=== PATIENT | male | born 1965 ===

== ENCOUNTER 2017-02-02 03:19 | Emergency (ER) | payer MEDICAID, OTHER ==
[2017-02-02 03:19] VITALS: BMI 24.4
[2017-02-02 03:35] VITALS: RESP 16; O2SAT 95
--- NOTE | 2017-02-02 04:20 | C.PDOC ---
History Of Present Illness 51 y/o male with hx alcohol abuse c/o intermittent episodes of bladder and bowel incontinence over last 4-5 months. pt unable to give detailed or specific information. pt de nies back pain, no hx back injury. no difficulty walking. pt denies saddle anesthesia. no fever or chills. pt is undomiciled and reports drinking alcohol last night. Time Seen by Provider: 02/02/17 03:47 Chief Complaint (Nursing): Medical Clearance Past Medical History Reviewed: Historical Data, Nursing Documentation, Vital Signs Vital Signs: Last Vital Signs Temp 97.6 F 02/02/17 03:29 Pulse 90 02/02/17 03:29 Resp 16 02/02/17 03:29 BP 113/75 02/02/17 03:29 Pulse Ox 95 02/02/17 04:46 - Medical History PMH: Arthritis, Graves' Disease, Schizophrenia, Chronic Pain (b/l leg) Denies: Diabetes, Hepatitis, HIV, HTN, Chronic Kidney Disease, Seizures, Sexually Transmitted Disease Surgical History: No Surg Hx - [facility] Procedures DETOXIFICATION SERVICES FOR SUBSTANCE ABUSE TREATMENT (05/20/16) INTRODUCTION OF SERUM/TOX/VACCINE INTO MUSCLE, PERC APPROACH (01/10/17) Family History: States: Unknown Family Hx - Social History Hx Tobacco Use: Yes Hx Alcohol Use: Yes Hx Substance Use: Yes (heroine 15 years ago) - Immunization History Hx Tetanus Toxoid Vaccination: No Hx Influenza Vaccination: No Hx Pneumococcal Vaccination: No Review Of Systems Gastrointestinal: Positive for: Diarrhea. Negative for: Nausea, Vomiting, Abdominal Pain Genitourinary: Positive for: Incontinence (occasional. ). Negative for: Dysuria, Frequency, Hematuria Neurological: Negative for: Weakness, Numbness Physical Exam - Physical Exam Appears: Non-toxic, No Acute Distress Skin: Normal Color, Warm, Dry Head: Atraumatic, Normacephalic Neck: Normal ROM Chest: Symmetrical, No Deformity, No Tenderness Cardiovascular: Rhythm Regular, No Murmur Gastrointestinal/Abdominal: Bowel Sounds, Soft, No Tenderness Back: Normal Inspection, No CVA Tenderness, No Vertebral Tenderness Extremity: No Tenderness, No Pedal Edema, No Calf Tenderness Neurological/Psych: Oriented x3, Normal Speech, Normal Cognition, Normal Motor, Normal Sensation ED Course And Treatment O2 Sat by Pulse Oximetry: 95 Medical Decision Making Medical Decision Making: pt with cc of occasional urinary and stool incontinence. pt ambulating around ED in no acute distress, with steady gait and clear speech. pt is requesting sandwich and something to drink. 6 am pt kept asking nurse for clean pants; we were unable to provide these to patient so he left prior to receiving his discharge papers. pt walking with steady gait and has clear speech. Disposition Counseled Patient/Family Regarding: Diagnosis, Need For Followup - Disposition Disposition: HOME/ ROUTINE Disposition Time: 06:03 Condition: STABLE Instructions: Acute Diarrhea (ED) - Clinical Impression Clinical Impression: Diarrhea
[2017-02-02 04:44] LABS: RBC URINE 3 /hpf (0-3); URINE BILIRUBIN NEGATIVE (NEGATIVE); URINE BLOOD NEGATIVE (NEGATIVE); URINE COLOR Yellow (YELLOW); URINE GLUCOSE (UA) NORMAL (Normal); URINE KETONE NEGATIVE (NEGATIVE); URINE LEUKOCYTE ESTERASE NEG Leu/uL (Negative); URINE PROTEIN NEGATIVE (NEGATIVE); WBC URINE 2 /hpf (0-5)
[2017-02-02 06:19] VITALS: BP 110/70; PULSE 84; TEMP 97.9
== END 2017-02-02 06:19 | disposition home or self-care (01) ==
LOC: C.ER 03:19
DX: R19.7 Diarrhea, unspecified (principal)

== ENCOUNTER 2017-02-16 08:59 | Inpatient (IN) | payer MEDICAID, OTHER ==
[2017-02-16 08:59] VITALS: BMI 24.4
--- NOTE | 2017-02-16 09:26 | C.PDOC ---
History Of Present Illness 51 y/o male with history of alcoholism for 16+ years, currently undomiciled, presents requesting detox. Patient reports last drink was yesterday, noting he usually drinks vodka. Denies drug use. Also c/o chronic bilateral leg pain. Denies headache, nausea, vomiting, or tremors. No trauma or injury. Time Seen by Provider: 02/16/17 09:11 Chief Complaint (Nursing): Substance Abuse History Per: Patient History/Exam Limitations: no limitations Onset/Duration Of Symptoms: Persistent Current Symptoms Are (Timing): Still Present Modifying Factor(s): Alcohol Associated Symptoms: denies: Depression, Suicidal Thoughts, Suicidal Plan Recent travel outside of the [place]: No Past Medical History Reviewed: Historical Data, Nursing Documentation, Vital Signs Vital Signs: Last Vital Signs Temp 99.3 F 02/16/17 09:12 Pulse 112 H 02/16/17 09:12 Resp 20 02/16/17 09:12 BP 108/72 02/16/17 09:12 Pulse Ox 95 02/16/17 10:58 - Medical History PMH: Arthritis, Graves' Disease, Schizophrenia, Chronic Pain (b/l leg) - [facility] Procedures DETOXIFICATION SERVICES FOR SUBSTANCE ABUSE TREATMENT (05/20/16) INTRODUCTION OF SERUM/TOX/VACCINE INTO MUSCLE, PERC APPROACH (01/10/17) Family History: States: Unknown Family Hx - Social History Hx Tobacco Use: Yes Hx Alcohol Use: Yes Hx Substance Use: Yes (heroine 15 years ago) - Immunization History Hx Tetanus Toxoid Vaccination: No Hx Influenza Vaccination: No Hx Pneumococcal Vaccination: No Review Of Systems Except As Marked, All Systems Reviewed And Found Negative. Constitutional: Negative for: Fever, Chills Cardiovascular: Negative for: Chest Pain, Palpitations Respiratory: Negative for: Shortness of Breath Gastrointestinal: Negative for: Nausea, Vomiting Musculoskeletal: Positive for: Leg Pain (bilateral, chronic) Skin: Negative for: Rash Neurological: Negative for: Weakness, Numbness Physical Exam - Physical Exam Appears: Non-toxic, Unkempt, Other (malodorous) Skin: Warm, Dry Head: Atraumatic, Normacephalic Eye(s): bilateral: Normal Inspection Ear(s): Bilateral: Normal Nose: Normal Oral Mucosa: Moist Neck: Normal ROM, Supple Chest: Symmetrical Cardiovascular: Rhythm Regular Respiratory: Normal Breath Sounds, No Rales, No Rhonchi, No Wheezing Gastrointestinal/Abdominal: Soft, No Tenderness Back: Normal Inspection Extremity: Normal ROM, Capillary Refill (< 2 sec. ), Other (chronic venous stasis changes to BL lower extremities with some edema) Neurological/Psych: Oriented x3, Normal Speech, Normal Cognition ED Course And Treatment - Laboratory Results Result Diagrams: 02/16/17 10:19 02/16/17 10:19 O2 Sat by Pulse Oximetry: 95 (ra) Pulse Ox Interpretation: Normal Medical Decision Making Medical Decision Making: Plan: * UDS, UA * Crisis eval * Reassess Progress: Disposition Counseled Patient/Family Regarding: Studies Performed, Diagnosis - Disposition Disposition: HOSPITALIZED Disposition Time: 11:49 Condition: GUARDED - POA Present On Arrival: None - Clinical Impression Clinical Impression: Alcohol abuse - Scribe Statement The provider has reviewed the documentation as recorded by the [employer] Provider Scribe Attestation: All medical record entries made by the Scribe were at my direction and personally dictated by me. I have reviewed the chart and agree that the record accurately reflects my personal performance of the history, physical exam, medical decision making, and the department course for this patient. I have also personally directed, reviewed, and agree with the discharge instructions and disposition. Decision To Admit - Pt Status Changed To: Hospital Disposition Of: Inpatient - Admit Certification Admit to Inpatient:: After my assessment, the patient will require hospitalization for at least two midnights. This is because of the severity of symptoms shown, intensity of services needed, and/or the medical risk in this patient being treated as an outpatient. - InPatient: Physician Admission Certification: I certify that this patient requires 2 or more midnights of care for the following reason:: needs inpatient detox - . Bed Request Type: Detox Patient Diagnosis: Alcohol abuse
[2017-02-16 10:22] LABS: MONO # 0.7 K/uL (0.0-0.8); WHITE BLOOD COUNT 5.9 K/uL (4.8-10.8)
[2017-02-16 10:27] LABS: BASO # 0.1 K/uL (0.0-0.2); BASO % 0.9 % (0.0-2.0); EOS % 0.6 % (0.0-4.0); HEMATOCRIT 40.3 % (35.0-51.0); LYMPH # 0.8 K/uL (1.0-4.3); LYMPH % 12.8 % (20.0-40.0); MEAN CORPUSCULAR HEMOGLOBIN 32.5 pg (27.0-31.0); MEAN CORPUSCULAR HGB CONC 33.8 g/dL (33.0-37.0); MONO % 12.2 % (0.0-10.0)
[2017-02-16 10:31] LABS: MEAN CELL VOLUME 96.4 fL (80.0-94.0)
[2017-02-16 10:39] LABS: CHLORIDE 106 mmol/L (98-107); SODIUM 144 mmol/L (132-148)
[2017-02-16 10:41] LABS: ALB/GLOB RATIO 0.7 (1.0-2.1); AST/SGOT 95 U/L (17-59); BILIRUBIN,TOTAL 2.6 mg/dL (0.2-1.3); CARBON DIOXIDE 26 mmol/L (22-30); GFR AFRICAN-AMERICAN > 60; TOTAL PROTEIN 7.1 g/dL (6.3-8.3)
[2017-02-16 10:42] LABS: ALCOHOL SERUM 124 mg/dl (0-10); ALKALINE PHOSPHATASE 126 U/L (38-126); ALT/SGPT 31 U/L (21-72); BLOOD UREA NITROGEN 8 mg/dL (9-20); CALCIUM 8.1 mg/dl (8.6-10.4); GLUCOSE,RANDOM 92 mg/dL (75-110)
[2017-02-16 11:05] LABS: RBC URINE 1 /hpf (0-3); URINE BILIRUBIN 1+ (NEGATIVE); URINE BLOOD NEGATIVE (NEGATIVE); URINE COLOR Amber (YELLOW); URINE GLUCOSE (UA) NORMAL (Normal); URINE KETONE NEGATIVE (NEGATIVE); URINE LEUKOCYTE ESTERASE NEG Leu/uL (Negative); URINE PROTEIN NEGATIVE (NEGATIVE); WBC URINE 2 /hpf (0-5)
[2017-02-16] MEDS ORDERED: Potassium Chloride 20 mEq ER Tab PO ONE (13:00)
--- NOTE | 2017-02-16 13:00 | PCM.PSYCH ---
Initial Psychiatric Evaluation - Initial Psychiatric Evaluation Type of Admission: Voluntary Legal Status: Capacity Chief Complaint (in patient's own words): "Alcohol" History of Present Illness and Precipitating Events: The patient is seen, chart reviewed and case discussed. This is a 51-year-old male, , has 9 children, homeless and unemployed. The patient is here for alcohol detox. He reports drinking up to 3 pints of vodka every day for the past 16 years, on and off. He had used heroin and cocaine in the past but stopped when he started alcohol. He smokes half pack per day cigarettes and denies all other drugs currently. This is his third detox and he was in [facility] twice in the past. His longest sobriety was 3 years while he was in [facility]. He did overall 20 years in [facility] for drug-related charges. Denies psychiatric problems. He has significant withdrawal symptoms. Medicated. Past psych history: He was depressed and had SI in the past but never attempted suicide and never hospitalized. Family psych history: Brother also had alcohol and heroine use. He is in [facility] now. Medical history: Denies Current Medications: Active Medications Generic Name Dose Route Start Last Admin Trade Name Freq PRN Reason Stop Dose Admin Chlordiazepoxide 0 mg 02/16/17 18:00 Librium PO 02/20/17 17:59 Q6 KAR[facility] Taper Chlordiazepoxide 25 mg 02/16/17 12:24 Librium PO Q4H PRN Alcohol Withdrawal Clonidine HCl 0.1 mg 02/16/17 12:24 Catapres PO Q4H PRN Symptoms of alcohol withdrawl Folic Acid 1 mg 02/16/17 12:30 Folic Acid PO DAILY KARINE Gabapentin 300 mg 02/16/17 14:00 Neurontin PO TID KARINE Hydroxyzine HCl 50 mg 02/16/17 12:22 Atarax PO Q6H PRN Anxiety Ibuprofen 600 mg 02/16/17 12:22 Motrin Tab PO Q6H PRN Pain, moderate (4-7) Multivitamins 1 tab 02/16/17 12:30 Hexavitamin PO DAILY [facility] Potassium Chloride 40 meq 02/16/17 13:00 K-Dur 20 Meq Er Tab PO 02/16/17 13:01 ONCE ONE Thiamine HCl 100 mg 02/16/17 12:30 Vitamin B1 Tab PO DAILY KARINE Trazodone HCl 100 mg 02/16/17 12:24 Desyrel PO HS PRN Insomnia Past Psychiatric History - Past Psychiatric History Previous Treatment History: None Pertinent Medical Hx (Current Medical&Sleep Prob, Allergies): Allergies Allergy/AdvReac Type Severity Reaction Status Date / Time No Known Allergies Allergy Verified 02/15/17 08:43 No Known Home Med 02/02/17 Review of Systems - Neurological Neurological: UNREMARKABLE - Psychiatric Psychiatric: Abnormal Sleep Pattern, Anxiety, Change in Appetite. absent: Depression, Hallucinations, Homicidal Ideation, Irritability, Suicidal Ideation Mental Status Examination - Personal Presentation Personal Presentation: Looks older than stated age - Affect Affect: Constricted - Motor Activity Motor Activity: Calm - Reliability in Providing Information Reliability in Providing Information: Good - Speech Speech: Organized - Mood Mood: Anxious - Formal Thought Process Formal Thought Process: No Impairment - Cognitive Functions Orientation: Person, Place Sensorium: Alert Attention/Concentration: Attentive Abstract Thinking: [place] Estimate of Intelligence: Below average Judgement: Intact, as evidence by: Insight regarding need for hospitalization Memory: Recent intact, as evidence by: Ability to recall events of the day, Remote intact, as evidenced by: Abilit to recall sig. life events - Risk Risk: Withdrawal, Diminished functioning - Strength & Assets Inventory Strength & Assets Inventory: Cooperative - Limitations Limitations: Living alone DSM 5 DX - DSM 5 DSM 5 Diagnosis: Alcohol withdrawal Alcohol use d/o - severe Tobacco use d/o - severe - Recommended/Plan of Treatment Treatment Recommendations and Plan of Treatment: Alcohol: -Librium detox -Gabapentin -As needed medications -Attend groups and activities -Support and psychoeducation -TX -Refer to rehabilitation Tobacco: -Refused patient -TX for abstinence 32 minutes Projected ELOS: 4 days Prognosis: good with treatment Discharge Plan and Discharge Criteria: no withdrawal symptoms rehabilitation - Smoking Cessation Smoking Cessation Initiated: Yes
[2017-02-16 13:19] VITALS: RESP 18
[2017-02-16] MEDS: Multiple Vitamins Tab PO SCH (13:49)
[2017-02-17] MEDS: Multiple Vitamins Tab PO SCH (11:13)
--- NOTE | 2017-02-17 12:26 | CP.PCM.CON ---
History of Present Illness - History of Present Illness History of Present Illness: 51 y/o male with history of alcoholism for 16+ years, and homelessness, seen at bedside with attending Dr. Chun for painful feet. Patient states that he has been on his feet walking around for months and his feet really hurt. Patient denies any other trauma to his feet. He appears in NAD. Patient denies n/f/v/c/d /sob. Review of Systems - Constitutional Constitutional: As Per HPI Past Patient History - Infectious Disease Hx of Infectious Diseases: None - Past Medical History & Family History Past Medical History?: No - Past Social History Smoking Status: Light Smoker < 10 Cigarettes Daily - CARDIAC Hx Hypertension: No - PULMONARY Hx Tuberculosis: No - NEUROLOGICAL Hx Seizures: No - HEENT Hx HEENT Problems: No - RENAL Hx Chronic Kidney Disease: No - ENDOCRINE/METABOLIC Hx Endocrine Disorders: Yes - HEMATOLOGICAL/ONCOLOGICAL Hx Human Immunodeficiency Virus (HIV): No - INTEGUMENTARY Hx Dermatological Problems: No - MUSCULOSKELETAL/RHEUMATOLOGICAL Hx Arthritis: Yes Hx Falls: No - GASTROINTESTINAL Hx Gastrointestinal Disorders: No - GENITOURINARY/GYNECOLOGICAL Hx Sexually Transmitted Disorders: No - PSYCHIATRIC Hx Schizophrenia: Yes Hx Substance Use: Yes (heroine 15 years ago) - SURGICAL HISTORY Hx Surgeries: No - ANESTHESIA Hx Anesthesia: No Hx Anesthesia Reactions: No Hx Malignant Hyperthermia: No Meds Allergies/Adverse Reactions: Allergies Allergy/AdvReac Type Severity Reaction Status Date / Time No Known Allergies Allergy Verified 02/15/17 08:43 - Medications Medications: Current Medications Chlordiazepoxide (Librium) 25 mg PO Q6 [facility] PRN Reason: Taper Stop: 02/20/17 17:59 Last Admin: 02/17/17 11:13 Dose: 25 mg Chlordiazepoxide (Librium) 25 mg PO Q4H PRN PRN Reason: Alcohol Withdrawal Last Admin: 02/16/17 13:53 Dose: 25 mg Clonidine HCl (Catapres) 0.1 mg PO Q4H PRN PRN Reason: Symptoms of alcohol withdrawl Folic Acid (Folic Acid) 1 mg PO DAILY [facility] Last Admin: 02/17/17 11:13 Dose: 1 mg Gabapentin (Neurontin) 300 mg PO TID [facility] Last Admin: 02/17/17 11:13 Dose: 300 mg Hydroxyzine HCl (Atarax) 50 mg PO Q6H PRN PRN Reason: Anxiety Ibuprofen (Motrin Tab) 600 mg PO Q6H PRN PRN Reason: Pain, moderate (4-7) Last Admin: 02/17/17 06:26 Dose: 600 mg Multivitamins (Hexavitamin) 1 tab PO DAILY [facility] Last Admin: 02/17/17 11:13 Dose: 1 tab Thiamine HCl (Vitamin B1 Tab) 100 mg PO DAILY [facility] Last Admin: 02/17/17 11:13 Dose: 100 mg Trazodone HCl (Desyrel) 100 mg PO HS PRN PRN Reason: Insomnia Physical Exam - Constitutional Appears: Well, Non-toxic, No Acute Distress - Extremities Exam Additional comments: Vasc: DP/PT 2/4 b/l, TG wnl, CFT < 3 sec to all digits neuro: grossly intact derm: no edema, no erythema, diffuse hyperkeratotic tissue plantarly b/l, nails are elongated and thickened x 10, no open lesions, no ascending cellulitis, no acute clinical signs of infection ortho: diminished ankle, STJ, 1st ray ROM - Neurological Exam Neurological exam: Alert, Oriented x3 Results - Vital Signs Recent Vital Signs: Last Vital Signs Temp 99.5 F 02/17/17 09:52 Pulse 67 02/17/17 09:52 Resp 18 02/17/17 09:52 BP 108/60 02/17/17 09:52 Pulse Ox 94 L 02/17/17 09:52 - Labs Result Diagrams: 02/16/17 10:19 02/16/17 10:19 Assessment & Plan - Assessment and Plan (Free Text) Assessment: 51 y/o male seen at bedside for painful feet and elongated toenails Plan: patient evaluated and seen at bedside with attending Dr. Chun labs and vitals reviewed Rx x rays of feet b/l will debride nails tomorrow recommend new and supportive shoe gear continue motrin prn pain podiatry will continue to monitor while patient remains in house
--- NOTE | 2017-02-17 14:23 | RAD ---
PROCEDURE: Bilateral Feet Radiographs. HISTORY: painful foot COMPARISON: None available FINDINGS: BONES: Right Foot: No acute displaced fracture. Left Foot: No acute displaced fracture. JOINTS: Right Foot: No dislocation. Left Foot: No dislocation. SOFT TISSUES: Right Foot: Unremarkable. No evidence of radiopaque foreign body. Left Foot: Unremarkable. No evidence of radiopaque foreign body. OTHER FINDINGS: None. IMPRESSION: No acute findings.
[2017-02-18] MEDS: Multiple Vitamins Tab PO SCH (10:58)
--- NOTE | 2017-02-18 12:20 | CP.PCM.PN ---
Subjective - Date & Time of Evaluation Date of Evaluation: 02/18/17 Time of Evaluation: 12:17 - Subjective Subjective: 51 y/o male seen at bedside for painful feet. Patient states that he has been on his feet walking around for months and his feet really hurt. Patient denies any other trauma to his feet. He appears in NAD. He denies any acute events overnight. Patient denies n/f/v/c/d/sob. Objective - Vital Signs/Intake and Output Vital Signs (last 24 hours): Temp Pulse Resp BP Pulse Ox 98.3 F 104 H 18 103/73 94 L 02/18/17 09:34 02/18/17 09:34 02/18/17 09:34 02/18/17 09:34 02/18/17 09:34 - Medications Medications: Current Medications Chlordiazepoxide (Librium) [address] [facility] PRN Reason: Taper Stop: 02/20/17 17:59 Last Admin: 02/18/17 10:58 Dose: 25 mg Chlordiazepoxide (Librium) 25 mg PO Q4H PRN PRN Reason: Alcohol Withdrawal Last Admin: 02/16/17 13:53 Dose: 25 mg Clonidine HCl (Catapres) 0.1 mg PO Q4H PRN PRN Reason: Symptoms of alcohol withdrawl Folic Acid (Folic Acid) [address] [facility] Last Admin: 02/18/17 10:58 Dose: 1 mg Gabapentin (Neurontin) [address] [facility] Last Admin: 02/18/17 10:58 Dose: 300 mg Hydroxyzine HCl (Atarax) 50 mg PO Q6H PRN PRN Reason: Anxiety Ibuprofen (Motrin Tab) 600 mg PO Q6H PRN PRN Reason: Pain, moderate (4-7) Last Admin: 02/17/17 06:26 Dose: 600 mg Multivitamins (Hexavitamin) [address] [facility] Last Admin: 02/18/17 10:58 Dose: 1 tab Thiamine HCl (Vitamin B1 Tab) [address] [facility] Last Admin: 02/18/17 10:58 Dose: 100 mg Trazodone HCl (Desyrel) 100 mg PO HS PRN PRN Reason: Insomnia - Constitutional Appears: Well, Non-toxic, No Acute Distress - Extremities Exam Additional comments: Vasc: DP/PT 2/4 b/l, TG wnl, CFT < 3 sec to all digits neuro: grossly intact derm: no edema, no erythema, diffuse hyperkeratotic tissue plantarly b/l, nails are elongated and thickened x 10, no open lesions, no ascending cellulitis, no acute clinical signs of infection ortho: diminished ankle, STJ, 1st ray ROM - Neurological Exam Neurological Exam: Alert, Awake, Oriented x3 - Psychiatric Exam Psychiatric exam: Normal Affect, Normal Mood Assessment and Plan - Assessment and Plan (Free Text) Assessment: 51 y/o male seen at bedside for painful feet and elongated toenails Plan: patient evaluated and seen at bedside discussed in detail with attending Dr. Chun labs and vitals reviewed x rays of feet b/l show no fractures, dislocations or arthritic changes excisional debridement of nails using sterile nipper down to hygienic length performed patient tolerated procedure well with no complications recommend new and supportive shoe gear continue motrin prn pain thank you for the consultation. please reconsult as necessary
--- NOTE | 2017-02-18 21:58 | PCM.PYCHPN ---
Psychiatric Progress Note - Psychiatric Progress Note Patient seen today, length of contact: 15 MIN Patient Chief Complaint: I CAN'T SLEEP! Problems Identified/Issues Discussed: WITHDRAWAL SYMPTOMS PAWS Medical Problems: NOTHING ACUTE Diagnostic Results: REVIEWED DSM 5 Symptoms Update: INSOMNIA ANXIETY Medication Change: Yes (LIBRIUM TAPER) Medical Record Reviewed: Yes Mental Status Examination - Cognitive Function Orientation: Person, Place, Situation, Time Memory: Intact Attention: WNL Concentration: WNL Association: WNL Fund of Knowledge: WNL - Mood Mood: Anxious - Affect Affect: Constricted - Speech Speech: Appropriate - Formal Thought Process Formal Thought Process: No Impairment - Suicidal Ideation Suicidal Ideation: No - Homicidal Ideation Homicidal Ideation: No Goal/Treatment Plan - Goal/Treatment Plan Need for Continued Stay: Discharge may exacerbated symptoms Progress Toward Problem(s) and Goals/Treatment Plan: ALCOHOL USE DISORDER GROUP [facility] RECRE[facility]ERAPY SUPPORTIVE PSYCHOTHERAPY PSYCHOEDUCATION ALCOHOL WITHDRAWAL LIBRIUM TAPER Estimated Date of D/C: 02/20/17 - Smoking Cessation Smoking Cessation Initiated: No
--- NOTE | 2017-02-18 22:03 | PCM.PYCHPN ---
Psychiatric Progress Note - Psychiatric Progress Note Patient seen today, length of contact: 15 MIN Patient Chief Complaint: I AM NERVOUS. Problems Identified/Issues Discussed: PAWS AFTER CARE Medical Problems: NOTHING ACUTE Diagnostic Results: REVIEWED Medication Change: Yes (LIBRIUM TAPER) Medical Record Reviewed: Yes Mental Status Examination - Cognitive Function Orientation: Person, Place, Situation, Time Memory: Intact Attention: WNL Concentration: WNL Association: WNL Fund of Knowledge: WNL - Mood Mood: Anxious - Affect Affect: Constricted - Speech Speech: Appropriate - Formal Thought Process Formal Thought Process: No Impairment - Suicidal Ideation Suicidal Ideation: No - Homicidal Ideation Homicidal Ideation: No Goal/Treatment Plan - Goal/Treatment Plan Need for Continued Stay: Discharge may exacerbated symptoms Progress Toward Problem(s) and Goals/Treatment Plan: ALCOHOL USE DISORDER GROUP [facility] RECREATIONAL THERAPY SUPPORTIVE PSYCHOTHERAPY PSYCHOEDUCATION ALCOHOL WITHDRAWAL LIBRIUM TAPER Estimated Date of D/C: 02/20/17 - Smoking Cessation Smoking Cessation Initiated: Yes
[2017-02-18] MEDS ORDERED: Aluminum Hydroxide/Magnesium Hydroxide Susp (30 mL) PO PRN (22:19)
[2017-02-19 09:20] VITALS: BP 102/66; PULSE 112; TEMP 98; O2SAT 97
[2017-02-19] MEDS: Multiple Vitamins Tab PO SCH (09:21)
--- NOTE | 2017-02-19 09:58 | PCM.PYCHPN ---
Psychiatric Progress Note - Psychiatric Progress Note Patient seen today, length of contact: 16 min Patient Chief Complaint: "Alcohol" Medication Change: Yes (LIBRIUM TAPER) Medical Record Reviewed: Yes Mental Status Examination - Cognitive Function Orientation: Person, Place, Situation, Time Memory: Intact Attention: WNL Concentration: WNL Association: WNL Fund of Knowledge: WNL - Mood Mood: Anxious - Affect Affect: Constricted - Speech Speech: Appropriate - Formal Thought Process Formal Thought Process: No Impairment - Suicidal Ideation Suicidal Ideation: No - Homicidal Ideation Homicidal Ideation: No Goal/Treatment Plan - Goal/Treatment Plan Need for Continued Stay: Discharge may exacerbated symptoms Progress Toward Problem(s) and Goals/Treatment Plan: Alcohol: -Librium detox -Gabapentin -As needed medications -Attend groups and activities -Support and psychoeducation -MO -Refer to rehabilitation Tobacco: -Refused patient -MO for abstinence 32 minutes Estimated Date of D/C: 02/20/17
--- NOTE | 2017-02-19 12:21 | PCM.PYCHDC ---
Mental Status Examination - Mental Status Examination Orientation: Person, Place, Situation, Time Memory: Impaired Mood: Anxious Affect: Constricted Speech: Appropriate Attention: WNL Concentration: WNL Association: WNL Fund of Knowledge: WNL Formal Thought Process: No Impairment Suicidal Ideation: No Current Homicidal Ideation?: No Discharge Summary - Discharge Note Consultations:: List each consultation separately and include: 1. Reason for request. 2. Findings. 3. Follow-up Summary of Hospital Course include:: 1. Description of specific treatment plan utilized for patients during their course of treatmen. 2. Summarize the time- course for resolution of acute symptoms and/or regressed behaviors. 3. Describe issues identified and worked on during hospitalization. 4. Describe medication utilized. 5. Describe medical problems identified and treated. 6. Reassessment of suicide risk Summary of Hospital Course: The patient is seen, chart reviewed and case discussed. On admission: This is a 51-year-old male, , has 9 children, homeless and unemployed. The patient is here for alcohol detox. He reports drinking up to 3 pints of vodka every day for the past 16 years, on and off. He had used heroin and cocaine in the past but stopped when he started alcohol. He smokes half pack per day cigarettes and denies all other drugs currently. This is his third detox and he was in [facility] twice in the past. His longest sobriety was 3 years while he was in [facility]. He did overall 20 years in [facility] for drug-related charges. Denies psychiatric problems. He has significant withdrawal symptoms. Medicated. Past psych history: He was depressed and had SI in the past but never attempted suicide and never hospitalized. Family psych history: Brother also had alcohol and heroine use. He is in [facility] now. Medical history: Denies Hospital course: The pt was admitted and started on treatment with psychotherapy, support, psychoeducation and medications. PA and CBT used. The pt attended only few groups and activities, as well as milieu therapy. All the risks and benefits of medications are discussed and the patient understood and agreed. After care discussed with the patient. However, before we could arrange anything (he was admitted on Sunday, in the afternoon) he signed out AMA, stating he is good enough. - Final Diagnosis (DSM 5) Condition upon Discharge: GUARDED DSM 5: Alcohol withdrawal Alcohol use d/o - severe Tobacco use d/o - severe Disposition: AGAINST MEDICAL ADVICE Follow-up Treatment Plan: Use relapse prevention skills Return to ER or call 911 if suicidal, homicidal or symptoms relapse. Stay away from stress, alcohol and drugs.
[2017-02-19 13:11] LABS: CHLORIDE 102 mmol/L (98-107)
[2017-02-19 13:12] LABS: POTASSIUM 3.7 mmol/L (3.6-5.2); SODIUM 140 mmol/L (132-148)
[2017-02-19 13:14] LABS: ALB/GLOB RATIO 0.7 (1.0-2.1); ALKALINE PHOSPHATASE 127 U/L (38-126); AST/SGOT 80 U/L (17-59); BILIRUBIN,TOTAL 2.8 mg/dL (0.2-1.3); CARBON DIOXIDE 26 mmol/L (22-30); GFR AFRICAN-AMERICAN > 60; TOTAL PROTEIN 8.2 g/dL (6.3-8.3)
[2017-02-19 13:15] LABS: ALT/SGPT 24 U/L (21-72); BLOOD UREA NITROGEN 10 mg/dL (9-20); CALCIUM 9.8 mg/dl (8.6-10.4); GLUCOSE,RANDOM 102 mg/dL (75-110); MAGNESIUM 1.6 mg/dL (1.6-2.3)
== END 2017-02-19 12:05 | disposition left against medical advice (07) | DRG 749 ==
LOC: C.ER 08:59 → C.9E 11:50 → C.7D 12:01
PROVIDERS: ADMIT Psychiatry & Neurology Psychiatry; ATTEND Psychiatry & Neurology Psychiatry
PROC: HZ2ZZZZ Detoxification Services for Substance Abuse Treatment (ICD-10-PCS; principal; 2017-02-16)
PROC: HZ56ZZZ Individual Psychotherapy for Substance Abuse Treatment, Psychoeducation (ICD-10-PCS; 2017-02-16)
PROC: HZ59ZZZ Individual Psychotherapy for Substance Abuse Treatment, Supportive (ICD-10-PCS; 2017-02-16)
DX: F10.239 Alcohol dependence with withdrawal, unspecified (principal); F20.9 Schizophrenia, unspecified; E05.00 Thyrotoxicosis with diffuse goiter without thyrotoxic crisis or storm; F17.210 Nicotine dependence, cigarettes, uncomplicated; F41.9 Anxiety disorder, unspecified; G47.00 Insomnia, unspecified; M79.605 Pain in left leg; M79.604 Pain in right leg; G89.29 Other chronic pain

== ENCOUNTER 2017-02-24 21:40 | Observation (INO) | payer MEDICAID, OTHER ==
[2017-02-24 21:40] VITALS: BMI 24.4
[2017-02-24 22:06] VITALS: RESP 20
--- NOTE | 2017-02-24 23:34 | C.PDOC ---
History Of Present Illness 51 year old male brought to the ED by ambulance for alcohol intoxication. Patient admits to drinking alcohol and has EtOH on breath. He denies any physical complaints at this time. Time Seen by Provider: 02/24/17 21:55 Chief Complaint (Nursing): Substance Abuse History Per: Patient, EMS History/Exam Limitations: intoxication Onset/Duration Of Symptoms: Unknown Past Medical History Reviewed: Historical Data, Nursing Documentation, Vital Signs Vital Signs: Last Vital Signs Temp 97.1 F L 02/25/17 04:55 Pulse 69 02/25/17 04:55 Resp 20 02/25/17 04:55 BP 132/68 02/25/17 04:55 Pulse Ox 98 02/25/17 04:55 - Medical History PMH: Arthritis, Graves' Disease, Schizophrenia, Chronic Pain (b/l leg) - [facility] Procedures DETOXIFICATION SERVICES FOR SUBSTANCE ABUSE TREATMENT (02/16/17) INDIV PSYCHOTHERAPY FOR SUBSTANCE ABUSE TREATMENT, SUPPORT (02/16/17) INDIV PSYCHOTHERAPY FOR SUBSTANCE ABUSE, PSYCHOEDUCATION (02/16/17) INTRODUCTION OF SERUM/TOX/VACCINE INTO MUSCLE, PERC APPROACH (01/10/17) Family History: States: No Known Family Hx - Social History Hx Tobacco Use: Yes Hx Alcohol Use: Yes Hx Substance Use: Yes (heroine 15 years ago) - Immunization History Hx Tetanus Toxoid Vaccination: No Hx Influenza Vaccination: No Hx Pneumococcal Vaccination: No Review Of Systems Except As Marked, All Systems Reviewed And Found Negative. Cardiovascular: Negative for: Chest Pain, Palpitations Respiratory: Negative for: Cough, Shortness of Breath Psych: Positive for: Other (alcohol intoxication) Physical Exam - Physical Exam Appears: Non-toxic, No Acute Distress, Other (EtOH on breath, appears intoxicated ) Skin: Warm, Dry Head: Normacephalic Neck: Supple Cardiovascular: Rhythm Regular Respiratory: Normal Breath Sounds, No Rales, No Rhonchi, No Wheezing Gastrointestinal/Abdominal: Normal Exam, Bowel Sounds, Soft, No Tenderness, No Guarding, No Rebound Extremity: Normal ROM, No Tenderness Neurological/Psych: Other (awake, alert, moving all 4 extremities spontaneously) ED Course And Treatment O2 Sat by Pulse Oximetry: 96 (room air) Pulse Ox Interpretation: Normal Progress Note: Accucheck ordered and reviewed. Patient placed in ED observation pending sobriety. 12:05am- Patient reassessed, arousable to verbal stimuli, in no pain/distress. Patient pending sobriety. Reevaluation Time: 04:50 Reassessment Condition: Improved (Patient reassessed, is currently AAOx3, and ambulating normally in the ED. Patient clinically sober at this time, will discharge.) ED OBSERVATION Date of observation admission: 02/24/17 Time of observation admission: 22:30 - Observation admission statement Patient is being placed in observation because:: Pending sobriety - Goals of Observation Goals of observation are:: Pending sobriety Disposition Counseled Patient/Family Regarding: Diagnosis, Need For Followup - Disposition Disposition: HOME/ ROUTINE Disposition Time: 04:50 Condition: STABLE - Clinical Impression Clinical Impression: Alcohol abuse with intoxication - Scribe Statement The provider has reviewed the documentation as recorded by the Scribjewel Dinh All medical record entries made by the Ciera were at my direction and personally dictated by me. I have reviewed the chart and agree that the record accurately reflects my personal performance of the history, physical exam, medical decision making, and the department course for this patient. I have also personally directed, reviewed, and agree with the discharge instructions and disposition.
[2017-02-25 04:55] VITALS: BP 132/68; PULSE 69; TEMP 97.1
[2017-02-27 18:01] VITALS: O2SAT 96
== END 2017-02-25 04:53 | disposition home or self-care (01) ==
LOC: C.ER 21:40 → C.9OBSV 22:40
PROVIDERS: ADMIT Emergency Medicine; ATTEND Emergency Medicine
DX: F10.120 Alcohol abuse with intoxication, uncomplicated (principal); F20.9 Schizophrenia, unspecified; Z87.891 Personal history of nicotine dependence; Y90.9 Presence of alcohol in blood, level not specified
CPT/HCPCS: 82948; G0378

== ENCOUNTER 2017-02-25 23:31 | Emergency (ER) | payer OTHER ==
[2017-02-25 23:32] VITALS: BMI 24.4
[2017-02-26] MEDS ORDERED: Sodium Chloride 0.9% 1,000 ML IV ONE (00:58)
--- NOTE | 2017-02-26 00:58 | C.PDOC ---
History Of Present Illness 51 y/o male presents to ED with complaint of dysuria for 1 day. Patient reports history of kidney stones, unsure of which kidney, and has not followed up since diagnosis. Patient also complains of minimal back pain. Denies trauma, fever, chills, urinary frequency, penile discharge, or other associated symptoms. Time Seen by Provider: 02/26/17 00:01 Chief Complaint (Nursing): Male Genitourinary History Per: Patient History/Exam Limitations: no limitations Onset/Duration Of Symptoms: Days Current Symptoms Are (Timing): Still Present Associated Symptoms: Urinary Symptoms. denies: Fever, Chills Recent travel outside of the [place]: No Past Medical History Reviewed: Historical Data, Nursing Documentation, Vital Signs Vital Signs: Last Vital Signs Temp 98 F 02/25/17 23:42 Pulse 81 02/26/17 04:50 Resp 18 02/26/17 04:50 BP 128/86 02/26/17 04:50 Pulse Ox 98 02/26/17 04:50 - Medical History PMH: Arthritis, Depression, Graves' Disease, Schizophrenia, Chronic Pain (b/l leg) - [facility] Procedures DETOXIFICATION SERVICES FOR SUBSTANCE ABUSE TREATMENT (02/16/17) INDIV PSYCHOTHERAPY FOR SUBSTANCE ABUSE TREATMENT, SUPPORT (02/16/17) INDIV PSYCHOTHERAPY FOR SUBSTANCE ABUSE, PSYCHOEDUCATION (02/16/17) INTRODUCTION OF SERUM/TOX/VACCINE INTO MUSCLE, PERC APPROACH (01/10/17) Family History: States: Unknown Family Hx - Social History Hx Tobacco Use: Yes Hx Alcohol Use: Yes Hx Substance Use: Yes (heroine 15 years ago) - Immunization History Hx Tetanus Toxoid Vaccination: No Hx Influenza Vaccination: No Hx Pneumococcal Vaccination: No Review Of Systems Except As Marked, All Systems Reviewed And Found Negative. Constitutional: Negative for: Fever, Chills Gastrointestinal: Negative for: Nausea, Vomiting, Abdominal Pain Genitourinary: Positive for: Dysuria. Negative for: Frequency, Penile Discharge , Scrotal Pain Musculoskeletal: Positive for: Back Pain Skin: Negative for: Rash Neurological: Negative for: Dizziness Physical Exam - Physical Exam Appears: Non-toxic, No Acute Distress, Other ((+) AOB) Skin: Warm, Dry Head: Atraumatic, Normacephalic Chest: Symmetrical Cardiovascular: Rhythm Regular, No Murmur Respiratory: Normal Breath Sounds, No Rales, No Rhonchi, No Wheezing Gastrointestinal/Abdominal: Soft, No Tenderness, No Guarding, No Rebound Back: Normal Inspection, No CVA Tenderness Male Genital: Other (patient refuses) Extremity: Normal ROM, Capillary Refill (< 2 sec.) Neurological/Psych: Oriented x3, Normal Speech, Normal Cognition ED Course And Treatment - Laboratory Results Result Diagrams: 02/26/17 01:50 02/26/17 01:50 O2 Sat by Pulse Oximetry: 97 (RA) Pulse Ox Interpretation: Normal - CT Scan/US CT Abdomen/Pelvis Other Rad Studies (CT/US): Read By Radiologist, Radiology Report Reviewed CT/US Interpretation: FINDINGS: Lower thorax: There is a small esophageal haital hernia.There are multiple non-obstructing bilateral. renal calculi. There is minimal bibasilar atelectasis. ABDOMEN: Liver: The liver is nodular in contour, suggesting cirrhosis.There are no focal liver lesions seen on. noncontrast evaluation. Gallbladder and bile ducts: Multiple calcified gallstones are present. No ductal dilation. Pancreas: Unremarkable. No ductal dilation. Spleen: Unremarkable. No splenomegaly. Adrenals: Unremarkable. No mass. Kidneys and ureters: Unremarkable. No obstructing stones. No hydronephrosis. Stomach and bowel: Unremarkable. No obstruction. No mucosal thickening. Appendix: A normal appendix is identified. PELVIS: Bladder: Unremarkable. No stones. Reproductive: Unremarkable as visualized. ABDOMEN and PELVIS: Intraperitoneal space: Unremarkable. No free air. No significant fluid collection. Bones/joints: No acute fracture. No dislocation. Soft tissues: Unremarkable. Vasculature: Unremarkable. No abdominal aortic aneurysm. Lymph nodes: Unremarkable. No enlarged lymph nodes. IMPRESSION: No acute findings. Progress Note: Observed gross hematuria in urine sample. Labs ordered including CT. Disposition Counseled Patient/Family Regarding: Diagnosis, Need For Followup, Rx Given - Disposition Disposition: HOME/ ROUTINE Disposition Time: 05:27 Condition: STABLE Additional Instructions: Increase PO fluids Take meds as directed Follow up with Dr Jesus Manuel Castillo to ER if worse Prescriptions: Ciprofloxacin HCl [Cipro] 500 mg PO BID #14 tab Ibuprofen [Motrin] 600 mg PO Q6H #30 tab Tamsulosin [Flomax] 0.4 mg PO DAILY #7 cap Instructions: Kidney Stones (ED), Urinary Tract Infection in Men (ED) - POA Present On Arrival: [facility] - Clinical Impression Clinical Impression: Renal calculi, UTI (urinary tract infection), Alcohol abuse - PA / FARM REPORTER / Resident Statement MD/DO has reviewed & agrees with the documentation as recorded. - Scribe Statement The provider has reviewed the documentation as recorded by the Tanneribe Carlos Enrique Pinon Provider Scribe Attestation: All medical record entries made by the Tanneribjewel were at my direction and personally dictated by me. I have reviewed the chart and agree that the record accurately reflects my personal performance of the history, physical exam, medical decision making, and the department course for this patient. I have also personally directed, reviewed, and agree with the discharge instructions and disposition.
[2017-02-26 01:17] LABS: RBC URINE 850 /hpf (0-3); URINE BACTERIA RARE (<OCC); URINE BILIRUBIN NEGATIVE (NEGATIVE); URINE BLOOD 3+ (NEGATIVE); URINE COLOR Yellow (YELLOW); URINE GLUCOSE (UA) NORMAL (Normal); URINE KETONE NEGATIVE (NEGATIVE); URINE LEUKOCYTE ESTERASE 2+ Leu/uL (Negative); URINE PROTEIN 1+ mg/dL (NEGATIVE); WBC URINE 50 /hpf (0-5)
[2017-02-26] MEDS ORDERED: Sodium Chloride 0.9% 1,000 ML ONE (01:34)
[2017-02-26 01:53] LABS: BASO % 0.6 % (0.0-2.0); EOS # 0.2 K/uL (0.0-0.7); EOS % 3.3 % (0.0-4.0); HEMATOCRIT 33.4 % (35.0-51.0); LYMPH # 1.2 K/uL (1.0-4.3); LYMPH % 20.5 % (20.0-40.0); MEAN CELL VOLUME 97.7 fL (80.0-94.0); MEAN CORPUSCULAR HGB CONC 33.8 g/dL (33.0-37.0); MEAN PLATELET VOLUME 8.3 fL (7.2-11.7); MONO # 0.6 K/uL (0.0-0.8); MONO % 10.9 % (0.0-10.0); NRBC % 0.2 % (0.0-2.0); RED CELL DISTRIBUTION WIDTH 12.5 % (11.5-14.5); WHITE BLOOD COUNT 5.9 K/uL (4.8-10.8)
[2017-02-26 02:01] LABS: CHLORIDE 98 mmol/L (98-107)
[2017-02-26 02:02] LABS: POTASSIUM 3.1 mmol/L (3.6-5.2); SODIUM 140 mmol/L (132-148)
[2017-02-26 02:04] LABS: ALB/GLOB RATIO 0.8 (1.0-2.1); ALKALINE PHOSPHATASE 108 U/L (38-126); AST/SGOT 69 U/L (17-59); BILIRUBIN,TOTAL 2.5 mg/dL (0.2-1.3); CARBON DIOXIDE 28 mmol/L (22-30); GFR AFRICAN-AMERICAN > 60; TOTAL PROTEIN 7.3 g/dL (6.3-8.3)
[2017-02-26 02:05] LABS: ALT/SGPT 38 U/L (21-72); BLOOD UREA NITROGEN 11 mg/dL (9-20); CALCIUM 8.2 mg/dl (8.6-10.4); GLUCOSE,RANDOM 87 mg/dL (75-110)
[2017-02-26] MEDS ORDERED: Potassium Chloride 20 mEq ER Tab PO ONE (02:54)
[2017-02-26] MEDS ORDERED: Potassium Chloride 10 mEq ER Tab PO SCH (03:00)
[2017-02-26 06:10] VITALS: BP 105/73; PULSE 88; RESP 20; TEMP 98.1; O2SAT 98
--- NOTE | 2017-02-26 08:39 | CT ---
PROCEDURE: CT Abdomen and Pelvis without intravenous contrast HISTORY: low back pain, hematuria COMPARISON: None. TECHNIQUE: Multiple contiguous axial images were performed through the abdomen and pelvis without intravenous contrast. Subsequently, sagittal and coronal reformatted images were obtained. Radiation dose: Total exam DLP = 439 mGy-cm. This CT exam was performed using one or more of the following dose reduction techniques: Automated exposure control, adjustment of the mA and/or kV according to patient size, and/or use of iterative reconstruction technique. FINDINGS: LOWER THORAX: Small esophageal hiatal hernia. Mild bibasilar atelectasis. LIVER: Nodular contour of the liver suggesting cirrhosis. Limited evaluation of the parenchyma on this noncontrast exam. GALLBLADDER AND BILE DUCTS: Multiple calcified gallstones are present. PANCREAS: Unremarkable. No gross lesion or ductal dilatation. SPLEEN: Splenomegaly. ADRENALS: Unremarkable. No mass. KIDNEYS AND URETERS: Multiple nonobstructing bilateral renal calculi. For example, a lower pole left renal calculus measures up to 5.2 millimeters. VASCULATURE: Unremarkable. No aortic aneurysm. BOWEL: Unremarkable. No obstruction. No gross mural thickening. APPENDIX: Unremarkable. Normal appendix. PERITONEUM: Unremarkable. No free fluid. No free air. LYMPH NODES: Shotty para-aortic and mesenteric lymph nodes. BLADDER: Mildly thick-walled urinary bladder. REPRODUCTIVE: Unremarkable. BONES: No acute fracture. OTHER FINDINGS: Degenerative changes in the spine. IMPRESSION: Multiple bilateral nonobstructing renal calculi. Mildly thick-walled urinary bladder. Clinical correlation. Multiple calcified gallstones are present. Nodular contour of the liver suggesting cirrhosis. Small esophageal hiatal hernia. Additional findings as above. These findings were preliminarily reported at 1:35 a.m. on 02/26/[address] Margareth Mei from [facility].
== END 2017-02-26 06:10 | disposition home or self-care (01) ==
LOC: C.ER 23:31
DX: N39.0 Urinary tract infection, site not specified (principal); N20.0 Calculus of kidney; F10.10 Alcohol abuse, uncomplicated
CPT/HCPCS: 74176; 80053; 81001; 83690; 85025; 96361; 96374; 99285; J1885; J7040

== ENCOUNTER 2017-03-18 12:51 | Observation (INO) | payer MEDICAID, OTHER ==
[2017-03-18 12:51] VITALS: BMI 26.6
[2017-03-18 12:53] VITALS: TEMP 98.5
--- NOTE | 2017-03-18 13:28 | C.PDOC ---
History Of Present Illness Patient is a 51 y/o male, with PMHx of alcohol abuse, presents to the ED with alcohol intoxication, requesting detox. Patient is also complaining of chronic bilateral leg pain for "forever". Patient has been seen here multiple times in the past with similar complaints, and has had negative ultrasound, and x-ray results. Patient is resting comfortably in bed, with no acute distress. Pt denies any trauma, injury, extremity weakness/numbness, fever, or any other associated symptoms at this time. Time Seen by Provider: 03/18/17 13:07 Chief Complaint (Nursing): Lower Extremity Problem/Injury History Per: Patient History/Exam Limitations: no limitations Onset/Duration Of Symptoms: Other ("forever") Current Symptoms Are (Timing): Still Present Additional History Per: Patient Past Medical History Reviewed: Historical Data, Nursing Documentation, Vital Signs Vital Signs: Last Vital Signs Temp 98.5 F 03/18/17 15:21 Pulse 98 H 03/18/17 15:21 Resp 16 03/18/17 15:21 BP 119/70 03/18/17 15:21 Pulse Ox 95 03/18/17 16:24 - Medical History PMH: Arthritis, Depression, Graves' Disease, Schizophrenia, Chronic Pain (b/l leg) Denies: Diabetes, Hepatitis, HTN, Chronic Kidney Disease, Seizures, Sexually Transmitted Disease Comment Only: HIV (UNKNOWN) - [facility] Procedures DETOXIFICATION SERVICES FOR SUBSTANCE ABUSE TREATMENT (02/16/17) INDIV PSYCHOTHERAPY FOR SUBSTANCE ABUSE TREATMENT, SUPPORT (02/16/17) INDIV PSYCHOTHERAPY FOR SUBSTANCE ABUSE, PSYCHOEDUCATION (02/16/17) INSERTION OF ENDOTRACHEAL AIRWAY INTO TRACHEA, VIA OPENING (02/21/17) INTRODUCTION OF SERUM/TOX/VACCINE INTO MUSCLE, PERC APPROACH (01/10/17) RESPIRATORY VENTILATION, 24-96 CONSECUTIVE HOURS (02/21/17) Family History: States: Unknown Family Hx - Social History Hx Tobacco Use: Yes Hx Alcohol Use: Yes Hx Substance Use: Yes (Unknown) - Immunization History Hx Tetanus Toxoid Vaccination: No Hx Influenza Vaccination: No Hx Pneumococcal Vaccination: No Review Of Systems Except As Marked, All Systems Reviewed And Found Negative. Constitutional: Negative for: Fever, Chills Cardiovascular: Negative for: Chest Pain, Palpitations Respiratory: Negative for: Shortness of Breath Gastrointestinal: Negative for: Nausea, Vomiting, Abdominal Pain Musculoskeletal: Positive for: Leg Pain (bilateral) Neurological: Negative for: Weakness, Numbness Physical Exam - Physical Exam Appears: Non-toxic, No Acute Distress Skin: Normal Color, Warm, Dry Head: Atraumatic, Normacephalic Eye(s): bilateral: Normal Inspection, EOMI Neck: Normal ROM, Supple Chest: Symmetrical, No Tenderness Cardiovascular: Rhythm Regular, No Murmur Respiratory: Normal Breath Sounds, No Rales, No Rhonchi, No Wheezing Extremity: Normal ROM, No Tenderness, Pedal Edema (mild +1 bilaterally), Capillary Refill (< 2 sec.), No Deformity Extremity: Bilateral: Atraumatic, Normal Color And Temperature, Normal ROM Neurological/Psych: Oriented x3, Normal Speech, Normal Cognition, Normal Motor, Normal Sensation ED Course And Treatment O2 Sat by Pulse Oximetry: 95 (on RA) Pulse Ox Interpretation: Normal Progress Note: Spoke with [employer] construction worker, who said there are no detox beds avaiable at this time. Medical Decision Making Medical Decision Making: pt with chronic leg pain, eval multiple times, including neg us/xr. pt also requests detox. no detox beds avail 1500: pt seen ambulatory steady gait, clinically sober, no detox beds avail. stable for d/c Disposition - Disposition Disposition: HOME/ ROUTINE Disposition Time: 04:00 Condition: GOOD - Clinical Impression Clinical Impression: Alcohol abuse - Scribe Statement The provider has reviewed the documentation as recorded by the Ciera Schmidt Provider Attestation: All medical record entries made by the Ciera were at my direction and personally dictated by me. I have reviewed the chart and agree that the record accurately reflects my personal performance of the history, physical exam, medical decision making, and the department course for this patient. I have also personally directed, reviewed, and agree with the discharge instructions and disposition.
[2017-03-18 15:24] VITALS: BP 119/70; PULSE 98; RESP 16
[2017-03-18 16:24] VITALS: O2SAT 95
== END 2017-03-18 16:24 | disposition home or self-care (01) ==
LOC: C.ER 12:51 → C.9OBSV 13:22
PROVIDERS: ADMIT Student in an Organized Health Care Education/Training Program; ATTEND Student in an Organized Health Care Education/Training Program
DX: F10.129 Alcohol abuse with intoxication, unspecified (principal); Z87.891 Personal history of nicotine dependence; F20.9 Schizophrenia, unspecified; Y90.9 Presence of alcohol in blood, level not specified
CPT/HCPCS: 82948; 99284; G0378

== ENCOUNTER 2017-04-07 13:19 | Inpatient (IN) | payer MEDICAID, OTHER ==
[2017-04-07 13:20] VITALS: BMI 26.6
[2017-04-07] MEDS ORDERED: Aspirin 325 mg EC Tablets PO STA (13:48)
[2017-04-07] MEDS ORDERED: Aspirin 325 mg EC Tablets PO ONE (13:59)
--- NOTE | 2017-04-07 14:00 | C.PDOC ---
History Of Present Illness 51 y/o male presents to ED with complaints of chronic swelling to legs and requesting detox. At ED patient has a new complaints of chest pain. Patient states that while waking earlier today started to have chest pain and felt SOB, told friend to call EMS for assistance. Pain is rated a 5/10 with associated sob and dizziness. Patient has frequently been seen at ED for detox and admits to currently being homeless. Patient denies fever, n/v/d, GUNTER or any other complaints at this time. Time Seen by Provider: 04/07/17 13:25 Chief Complaint (Nursing): Chest Pain History Per: Patient History/Exam Limitations: no limitations Onset/Duration Of Symptoms: Hrs Current Symptoms Are (Timing): Still Present Quality: "Pain" Past Medical History Reviewed: Historical Data, Nursing Documentation, Vital Signs Vital Signs: Last Vital Signs Temp 98.5 F 04/07/17 16:08 Pulse 85 04/07/17 16:08 Resp 18 04/07/17 16:08 BP 112/72 04/07/17 16:08 Pulse Ox 95 04/07/17 16:08 - Medical History PMH: Arthritis, Depression, Graves' Disease, Schizophrenia, Chronic Pain (b/l leg) Comment Only: HIV (UNKNOWN) - [facility] Procedures DETOXIFICATION SERVICES FOR SUBSTANCE ABUSE TREATMENT (02/16/17) INDIV PSYCHOTHERAPY FOR SUBSTANCE ABUSE TREATMENT, SUPPORT (02/16/17) INDIV PSYCHOTHERAPY FOR SUBSTANCE ABUSE, PSYCHOEDUCATION (02/16/17) INSERTION OF ENDOTRACHEAL AIRWAY INTO TRACHEA, VIA OPENING (02/21/17) INTRODUCTION OF SERUM/TOX/VACCINE INTO MUSCLE, PERC APPROACH (01/10/17) RESPIRATORY VENTILATION, 24-96 CONSECUTIVE HOURS (02/21/17) Family History: States: Unknown Family Hx - Social History Hx Tobacco Use: Yes Hx Alcohol Use: Yes Hx Substance Use: Yes (Unknown) - Immunization History Hx Tetanus Toxoid Vaccination: No Hx Influenza Vaccination: No Hx Pneumococcal Vaccination: No Review Of Systems Except As Marked, All Systems Reviewed And Found Negative. Constitutional: Negative for: Fever, Chills Eyes: Negative for: Vision Change Cardiovascular: Positive for: Chest Pain Respiratory: Positive for: Shortness of Breath Gastrointestinal: Negative for: Nausea, Vomiting Musculoskeletal: Positive for: Leg Pain Skin: Negative for: Rash Neurological: Positive for: Dizziness. Negative for: Headache Physical Exam - Physical Exam Appears: No Acute Distress Skin: Normal Color, Warm Head: Atraumatic, Normacephalic Eye(s): bilateral: Normal Inspection, PERRL, EOMI Oral Mucosa: Moist Throat: Normal, No Erythema Neck: Normal ROM Chest: Symmetrical Cardiovascular: Rhythm Regular, No Murmur Respiratory: Normal Breath Sounds, No Rales, No Rhonchi, No Wheezing Gastrointestinal/Abdominal: Soft, No Tenderness, No Guarding, No Rebound Extremity: Normal ROM, Capillary Refill (<2 seconds), Other (Chronic Venostasis Changes) Neurological/Psych: Oriented x3, Normal Motor, Normal Sensation, Normal Reflexes ED Course And Treatment - Laboratory Results Result Diagrams: 04/07/17 14:14 04/07/17 14:14 ECG Rhythm: Sinus Rhythm ECG Interpretation: No Changes From Prior Rate From EC (BPM) O2 Sat by Pulse Oximetry: 96 (RA) Pulse Ox Interpretation: Normal Medical Decision Making Medical Decision Making: Patient was notified no detox meds are available, cardiac enzyme Possible Admission Disposition Discussed With : Cinthia Camacho Doctor Will See Patient In The: Hospital Counseled Patient/Family Regarding: Studies Performed - Disposition Disposition: HOSPITALIZED Disposition Time: 16:50 Condition: GUARDED - Clinical Impression Clinical Impression: Chest pain, Alcohol abuse - Scribe Statement The provider has reviewed the documentation as recorded by the Scribjewel Mcneil All medical record entries made by the Tanneribjewel were at my direction and personally dictated by me. I have reviewed the chart and agree that the record accurately reflects my personal performance of the history, physical exam, medical decision making, and the department course for this patient. I have also personally directed, reviewed, and agree with the discharge instructions and disposition. Decision To Admit - Pt Status Changed To: Hospital Disposition Of: Inpatient - Admit Certification Admit to Inpatient:: After my assessment, the patient will require hospitalization for at least two midnights. This is because of the severity of symptoms shown, intensity of services needed, and/or the medical risk in this patient being treated as an outpatient. - InPatient: Physician Admission Certification: I certify that this patient requires 2 or more midnights of care for the following reason:: patient being hospitalized for r/o ACS. Due to complication hx of alcohol abuse and the request for detox, patient will be entered as a full admission. - . Bed Request Type: Telemetry Patient Diagnosis: Chest pain, Alcohol abuse
--- NOTE | 2017-04-07 14:16 | RAD ---
HISTORY: Chest pain COMPARISON: 10/18/2016. TECHNIQUE: Chest PA and lateral FINDINGS: LUNGS: The lungs are hyperinflated and there is peribronchial thickening with chronic changes in both lungs. There is no lobar pneumonia. PLEURA: No significant pleural effusion identified. No pneumothorax apparent. CARDIOVASCULAR: Normal. OSSEOUS STRUCTURES: No significant abnormalities. VISUALIZED UPPER ABDOMEN: Normal. OTHER FINDINGS: None. IMPRESSION: No active pulmonary disease. COPD.
[2017-04-07 14:20] LABS: BASO # 0.1 K/uL (0.0-0.2); BASO % 1.1 % (0.0-2.0); EOS % 0.7 % (0.0-4.0); HEMATOCRIT 43.9 % (35.0-51.0); LYMPH # 0.9 K/uL (1.0-4.3); LYMPH % 15.7 % (20.0-40.0); MEAN CORPUSCULAR HEMOGLOBIN 31.8 pg (27.0-31.0); MEAN CORPUSCULAR HGB CONC 32.8 g/dL (33.0-37.0); MEAN PLATELET VOLUME 8.8 fL (7.2-11.7); MONO # 0.6 K/uL (0.0-0.8); NRBC % 0.1 % (0.0-2.0); RED CELL DISTRIBUTION WIDTH 13.6 % (11.5-14.5); WHITE BLOOD COUNT 5.6 K/uL (4.8-10.8)
[2017-04-07 14:27] LABS: CHLORIDE 107 mmol/L (98-107); POTASSIUM 4.8 mmol/L (3.6-5.2); SODIUM 137 mmol/L (132-148)
[2017-04-07 14:29] LABS: GFR AFRICAN-AMERICAN > 60
[2017-04-07 14:30] LABS: ALB/GLOB RATIO 0.8 (1.0-2.1); ALKALINE PHOSPHATASE 178 U/L (38-126); ALT/SGPT 24 U/L (21-72); AST/SGOT 128 U/L (17-59); BILIRUBIN,TOTAL 2.2 mg/dL (0.2-1.3); BLOOD UREA NITROGEN 6 mg/dL (9-20); CARBON DIOXIDE 30 mmol/L (22-30); GLUCOSE,RANDOM 108 mg/dL (75-110); TOTAL PROTEIN 8.6 g/dL (6.3-8.3)
[2017-04-07 14:31] LABS: CALCIUM 8.4 mg/dl (8.6-10.4)
[2017-04-07 18:27] VITALS: RESP 20
--- NOTE | 2017-04-07 22:46 | CP.PCM.HP ---
History of Present Illness - History of Present Illness History of Present Illness: pt is alcoholic for many ys came to er for chest pain Present on Admission - Present on Admission Any Indicators Present on Admission: No Review of Systems - Review of Systems Systems not reviewed;Unavailable: Acuity of Condition - Constitutional Constitutional: Fatigue - EENT Eyes: As Per HPI Ears: As Per HPI Nose/Mouth/Throat: As Per HPI - Cardiovascular Cardiovascular: Chest Pain at Rest, Dyspnea - Respiratory Respiratory: Dyspnea, Wheezing, Chest Congestion - Gastrointestinal Gastrointestinal: Heartburn - Genitourinary Genitourinary: As Per HPI - Reproductive: Male Reproductive:Male: As Per HPI - Musculoskeletal Musculoskeletal: As Per HPI, Arthralgias - Integumentary Integumentary: Jaundice - Neurological Neurological: Weakness - Psychiatric Psychiatric: Irritability - Endocrine Endocrine: Cold Intolorance - Hematologic/Lymphatic Additional comments: pain feet homeless Past Patient History - Infectious Disease Hx of Infectious Diseases: None - Past Medical History & Family History Past Medical History?: Yes - Past Social History Smoking Status: Heavy Smoker > 10 Cigarettes Daily - CARDIAC Hx Cardiac Disorders: No Hx Hypertension: No - PULMONARY Hx Respiratory Disorders: No Hx Tuberculosis: No - NEUROLOGICAL Hx Neurological Disorder: No Hx Seizures: No - HEENT Hx HEENT Problems: No Other/Comment: blurry vision - RENAL Hx Chronic Kidney Disease: No - ENDOCRINE/METABOLIC Hx Endocrine Disorders: Yes - HEMATOLOGICAL/ONCOLOGICAL Hx Blood Disorders: No Hx Human Immunodeficiency Virus (HIV): (UNKNOWN) - INTEGUMENTARY Hx Dermatological Problems: No - MUSCULOSKELETAL/RHEUMATOLOGICAL Hx Arthritis: Yes (hands and feet) Hx Falls: No - GASTROINTESTINAL Hx Gastrointestinal Disorders: No Hx Liver Failure: Yes Other/Comment: cirrhosis? - GENITOURINARY/GYNECOLOGICAL Hx Sexually Transmitted Disorders: No - PSYCHIATRIC Hx Depression: Yes Hx Schizophrenia: Yes Hx Substance Use: Yes (Unknown) Other/Comment: drinks 3 pints/day for 17 years. 10 ciggerettes/ day - SURGICAL HISTORY Hx Surgeries: No (Unable to obtain) - ANESTHESIA Hx Anesthesia: No (UNKNOWN) Hx Anesthesia Reactions: No (UNKNOWN) Hx Malignant Hyperthermia: No (UNKNOWN) Meds Allergies/Adverse Reactions: Allergies Allergy/AdvReac Type Severity Reaction Status Date / Time No Known Allergies Allergy Verified 04/07/17 13:25 Physical Exam - Constitutional Appears: Toxic, Older Than Stated Age - Head Exam Head Exam: NORMOCEPHALIC - Eye Exam Eye Exam: Normal appearance Pupil Exam: NORMAL ACCOMODATION - ENT Exam ENT Exam: Normal Exam - Neck Exam Neck exam: Positive for: Full Rom - Respiratory Exam Respiratory Exam: Decreased Breath Sounds, Rales, Wheezes - Cardiovascular Exam Cardiovascular Exam: Tachycardia - GI/Abdominal Exam GI & Abdominal Exam: Normal Bowel Sounds - Rectal Exam Rectal Exam: NORMAL INSPECTION - Extremities Exam Extremities exam: Positive for: normal inspection, tenderness Additional comments: onychomycosis Results - Vital Signs Recent Vital Signs: Last Vital Signs Temp 98.2 F 04/07/17 18:25 Pulse 88 04/07/17 19:15 Resp 20 04/07/17 18:25 BP 118/71 04/07/17 18:25 Pulse Ox 96 04/07/17 18:25 - Labs Result Diagrams: 04/07/17 14:14 04/07/17 14:14 Labs: Laboratory Results - last 24 hr 04/07/17 04/07/17 16:59 22:21 Total Creatine Kinase 112 Alcohol, Quantitative 322 H Assessment & Plan - Assessment and Plan (Free Text) Assessment: alc abuse copd chest pain painfull feete Plan: as per orders - Date & Time Date: 04/07/17 Time: 22:52
[2017-04-08] MEDS: Multivitamin With Minerals Tab PO SCH (07:54)
[2017-04-08 08:34] LABS: HEMATOCRIT 39.2 % (35.0-51.0); MEAN CELL VOLUME 96.4 fL (80.0-94.0); MEAN CORPUSCULAR HGB CONC 33.2 g/dL (33.0-37.0); MEAN PLATELET VOLUME 8.9 fL (7.2-11.7); RED CELL DISTRIBUTION WIDTH 13.4 % (11.5-14.5); WHITE BLOOD COUNT 3.4 K/uL (4.8-10.8)
[2017-04-08 08:53] LABS: CHLORIDE 101 mmol/L (98-107); POTASSIUM 2.8 mmol/L (3.6-5.2); SODIUM 137 mmol/L (132-148)
[2017-04-08 08:55] LABS: BILIRUBIN,TOTAL 2.1 mg/dL (0.2-1.3); GFR AFRICAN-AMERICAN > 60
[2017-04-08 08:56] LABS: ALB/GLOB RATIO 0.7 (1.0-2.1); ALKALINE PHOSPHATASE 159 U/L (38-126); ALT/SGPT 32 U/L (21-72); AST/SGOT 97 U/L (17-59); BLOOD UREA NITROGEN 4 mg/dL (9-20); CARBON DIOXIDE 27 mmol/L (22-30); GLUCOSE,RANDOM 89 mg/dL (75-110); TOTAL PROTEIN 7.1 g/dL (6.3-8.3)
[2017-04-08 08:57] LABS: CALCIUM 8.3 mg/dl (8.6-10.4)
[2017-04-08 09:11] LABS: FREE T4 1.3 ng/dL (0.78-2.19)
[2017-04-08 09:24] LABS: THYROID STIMULATING HORMONE 2.22 mIU/L (0.46-4.68)
[2017-04-08] MEDS: Potassium Chloride 20 mEq ER Tab PO SCH ×2 (10:06→18:28)
[2017-04-08] MEDS: Pantoprazole 40 mg EC Tab PO SCH (10:06)
[2017-04-08] MEDS: Calcium-Vit D 250 mg-125 Units Tab UD PO SCH (10:09)
[2017-04-08] MEDS: Magnesium Sulfate 1 gm in D5W 1 GM/100 ML BAG IVPB SCH ×2 (10:27→11:31)
--- NOTE | 2017-04-08 11:36 | PCM.PSYCH ---
Initial Psychiatric Evaluation - Initial Psychiatric Evaluation Type of Admission: Voluntary Legal Status: Capacity Chief Complaint (in patient's own words): "I am shaky" History of Present Illness and Precipitating Events: The patient is seen, chart reviewed and case discussed. This is a 51-year-old male, , has 9 children, homeless and unemployed. The patient is here for chest pain but consult was requested for alcohol detox. He reports drinking up to 3 pints of vodka every day for the past 16 years, on and off. He was in detox but signed out AMA after 3 nights end of January. He had used heroin and cocaine in the past but stopped when he started alcohol. He smokes half pack per day cigarettes and denies all other drugs currently. He had the detoxes and he was in [facility] twice in the past. His longest sobriety was 3 years while he was in longterm. He did overall 20 years in longterm for drug- related charges. Denies psychiatric problems but insomnia and anxiety. He has obvious withdrawal symptoms. Detox protocol started. Past psych history: He was depressed and had SI in the past but never attempted suicide and never hospitalized. Family psych history: Brother also had alcohol and heroine use. He is in longterm now. Medical history: Denies Current Medications: Active Medications Generic Name Dose Route Start Last Admin Trade Name Britney PRN Reason Stop Dose Admin Acetaminophen 650 mg 04/07/17 18:30 04/08/17 07:10 Tylenol 325mg Tab PO 650 mg Q6 PRN Administration Pain, Mild (1-3) Aspirin 81 mg 04/08/17 10:00 04/08/17 10:06 Aspirin Chewable PO 81 mg DAILY [facility] Administration Calcium/Vitamin D 1 tab 04/08/17 10:00 04/08/17 10:09 Oscal-D 250 Mg-125 Units Tab PO 1 tab DAILY [facility] Administration Chlordiazepoxide 25 mg 04/07/17 18:32 04/08/17 07:10 Librium PO 25 mg Q6H PRN Administration Agitation Chlordiazepoxide 0 mg 04/08/17 12:00 Librium PO 04/12/17 11:59 Q6 [facility] Taper Gabapentin 300 mg 04/08/17 14:00 Neurontin PO TID [facility] Magnesium Sulfate/Dextrose 1 gm in 100 mls @ 100 mls/hr 04/08/17 10:15 11:31 Magnesium Sulfate 1 Gm/100 Ml D5w IVPB 04/08/17 12:14 100 mls/hr Q60M [facility] Administration Multivitamins/Minerals 1 tab 04/08/17 08:00 04/08/17 07:54 Therapeutic-M Tab PO 1 tab 0800 [facility] Administration Pantoprazole Sodium 40 mg 04/08/17 10:00 04/08/17 10:06 Protonix Ec Tab PO 40 mg DAILY [facility] Administration Pneumococcal Polyvalent Vaccine 0.5 ml 04/10/17 10:00 Pneumovax 23 Vaccine IM 04/10/17 10:01 .ONCE ONE Potassium Chloride 40 meq 04/08/17 10:00 04/08/17 10:06 K-Dur 20 Meq Er Tab PO 04/10/17 10:01 40 meq BID [facility] Administration Trazodone HCl 100 mg 04/08/17 22:00 Desyrel PO HS [facility] Past Psychiatric History - Past Psychiatric History Previous Treatment History: None Pertinent Medical Hx (Current Medical&Sleep Prob, Allergies): Allergies Allergy/AdvReac Type Severity Reaction Status Date / Time No Known Allergies Allergy Verified 04/07/17 13:25 No Known Home Med 04/07/17 Review of Systems - Neurological Neurological: Weakness - Psychiatric Psychiatric: Abnormal Sleep Pattern, Anxiety, Difficulty Concentrating, Irritability. absent: Hallucinations, Homicidal Ideation, Suicidal Ideation Mental Status Examination - Personal Presentation Personal Presentation: Looks stated age - Affect Affect: Constricted - Motor Activity Motor Activity: Calm - Reliability in Providing Information Reliability in Providing Information: Good - Speech Speech: Organized - Mood Mood: Anxious - Formal Thought Process Formal Thought Process: No Impairment - Cognitive Functions Orientation: Person, Place, Situation, Time Sensorium: Alert Attention/Concentration: Attentive Estimate of Intelligence: Average Judgement: Intact, as evidence by: Insight regarding need for hospitalization Memory: Recent intact, as evidence by: Ability to recall events of the day, Remote intact, as evidenced by: Abilit to recall sig. life events - Risk Risk: Seizure, Withdrawal, Diminished functioning - Strength & Assets Inventory Strength & Assets Inventory: Cooperative - Limitations Limitations: Living alone, Other (homeless, unemployed) DSM 5 DX - DSM 5 DSM 5 Diagnosis: Alcohol withdrawal Alcohol use d/o - severe Tobacco use d/o - moderate - Recommended/Plan of Treatment Treatment Recommendations and Plan of Treatment: Librium detox Gabapentin for augmentation As needed meds and vitamins Attend groups and activities [place] for abstinence and CBT for relapse prevention Support and psychoeducation Consider and encourage MAT Refer to after care at [facility] in [place] 33 min - Smoking Cessation Smoking Cessation Initiated: Yes
--- NOTE | 2017-04-08 11:46 | CP.PCM.PN ---
Subjective - Date & Time of Evaluation Date of Evaluation: 04/08/17 Time of Evaluation: 11:44 - Subjective Subjective: no chest painfeels tremouls pain feet weeke Objective - Vital Signs/Intake and Output Vital Signs (last 24 hours): Temp Pulse Resp BP Pulse Ox 98.2 F 72 20 125/70 95 04/08/17 07:00 04/08/17 08:00 04/08/17 07:00 04/08/17 07:00 04/08/17 07:00 Intake and Output: 04/08/17 04/08/17 06:59 18:59 Output Total 300 Balance -300 - Medications Medications: Current Medications Acetaminophen (Tylenol 325mg Tab) 650 mg PO Q6 PRN PRN Reason: Pain, Mild (1-3) Last Admin: 04/08/17 07:10 Dose: 650 mg Aspirin (Aspirin Chewable) 81 mg PO DAILY [facility] Last Admin: 04/08/17 10:06 Dose: 81 mg Calcium/Vitamin D (Oscal-D 250 Mg-125 Units Tab) 1 tab PO DAILY [facility] Last Admin: 04/08/17 10:09 Dose: 1 tab Chlordiazepoxide (Librium) 25 mg PO Q6H PRN PRN Reason: Agitation Last Admin: 04/08/17 07:10 Dose: 25 mg Chlordiazepoxide (Librium) 0 mg PO Q6 [facility] PRN Reason: Taper Stop: 04/12/17 11:59 Gabapentin (Neurontin) 300 mg PO TID [facility] Magnesium Sulfate/Dextrose (Magnesium Sulfate 1 Gm/100 Ml D5w) 1 gm in 100 mls @ 100 mls/hr IVPB Q60M [facility] Stop: 04/08/17 12:14 Last Admin: 04/08/17 11:31 Dose: 100 mls/hr Multivitamins/Minerals (Therapeutic-M Tab) 1 tab PO 0800 [facility] Last Admin: 04/08/17 07:54 Dose: 1 tab Pantoprazole Sodium (Protonix Ec Tab) 40 mg PO DAILY [facility] Last Admin: 04/08/17 10:06 Dose: 40 mg Pneumococcal Polyvalent Vaccine (Pneumovax 23 Vaccine) 0.5 ml IM .ONCE ONE Stop: 04/10/17 10:01 Potassium Chloride (K-Dur 20 Meq Er Tab) 40 meq PO BID [facility] Stop: 04/10/17 10:01 Last Admin: 04/08/17 10:06 Dose: 40 meq Trazodone HCl (Desyrel) 100 mg PO HS [facility] - Labs Labs: 04/08/17 08:22 04/08/17 08:22 - Constitutional Appears: In Acute Distress - Head Exam Head Exam: NORMOCEPHALIC - Eye Exam Eye Exam: Normal appearance Pupil Exam: NORMAL ACCOMODATION - ENT Exam ENT Exam: Mucous Membranes Moist - Respiratory Exam Respiratory Exam: Decreased Breath Sounds - Cardiovascular Exam Cardiovascular Exam: REGULAR RHYTHM - GI/Abdominal Exam GI & Abdominal Exam: Normal Bowel Sounds - Rectal Exam Rectal Exam: NORMAL INSPECTION - Exam Exam: NORMAL INSPECTION - Extremities Exam Extremities Exam: Tenderness - Back Exam Back Exam: NORMAL INSPECTION - Neurological Exam Neurological Exam: Oriented x3 - Psychiatric Exam Psychiatric exam: Depressed - Skin Skin Exam: Normal Color - Additional Findings Additional findings: tremoulous both hands Assessment and Plan - Assessment and Plan (Free Text) Assessment: alc abuse alcliver disease withdrawal hpocalciem hypokaleamia hypomagneseamia mal nutrition Plan: as per orders
[2017-04-08] MEDS ORDERED: DEXTROSE IV SCH (12:00)
[2017-04-08] MEDS ORDERED: POTASSIUM CHL IV SCH (12:00)
[2017-04-08] MEDS ORDERED: [UNRECOGNIZED DRUG - OTHER] IV SCH (12:00)
[2017-04-08] MEDS ORDERED: D5 IV SCH (12:00)
[2017-04-08] MEDS: Potassium Chl 40 mEq in D5-1/2 1,000 ML IV SCH (12:45)
--- NOTE | 2017-04-08 14:37 | CP.PCM.CON ---
History of Present Illness - History of Present Illness History of Present Illness: 11 y/o male presents to ED with complaints of chronic swelling to legs and requesting detox. At ED patient has a new complaints of chest pain. Patient states that while waking earlier today started to have chest pain and felt SOB, told friend to call EMS for assistance. Pain is rated a 5/10 with associated sob and dizziness. Patient has frequently been seen at ED for detox and admits to currently being homeless. EKG NON SPECIFIC TNI NEG WILL REVIEW THE OLD RECORDS Past Patient History - Infectious Disease Hx of Infectious Diseases: None - Past Medical History & Family History Past Medical History?: Yes - Past Social History Smoking Status: Heavy Smoker > 10 Cigarettes Daily - CARDIAC Hx Cardiac Disorders: No Hx Hypertension: No - PULMONARY Hx Respiratory Disorders: No Hx Tuberculosis: No - NEUROLOGICAL Hx Neurological Disorder: No Hx Seizures: No - HEENT Hx HEENT Problems: No Other/Comment: blurry vision - RENAL Hx Chronic Kidney Disease: No - ENDOCRINE/METABOLIC Hx Endocrine Disorders: Yes - HEMATOLOGICAL/ONCOLOGICAL Hx Blood Disorders: No Hx Human Immunodeficiency Virus (HIV): (UNKNOWN) - INTEGUMENTARY Hx Dermatological Problems: No - MUSCULOSKELETAL/RHEUMATOLOGICAL Hx Arthritis: Yes (hands and feet) Hx Falls: No - GASTROINTESTINAL Hx Gastrointestinal Disorders: No Hx Liver Failure: Yes Other/Comment: cirrhosis? - GENITOURINARY/GYNECOLOGICAL Hx Sexually Transmitted Disorders: No - PSYCHIATRIC Hx Depression: Yes Hx Schizophrenia: Yes Hx Substance Use: Yes (Unknown) Other/Comment: drinks 3 pints/day for 17 years. 10 ciggerettes/ day - SURGICAL HISTORY Hx Surgeries: No (Unable to obtain) - ANESTHESIA Hx Anesthesia: No (UNKNOWN) Hx Anesthesia Reactions: No (UNKNOWN) Hx Malignant Hyperthermia: No (UNKNOWN) Meds Allergies/Adverse Reactions: Allergies Allergy/AdvReac Type Severity Reaction Status Date / Time No Known Allergies Allergy Verified 04/07/17 13:25 - Medications Medications: Current Medications Acetaminophen (Tylenol 325mg Tab) 650 mg PO Q6 PRN PRN Reason: Pain, Mild (1-3) Last Admin: 04/08/17 07:10 Dose: 650 mg Aspirin (Aspirin Chewable) 81 mg PO DAILY [facility] Last Admin: 04/08/17 10:06 Dose: 81 mg Calcium/Vitamin D (Oscal-D 250 Mg-125 Units Tab) 1 tab PO DAILY [facility] Last Admin: 04/08/17 10:09 Dose: 1 tab Chlordiazepoxide (Librium) 25 mg PO Q6H PRN PRN Reason: Agitation Last Admin: 04/08/17 07:10 Dose: 25 mg Chlordiazepoxide (Librium) 25 mg PO Q6 [facility] PRN Reason: Taper Stop: 04/12/17 11:59 Last Admin: 04/08/17 11:53 Dose: 25 mg Gabapentin (Neurontin) 300 mg PO TID [facility] Last Admin: 04/08/17 14:01 Dose: 300 mg Potassium Chloride/Dextrose/Sod Cl (Potassium Chl 40 Meq In D5-1/2ns) 1,000 mls @ 80 mls/hr IV .[id number] [facility] Last Admin: 04/08/17 12:45 Dose: 80 mls/hr Multivitamins/Minerals (Therapeutic-M Tab) 1 tab PO 0800 [facility] Last Admin: 04/08/17 07:54 Dose: 1 tab Pantoprazole Sodium (Protonix Ec Tab) 40 mg PO DAILY [facility] Last Admin: 04/08/17 10:06 Dose: 40 mg Pneumococcal Polyvalent Vaccine (Pneumovax 23 Vaccine) 0.5 ml IM .ONCE ONE Stop: 04/10/17 10:01 Potassium Chloride (K-Dur 20 Meq Er Tab) 40 meq PO BID [facility] Stop: 04/10/17 10:01 Last Admin: 04/08/17 10:06 Dose: 40 meq Trazodone HCl (Desyrel) 100 mg PO HS [facility] Results - Vital Signs Recent Vital Signs: Last Vital Signs Temp 98.2 F 04/08/17 07:00 Pulse 72 04/08/17 08:00 Resp 20 04/08/17 07:00 BP 125/70 04/08/17 07:00 Pulse Ox 95 04/08/17 07:00 - Labs Result Diagrams: 04/09/17 06:54 04/09/17 06:54 Labs: Laboratory Results - last 24 hr 04/07/17 04/07/17 04/08/17 16:59 22:21 07:08 WBC RBC Hgb Hct MCV MCH MCHC RDW Plt Count MPV Sodium Potassium Chloride Carbon Dioxide Anion Gap BUN Creatinine Est GFR ( Amer) Est GFR (Non-Af Amer) Random Glucose Calcium Magnesium Total Bilirubin AST ALT Alkaline Phosphatase Total Creatine Kinase 112 103 CK-MB (Mass) 0.68 0.49 Troponin I, Quant < 0.0120 < 0.0120 Total Protein Albumin Globulin Albumin/Globulin Ratio Free T4 TSH 3rd Generation Alcohol, Quantitative 322 H 04/08/17 04/08/17 04/08/17 08:22 08:22 08:22 WBC 3.4 L RBC 4.07 L Hgb 13.0 Hct 39.2 MCV 96.4 H MCH 32.0 H MCHC 33.2 RDW 13.4 Plt Count 74 L MPV 8.9 Sodium 137 Potassium 2.8 L Chloride 101 Carbon Dioxide 27 Anion Gap 12 BUN 4 L Creatinine 0.8 Est GFR ( Amer) > 60 Est GFR (Non-Af Amer) > 60 Random Glucose 89 Calcium 8.3 L Magnesium 1.0 L* D Total Bilirubin 2.1 H AST 97 H D ALT 32 Alkaline Phosphatase 159 H Total Creatine Kinase CK-MB (Mass) Troponin I, Quant Total Protein 7.1 Albumin 3.0 L D Globulin 4.1 H Albumin/Globulin Ratio 0.7 L Free T4 1.30 TSH 3rd Generation 2.22 Alcohol, Quantitative
[2017-04-09] MEDS: Potassium Chl 40 mEq in D5-1/2 1,000 ML IV SCH ×3 (02:35→18:03)
[2017-04-09 07:30] LABS: BASO % 0.8 % (0.0-2.0); CHLORIDE 105 mmol/L (98-107); EOS # 0.1 K/uL (0.0-0.7); EOS % 2.6 % (0.0-4.0); HEMATOCRIT 40.4 % (35.0-51.0); LYMPH # 0.7 K/uL (1.0-4.3); LYMPH % 18.2 % (20.0-40.0); MEAN CELL VOLUME 96.2 fL (80.0-94.0); MEAN CORPUSCULAR HEMOGLOBIN 31.7 pg (27.0-31.0); MEAN PLATELET VOLUME 9.6 fL (7.2-11.7); MONO # 0.4 K/uL (0.0-0.8); MONO % 10.1 % (0.0-10.0); NRBC % 0.4 % (0.0-2.0); POTASSIUM 3.5 mmol/L (3.6-5.2); RED CELL DISTRIBUTION WIDTH 13.2 % (11.5-14.5); SODIUM 138 mmol/L (132-148)
[2017-04-09 07:32] LABS: ALB/GLOB RATIO 0.7 (1.0-2.1); ALKALINE PHOSPHATASE 165 U/L (38-126); ALT/SGPT 32 U/L (21-72); AST/SGOT 83 U/L (17-59); BILIRUBIN,TOTAL 2.8 mg/dL (0.2-1.3); BLOOD UREA NITROGEN 6 mg/dL (9-20); CARBON DIOXIDE 25 mmol/L (22-30); GFR AFRICAN-AMERICAN > 60; TOTAL PROTEIN 7.3 g/dL (6.3-8.3)
[2017-04-09 07:33] LABS: CALCIUM 8.8 mg/dl (8.6-10.4); GLUCOSE,RANDOM 105 mg/dL (75-110); MAGNESIUM 1.3 mg/dL (1.6-2.3)
[2017-04-09] MEDS: Magnesium Sulfate 1 gm in D5W 1 GM/100 ML BAG IVPB SCH ×2 (09:23→10:34)
[2017-04-09] MEDS: Potassium Chloride 20 mEq ER Tab PO SCH ×2 (09:24→18:00)
[2017-04-09] MEDS: Pantoprazole 40 mg EC Tab PO SCH (09:24)
[2017-04-09] MEDS: Calcium-Vit D 250 mg-125 Units Tab UD PO SCH (09:24)
[2017-04-09] MEDS: Multivitamin With Minerals Tab PO SCH (09:26)
--- NOTE | 2017-04-09 14:18 | PCM.PYCHPN ---
Psychiatric Progress Note - Psychiatric Progress Note Patient seen today, length of contact: 16 min Patient Chief Complaint: "I am very worried" Problems Identified/Issues Discussed: The pt is seen, chart reviewed, case discussed with staff. Support given, CBT and SC used briefly No new symptoms reported, improving slowly and needs some more time No SEs from medications, risks discussed. After care discussed and he is worried about his homelessness. Ticketer spoke to the RN and she read 's noote that she is working on [facility] referral. [facility] However, the pt needs to be able to ambulate well to be accepted by . Medication Change: Yes (detox changes daily) Medical Record Reviewed: Yes Mental Status Examination - Cognitive Function Orientation: Person, Place, Situation, Time Memory: Intact Attention: WNL Concentration: Poor Association: WNL Fund of Knowledge: Poor - Mood Mood: Anxious - Affect Affect: Constricted - Speech Speech: Appropriate - Formal Thought Process Formal Thought Process: No Impairment - Suicidal Ideation Suicidal Ideation: No - Homicidal Ideation Homicidal Ideation: No Goal/Treatment Plan - Goal/Treatment Plan Need for Continued Stay: Other (medical clearanbce) Progress Toward Problem(s) and Goals/Treatment Plan: Librium detox Gabapentin for augmentation As needed meds and vitamins Attend groups and activities [place] for abstinence and CBT for relapse prevention Support and psychoeducation Consider and encourage MAT Refer to after care at [facility]
--- NOTE | 2017-04-09 16:34 | CP.PCM.PN ---
Subjective - Date & Time of Evaluation Date of Evaluation: 04/09/17 Time of Evaluation: 16:31 - Subjective Subjective: still pain feete weeke legs hurts less tremulous Objective - Vital Signs/Intake and Output Vital Signs (last 24 hours): Temp Pulse Resp BP Pulse Ox 97.8 F 72 20 112/74 95 04/09/17 15:25 04/09/17 15:25 04/09/17 15:25 04/09/17 15:25 04/09/17 15:25 Intake and Output: 04/09/17 04/09/17 06:59 18:59 Output Total 900 Balance -900 - Medications Medications: Current Medications Acetaminophen (Tylenol 325mg Tab) 650 mg PO Q6 PRN PRN Reason: Pain, Mild (1-3) Last Admin: 04/08/17 07:10 Dose: 650 mg Aspirin (Aspirin Chewable) 81 mg PO DAILY [facility] Last Admin: 04/09/17 09:24 Dose: 81 mg Calcium/Vitamin D (Oscal-D 250 Mg-125 Units Tab) 1 tab PO DAILY [facility] Last Admin: 04/09/17 09:24 Dose: 1 tab Chlordiazepoxide (Librium) 25 mg PO Q6H PRN PRN Reason: Agitation Last Admin: 04/08/17 07:10 Dose: 25 mg Chlordiazepoxide (Librium) 25 mg PO TID [facility] PRN Reason: Taper Stop: 04/12/17 11:59 Last Admin: 04/09/17 13:59 Dose: 25 mg Gabapentin (Neurontin) 300 mg PO TID [facility] Last Admin: 04/09/17 13:59 Dose: 300 mg Potassium Chloride/Dextrose/Sod Cl (Potassium Chl 40 Meq In D5-1/2ns) 1,000 mls @ 80 mls/hr IV .[id number] [facility] Last Admin: 04/09/17 03:22 Dose: 80 mls/hr Multivitamins/Minerals (Therapeutic-M Tab) 1 tab PO 0800 [facility] Last Admin: 04/09/17 09:26 Dose: 1 tab Nicotine (Nicoderm Cq) 1 patch TD DAILY [facility] Last Admin: 04/09/17 09:24 Dose: Not Given Pantoprazole Sodium (Protonix Ec Tab) 40 mg PO DAILY [facility] Last Admin: 04/09/17 09:24 Dose: 40 mg Pneumococcal Polyvalent Vaccine (Pneumovax 23 Vaccine) 0.5 ml IM .ONCE ONE Stop: 04/10/17 10:01 Potassium Chloride (K-Dur 20 Meq Er Tab) 40 meq PO BID [facility] Stop: 04/10/17 10:01 Last Admin: 04/09/17 09:24 Dose: 40 meq Trazodone HCl (Desyrel) 100 mg PO HS [facility] Last Admin: 04/08/17 21:36 Dose: 100 mg - Labs Labs: 04/09/17 06:54 04/09/17 06:54 - Constitutional Appears: Non-toxic - Head Exam Head Exam: NORMAL INSPECTION - Eye Exam Eye Exam: Normal appearance Pupil Exam: NORMAL ACCOMODATION - ENT Exam ENT Exam: Mucous Membranes Dry - Neck Exam Neck Exam: Full ROM - Respiratory Exam Respiratory Exam: NORMAL BREATHING PATTERN - Cardiovascular Exam Cardiovascular Exam: REGULAR RHYTHM - GI/Abdominal Exam GI & Abdominal Exam: Normal Bowel Sounds - Rectal Exam Rectal Exam: NORMAL INSPECTION - Exam Exam: NORMAL INSPECTION - Back Exam Back Exam: NORMAL INSPECTION - Neurological Exam Neurological Exam: Awake, Motor Sensory Deficit, Oriented x3 - Psychiatric Exam Psychiatric exam: Normal Mood - Skin Skin Exam: Normal Color Assessment and Plan - Assessment and Plan (Free Text) Assessment: hypomagnseamia mal nurished pain loer ext fifficulty ambulating Plan: cont current treartment
[2017-04-10] MEDS: Potassium Chl 40 mEq in D5-1/2 1,000 ML IV SCH ×2 (01:45→06:43)
[2017-04-10 07:32] LABS: BASO % 0.9 % (0.0-2.0); EOS # 0.1 K/uL (0.0-0.7); EOS % 3.4 % (0.0-4.0); HEMATOCRIT 41.7 % (35.0-51.0); LYMPH # 0.7 K/uL (1.0-4.3); LYMPH % 16.8 % (20.0-40.0); MEAN CELL VOLUME 96.7 fL (80.0-94.0); MEAN CORPUSCULAR HEMOGLOBIN 31.3 pg (27.0-31.0); MEAN CORPUSCULAR HGB CONC 32.4 g/dL (33.0-37.0); MEAN PLATELET VOLUME 10.1 fL (7.2-11.7); MONO # 0.5 K/uL (0.0-0.8); MONO % 10.7 % (0.0-10.0); NRBC % 0.1 % (0.0-2.0); RED CELL DISTRIBUTION WIDTH 13.6 % (11.5-14.5); WHITE BLOOD COUNT 4.4 K/uL (4.8-10.8)
--- NOTE | 2017-04-10 07:58 | CARD ---
APPROVED REPORT EKG Measurement Heart [id number] <Conclusion> Normal sinus rhythm Incomplete left bundle branch block Nonspecific T wave abnormality Prolonged QT Abnormal ECG
[2017-04-10] MEDS: Multivitamin With Minerals Tab PO SCH (08:00)
[2017-04-10 08:24] LABS: CHLORIDE 108 mmol/L (98-107); POTASSIUM 3.8 mmol/L (3.6-5.2); SODIUM 139 mmol/L (132-148)
[2017-04-10 08:27] LABS: BLOOD UREA NITROGEN 8 mg/dL (9-20); CALCIUM 8.9 mg/dl (8.6-10.4); CARBON DIOXIDE 25 mmol/L (22-30); GFR AFRICAN-AMERICAN > 60; GLUCOSE,RANDOM 102 mg/dL (75-110)
[2017-04-10] MEDS ORDERED: Pneumococcal 23-Valent Vaccine IM ONE (10:00)
[2017-04-10] MEDS: Calcium-Vit D 250 mg-125 Units Tab UD PO SCH (10:09)
[2017-04-10] MEDS: Pantoprazole 40 mg EC Tab PO SCH (10:10)
[2017-04-10] MEDS: Potassium Chloride 20 mEq ER Tab PO SCH (10:20)
--- NOTE | 2017-04-10 11:36 | CP.PCM.PN ---
Subjective - Date & Time of Evaluation Date of Evaluation: 04/10/17 Time of Evaluation: 11:33 - Subjective Subjective: pt still tremoulous Objective - Vital Signs/Intake and Output Vital Signs (last 24 hours): Temp Pulse Resp BP Pulse Ox 99.1 F 74 20 97/61 L 95 04/10/17 08:28 04/10/17 08:28 04/10/17 08:28 04/10/17 08:28 04/10/17 08:28 Intake and Output: 04/10/17 04/10/17 06:59 18:59 Intake Total 640 Output Total 1100 Balance -460 - Medications Medications: Current Medications Acetaminophen (Tylenol 325mg Tab) 650 mg PO Q6 PRN PRN Reason: Pain, Mild (1-3) Last Admin: 04/08/17 07:10 Dose: 650 mg Aspirin (Aspirin Chewable) 81 mg PO DAILY [facility] Last Admin: 04/10/17 10:09 Dose: 81 mg Calcium/Vitamin D (Oscal-D 250 Mg-125 Units Tab) 1 tab PO DAILY [facility] Last Admin: 04/10/17 10:09 Dose: 1 tab Chlordiazepoxide (Librium) 25 mg PO Q6H PRN PRN Reason: Agitation Last Admin: 04/10/17 00:32 Dose: 25 mg Chlordiazepoxide (Librium) 25 mg PO TID [facility] PRN Reason: Taper Stop: 04/12/17 11:59 Last Admin: 04/10/17 10:00 Dose: 25 mg Gabapentin (Neurontin) 300 mg PO TID [facility] Last Admin: 04/10/17 10:09 Dose: 300 mg Potassium Chloride/Dextrose/Sod Cl (Potassium Chl 40 Meq In D5-1/2ns) 1,000 mls @ 80 mls/hr IV .[id number] [facility] Last Admin: 04/10/17 06:43 Dose: 80 mls/hr Multivitamins/Minerals (Therapeutic-M Tab) 1 tab PO 0800 [facility] Last Admin: 04/10/17 08:00 Dose: 1 tab Nicotine (Nicoderm Cq) 1 patch TD DAILY [facility] Last Admin: 04/10/17 10:10 Dose: 1 patch Pantoprazole Sodium (Protonix Ec Tab) 40 mg PO DAILY [facility] Last Admin: 04/10/17 10:10 Dose: 40 mg Trazodone HCl (Desyrel) 100 mg PO HS [facility] Last Admin: 04/09/17 21:53 Dose: 100 mg - Labs Labs: 04/10/17 07:14 04/10/17 07:14 - Constitutional Appears: Non-toxic, In Acute Distress - Head Exam Head Exam: NORMAL INSPECTION - Eye Exam Eye Exam: Normal appearance Pupil Exam: NORMAL ACCOMODATION - ENT Exam ENT Exam: Normal Exam - Neck Exam Neck Exam: Normal Inspection - Respiratory Exam Respiratory Exam: Clear to Ausculation Bilateral, Rales - Cardiovascular Exam Cardiovascular Exam: REGULAR RHYTHM - GI/Abdominal Exam GI & Abdominal Exam: Normal Bowel Sounds - Rectal Exam Rectal Exam: NORMAL INSPECTION - Extremities Exam Extremities Exam: Normal Inspection - Back Exam Back Exam: NORMAL INSPECTION - Neurological Exam Neurological Exam: Abnormal Gait - Psychiatric Exam Psychiatric exam: Depressed - Skin Skin Exam: Dry Assessment and Plan - Assessment and Plan (Free Text) Assessment: alc withdrwal generalised weekness mal nutrition hypomag Plan: cont librium the rehab
--- NOTE | 2017-04-10 15:07 | CON ---
DATE: 04/10/2017 This is at the request of Dr. Cinthia Camacho. We have a 51-year-old male seen at bedside, alert, orientated x 3. 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 Called in for a consult from a podiatric standpoint. Bilateral lower extremities showed no edema, no open lesions, no ulcers. The patient has hypertrophi c onychomycosis, which was debrided at bedside without incident. Suggested to the patient to stop drinking, to consider AA because of related history of unstable gait while walking. Ag Dunn DPM cc: [id number] TT: 04/10/2017 15:06:16 Confirmation # [id number] Dictation # [id number]
[2017-04-10 17:09] VITALS: O2SAT 94
--- NOTE | 2017-04-10 21:29 | CARD ---
APPROVED REPORT EKG Measurement Heart [id number] IA [id number] <Conclusion> Normal sinus rhythm Incomplete left bundle branch block Borderline ECG
--- NOTE | 2017-04-10 21:34 | CARD ---
APPROVED REPORT EKG Measurement Heart [id number] NC [id number]-19 [id number] <Conclusion> Normal sinus rhythm Incomplete left bundle branch block Borderline ECG
[2017-04-11] MEDS: Potassium Chl 40 mEq in D5-1/2 1,000 ML IV SCH ×3 (02:45→20:43)
--- NOTE | 2017-04-11 09:51 | US ---
HISTORY: hi bilirubin r/o bile stone COMPARISON: CT scan 02/26/2017 TECHNIQUE: Sonographic evaluation of the abdomen. FINDINGS: LIVER: Measures 16 cm. Mild overall heterogeneity of the echotexture, as well as overall increased echogenicity of the liver parenchyma. This may suggest a patter cellular disease or fatty infiltration of the liver. No focal liver mass or intrahepatic ductal dilatation is seen. GALLBLADDER: A number of small layering gallstones are seen within the gallbladder. No gallbladder wall thickening or pericholecystic fluid. No Clay sign. COMMON BILE DUCT: Measures 4-5 mm. No stones. No dilatation. PANCREAS: Unremarkable as visualized. No mass. No ductal dilatation. RIGHT KIDNEY: Measures 12.2cm. A few tiny nonobstructing renal calculi are identified. No hydronephrosis LEFT KIDNEY: Measures 13.4cm. No hydronephrosis. Stable small left renal calculi. SPLEEN: Normal in size and contour. No mass. AORTA: No aneurysmal dilatation. IVC: Unremarkable. OTHER FINDINGS: Grossly normal portal directional flow. IMPRESSION: Echogenic liver consistent with fatty infiltration and/or hepatocytes with disease. No focal liver mass or intrahepatic ductal dilatation. Cholelithiasis without ultrasound evidence of acute cholecystitis. Nonobstructing renal calculi.
[2017-04-11] MEDS: Multivitamin With Minerals Tab PO SCH (10:05)
[2017-04-11] MEDS: Pantoprazole 40 mg EC Tab PO SCH (10:05)
[2017-04-11] MEDS: Calcium-Vit D 250 mg-125 Units Tab UD PO SCH (10:06)
--- NOTE | 2017-04-11 11:22 | CP.PCM.PN ---
Subjective - Date & Time of Evaluation Date of Evaluation: 04/11/17 Time of Evaluation: 11:19 - Subjective Subjective: pt comfortable still has hand tremores Objective - Vital Signs/Intake and Output Vital Signs (last 24 hours): Temp Pulse Resp BP Pulse Ox 98.4 F 90 20 98/63 L 94 L 04/11/17 07:22 04/11/17 07:30 04/11/17 07:22 04/11/17 07:22 04/11/17 07:22 Intake and Output: 04/11/17 04/11/17 06:59 18:59 Intake Total 1140 800 Balance 1140 800 - Medications Medications: Current Medications Acetaminophen (Tylenol 325mg Tab) 650 mg PO Q6 PRN PRN Reason: Pain, Mild (1-3) Last Admin: 04/08/17 07:10 Dose: 650 mg Aspirin (Aspirin Chewable) 81 mg PO DAILY [facility] Last Admin: 04/11/17 10:05 Dose: 81 mg Calcium/Vitamin D (Oscal-D 250 Mg-125 Units Tab) 1 tab PO DAILY [facility] Last Admin: 04/11/17 10:06 Dose: 1 tab Chlordiazepoxide (Librium) 25 mg PO Q6H PRN PRN Reason: Agitation Last Admin: 04/11/17 00:21 Dose: 25 mg Chlordiazepoxide (Librium) 25 mg PO BID [facility] PRN Reason: Taper Stop: 04/12/17 11:59 Last Admin: 04/11/17 10:05 Dose: 25 mg Gabapentin (Neurontin) 300 mg PO TID [facility] Last Admin: 04/11/17 10:05 Dose: 300 mg Potassium Chloride/Dextrose/Sod Cl (Potassium Chl 40 Meq In D5-1/2ns) 1,000 mls @ 80 mls/hr IV .[id number] [facility] Last Admin: 04/11/17 04:50 Dose: 80 mls/hr Multivitamins/Minerals (Therapeutic-M Tab) 1 tab PO 0800 [facility] Last Admin: 04/11/17 10:05 Dose: 1 tab Nicotine (Nicoderm Cq) 1 patch TD DAILY [facility] Last Admin: 04/11/17 10:06 Dose: Not Given Pantoprazole Sodium (Protonix Ec Tab) 40 mg PO DAILY [facility] Last Admin: 04/11/17 10:05 Dose: 40 mg Trazodone HCl (Desyrel) 100 mg PO HS [facility] Last Admin: 04/10/17 22:38 Dose: 100 mg - Labs Labs: 04/10/17 07:14 04/10/17 07:14 - Constitutional Appears: Non-toxic - Head Exam Head Exam: NORMAL INSPECTION - Eye Exam Eye Exam: Normal appearance Pupil Exam: NORMAL ACCOMODATION - ENT Exam ENT Exam: Normal Exam - Neck Exam Neck Exam: Full ROM - Respiratory Exam Respiratory Exam: Clear to Ausculation Bilateral - Cardiovascular Exam Cardiovascular Exam: REGULAR RHYTHM - GI/Abdominal Exam GI & Abdominal Exam: Normal Bowel Sounds - Rectal Exam Rectal Exam: NORMAL INSPECTION - Back Exam Back Exam: NORMAL INSPECTION - Psychiatric Exam Psychiatric exam: Normal Affect - Skin Skin Exam: Normal Color Assessment and Plan - Assessment and Plan (Free Text) Assessment: alcohot withdrawal continu current detox hypomagnesium will repeate lab
[2017-04-11 11:29] LABS: CHLORIDE 101 mmol/L (98-107); POTASSIUM 3.8 mmol/L (3.6-5.2); SODIUM 137 mmol/L (132-148)
[2017-04-11 11:31] LABS: ALB/GLOB RATIO 0.7 (1.0-2.1); AST/SGOT 68 U/L (17-59); BILIRUBIN,TOTAL 1.7 mg/dL (0.2-1.3); CARBON DIOXIDE 25 mmol/L (22-30); GFR AFRICAN-AMERICAN > 60
[2017-04-11 11:32] LABS: ALKALINE PHOSPHATASE 173 U/L (38-126); ALT/SGPT 35 U/L (21-72); BLOOD UREA NITROGEN 12 mg/dL (9-20); CALCIUM 9.1 mg/dl (8.6-10.4); GLUCOSE,RANDOM 106 mg/dL (75-110); MAGNESIUM 1.4 mg/dL (1.6-2.3)
[2017-04-11] MEDS: Magnesium Sulfate 1 gm in D5W 1 GM/100 ML BAG IVPB SCH ×2 (12:20→13:00)
--- NOTE | 2017-04-11 13:10 | CP.PCM.PCO ---
Physician Communication Note - Physician Communication Note Physician Communication Note: Psych signed off. He will be referred to [facility] by floor SW
[2017-04-11 14:37] LABS: HEMATOCRIT 44.3 % (35.0-51.0); MEAN CELL VOLUME 96.6 fL (80.0-94.0); MEAN CORPUSCULAR HEMOGLOBIN 32.3 pg (27.0-31.0); MEAN CORPUSCULAR HGB CONC 33.4 g/dL (33.0-37.0); MEAN PLATELET VOLUME 9.2 fL (7.2-11.7); RED CELL DISTRIBUTION WIDTH 13.8 % (11.5-14.5); WHITE BLOOD COUNT 6.3 K/uL (4.8-10.8)
[2017-04-12 00:52] VITALS: BP 114/76; TEMP 98.5
[2017-04-12 03:51] VITALS: PULSE 82
[2017-04-12] MEDS: Pantoprazole 40 mg EC Tab PO SCH (10:15)
[2017-04-12] MEDS: Multivitamin With Minerals Tab PO SCH (10:15)
[2017-04-12] MEDS: Calcium-Vit D 250 mg-125 Units Tab UD PO SCH (10:15)
--- NOTE | 2017-04-12 11:34 | CP.PCM.PN ---
Subjective - Date & Time of Evaluation Date of Evaluation: 04/12/17 Time of Evaluation: 11:29 - Subjective Subjective: 51 Y/O MALE SEEN AND EXAMINED TODAY, PT WITH PMHX CHRONIC ALCOHOL ABUSE, ADMITTED FOR CHEST PAIN, DENIES ANY CP, PAIN, RESP EASY AND UNLABORED. NAD, PT DENIED FOR NH, PT CLEARED FOR D/C PER DR DOVE AND DR GÓMEZ, EDUCATED TO STOP DRINKING, CONSIDER AA, ALOHOL DETOX PROGRAMME, F/U W/DR DOVE, RETURN TO ED IF ANY WORSENING S/S. AGREE, VERBALIZE UNDERSTANDING. Objective - Vital Signs/Intake and Output Vital Signs (last 24 hours): Temp Pulse Resp BP Pulse Ox 98.5 F 82 20 114/76 94 L 04/11/17 23:05 04/12/17 03:30 04/11/17 23:05 04/11/17 23:05 04/11/17 23:05 Intake and Output: 04/12/17 04/12/17 06:59 18:59 Intake Total 940 Output Total 1100 Balance -160 - Medications Medications: Current Medications Acetaminophen (Tylenol 325mg Tab) 650 mg PO Q6 PRN PRN Reason: Pain, Mild (1-3) Last Admin: 04/08/17 07:10 Dose: 650 mg Aspirin (Aspirin Chewable) 81 mg PO DAILY [facility] Last Admin: 04/12/17 10:15 Dose: 81 mg Calcium/Vitamin D (Oscal-D 250 Mg-125 Units Tab) 1 tab PO DAILY [facility] Last Admin: 04/12/17 10:15 Dose: 1 tab Chlordiazepoxide (Librium) 25 mg PO Q6H PRN PRN Reason: Agitation Last Admin: 04/12/17 05:48 Dose: 25 mg Chlordiazepoxide (Librium) 25 mg PO DAILY [facility] PRN Reason: Taper Stop: 04/12/17 11:59 Last Admin: 04/12/17 10:22 Dose: 25 mg Gabapentin (Neurontin) 300 mg PO TID [facility] Last Admin: 04/12/17 10:16 Dose: 300 mg Multivitamins/Minerals (Therapeutic-M Tab) 1 tab PO 0800 [facility] Last Admin: 04/12/17 10:15 Dose: 1 tab Nicotine (Nicoderm Cq) 1 patch TD DAILY [facility] Last Admin: 04/12/17 10:34 Dose: Not Given Pantoprazole Sodium (Protonix Ec Tab) 40 mg PO DAILY [facility] Last Admin: 04/12/17 10:15 Dose: 40 mg Trazodone HCl (Desyrel) 100 mg PO [facility] Last Admin: 04/11/17 22:30 Dose: 100 mg - Labs Labs: 04/11/17 14:13 04/11/17 11:07
== END 2017-04-12 11:58 | disposition home or self-care (01) | DRG 750 ==
LOC: C.ER 13:19 → C.9E 16:51 → C.6T 17:40
PROVIDERS: ADMIT Internal Medicine; ATTEND Internal Medicine
PROC: HZ2ZZZZ Detoxification Services for Substance Abuse Treatment (ICD-10-PCS; principal; 2017-04-08)
PROC: HZ52ZZZ Individual Psychotherapy for Substance Abuse Treatment, Cognitive-Behavioral (ICD-10-PCS; 2017-04-08)
PROC: HZ59ZZZ Individual Psychotherapy for Substance Abuse Treatment, Supportive (ICD-10-PCS; 2017-04-08)
PROC: HZ56ZZZ Individual Psychotherapy for Substance Abuse Treatment, Psychoeducation (ICD-10-PCS; 2017-04-08)
DX: F10.230 Alcohol dependence with withdrawal, uncomplicated (principal); F20.9 Schizophrenia, unspecified; E46 Unspecified protein-calorie malnutrition; J44.9 Chronic obstructive pulmonary disease, unspecified; E87.6 Hypokalemia; R07.9 Chest pain, unspecified; E83.42 Hypomagnesemia; E83.51 Hypocalcemia; F32.9 Major depressive disorder, single episode, unspecified; F17.210 Nicotine dependence, cigarettes, uncomplicated; B35.1 Tinea unguium; E05.00 Thyrotoxicosis with diffuse goiter without thyrotoxic crisis or storm; Y90.8 Blood alcohol level of 240 mg/100 ml or more; Z59.0 Homelessness

== ENCOUNTER 2017-05-04 16:21 | Emergency (ER) | payer MEDICAID, OTHER ==
[2017-05-04 16:23] VITALS: BMI 26.6
--- NOTE | 2017-05-04 17:11 | C.PDOC ---
History Of Present Illness 51 y/o male brought in by ambulance for public intoxication. On arrival, patient states that he feels well, and denies any complaints, stating that he wants to leave. Denies trauma, injury, vomiting, headache, diarrhea, or other associated symptoms. Time Seen by Provider: 05/04/17 16:46 Chief Complaint (Nursing): Substance Abuse History Per: Patient History/Exam Limitations: no limitations Current Symptoms Are (Timing): Still Present Modifying Factor(s): Alcohol Associated Symptoms: denies: Suicidal Thoughts, Suicidal Plan Recent travel outside of the [place]: No Past Medical History Reviewed: Historical Data, Nursing Documentation, Vital Signs Vital Signs: Last Vital Signs Temp 97.4 F L 05/04/17 16:24 Pulse 100 H 05/04/17 16:24 Resp 20 05/04/17 16:24 BP 136/98 H 05/04/17 16:24 Pulse Ox 96 05/04/17 17:14 - Medical History PMH: Arthritis (hands and feet), Depression, Graves' Disease, Schizophrenia, Chronic Pain (b/l leg) Comment Only: HIV (UNKNOWN) - [facility] Procedures DETOXIFICATION SERVICES FOR SUBSTANCE ABUSE TREATMENT (04/07/17) INDIV PSYCHOTHERAPY FOR SUBSTANCE ABUSE TREATMENT, SUPPORT (04/07/17) INDIV PSYCHOTHERAPY FOR SUBSTANCE ABUSE, COGNITIV BEHAVIORAL (04/07/17) INDIV PSYCHOTHERAPY FOR SUBSTANCE ABUSE, PSYCHOEDUCATION (04/07/17) INSERTION OF ENDOTRACHEAL AIRWAY INTO TRACHEA, VIA OPENING (02/21/17) INTRODUCTION OF SERUM/TOX/VACCINE INTO MUSCLE, PERC APPROACH (01/10/17) RESPIRATORY VENTILATION, 24-96 CONSECUTIVE HOURS (02/21/17) Family History: States: Unknown Family Hx - Social History Hx Tobacco Use: Yes Hx Alcohol Use: Yes Hx Substance Use: Yes (Unknown) - Immunization History Hx Tetanus Toxoid Vaccination: No Hx Influenza Vaccination: No Hx Pneumococcal Vaccination: No Review Of Systems Except As Marked, All Systems Reviewed And Found Negative. Constitutional: Negative for: Fever, Chills Cardiovascular: Negative for: Chest Pain Respiratory: Negative for: Cough, Shortness of Breath, Wheezing Gastrointestinal: Negative for: Vomiting, Diarrhea Skin: Negative for: Rash Neurological: Negative for: Headache, Dizziness Physical Exam - Physical Exam Appears: Non-toxic, No Acute Distress Skin: Normal Color, Warm, Dry Head: Atraumatic, Normacephalic Chest: Symmetrical Cardiovascular: Rhythm Regular, No Murmur Respiratory: Normal Breath Sounds, No Rales, No Rhonchi, No Wheezing Gastrointestinal/Abdominal: Soft, No Tenderness, No Guarding, No Rebound Back: Normal Inspection Extremity: Normal ROM, Capillary Refill (< 2 sec.) Neurological/Psych: Oriented x3, Normal Speech, Normal Cognition ED Course And Treatment O2 Sat by Pulse Oximetry: 96 (RA) Pulse Ox Interpretation: Normal Progress Note: On re-exam, the patient reports improvement. A&O x3, ambulatory in the ED with steady gait, no focal deficits. Abdomen is soft, non-tender and tolerating PO well. Lungs are CTA, and heart is RRR. Follow up with the medical doctor within 1-2 days. Return if worsened. Disposition - Disposition Referrals: 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 - Scribe Statement The provider has reviewed the documentation as recorded by the Scribe Carlos Enrique Pinon All medical record entries made by the Ciera were at my direction and personally dictated by me. I have reviewed the chart and agree that the record accurately reflects my personal performance of the history, physical exam, medical decision making, and the department course for this patient. I have also personally directed, reviewed, and agree with the discharge instructions and disposition.
[2017-05-05 11:50] VITALS: BP 136/98; PULSE 100; RESP 20; TEMP 97.4; O2SAT 96
== END 2017-05-04 18:34 | disposition home or self-care (01) ==
LOC: C.ER 16:21
DX: F10.129 Alcohol abuse with intoxication, unspecified (principal); Y90.9 Presence of alcohol in blood, level not specified

== ENCOUNTER 2017-06-07 23:06 | Emergency (ER) | payer OTHER ==
[2017-06-07 23:07] VITALS: BMI 26.6
[2017-06-07 23:47] VITALS: TEMP 98.7
--- NOTE | 2017-06-07 23:57 | C.PDOC ---
History Of Present Illness Patient presents to the ER for acute alcohol intoxication. 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 Denies suicidal, homicidal ideation, or somatic complaints. Time Seen by Provider: 06/07/17 23:54 Chief Complaint (Nursing): Lower Extremity Problem/Injury History Per: Patient History/Exam Limitations: no limitations Onset/Duration Of Symptoms: Hrs Current Symptoms Are (Timing): Still Present Severity: Mild Recent travel outside of the [place]: No Additional History Per: Patient Past Medical History Reviewed: Historical Data, Nursing Documentation, Vital Signs Vital Signs: Last Vital Signs Temp 98.7 F 06/07/17 23:45 Pulse 70 06/08/17 04:17 Resp 14 06/08/17 04:17 BP 130/68 06/08/17 04:17 Pulse Ox 96 06/08/17 04:17 - Medical History PMH: Arthritis (hands and feet), Depression, Graves' Disease, Schizophrenia, Chronic Pain (b/l leg) Denies: Diabetes, Hepatitis, HTN, Chronic Kidney Disease, Seizures, Sexually Transmitted Disease Comment Only: HIV (UNKNOWN) - [facility] Procedures DETOXIFICATION SERVICES FOR SUBSTANCE ABUSE TREATMENT (04/07/17) INDIV PSYCHOTHERAPY FOR SUBSTANCE ABUSE TREATMENT, SUPPORT (04/07/17) INDIV PSYCHOTHERAPY FOR SUBSTANCE ABUSE, COGNITIV BEHAVIORAL (04/07/17) INDIV PSYCHOTHERAPY FOR SUBSTANCE ABUSE, PSYCHOEDUCATION (04/07/17) INSERTION OF ENDOTRACHEAL AIRWAY INTO TRACHEA, VIA OPENING (02/21/17) INTRODUCTION OF SERUM/TOX/VACCINE INTO MUSCLE, PERC APPROACH (01/10/17) RESPIRATORY VENTILATION, 24-96 CONSECUTIVE HOURS (02/21/17) Family History: States: Unknown Family Hx - Social History Hx Tobacco Use: Yes Hx Alcohol Use: Yes Hx Substance Use: Yes (Unknown) - Immunization History Hx Tetanus Toxoid Vaccination: No Hx Influenza Vaccination: No Hx Pneumococcal Vaccination: No Review Of Systems Constitutional: Positive for: Other (Alcohol intoxication). Negative for: Fever , Chills Eyes: Negative for: Vision Change ENT: Negative for: Nose Discharge, Throat Pain Cardiovascular: Negative for: Chest Pain, Palpitations Respiratory: Negative for: Cough, Shortness of Breath Gastrointestinal: Negative for: Abdominal Pain Genitourinary: Negative for: Dysuria Skin: Negative for: Rash Neurological: Negative for: Weakness, Numbness Psych: Negative for: Anxiety, Suicidal ideation, Other (Homicidal ideation) Physical Exam - Physical Exam Appears: Non-toxic, No Acute Distress, Other (Alcohol intoxicated, (+) AOB) Skin: Warm, Dry Head: Normacephalic Oral Mucosa: Moist Neck: Trachea Midline, Supple Cardiovascular: Rhythm Regular Respiratory: No Rales, No Rhonchi, No Wheezing Gastrointestinal/Abdominal: Soft, No Tenderness Back: No CVA Tenderness Neurological/Psych: Oriented x3 (Awake and alert), No Normal Speech (Slurred) Gait: Unsteady ED Course And Treatment O2 Sat by Pulse Oximetry: 95 (RA) Pulse Ox Interpretation: Normal Reevaluation Time: 05:24 Reassessment Condition: Improved ED OBSERVATION Discharge: Yes Date of observation admission: 06/08/17 Time of observation admission: 00:06 - Observation admission statement Patient is being placed in observation because:: Acute alcohol intoxication - Goals of Observation Goals of observation are:: Sobriety - Progress Note Progress Note: 06/08/17 00:24 no complaints 06/08/17 04:24 vitals stable Disposition Counseled Patient/Family Regarding: Studies Performed, Diagnosis, Need For Followup - Disposition Referrals: [facility] [Outside] Disposition: HOME/ ROUTINE Disposition Time: 23:56 Condition: FAIR Instructions: Alcohol Intoxication (DC) Forms: [facility] (Amharic) - Clinical Impression Clinical Impression: Alcohol dependence, Alcohol intoxication - Scribe Statement The provider has reviewed the documentation as recorded by the Scribjewel [email or web address] All medical record entries made by the Scribe were at my direction and personally dictated by me. I have reviewed the chart and agree that the record accurately reflects my personal performance of the history, physical exam, medical decision making, and the department course for this patient. I have also personally directed, reviewed, and agree with the discharge instructions and disposition.
[2017-06-08 04:19] VITALS: BP 130/68; PULSE 70; RESP 14
[2017-06-08 05:25] VITALS: O2SAT 95
== END 2017-06-08 05:47 | disposition home or self-care (01) ==
LOC: C.ER 23:06
DX: F10.220 Alcohol dependence with intoxication, uncomplicated (principal); Y90.9 Presence of alcohol in blood, level not specified

== ENCOUNTER 2017-07-09 10:18 | Emergency (ER) | payer OTHER ==
[2017-07-09 10:19] VITALS: BMI 26.6
[2017-07-09 10:30] VITALS: RESP 20; O2SAT 95
[2017-07-09 11:14] LABS: RBC URINE 1 /hpf (0-3); URINE BILIRUBIN NEGATIVE (NEGATIVE); URINE BLOOD NEGATIVE (NEGATIVE); URINE COLOR Yellow (YELLOW); URINE GLUCOSE (UA) NORMAL (Normal); URINE KETONE NEGATIVE (NEGATIVE); URINE LEUKOCYTE ESTERASE NEG Leu/uL (Negative); URINE PROTEIN NEGATIVE (NEGATIVE); WBC URINE 1 /hpf (0-5)
[2017-07-09 11:16] LABS: BASO # 0.1 K/uL (0.0-0.2); BASO % 2.2 % (0.0-2.0); EOS # 0.1 K/uL (0.0-0.7); HEMATOCRIT 42.3 % (35.0-51.0); LYMPH % 23.2 % (20.0-40.0); MEAN CORPUSCULAR HEMOGLOBIN 34.4 pg (27.0-31.0); MEAN CORPUSCULAR HGB CONC 34.2 g/dL (33.0-37.0); MONO # 0.6 K/uL (0.0-0.8); MONO % 15.3 % (0.0-10.0); NRBC % 0.1 % (0.0-2.0); RED CELL DISTRIBUTION WIDTH 15.9 % (11.5-14.5); WHITE BLOOD COUNT 4.2 K/uL (4.8-10.8)
[2017-07-09 11:22] LABS: MEAN CELL VOLUME 100.6 fL (80.0-94.0)
[2017-07-09 11:31] LABS: ALB/GLOB RATIO 0.8 (1.0-2.1); ALKALINE PHOSPHATASE 150 U/L (38-126); ALT/SGPT 46 U/L (21-72); AST/SGOT 122 U/L (17-59); BILIRUBIN,TOTAL 2.5 mg/dL (0.2-1.3); BLOOD UREA NITROGEN 7 mg/dL (9-20); CALCIUM 7.8 mg/dl (8.6-10.4); CARBON DIOXIDE 29 mmol/L (22-30); CHLORIDE 105 mmol/L (98-107); GFR AFRICAN-AMERICAN > 60; GLUCOSE,RANDOM 88 mg/dL (75-110); POTASSIUM 3.5 mmol/L (3.6-5.2); SODIUM 149 mmol/L (132-148); TOTAL PROTEIN 8.2 g/dL (6.3-8.3)
--- NOTE | 2017-07-09 11:52 | C.PDOC ---
History Of Present Illness 51 y/o male, with PMHx of alcohol abuse, presents to ED requesting alcohol detox. Notes that last drink was this morning. Denies history of seizures. Pt notes that he gets "shakes". Pt denies any other active physical complaints at this time. Time Seen by Provider: 07/09/17 10:45 Chief Complaint (Nursing): Substance Abuse History Per: Patient History/Exam Limitations: no limitations Onset/Duration Of Symptoms: Gradual Current Symptoms Are (Timing): Still Present Suicide/Self Injury Attempted (Context): None Modifying Factor(s): Alcohol Severity: None Pain Scale Rating Of: 0 Associated Symptoms: denies: Suicidal Thoughts, Suicidal Plan Involuntary Hold By: None Recent travel outside of the [place]: No Additional History Per: Prior Records Past Medical History Reviewed: Historical Data, Nursing Documentation, Vital Signs Vital Signs: Last Vital Signs Temp 98.0 F 07/09/17 13:47 Pulse 88 07/09/17 13:47 Resp 20 07/09/17 13:47 BP 112/70 07/09/17 13:47 Pulse Ox 95 07/09/17 14:11 - Medical History PMH: Arthritis (hands and feet), Depression, Graves' Disease, Schizophrenia, Chronic Pain (b/l leg) Comment Only: HIV (UNKNOWN) - [facility] Procedures DETOXIFICATION SERVICES FOR SUBSTANCE ABUSE TREATMENT (04/07/17) INDIV PSYCHOTHERAPY FOR SUBSTANCE ABUSE TREATMENT, SUPPORT (04/07/17) INDIV PSYCHOTHERAPY FOR SUBSTANCE ABUSE, COGNITIV BEHAVIORAL (04/07/17) INDIV PSYCHOTHERAPY FOR SUBSTANCE ABUSE, PSYCHOEDUCATION (04/07/17) INSERTION OF ENDOTRACHEAL AIRWAY INTO TRACHEA, VIA OPENING (02/21/17) INTRODUCTION OF SERUM/TOX/VACCINE INTO MUSCLE, PERC APPROACH (01/10/17) RESPIRATORY VENTILATION, 24-96 CONSECUTIVE HOURS (02/21/17) Family History: States: Unknown Family Hx - Social History Hx Tobacco Use: Yes Hx Alcohol Use: Yes Hx Substance Use: Yes (Unknown) - Immunization History Hx Tetanus Toxoid Vaccination: No Hx Influenza Vaccination: No Hx Pneumococcal Vaccination: No Review Of Systems Except As Marked, All Systems Reviewed And Found Negative. Constitutional: Negative for: Fever, Chills Cardiovascular: Negative for: Chest Pain, Palpitations, Light Headedness Respiratory: Negative for: Shortness of Breath Gastrointestinal: Negative for: Nausea, Vomiting, Abdominal Pain Skin: Negative for: Rash, Bruising Neurological: Negative for: Headache, Dizziness Physical Exam - Physical Exam Appears: Non-toxic, No Acute Distress Skin: Normal Color, Warm, Dry Head: Atraumatic, Normacephalic Eye(s): bilateral: Normal Inspection, EOMI Nose: Normal Oral Mucosa: Moist Neck: Normal ROM, Supple Chest: Symmetrical Cardiovascular: Rhythm Regular, No Murmur Respiratory: Normal Breath Sounds, No Rales, No Rhonchi, No Wheezing Gastrointestinal/Abdominal: Soft, No Tenderness Back: No CVA Tenderness Extremity: Normal ROM, No Pedal Edema Neurological/Psych: Oriented x3, Normal Speech ED Course And Treatment - Laboratory Results Result Diagrams: 07/09/17 11:13 07/09/17 11:13 O2 Sat by Pulse Oximetry: 95 Pulse Ox Interpretation: Normal Progress Note: Blood work, UA ordered and reviewed. On re-eval, patient is resting comfortably, and is in no acute distress. Pt is requesting to leave from the ED. Pt is ambulating in the ED with steady gait. No slurred speech. Patient was instructed to follow up with physician/clinic in 1-2 days for further evaluation. Case discussed with Dr Torres, agreed upon plan and discharge. 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 - Scribe Statement The provider has reviewed the documentation as recorded by the Scribjewel Schmidt All medical record entries made by the Tanneribjewel were at my direction and personally dictated by me. I have reviewed the chart and agree that the record accurately reflects my personal performance of the history, physical exam, medical decision making, and the department course for this patient. I have also personally directed, reviewed, and agree with the discharge instructions and disposition.
[2017-07-09 12:16] LABS: ALCOHOL SERUM 364 mg/dl (0-10)
[2017-07-09 13:48] VITALS: BP 112/70; PULSE 88; TEMP 98
== END 2017-07-09 14:00 | disposition home or self-care (01) ==
LOC: C.ER 10:18
DX: F10.10 Alcohol abuse, uncomplicated (principal); Y90.8 Blood alcohol level of 240 mg/100 ml or more; E05.00 Thyrotoxicosis with diffuse goiter without thyrotoxic crisis or storm

== ENCOUNTER 2017-07-30 14:09 | Inpatient (IN) | payer MEDICAID, OTHER ==
[2017-07-30 14:09] VITALS: BMI 26.6
--- NOTE | 2017-07-30 14:51 | C.PDOC ---
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 Patient has had prior ER evaluations in the past for same. Denies suicidal ideation. Time Seen by Provider: 07/30/17 14:51 Chief Complaint (Nursing): Substance Abuse History Per: Patient History/Exam Limitations: no limitations Onset/Duration Of Symptoms: Hrs Current Symptoms Are (Timing): Still Present Suicide/Self Injury Attempted (Context): None Modifying Factor(s): Alcohol Associated Symptoms: denies: Depression, Suicidal Thoughts, Suicidal Plan Involuntary Hold By: None Recent travel outside of the [place]: No Past Medical History Reviewed: Historical Data, Nursing Documentation, Vital Signs Vital Signs: Last Vital Signs Temp 97.5 F L 07/30/17 14:31 Pulse 92 H 07/30/17 14:31 Resp 20 07/30/17 14:31 BP 102/71 07/30/17 14:31 Pulse Ox 98 07/30/17 15:01 - Medical History PMH: Arthritis (hands and feet), Depression, Graves' Disease, Schizophrenia, Chronic Pain (b/l leg) Comment Only: HIV (UNKNOWN) - [facility] Procedures DETOXIFICATION SERVICES FOR SUBSTANCE ABUSE TREATMENT (04/07/17) INDIV PSYCHOTHERAPY FOR SUBSTANCE ABUSE TREATMENT, SUPPORT (04/07/17) INDIV PSYCHOTHERAPY FOR SUBSTANCE ABUSE, COGNITIV BEHAVIORAL (04/07/17) INDIV PSYCHOTHERAPY FOR SUBSTANCE ABUSE, PSYCHOEDUCATION (04/07/17) INSERTION OF ENDOTRACHEAL AIRWAY INTO TRACHEA, VIA OPENING (02/21/17) INTRODUCTION OF SERUM/TOX/VACCINE INTO MUSCLE, PERC APPROACH (01/10/17) RESPIRATORY VENTILATION, 24-96 CONSECUTIVE HOURS (02/21/17) Family History: States: Unknown Family Hx - Social History Hx Tobacco Use: Yes Hx Alcohol Use: Yes Hx Substance Use: No (Unknown) - Immunization History Hx Tetanus Toxoid Vaccination: No Hx Influenza Vaccination: No Hx Pneumococcal Vaccination: No Review Of Systems Except As Marked, All Systems Reviewed And Found Negative. Constitutional: Positive for: Other (Intoxicated). Negative for: Fever, Chills Gastrointestinal: Negative for: Nausea, Vomiting Physical Exam - Physical Exam Appears: Non-toxic, No Acute Distress, Other (Intoxicated, Calm, Cooperative) Skin: Normal Color, Warm, Dry Head: Atraumatic, Normacephalic Oral Mucosa: Moist Chest: Symmetrical Cardiovascular: Rhythm Regular Respiratory: Normal Breath Sounds, No Accessory Muscle Use Gastrointestinal/Abdominal: Soft, No Tenderness Neurological/Psych: Oriented x3, Normal Speech, Normal Cognition ED Course And Treatment - Laboratory Results Result Diagrams: 07/30/17 15:24 07/30/17 15:24 O2 Sat by Pulse Oximetry: 98 (Room air) Pulse Ox Interpretation: Normal Progress - Data Reviewed Data Reviewed: Lab, Old records Medical Decision Making Medical Decision Making: Plan: * Blood work * Urinalysis Disposition - Disposition Disposition Time: 19:00 Condition: STABLE Forms: [facility] (Citizen Of [place]) - Clinical Impression Clinical Impression: Alcohol intoxication - Scribe Statement The provider has reviewed the documentation as recorded by the Scribe Virgilio Martinez All medical record entries made by the Scribe were at my direction and personally dictated by me. I have reviewed the chart and agree that the record accurately reflects my personal performance of the history, physical exam, medical decision making, and the department course for this patient. I have also personally directed, reviewed, and agree with the discharge instructions and disposition. Physician Patient Turnover Patient Signed Over To: Lupillo Wallace Handoff Comments: FU REEVAL, DISPO
[2017-07-30 15:29] LABS: BASO # 0.1 K/uL (0.0-0.2); BASO % 1.5 % (0.0-2.0); EOS # 0.1 K/uL (0.0-0.7); EOS % 2.6 % (0.0-4.0); HEMATOCRIT 44.2 % (35.0-51.0); LYMPH # 1.3 K/uL (1.0-4.3); LYMPH % 23.5 % (20.0-40.0); MEAN CELL VOLUME 102.8 fL (80.0-94.0); MEAN CORPUSCULAR HEMOGLOBIN 34.8 pg (27.0-31.0); MEAN CORPUSCULAR HGB CONC 33.8 g/dL (33.0-37.0); MEAN PLATELET VOLUME 8.7 fL (7.2-11.7); MONO # 0.5 K/uL (0.0-0.8); MONO % 8.8 % (0.0-10.0); NRBC % 0.2 % (0.0-2.0); RED CELL DISTRIBUTION WIDTH 12.9 % (11.5-14.5); WHITE BLOOD COUNT 5.7 K/uL (4.8-10.8)
[2017-07-30 15:39] LABS: CHLORIDE 104 mmol/L (98-107); POTASSIUM 3.6 mmol/L (3.6-5.2); SODIUM 145 mmol/L (132-148)
[2017-07-30 15:41] LABS: ALB/GLOB RATIO 0.8 (1.0-2.1); ALKALINE PHOSPHATASE 125 U/L (38-126); ALT/SGPT 55 U/L (21-72); AST/SGOT 97 U/L (17-59); BILIRUBIN,TOTAL 1.7 mg/dL (0.2-1.3); BLOOD UREA NITROGEN 7 mg/dL (9-20); CARBON DIOXIDE 29 mmol/L (22-30); GFR AFRICAN-AMERICAN > 60; GLUCOSE,RANDOM 108 mg/dL (75-110); TOTAL PROTEIN 8.1 g/dL (6.3-8.3)
[2017-07-30 15:42] LABS: ALCOHOL SERUM 286 mg/dl (0-10); CALCIUM 8.3 mg/dl (8.6-10.4)
[2017-07-30 15:48] LABS: URINE BILIRUBIN NEGATIVE (NEGATIVE); URINE COLOR Yellow (YELLOW); URINE GLUCOSE (UA) NORMAL (Normal); URINE KETONE NEGATIVE (NEGATIVE); URINE LEUKOCYTE ESTERASE NEG Leu/uL (Negative); URINE PROTEIN NEGATIVE (NEGATIVE); WBC URINE < 1 /hpf (0-5)
[2017-07-30 17:49] LABS: URINE BLOOD NEGATIVE (NEGATIVE)
--- NOTE | 2017-07-31 02:38 | PCM.BM ---
<Sally Antony - Last Filed: 07/31/17 02:36> Treatment Plan Problems - Problems identified on initial assessmt Alcohol dependence Date Initiated: 07/31/17 Assessment reference: NA Status: Active Treatment assets and liabiliti Patient Assests: cooperative, ADL independent, negotiates basic needs Patient Liabilities: financial problems, substance abuse, medical problems - Milieu Protocol Maintain good personal hygiene: daily Encourage regular showers, daily Remind patient to perform daily oral care, daily Assist patient to perform ADL's Maintain personal safety: every shift Educate patient to report safety concerns to staff, every shift Monitor environment for contraband/sharps Medication safety: Monitor for expected outcome, potential side effects: every shift, Assess barriers to learning: every shift, Assess readiness for medication education: every shift <Melissa Delgado - Last Filed: 07/31/17 15:08> - Diagnosis (1) Alcohol dependence Status: Acute Interventions: 07/31/17 15:08 * Assess 7x/week regarding severity of withdrawal * Educate regarding risks, benefits, side effects and alternatives of medications * Use Motivational Interviewing for abstinence * Use CBT for relapse prevention * Medication management for withdrawal symptoms * Encourage medication assisted treatment * <Marcia Bean - Last Filed: 08/01/17 08:12> Family Contact Family involvement: Family/SO is involved Family contact: Patient declines to allow family contact at present - Goals for Treatment Patient goals for treatment: Complete detox and discuss [facility] options when stable. Discharge/Continuing Care - Education Needs Education Needs: Patient Medication, Patient Diagnosis/Disease Process, Patient Coping Skills, Patient Anger Management skills, Patient Placement options, Patient Community resources - Discharge Discharge Criteria: Tolerates medication w/o severe side effects, Normal sleep pattern, Ability to care for self, No longer exhibiting s/s of withdrawal, Reduction of target symptoms Discharge to:: Other - Additional Comments 08/01/17 08:12 TBD - Treatment Team Participation Discussed with Family/SO: No Was Patient/Family/SO present at Treatment Team Meeting: Yes
[2017-07-31] MEDS: Multiple Vitamins Tab PO SCH (11:10)
--- NOTE | 2017-07-31 13:35 | PCM.PSYCH ---
Initial Psychiatric Evaluation - Initial Psychiatric Evaluation Type of Admission: Voluntary Legal Status: Capacity Chief Complaint (in patient's own words): "Tired" History of Present Illness and Precipitating Events: The patient is seen, chart reviewed and case discussed. This is a 51-year-old male, , has 9 children, homeless and unemployed.\\ Poor historian due to over-sedation but he is known from previos admission The patient is back here again for alcohol detox. He reports drinking up to 3-4 pints of vodka every day for the past 16 years, on and off. He had used heroin and cocaine in the past but stopped when he started alcohol. He still smokes half pack per day cigarettes and denies all other drugs currently. This is his 4th detox and he was in [facility] twice in the past and wants to go there. His longest sobriety was 3 years [facility]. [facility] overall [facility] for [facility]. Denies psychiatric problems. He has significant withdrawal symptoms. Past psych history: He was depressed and had SI in the past but never attempted suicide and never hospitalized. Family psych history: Brother also had alcohol and heroine use. He is in [facility] now. Medical history: Denies Current Medications: Active Medications Generic Name Dose Route Start Last Admin Trade Name Freq PRN Reason Stop Dose Admin Benztropine Mesylate 2 mg 07/31/17 00:35 Cogentin PO Q6 PRN Extra Pyramidal Symptoms Chlordiazepoxide 25 mg 07/31/17 14:00 Librium PO 08/05/17 13:59 Q6 KARINE Taper Chlordiazepoxide 25 mg 07/31/17 12:44 Librium PO Q4H PRN Alcohol Withdrawal Folic Acid 1 mg 07/31/17 10:00 07/31/17 11:10 Folic Acid PO Not Given DAILY KARINE Gabapentin 100 mg 07/31/17 10:00 07/31/17 11:10 Neurontin PO Not Given TID KARINE Haloperidol 5 mg 07/31/17 00:39 Haldol PO Q8H PRN severe agitation Haloperidol Lactate 5 mg 07/31/17 00:35 Haldol IM Q8 PRN Moderate Agitation Hydroxyzine HCl 25 mg 07/31/17 00:35 07/31/17 02:02 Atarax PO 25 mg Q6 PRN Administration Anxiety Multivitamins 1 tab 07/31/17 10:00 07/31/17 11:10 Hexavitamin PO Not Given DAILY KARINE Ondansetron HCl 4 mg 07/31/17 00:35 Zofran Tab PO Q8H PRN Nausea/Vomiting Pneumococcal Polyvalent Vaccine 0.5 ml 08/03/17 10:00 Pneumovax 23 Vaccine IM 08/03/17 10:01 .ONCE ONE Thiamine HCl 100 mg 07/31/17 10:00 07/31/17 11:10 Vitamin B1 Tab PO Not Given DAILY KARINE Trazodone HCl 100 mg 07/31/17 12:43 Desyrel PO HS PRN Insomnia Past Psychiatric History - Past Psychiatric History Previous Treatment History: None Pertinent Medical Hx (Current Medical&Sleep Prob, Allergies): Allergies Allergy/AdvReac Type Severity Reaction Status Date / Time No Known Allergies Allergy Verified 07/30/17 14:34 No Known Home Med 06/07/17 Review of Systems - Neurological Neurological: Tremor - Psychiatric Psychiatric: Abnormal Sleep Pattern. absent: Hallucinations, Homicidal Ideation , Suicidal Ideation Mental Status Examination - Personal Presentation Personal Presentation: Looks stated age - Affect Affect: Blunted - Motor Activity Motor Activity: Calm - Reliability in Providing Information Reliability in Providing Information: Fair Additional comments: Pt was disoriented and sedated - Speech Speech: Organized (mumbles) - Mood Mood: Other (wouldn;t answer properly) - Formal Thought Process Formal Thought Process: No Impairment - Cognitive Functions Orientation: Person, Situation Sensorium: Drowsy Estimate of Intelligence: Average Judgement: Intact, as evidence by: Insight regarding need for hospitalization Memory: Recent intact, as evidence by: Ability to recall events of the day - Risk Risk: Withdrawal, Diminished functioning - Limitations Limitations: Living alone DSM 5 DX - DSM 5 DSM 5 Diagnosis: Alcohol withdrawal Alcohol use disorder Tobacco use d/o -moderate - Recommended/Plan of Treatment Treatment Recommendations and Plan of Treatment: Librium detox As needed medications Gabapentin for augmentation Attend groups and activities Supportive therapy and psychoeducation [place] for abstinence CBT for relapse prevention Encourage MAT Refer to rehab or IOP Attend self-help groups as well 34 min Projected ELOS: 5 days Prognosis: Good with treatment - Smoking Cessation Smoking Cessation Initiated: Yes
[2017-08-01] MEDS: Multiple Vitamins Tab PO SCH (10:59)
--- NOTE | 2017-08-01 12:35 | PCM.PYCHPN ---
Psychiatric Progress Note - Psychiatric Progress Note Patient seen today, length of contact: 16 min Patient Chief Complaint: "Not well" Problems Identified/Issues Discussed: The pt is seen, chart reviewed, case discussed with staff. The pt is compliant with medications and reports no side-effects. Symptoms are improving but needs more time to stabilize. After care discussed, support and psychoeducation given. Medication Change: Yes (detox changes daily) Medical Record Reviewed: Yes Mental Status Examination - Cognitive Function Orientation: Person, Place, Situation, Time Memory: Impaired Attention: Poor Concentration: Poor Association: WNL Fund of Knowledge: Poor - Mood Mood: Anxious - Affect Affect: Constricted - Speech Speech: Slurred - Formal Thought Process Formal Thought Process: No Impairment - Suicidal Ideation Suicidal Ideation: No - Homicidal Ideation Homicidal Ideation: No Goal/Treatment Plan - Goal/Treatment Plan Need for Continued Stay: Discharge may exacerbated symptoms, Severe functional impairment Progress Toward Problem(s) and Goals/Treatment Plan: Librium detox As needed medications Gabapentin for augmentation Attend groups and activities Supportive therapy and psychoeducation [place] for abstinence CBT for relapse prevention Encourage MAT Refer to rehab or IOP Attend self-help groups as well
[2017-08-02] MEDS: Multiple Vitamins Tab PO SCH (10:25)
--- NOTE | 2017-08-02 13:44 | PCM.PYCHPN ---
Psychiatric Progress Note - Psychiatric Progress Note Patient seen today, length of contact: 16 min Patient Chief Complaint: " doing better" Problems Identified/Issues Discussed: The pt is seen, chart reviewed, case discussed with staff. The pt is compliant with medications and reports no side-effects. Pt slept well and is still feeling anxious Pt is scheduled to enter rehab facility, [facility] on Sunday Discussed with patient about discharging him on Sat and the logistics as to how he will get to [facility] on Sunday Medication Change: Yes (detox changes daily) Medical Record Reviewed: Yes Mental Status Examination - Cognitive Function Orientation: Person, Place, Situation, Time Memory: Intact Attention: WNL Concentration: WNL Association: WN Fund of Knowledge: WNL - Mood Mood: Other (wouldn;t answer properly) - Affect Affect: Blunted - Speech Speech: Slurred - Formal Thought Process Formal Thought Process: No Impairment - Suicidal Ideation Suicidal Ideation: No - Homicidal Ideation Homicidal Ideation: No Goal/Treatment Plan - Goal/Treatment Plan Need for Continued Stay: Discharge may exacerbated symptoms, Severe functional impairment Progress Toward Problem(s) and Goals/Treatment Plan: Librium detox As needed medications Gabapentin for augmentation Attend groups and activities Supportive therapy and psychoeducation [place] for abstinence CBT for relapse prevention Encourage MAT Will attend Rehab Facility [facility] after discharge Fair prognosis Estimated Date of D/C: 08/04/17 - Smoking Cessation Smoking Cessation Initiated: No
[2017-08-02 14:39] VITALS: RESP 18
--- NOTE | 2017-08-03 08:45 | PCM.PYCHDC ---
Mental Status Examination - Mental Status Examination Orientation: Person, Place, Situation, Time Memory: Impaired Mood: Anxious Affect: Constricted Speech: Slurred Attention: Poor Concentration: Poor Association: WNL Fund of Knowledge: Poor Formal Thought Process: No Impairment Suicidal Ideation: No Current Homicidal Ideation?: No Discharge Summary - Discharge Note Reason for Hospitalization: Alcohol detox Consultations:: List each consultation separately and include: 1. Reason for request. 2. Findings. 3. Follow-up Summary of Hospital Course include:: 1. Description of specific treatment plan utilized for patients during their course of treatmen. 2. Summarize the time- course for resolution of acute symptoms and/or regressed behaviors. 3. Describe issues identified and worked on during hospitalization. 4. Describe medication utilized. 5. Describe medical problems identified and treated. 6. Reassessment of suicide risk Summary of Hospital Course: The patient is seen, chart reviewed and case discussed. On admission: This is a 51-year-old male, , has 9 children, homeless and unemployed. Poor historian due to over-sedation but he is known from previous admission The patient is back here again for alcohol detox. He reports drinking up to 3-4 pints of vodka every day for the past 16 years, on and off. He had used heroin and cocaine in the past but stopped when he started alcohol. He still smokes half pack per day cigarettes and denies all other drugs currently. This is his 4th detox and he was in [facility] in the past and wants to go there. His longest sobriety was 3 years while he was in shelter. He did overall 20 years in shelter for drug-related charges. Denies psychiatric problems. He has significant withdrawal symptoms. Past psych history: He was depressed and had SI in the past but never attempted suicide and never hospitalized. Family psych history: Brother also had alcohol and heroine use. He is in shelter now. Medical history: Denies Hospital course: The pt was admitted and started on treatment with psychotherapy, support, psychoeducation and medications. [facility] and CBT used. The pt attended groups and activities, as well as milieu therapy. All the risks and benefits of medications are discussed and the patient understood and agreed. The pt improved with the treatments provided. After care discussed with the patient. He is accepted by [facility], again, but to be admitted on Sunday. The pt was offered to stay until Sat so he would be out only 2 nights (at his sister's house) but he chose to leave on Sunday - risks discussed Not AMA b/c he completed his detpx He had hip pain, leg pain, was weak and unsteady, seen by PT and used a walker. A rx for a cane given. - Final Diagnosis (DSM 5) Condition upon Discharge: IMPROVED DSM 5: Alcohol withdrawal Alcohol use disorder Tobacco use d/o -moderate Disposition: REHAB FACILITY/REHAB UNIT Follow-up Treatment Plan: Continue below medications after discharge. Follow after care plan as discussed. Use relapse prevention skills Return to ER or call 911 if suicidal, homicidal or symptoms relapse. Stay away from stress, alcohol and drugs. See primary doctor regularly and get labs. Prescriptions/Medication Reconciliation: Multivitamins [Hexavitamin] 1 tab PO DAILY #30 tab traZODone [Desyrel] 100 mg PO HS PRN #30 tab PRN Reason: Insomnia - Smoking Cessation Smoking Cessation Medication prescribed: No - Antipsychotic Medications Pt discharged on 2 or more routine antipsychotic medications: No
[2017-08-03] MEDS: Multiple Vitamins Tab PO SCH (09:29)
[2017-08-03 09:30] VITALS: BP 98/68; PULSE 87; TEMP 99.1; O2SAT 97
[2017-08-03] MEDS ORDERED: Pneumococcal 23-Valent Vaccine IM ONE (10:00)
[2017-08-03] MEDS ORDERED: Influenza Vaccine 60 mcg/0.5 mL SYR (4YR UP) IM ONE (11:00)
[2017-08-03] MEDS ORDERED: Influenza Virus Vaccine 45 mcg/0.5 ml Syr (36 months - 7 yrs) IM ONE (11:00)
== END 2017-08-03 10:30 | disposition home or self-care (01) | DRG 751 ==
LOC: C.ER 14:09 → C.7D 07-31 00:33
PROVIDERS: ADMIT Psychiatry & Neurology Psychiatry; ATTEND Psychiatry & Neurology Psychiatry
PROC: HZ2ZZZZ Detoxification Services for Substance Abuse Treatment (ICD-10-PCS; principal; 2017-07-31)
PROC: HZ42ZZZ Group Counseling for Substance Abuse Treatment, Cognitive-Behavioral (ICD-10-PCS; 2017-07-31)
PROC: HZ52ZZZ Individual Psychotherapy for Substance Abuse Treatment, Cognitive-Behavioral (ICD-10-PCS; 2017-07-31)
PROC: HZ59ZZZ Individual Psychotherapy for Substance Abuse Treatment, Supportive (ICD-10-PCS; 2017-07-31)
PROC: HZ56ZZZ Individual Psychotherapy for Substance Abuse Treatment, Psychoeducation (ICD-10-PCS; 2017-07-31)
PROC: HZ46ZZZ Group Counseling for Substance Abuse Treatment, Psychoeducation (ICD-10-PCS; 2017-07-31)
DX: F10.230 Alcohol dependence with withdrawal, uncomplicated (principal); F10.220 Alcohol dependence with intoxication, uncomplicated; Y90.8 Blood alcohol level of 240 mg/100 ml or more; F17.210 Nicotine dependence, cigarettes, uncomplicated; Z59.0 Homelessness

== ENCOUNTER 2017-08-05 04:21 | Emergency (ER) | payer MEDICAID, OTHER ==
[2017-08-05 04:22] VITALS: BMI 26.6
[2017-08-05 04:26] VITALS: O2SAT 95
[2017-08-05] MEDS ORDERED: Sodium Chloride 0.9% 1,000 ML IV ONE (04:34)
--- NOTE | 2017-08-05 04:39 | C.PDOC ---
History Of Present Illness patient presents with nausea and voming for a few hours. Pt is a chronic alcohol. today he drank 1.5 pints of vodka. No f// decreased po intake Time Seen by Provider: 08/05/17 04:33 Chief Complaint (Nursing): Abdominal Pain History Per: Patient History/Exam Limitations: no limitations Onset/Duration Of Symptoms: Hrs Current Symptoms Are (Timing): Still Present Context: Other (alcohol) Severity: Moderate Pain Scale Rating Of: 5 Location Of Pain/Discomfort: Diffuse Radiation Of Pain To:: None Quality Of Discomfort: Dull, Cramping Associated Symptoms: Nausea, Vomiting. denies: Fever, Chills Exacerbating Factors: Other (alcohol) Alleviating Factors: None Last Bowel Movement: Today Recent travel outside of the [place]: No Additional History Per: Patient Past Medical History Reviewed: Historical Data, Nursing Documentation, Vital Signs Vital Signs: Last Vital Signs Temp 98.2 F 08/05/17 04:25 Pulse 94 H 08/05/17 04:25 Resp 20 08/05/17 04:25 BP 143/87 08/05/17 04:25 Pulse Ox 95 08/05/17 04:39 - Medical History PMH: Arthritis (hands and feet), Depression, Graves' Disease, Schizophrenia, Chronic Pain (b/l leg) Denies: Diabetes, Hepatitis, HIV (Negative), HTN, Chronic Kidney Disease, Seizures, Sexually Transmitted Disease - [facility] Procedures DETOXIFICATION SERVICES FOR SUBSTANCE ABUSE TREATMENT (04/07/17) INDIV PSYCHOTHERAPY FOR SUBSTANCE ABUSE TREATMENT, SUPPORT (04/07/17) INDIV PSYCHOTHERAPY FOR SUBSTANCE ABUSE, COGNITIV BEHAVIORAL (04/07/17) INDIV PSYCHOTHERAPY FOR SUBSTANCE ABUSE, PSYCHOEDUCATION (04/07/17) INSERTION OF ENDOTRACHEAL AIRWAY INTO TRACHEA, VIA OPENING (02/21/17) INTRODUCTION OF SERUM/TOX/VACCINE INTO MUSCLE, PERC APPROACH (01/10/17) RESPIRATORY VENTILATION, 24-96 CONSECUTIVE HOURS (02/21/17) Family History: States: No Known Family Hx - Social History Hx Tobacco Use: Yes Hx Alcohol Use: Yes 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, PCP,) - Immunization History Hx Tetanus Toxoid Vaccination: Yes Hx Influenza Vaccination: Yes Hx Pneumococcal Vaccination: Yes Review Of Systems Cardiovascular: Negative for: Chest Pain Respiratory: Negative for: Shortness of Breath Gastrointestinal: Positive for: Nausea, Vomiting, Abdominal Pain Genitourinary: Negative for: Dysuria Musculoskeletal: Negative for: Back Pain Skin: Negative for: Rash Neurological: Negative for: Weakness Psych: Negative for: Anxiety Physical Exam - Physical Exam Appears: Non-toxic Skin: Warm, Dry Head: Normacephalic Eye(s): bilateral: Normal Inspection Oral Mucosa: Moist Neck: Supple Chest: Symmetrical Cardiovascular: Rhythm Regular Respiratory: No Rales, No Rhonchi Gastrointestinal/Abdominal: Soft, Tenderness (diffuse, mild), No Distention, No Guarding, No Rebound Back: Normal Inspection Extremity: Normal ROM Extremity: Bilateral: Atraumatic Pulses: Left Dorsalis Pedis: Normal, Right Dorsalis Pedis: Normal Neurological/Psych: Oriented x3, Normal Speech, Normal Cognition Gait: Steady ED Course And Treatment - Laboratory Results Result Diagrams: 08/05/17 04:52 08/05/17 04:52 O2 Sat by Pulse Oximetry: 95 Pulse Ox Interpretation: Normal Reevaluation Time: 05:56 Reassessment Condition: Improved Disposition Counseled Patient/Family Regarding: Studies Performed, Diagnosis, Need For Followup, Rx Given - Disposition Referrals: [facility] [Outside] [facility] [Outside] Disposition: HOME/ ROUTINE Disposition Time: 05:56 Condition: FAIR Prescriptions: Ondansetron ODT [Zofran ODT] 1 odt PO BID PRN #6 odt PRN Reason: Nausea/Vomiting Instructions: Abdominal Pain (ED), Acute Nausea and Vomiting (ED) Forms: [facility] (Luxembourgish) - Clinical Impression Clinical Impression: Abdominal pain, Alcohol abuse, Nausea & vomiting
[2017-08-05] MEDS ORDERED: Sodium Chloride 0.9% 1,000 ML ONE (04:42)
[2017-08-05 04:55] LABS: BASO # 0.1 K/uL (0.0-0.2); EOS # 0.1 K/uL (0.0-0.7); EOS % 0.8 % (0.0-4.0); HEMATOCRIT 43.5 % (35.0-51.0); LYMPH # 0.9 K/uL (1.0-4.3); LYMPH % 14.3 % (20.0-40.0); MEAN CELL VOLUME 101.7 fL (80.0-94.0); MEAN CORPUSCULAR HEMOGLOBIN 34.8 pg (27.0-31.0); MEAN CORPUSCULAR HGB CONC 34.2 g/dL (33.0-37.0); MEAN PLATELET VOLUME 8.4 fL (7.2-11.7); MONO # 0.9 K/uL (0.0-0.8); MONO % 13.5 % (0.0-10.0); NRBC % 0.1 % (0.0-2.0); RED CELL DISTRIBUTION WIDTH 12.9 % (11.5-14.5); WHITE BLOOD COUNT 6.4 K/uL (4.8-10.8)
[2017-08-05 05:03] LABS: CHLORIDE 104 mmol/L (98-107); POTASSIUM 3.6 mmol/L (3.6-5.2); SODIUM 141 mmol/L (132-148)
[2017-08-05 05:05] LABS: BILIRUBIN,TOTAL 1.8 mg/dL (0.2-1.3); CARBON DIOXIDE 25 mmol/L (22-30); GFR AFRICAN-AMERICAN > 60
[2017-08-05 05:06] LABS: ALB/GLOB RATIO 0.7 (1.0-2.1); ALKALINE PHOSPHATASE 138 U/L (38-126); ALT/SGPT 46 U/L (21-72); AST/SGOT 77 U/L (17-59); BLOOD UREA NITROGEN 10 mg/dL (9-20); CALCIUM 8.7 mg/dl (8.6-10.4); GLUCOSE,RANDOM 113 mg/dL (75-110); TOTAL PROTEIN 8.9 g/dL (6.3-8.3)
[2017-08-05 05:07] LABS: ALCOHOL SERUM 117 mg/dl (0-10)
[2017-08-05 06:07] VITALS: BP 131/87; PULSE 97; RESP 18; TEMP 97.4
== END 2017-08-05 06:35 | disposition home or self-care (01) ==
LOC: C.ER 04:21
DX: R11.2 Nausea with vomiting, unspecified (principal); R10.9 Unspecified abdominal pain; F10.10 Alcohol abuse, uncomplicated; Y90.5 Blood alcohol level of 100-119 mg/100 ml
CPT/HCPCS: 80053; 80320; 83690; 85025; 96361; 96374; 96375; 99284; J2405; J7040

== ENCOUNTER 2017-08-08 01:54 | Emergency (ER) | payer OTHER ==
[2017-08-08 01:54] VITALS: BMI 26.6
[2017-08-08 02:09] VITALS: RESP 20
[2017-08-08] MEDS ORDERED: Alum-Mag Hydrox-Simethicone Susp (30 mL) ONE (02:59)
[2017-08-08] MEDS ORDERED: Alum-Mag Hydrox-Simethicone Susp (30 mL) PO STA (03:03)
--- NOTE | 2017-08-08 03:09 | C.PDOC ---
History Of Present Illness 51 year old male who presents to the ER with a complaint of generalized body aches, feeling tired, and a dry cough that began today. Patient reports moderate ETOH use today. Denies fever, chills, nausea, or vomiting. Time Seen by Provider: 08/08/17 02:11 Chief Complaint (Nursing): Medical Clearance History Per: Patient History/Exam Limitations: no limitations Onset/Duration Of Symptoms: Hrs Current Symptoms Are (Timing): Still Present Recent travel outside of the [place] States: No Past Medical History Reviewed: Historical Data, Nursing Documentation, Vital Signs Vital Signs: Last Vital Signs Temp 98 F 08/08/17 03:38 Pulse 67 08/08/17 03:38 Resp 20 08/08/17 03:38 BP 126/71 08/08/17 03:38 Pulse Ox 98 08/08/17 03:49 - Medical History PMH: Arthritis (hands and feet), Depression, Graves' Disease, Schizophrenia, Chronic Pain (b/l leg) Surgical History: No Surg Hx - [facility] Procedures DETOXIFICATION SERVICES FOR SUBSTANCE ABUSE TREATMENT (07/31/17) GROUP ARMORED SERVICE TECHNICIAN FOR SUBSTANCE ABUSE TREATMENT, PSYCHOEDUCATION (07/31/17) GROUP ARMORED SERVICE TECHNICIAN FOR SUBSTANCE ABUSE, COGNITIVE BEHAVIORAL (07/31/17) INDIV PSYCHOTHERAPY FOR SUBSTANCE ABUSE TREATMENT, SUPPORT (07/31/17) INDIV PSYCHOTHERAPY FOR SUBSTANCE ABUSE, COGNITIV BEHAVIORAL (07/31/17) INDIV PSYCHOTHERAPY FOR SUBSTANCE ABUSE, PSYCHOEDUCATION (07/31/17) INSERTION OF ENDOTRACHEAL AIRWAY INTO TRACHEA, VIA OPENING (02/21/17) INTRODUCTION OF SERUM/TOX/VACCINE INTO MUSCLE, PERC APPROACH (01/10/17) RESPIRATORY VENTILATION, 24-96 CONSECUTIVE HOURS (02/21/17) Family History: States: Unknown Family Hx - Social History Hx Tobacco Use: Yes Hx Alcohol Use: Yes 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, PCP,) - Immunization History Hx Tetanus Toxoid Vaccination: Yes Hx Influenza Vaccination: Yes Hx Pneumococcal Vaccination: Yes Review Of Systems Constitutional: Positive for: Malaise Respiratory: Positive for: Cough. Negative for: Sputum Gastrointestinal: Negative for: Nausea, Vomiting Musculoskeletal: Positive for: Other (Generalized body aches) Physical Exam - Physical Exam Appears: Non-toxic, No Acute Distress Skin: Normal Color, Warm, Dry Head: Atraumatic, Normacephalic Eye(s): bilateral: Normal Inspection, EOMI Oral Mucosa: Moist Chest: Symmetrical Cardiovascular: Rhythm Regular Respiratory: Normal Breath Sounds, No Rales, No Rhonchi, No Wheezing Extremity: Normal ROM (x4) Neurological/Psych: Oriented x3, Normal Speech, Normal Cognition Gait: Steady ED Course And Treatment O2 Sat by Pulse Oximetry: 98 (Room air) Pulse Ox Interpretation: Normal Progress Note: Maalox administered. Patient is resting comfortably, and is in no acute distress, ambulatory with steady gait. Patient was instructed to follow up with PMD in 1-2 days for further evaluation. Disposition Counseled Patient/Family Regarding: Diagnosis, Need For Followup - Disposition Disposition: HOME/ ROUTINE Disposition Time: 03:07 Condition: GOOD Additional Instructions: Follow up in clinic Return to ER if worse Forms: [facility] (Liberian) - Clinical Impression Clinical Impression: Alcohol use, Upper respiratory infection - Scribe Statement The provider has reviewed the documentation as recorded by the Scribe Virgilio Martinez All medical record entries made by the Scribe were at my direction and personally dictated by me. I have reviewed the chart and agree that the record accurately reflects my personal performance of the history, physical exam, medical decision making, and the department course for this patient. I have also personally directed, reviewed, and agree with the discharge instructions and disposition.
[2017-08-08 03:39] VITALS: BP 126/71; PULSE 67; TEMP 98
[2017-08-08 03:46] VITALS: O2SAT 98
== END 2017-08-08 03:40 | disposition home or self-care (01) ==
LOC: C.ER 01:54
DX: J06.9 Acute upper respiratory infection, unspecified (principal); F10.10 Alcohol abuse, uncomplicated; Y90.9 Presence of alcohol in blood, level not specified

== ENCOUNTER 2017-08-10 17:37 | Emergency (ER) | payer OTHER ==
[2017-08-10 17:48] VITALS: BMI 25.1
[2017-08-10 17:49] VITALS: RESP 20
[2017-08-10] MEDS ORDERED: Sodium Chloride 0.9% 1,000 ML IV ONE (19:28)
[2017-08-10] MEDS ORDERED: Aluminum Hydroxide/Magnesium Hydroxide Susp (30 mL) PO STA (19:28)
--- NOTE | 2017-08-10 19:31 | C.PDOC ---
History Of Present Illness <Michelle Willoughby - Last Filed: 08/11/17 19:11> <Rosa Lafleur - Last Filed: 08/12/17 21:28> 51 year old male presents to the ED with complaints of nausea, vomiting, and abdominal pain beginning earlier today. He reports drinking vodka every day with last drink being a couple of hours prior to arrival. Patient denies diarrhea, hematuria, blood in the stool, fever, or chills. (Michelle Willoughby) <Michelle Willoughby - Last Filed: 08/11/17 19:11> <Rosa Lafleur - Last Filed: 08/12/17 21:28> Chief Complaint (Nursing): Abdominal Pain Past Medical History - Medical History PMH: Arthritis (hands and feet), Depression, Graves' Disease, Schizophrenia, Chronic Pain (b/l leg) Denies: Diabetes, Hepatitis, HIV (Negative), HTN, Chronic Kidney Disease, Seizures, Sexually Transmitted Disease Family History: States: Unknown Family Hx - Social History Hx Tobacco Use: Yes Hx Alcohol Use: Yes 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, PCP,) - Immunization History Hx Tetanus Toxoid Vaccination: Yes Hx Influenza Vaccination: Yes Hx Pneumococcal Vaccination: Yes <Michelle Willoughby - Last Filed: 08/11/17 19:11> Vital Signs: Last Vital Signs Temp 99.9 F H 08/11/17 08:02 Pulse 105 H 08/11/17 08:02 Resp 20 08/11/17 08:02 BP 106/73 08/11/17 08:02 Pulse Ox 96 08/11/17 19:12 - [facility] DETOXIFICATION SERVICES FOR SUBSTANCE ABUSE TREATMENT (07/31/17) GROUP TIRE FABRICATOR FOR SUBSTANCE ABUSE TREATMENT, PSYCHOEDUCATION (07/31/17) GROUP TIRE FABRICATOR FOR SUBSTANCE ABUSE, COGNITIVE BEHAVIORAL (07/31/17) INDIV PSYCHOTHERAPY FOR SUBSTANCE ABUSE TREATMENT, SUPPORT (07/31/17) INDIV PSYCHOTHERAPY FOR SUBSTANCE ABUSE, COGNITIV BEHAVIORAL (07/31/17) INDIV PSYCHOTHERAPY FOR SUBSTANCE ABUSE, PSYCHOEDUCATION (07/31/17) INSERTION OF ENDOTRACHEAL AIRWAY INTO TRACHEA, VIA OPENING (02/21/17) INTRODUCTION OF SERUM/TOX/VACCINE INTO MUSCLE, PERC APPROACH (01/10/17) RESPIRATORY VENTILATION, 24-96 CONSECUTIVE HOURS (02/21/17) Physical Exam - Physical Exam Appears: Non-toxic, No Acute Distress Skin: Warm, Dry, Other (Theodore complexion ) Head: Atraumatic, Normacephalic Eye(s): bilateral: PERRL, EOMI, Other (Pupils are icteric. Conjunctiva are pink. ) Neck: Supple Chest: Symmetrical, No Deformity Cardiovascular: No Murmur, Other (S1 and S2 in normal range. Normal rate and rhythm. ) Respiratory: No Rales, No Rhonchi, No Wheezing, Other (Clear to auscultation bilaterally ) Gastrointestinal/Abdominal: Bowel Sounds (positive bowel sounds ), Soft, Tenderness (diffuse tenderness), No Organomegaly, No Distention, Guarding ( voluntary guarding generated ), No Rebound Extremity: Normal ROM, No Tenderness Neurological/Psych: Oriented x3, No Normal Speech (slurred speech ) <Michelle Willoughby - Last Filed: 08/11/17 19:11> ED Course And Treatment - Laboratory Results Result Diagrams: 08/10/17 19:47 08/10/17 19:47 O2 Sat by Pulse Oximetry: 96 (RA) Progress Note: UA and blood work were ordered. Patient was given pepcid, zofran , morphine, and IV fluids. On reevaluation,pt is sleeping comfortably at 2210 PM Reevaluation Time: 22:08 Reassessment Condition: Improved <Michelle Willoughby - Last Filed: 08/11/17 19:11> - Laboratory Results Result Diagrams: 08/10/17 19:47 08/10/17 19:47 <Rosa Lafleur - Last Filed: 08/12/17 21:28> Medical Decision Making <Michelle Willoughby - Last Filed: 08/11/17 19:11> <Rosa Lafleur - Last Filed: 08/12/17 21:28> Medical Decision Making: Impression: Chronic alcoholic Rule out: Alcoholic gastritis vs. Peptic Ulcer Disease vs. Hepatitis vs. Pancreatitis Patient will be started on analgesic IV hydration and GI cocktail. (Michelle Willoughby) Disposition - Disposition Disposition Time: 19:11 <Michelle Willoughby - Last Filed: 08/11/17 19:11> Counseled Patient/Family Regarding: Diagnosis, Need For Followup - Disposition Disposition Time: 07:53 <Rosa Lafleur - Last Filed: 08/12/17 21:28> - Disposition Referrals: [facility] [Outside] Disposition: HOME/ ROUTINE Condition: STABLE Instructions: Alcohol Intoxication (ED) Forms: General Discharge Instructions, [facility] (Nepalese) Print Language: COMORAN - Clinical Impression Clinical Impression: Alcohol dependence, Alcoholic gastritis - Scribe Statement The provider has reviewed the documentation as recorded by the Scribe <Michelle Willoughby - Last Filed: 08/11/17 19:11> <Rosa Lafleur - Last Filed: 08/12/17 21:28> - Scribe Statement Deborah Dinh All medical record entries made by the Scribe were at my direction and personally dictated by me. I have reviewed the chart and agree that the record accurately reflects my personal performance of the history, physical exam, medical decision making, and the department course for this patient. I have also personally directed, reviewed, and agree with the discharge instructions and disposition. (Michelle Willoughby) Addendum <Michelle Willoughby - Last Filed: 08/11/17 19:11> <Rosa Lafleur - Last Filed: 08/12/17 21:28> Addendum: 08/11/17 07:53 Patient currently AAOx3, ambulating normally in ED. Patient clinically sober, will discharge at this time. (Rosa Lafleur)
[2017-08-10] MEDS ORDERED: Sodium Chloride 0.9% 1,000 ML ONE (19:46)
[2017-08-10] MEDS ORDERED: Aluminum Hydroxide/Magnesium Hydroxide Susp (30 mL) ONE (19:46)
[2017-08-10] MEDS ORDERED: Morphine 4 MG/ML VIAL ONE (19:46)
[2017-08-10 19:52] LABS: BASO # 0.1 K/uL (0.0-0.2); EOS % 0.8 % (0.0-4.0); LYMPH # 0.9 K/uL (1.0-4.3); MEAN CELL VOLUME 98.9 fL (80.0-94.0); MEAN CORPUSCULAR HEMOGLOBIN 34.3 pg (27.0-31.0); MEAN CORPUSCULAR HGB CONC 34.7 g/dL (33.0-37.0); MEAN PLATELET VOLUME 8.1 fL (7.2-11.7); MONO # 0.6 K/uL (0.0-0.8); MONO % 11.7 % (0.0-10.0); NRBC % 0.1 % (0.0-2.0); RED CELL DISTRIBUTION WIDTH 12.3 % (11.5-14.5); WHITE BLOOD COUNT 5.3 K/uL (4.8-10.8)
[2017-08-10 20:01] LABS: CHLORIDE 101 mmol/L (98-107)
[2017-08-10 20:02] LABS: POTASSIUM 3.2 mmol/L (3.6-5.2); SODIUM 138 mmol/L (132-148)
[2017-08-10 20:03] LABS: INR 1.2
[2017-08-10 20:04] LABS: GFR AFRICAN-AMERICAN > 60
[2017-08-10 20:05] LABS: ALB/GLOB RATIO 0.8 (1.0-2.1); ALKALINE PHOSPHATASE 135 U/L (38-126); ALT/SGPT 43 U/L (21-72); AST/SGOT 86 U/L (17-59); BILIRUBIN,TOTAL 1.6 mg/dL (0.2-1.3); BLOOD UREA NITROGEN 6 mg/dL (9-20); CALCIUM 8.3 mg/dl (8.6-10.4); CARBON DIOXIDE 26 mmol/L (22-30); GLUCOSE,RANDOM 105 mg/dL (75-110)
[2017-08-10 20:06] LABS: ALCOHOL SERUM 283 mg/dl (0-10)
[2017-08-10 20:47] LABS: RBC URINE < 1 /hpf (0-3); URINE BILIRUBIN NEGATIVE (NEGATIVE); URINE BLOOD NEGATIVE (NEGATIVE); URINE COLOR Yellow (YELLOW); URINE GLUCOSE (UA) NORMAL (Normal); URINE KETONE NEGATIVE (NEGATIVE); URINE LEUKOCYTE ESTERASE NEG Leu/uL (Negative); URINE PROTEIN NEGATIVE (NEGATIVE); WBC URINE < 1 /hpf (0-5)
[2017-08-11 08:03] VITALS: BP 106/73; PULSE 105; TEMP 99.9; O2SAT 96
== END 2017-08-11 08:03 | disposition home or self-care (01) ==
LOC: C.ER 17:37
DX: K29.20 Alcoholic gastritis without bleeding (principal); F10.20 Alcohol dependence, uncomplicated; Y90.8 Blood alcohol level of 240 mg/100 ml or more
CPT/HCPCS: 80053; 80320; 80324; 80345; 80346; 80349; 80353; 80358; 80361; 81001; 83690; 83992; 85025; 85610; 85730; 96361; 96374; 96375; 99285; J2270; J2405; J7040

== ENCOUNTER 2017-08-14 13:32 | Emergency (ER) | payer OTHER ==
[2017-08-14 13:32] VITALS: BMI 25.1
[2017-08-14 13:48] VITALS: BP 112/76; PULSE 90; RESP 18; TEMP 97.7; O2SAT 95
--- NOTE | 2017-08-14 15:03 | C.PDOC ---
History Of Present Illness 51 yr old male brought in via BLS, presents to the for alcohol intoxication. Patient admits to drinking alcohol and being homeless. Patient denies any active complaints at this time, denies SI or HI. Time Seen by Provider: 08/14/17 13:59 Chief Complaint (Nursing): Substance Abuse History Per: Patient History/Exam Limitations: no limitations Onset/Duration Of Symptoms: Persistent Suicide/Self Injury Attempted (Context): None Past Medical History Reviewed: Historical Data, Nursing Documentation, Vital Signs Vital Signs: Last Vital Signs Temp 97.7 F 08/14/17 13:40 Pulse 90 08/14/17 13:40 Resp 18 08/14/17 13:40 BP 112/76 08/14/17 13:40 Pulse Ox 95 08/14/17 15:27 - Medical History PMH: Arthritis (hands and feet), Depression, Graves' Disease, Schizophrenia, Chronic Pain (b/l leg) - [facility] Procedures DETOXIFICATION SERVICES FOR SUBSTANCE ABUSE TREATMENT (07/31/17) GROUP NURSERY WORKER FOR SUBSTANCE ABUSE TREATMENT, PSYCHOEDUCATION (07/31/17) GROUP NURSERY WORKER FOR SUBSTANCE ABUSE, COGNITIVE BEHAVIORAL (07/31/17) INDIV PSYCHOTHERAPY FOR SUBSTANCE ABUSE TREATMENT, SUPPORT (07/31/17) INDIV PSYCHOTHERAPY FOR SUBSTANCE ABUSE, COGNITIV BEHAVIORAL (07/31/17) INDIV PSYCHOTHERAPY FOR SUBSTANCE ABUSE, PSYCHOEDUCATION (07/31/17) INSERTION OF ENDOTRACHEAL AIRWAY INTO TRACHEA, VIA OPENING (02/21/17) INTRODUCTION OF SERUM/TOX/VACCINE INTO MUSCLE, PERC APPROACH (01/10/17) RESPIRATORY VENTILATION, 24-96 CONSECUTIVE HOURS (02/21/17) Family History: States: No Known Family Hx - Social History Hx Tobacco Use: Yes Hx Alcohol Use: Yes 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, PCP,) - Immunization History Hx Tetanus Toxoid Vaccination: No Hx Influenza Vaccination: No Hx Pneumococcal Vaccination: No Review Of Systems Except As Marked, All Systems Reviewed And Found Negative. Constitutional: Negative for: Fever Cardiovascular: Negative for: Chest Pain Psych: Negative for: Suicidal ideation Physical Exam - Physical Exam Appears: Non-toxic, No Acute Distress Skin: Warm, Dry, No Rash Head: Atraumatic, Normacephalic Oral Mucosa: Moist Chest: Symmetrical, No Tenderness Cardiovascular: Rhythm Regular, No Murmur Respiratory: Normal Breath Sounds, No Rales, No Rhonchi, No Wheezing Extremity: Normal ROM, No Swelling Neurological/Psych: Oriented x3, Normal Speech ED Course And Treatment O2 Sat by Pulse Oximetry: 95 (RA) Pulse Ox Interpretation: Normal Medical Decision Making Medical Decision Making: NOTE: * On reeval, patient is walking with steady gait. * Patient to be discharged. Disposition - Disposition Disposition: HOME/ ROUTINE Disposition Time: 15:30 Condition: STABLE Additional Instructions: decrease alcohol use follow up with your doctor in 2 days call to make an appointment return to hospital if symptoms worsens or progress Instructions: Alcohol Intoxication (ED) Forms: [facility] (Hungarian), General Discharge Instructions - Clinical Impression Clinical Impression: Alcohol abuse - Scribe Statement The provider has reviewed the documentation as recorded by the Ciera Meehan Provider Attestation: All medical record entries made by the Ciera were at my direction and personally dictated by me. I have reviewed the chart and agree that the record accurately reflects my personal performance of the history, physical exam, medical decision making, and the department course for this patient. I have also personally directed, reviewed, and agree with the discharge instructions and disposition.
== END 2017-08-14 15:30 | disposition home or self-care (01) ==
LOC: C.ER 13:32
DX: F10.10 Alcohol abuse, uncomplicated (principal); Y90.9 Presence of alcohol in blood, level not specified; Z59.0 Homelessness

== ENCOUNTER 2017-08-16 17:05 | Emergency (ER) | payer OTHER ==
[2017-08-16 17:15] VITALS: BMI 23.7
[2017-08-16 17:18] VITALS: RESP 18; O2SAT 95
--- NOTE | 2017-08-16 18:43 | C.PDOC ---
History Of Present Illness 52 y/o male presents to ED with complaints of vague body pains. Patient is a polysubstance abuser, homeless and has multiple prior visits last visit was 2 days ago. During last visit to ED patient was escorted out by security. No other complaints at this time. Time Seen by Provider: 08/16/17 18:35 Chief Complaint (Nursing): Abdominal Pain History Per: Patient History/Exam Limitations: no limitations Onset/Duration Of Symptoms: Days Current Symptoms Are (Timing): Still Present Past Medical History Reviewed: Historical Data, Nursing Documentation, Vital Signs Vital Signs: Last Vital Signs Temp 98.2 F 08/16/17 19:01 Pulse 100 H 08/16/17 19:01 Resp 18 08/16/17 19:01 BP 120/80 08/16/17 19:01 Pulse Ox 95 08/16/17 19:01 - Medical History PMH: Arthritis (hands and feet), COPD, Depression, Graves' Disease, Pancreatitis , Pneumonia, Schizophrenia, Chronic Pain (b/l leg) Surgical History: No Surg Hx - [facility] Procedures DETOXIFICATION SERVICES FOR SUBSTANCE ABUSE TREATMENT (07/31/17) GROUP RN CORRECTIONAL FOR SUBSTANCE ABUSE TREATMENT, PSYCHOEDUCATION (07/31/17) GROUP RN CORRECTIONAL FOR SUBSTANCE ABUSE, COGNITIVE BEHAVIORAL (07/31/17) INDIV PSYCHOTHERAPY FOR SUBSTANCE ABUSE TREATMENT, SUPPORT (07/31/17) INDIV PSYCHOTHERAPY FOR SUBSTANCE ABUSE, COGNITIV BEHAVIORAL (07/31/17) INDIV PSYCHOTHERAPY FOR SUBSTANCE ABUSE, PSYCHOEDUCATION (07/31/17) INSERTION OF ENDOTRACHEAL AIRWAY INTO TRACHEA, VIA OPENING (02/21/17) INTRODUCTION OF SERUM/TOX/VACCINE INTO MUSCLE, PERC APPROACH (01/10/17) RESPIRATORY VENTILATION, 24-96 CONSECUTIVE HOURS (02/21/17) Family History: States: No Known Family Hx - Social History Hx Tobacco Use: Yes Hx Alcohol Use: Yes 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, PCP,) - Immunization History Hx Tetanus Toxoid Vaccination: No Hx Influenza Vaccination: No Hx Pneumococcal Vaccination: No Review Of Systems Except As Marked, All Systems Reviewed And Found Negative. Constitutional: Negative for: Fever, Chills Cardiovascular: Negative for: Chest Pain, Palpitations Respiratory: Negative for: Shortness of Breath Musculoskeletal: Positive for: Other (vague body pains) Skin: Negative for: Rash Neurological: Negative for: Weakness, Numbness Physical Exam - Physical Exam Appears: Non-toxic, No Acute Distress Skin: Normal Color, Warm, Dry, No Rash Head: Atraumatic, Normacephalic Eye(s): bilateral: Other (pin point pupils) Oral Mucosa: Moist Neck: Normal ROM, Supple Chest: Symmetrical Cardiovascular: Rhythm Regular Respiratory: Normal Breath Sounds, No Rales, No Rhonchi, No Wheezing Gastrointestinal/Abdominal: Soft, No Tenderness, No Guarding, No Rebound Back: No CVA Tenderness, No Paraspinal Tenderness Extremity: Normal ROM, Capillary Refill (<2 seconds) Neurological/Psych: Oriented x3, Normal Motor, Normal Sensation ED Course And Treatment O2 Sat by Pulse Oximetry: 95 (RA) Pulse Ox Interpretation: Normal Medical Decision Making Medical Decision Making: homeless, polysubstance abuser seen for same 2 days ago no new issues. Malingering. pt with prior physically threatening behavior and confrontational with staff and Security services Should be approached with great caution in future evals. Disposition Doctor Will See Patient In The: Office Counseled Patient/Family Regarding: Studies Performed, Diagnosis - Disposition Referrals: Alcoholics Anonymous [Outside] [facility] [place] [Outside] [facility] [Outside] [facility] [Outside] Disposition: HOME/ ROUTINE Disposition Time: 18:42 Condition: GOOD Additional Instructions: seek nightly Homeless Correction placement as instructed. Forms: General Discharge Instructions, [facility] (Andorran) - Clinical Impression Clinical Impression: Polysubstance abuse, Drug-seeking behavior - Scribe Statement The provider has reviewed the documentation as recorded by the Scribjewel Mcneil All medical record entries made by the Scribe were at my direction and personally dictated by me. I have reviewed the chart and agree that the record accurately reflects my personal performance of the history, physical exam, medical decision making, and the department course for this patient. I have also personally directed, reviewed, and agree with the discharge instructions and disposition.
[2017-08-16 19:02] VITALS: BP 120/80; PULSE 100; TEMP 98.2
== END 2017-08-16 19:00 | disposition home or self-care (01) ==
LOC: C.ER 17:05
DX: Z76.5 Malingerer [conscious simulation] (principal); F19.10 Other psychoactive substance abuse, uncomplicated; Z59.0 Homelessness

== ENCOUNTER 2017-09-24 03:27 | Emergency (ER) | payer OTHER ==
[2017-09-24 03:28] VITALS: BMI 23.7
--- NOTE | 2017-09-24 03:51 | C.PDOC ---
History Of Present Illness 52 year old male presents to the ER with a complaint of left elbow pain for the past 3 weeks, associated with a numbness described as tingling sensation to the left forearm. Patient states "it hurts right here" and points to his left elbow. Denies weakness, trauma. Time Seen by Provider: 09/24/17 03:42 Chief Complaint (Nursing): Upper Extremity Problem/Injury History Per: Patient History/Exam Limitations: no limitations Onset/Duration Of Symptoms: Days Current Symptoms Are (Timing): Still Present Exacerbating Factor(s): Nothing Recent travel outside of the [place]: No Past Medical History Reviewed: Historical Data, Nursing Documentation, Vital Signs Vital Signs: Last Vital Signs Temp 97.6 F 09/24/17 03:35 Pulse 91 H 09/24/17 03:35 Resp 14 09/24/17 03:35 BP 150/89 09/24/17 03:35 Pulse Ox 97 09/24/17 04:58 - Medical History PMH: Arthritis (hands and feet), COPD, Depression, Graves' Disease, Pancreatitis , Pneumonia, Schizophrenia, Chronic Pain (b/l leg) - [facility] Procedures DETOXIFICATION SERVICES FOR SUBSTANCE ABUSE TREATMENT (07/31/17) GROUP TRACTOR SWEEPER DRIVER FOR SUBSTANCE ABUSE TREATMENT, PSYCHOEDUCATION (07/31/17) GROUP TRACTOR SWEEPER DRIVER FOR SUBSTANCE ABUSE, COGNITIVE BEHAVIORAL (07/31/17) INDIV PSYCHOTHERAPY FOR SUBSTANCE ABUSE TREATMENT, SUPPORT (07/31/17) INDIV PSYCHOTHERAPY FOR SUBSTANCE ABUSE, COGNITIV BEHAVIORAL (07/31/17) INDIV PSYCHOTHERAPY FOR SUBSTANCE ABUSE, PSYCHOEDUCATION (07/31/17) INSERTION OF ENDOTRACHEAL AIRWAY INTO TRACHEA, VIA OPENING (02/21/17) INTRODUCTION OF SERUM/TOX/VACCINE INTO MUSCLE, PERC APPROACH (01/10/17) RESPIRATORY VENTILATION, 24-96 CONSECUTIVE HOURS (02/21/17) Family History: States: Unknown Family Hx - Social History Hx Tobacco Use: Yes Hx Alcohol Use: Yes 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, PCP,) - Immunization History Hx Tetanus Toxoid Vaccination: No Hx Influenza Vaccination: No Hx Pneumococcal Vaccination: No Review Of Systems Musculoskeletal: Positive for: Arm Pain Neurological: Positive for: Numbness, Other (tingling). Negative for: Weakness Physical Exam - Physical Exam Appears: Non-toxic, No Acute Distress Skin: Normal Color, Warm, Dry Head: Atraumatic, Normacephalic Eye(s): bilateral: Normal Inspection, EOMI Extremity: Normal ROM (x4), Tenderness (w/ palpation of left elbow), No Deformity, No Swelling, No Other (Erythema, Warmth) Extremity: Bilateral: Atraumatic, Normal Color And Temperature Pulses: Left Radial: Normal, Right Radial: Normal Neurological/Psych: Oriented x3, Normal Speech, Normal Motor, Normal Sensation Gait: Steady ED Course And Treatment O2 Sat by Pulse Oximetry: 97 (Room air) Pulse Ox Interpretation: Normal Progress Note: Motrin administered. Patient reports improvement of pain, instructed to take OTC pain medication as needed and to follow up with PMD for further evaluation. Disposition Counseled Patient/Family Regarding: Diagnosis, Need For Followup, Rx Given - Disposition Referrals: [facility] [Outside] Disposition: HOME/ ROUTINE Disposition Time: 03:47 Condition: STABLE Additional Instructions: Please follow up with PMD Take meds as directed Return to ER if worse Prescriptions: Ibuprofen [Motrin] 600 mg PO Q6H #20 tab Instructions: Tennis Elbow (ED) Forms: [facility] (Arabic) - Clinical Impression Clinical Impression: Elbow pain, left - Scribe Statement The provider has reviewed the documentation as recorded by the Scribe Virgilio Martinez All medical record entries made by the Scribe were at my direction and personally dictated by me. I have reviewed the chart and agree that the record accurately reflects my personal performance of the history, physical exam, medical decision making, and the department course for this patient. I have also personally directed, reviewed, and agree with the discharge instructions and disposition.
[2017-09-24 03:58] VITALS: BP 150/89; PULSE 91; RESP 14; TEMP 97.6; O2SAT 97
== END 2017-09-24 04:12 | disposition home or self-care (01) ==
LOC: C.ER 03:27
DX: M25.522 Pain in left elbow (principal); J44.9 Chronic obstructive pulmonary disease, unspecified; Z87.891 Personal history of nicotine dependence

== ENCOUNTER 2017-11-29 14:05 | Emergency (ER) | payer MEDICAID, OTHER ==
[2017-11-29 14:06] VITALS: BMI 23.7
[2017-11-29 14:58] LABS: BASO # 0.1 K/uL (0.0-0.2); EOS % 0.6 % (0.0-4.0); HEMOGLOBIN 14.7 g/dL (12.0-18.0); LYMPH # 0.6 K/uL (1.0-4.3); MEAN CORPUSCULAR HEMOGLOBIN 34.3 pg (27.0-31.0); MEAN PLATELET VOLUME 9.1 fL (7.2-11.7); MONO # 1.1 K/uL (0.0-0.8); MONO % 15.2 % (0.0-10.0); NEUT # 5.3 K/uL (1.8-7.0); NEUT % 75.2 % (50.0-75.0); RBC 4.28 Mil/uL (4.40-5.90); RED CELL DISTRIBUTION WIDTH 15.6 % (11.5-14.5); WHITE BLOOD COUNT 7.1 K/uL (4.8-10.8)
[2017-11-29 15:04] LABS: PLATELET COUNT 121 K/uL (130-400)
[2017-11-29 15:18] LABS: SALICYLATE < 1.0 mg/dL 1
[2017-11-29 15:20] LABS: ACETAMINOPHEN < 10.0 ug/mL (10.0-30.0)
[2017-11-29 15:23] LABS: LYMPHOCYTE 10 % (20-40); MONOCYTE 14 % (0-10); NEUTROPHIL 76 % (50-75); PLATELET ESTIMATE SLIGHTLY DECREASED (NORMAL); TOTAL CELLS COUNTED 100
[2017-11-29] MEDS ORDERED: Potassium Chloride 10 mEq ER Tab PO STA (15:35)
[2017-11-29 15:36] LABS: ALB/GLOB RATIO 0.6 (1.0-2.1); ALBUMIN 3.2 g/dL (3.5-5.0); ALT/SGPT 52 U/L (21-72); AST/SGOT 175 U/L (17-59); BLOOD UREA NITROGEN 6 mg/dL (9-20); CALCIUM 7.5 mg/dl (8.6-10.4); GFR AFRICAN-AMERICAN > 60; GFR NON-AFRICAN AMERICAN > 60
[2017-11-29 15:46] LABS: SQUAMOUS EPITHIAL 1 /hpf (0-5); URINE BACTERIA OCC (<OCC); URINE BILIRUBIN 2+ (NEGATIVE); URINE BLOOD 1+ (NEGATIVE); URINE CLARITY Hazy (Clear); URINE COLOR Amber (YELLOW); URINE GLUCOSE (UA) 1+ mg/dL (Normal); URINE LEUKOCYTE ESTERASE NEG Leu/uL (Negative); URINE NITRATE NEGATIVE (NEGATIVE); URINE PROTEIN 1+ mg/dL (NEGATIVE)
[2017-11-29] MEDS ORDERED: Potassium Chloride 20 mEq ER Tab PO ONE (15:48)
[2017-11-29 15:58] LABS: BARBITURATES, UR NEGATIVE (NEGATIVE); BENZODIAZEPINES, UR NEGATIVE (NEGATIVE); OPIATES, UR NEGATIVE (NEGATIVE); PHENCYCLIDINE, UR NEGATIVE (NEGATIVE)
[2017-11-29] MEDS ORDERED: Sodium Chloride 0.9% 1,000 ML IV ONE ×2 (16:52→16:53)
--- NOTE | 2017-11-29 16:59 | C.PDOC ---
History Of Present Illness 52 y/o male presents to the ED for psychiatric evaluation. Patient is requesting alcohol detox and is claiming suicidal ideation. Patient has had multiple prior evaluations for the same. He denies homicidal ideation and has no other complaints at this time. Time Seen by Provider: 11/29/17 14:29 Chief Complaint (Nursing): Psychiatric Evaluation History Per: Patient History/Exam Limitations: no limitations Onset/Duration Of Symptoms: Hrs Current Symptoms Are (Timing): Still Present Suicide/Self Injury Attempted (Context): None Modifying Factor(s): Alcohol Associated Symptoms: Suicidal Thoughts Involuntary Hold By: None Recent travel outside of the [place]: No Additional History Per: Patient Past Medical History Reviewed: Historical Data, Nursing Documentation, Vital Signs Vital Signs: Last Vital Signs Temp 97.9 F 11/29/17 21:04 Pulse 96 H 11/29/17 21:04 Resp 18 11/29/17 21:04 BP 102/68 11/29/17 21:04 Pulse Ox 95 11/29/17 22:22 - Medical History PMH: Arthritis (hands and feet), COPD, Depression, Graves' Disease, Pancreatitis , Pneumonia, Schizophrenia, Chronic Pain (b/l leg) Denies: HIV (Negative), HTN, Chronic Kidney Disease, Seizures, Sexually Transmitted Disease Surgical History: No Surg Hx - [facility] Procedures DETOXIFICATION SERVICES FOR SUBSTANCE ABUSE TREATMENT (07/31/17) GROUP GAS EXAMINER FOR SUBSTANCE ABUSE TREATMENT, PSYCHOEDUCATION (07/31/17) GROUP GAS EXAMINER FOR SUBSTANCE ABUSE, COGNITIVE BEHAVIORAL (07/31/17) INDIV PSYCHOTHERAPY FOR SUBSTANCE ABUSE TREATMENT, SUPPORT (07/31/17) INDIV PSYCHOTHERAPY FOR SUBSTANCE ABUSE, COGNITIV BEHAVIORAL (07/31/17) INDIV PSYCHOTHERAPY FOR SUBSTANCE ABUSE, PSYCHOEDUCATION (07/31/17) INSERTION OF ENDOTRACHEAL AIRWAY INTO TRACHEA, VIA OPENING (02/21/17) INTRODUCTION OF SERUM/TOX/VACCINE INTO MUSCLE, PERC APPROACH (01/10/17) RESPIRATORY VENTILATION, 24-96 CONSECUTIVE HOURS (02/21/17) Family History: States: Unknown Family Hx - Social History Hx Tobacco Use: Yes Hx Alcohol Use: Yes 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, PCP,) - Immunization History Hx Tetanus Toxoid Vaccination: No Hx Influenza Vaccination: No Hx Pneumococcal Vaccination: No Review Of Systems Psych: Positive for: Suicidal ideation, Other (alcohol detox ) Physical Exam - Physical Exam Appears: Non-toxic, No Acute Distress, Other (thin. appears older than stated age) Skin: Normal Color, Warm, Dry, Other ( multiple tattoos on face ) Head: Atraumatic, Normacephalic Eye(s): bilateral: Normal Inspection Oral Mucosa: Moist Neck: Supple Chest: Symmetrical, No Deformity, No Tenderness Cardiovascular: Rhythm Regular, No Murmur Respiratory: Normal Breath Sounds, No Rales, No Rhonchi, No Wheezing Extremity: Normal ROM, Capillary Refill (less than 2 seconds ) Neurological/Psych: Oriented x3, Normal Speech, Normal Cognition Gait: Steady ED Course And Treatment - Laboratory Results Result Diagrams: 11/29/17 14:54 11/29/17 21:00 Lab Interpretation: Abnormal (hypokalemia, trop neg, ++ elevated bili's 16.7, repeated 15.3, hypokalemia) ECG: Interpreted By Ma ECG Rhythm: Sinus Rhythm ECG Interpretation: Normal (no flatened T waves) O2 Sat by Pulse Oximetry: 95 (on RA) Pulse Ox Interpretation: Normal - Radiology CXR: Interpreted by Ma CXR Interpretation: Yes: No Acute Disease, Other (decreased lung markings L apex but not noted on lateral films and same in prior films 05/07) Progress Note: Bloodwork, urinalysis, EKG, CXR ordered and reviewed. Kcl PO, IV NS administered. Reevaluation Time: 16:59 Reassessment Condition: Improved - Physician Consult Information Outcome Of Conversation: 1700: d/wCrisis, pt clinically dry and mild hypokalemia , will repleat wtih KCL PO and NS IV and re-eval in 2 hrs, plan for psych/detox adm clearance approx 1999 Medical Decision Making Medical Decision Making: probably cirrhotic liver failure, rechecked labs to confirm pending Ammonia level but pt refused further testing and admission. Extensive d/w pt about imminent liver failure and high risk for close term , approached from multiple perspectives, and pt verbalizes understanding and continues to decline admission "because he has a few things to do until Sunday (2 days from now) including taking his nephew to school in the morning and out to lunch on Sunday." Pt acknowledges he is yellowish/icteric which is a sign of his liver disease. He dos not recall when he started to appear icteric. despite hypokalemia and repleated with IVF and Kcl PO, pt's hypokalemia only mildly improved. NO acute EKG changes related to hypokalemia. Understands risks and high risk of and accepts AMA discharge and directed to return to ER [facility] for admission and further eval. Disposition Doctor Will See Patient In The: Office - Disposition Referrals: Alcoholics Anonymous [Outside] [place] [facility] [Outside] [facility] [Outside] [facility] [Outside] Disposition: AGAINST MEDICAL ADVICE Disposition Time: 22:22 Condition: GOOD Additional Instructions: you are suffering acute liver failure, probably due to alcoholic cirrhosis. Please return to [facility] as soon as possible for admission and potentially life-saving treatments. DO not drive a car. Instructions: Cirrhosis (ED), Fulminant Hepatic Failure (ED), Abuse of Alcohol (ED), Ascites (ED) Forms: [facility] (Irish) - Clinical Impression Clinical Impression: Alcohol dependence, Alcoholic cirrhosis of liver with ascites, Liver failure, Hypokalemia - Scribe Statement The provider has reviewed the documentation as recorded by the Scribe (Jalyn Schmidt) Provider Attestation: All medical record entries made by the Scribe were at my direction and personally dictated by me. I have reviewed the chart and agree that the record accurately reflects my personal performance of the history, physical exam, medical decision making, and the department course for this patient. I have also personally directed, reviewed, and agree with the discharge instructions and disposition.
--- NOTE | 2017-11-29 17:01 | RAD ---
HISTORY: hypokalemia, cp COMPARISON: Chest x-ray performed 04/07/17 TECHNIQUE: Chest PA and lateral FINDINGS: LUNGS: Bilateral hilar prominence. No focal consolidation. Left upper lobe lucencies consistent with bulla demonstrated on CT performed 10/18/16 Please note that chest x-ray has limited sensitivity for the detection of pulmonary masses. PLEURA: No significant pleural effusion identified. No definite pneumothorax . CARDIOVASCULAR: Heart size appears within normal limits. OSSEOUS STRUCTURES: Mild degenerative changes. VISUALIZED UPPER ABDOMEN: Unremarkable. OTHER FINDINGS: None. IMPRESSION: COPD/emphysema.
[2017-11-29] MEDS ORDERED: Sodium Chloride 0.9% 2,000 ML ONE (18:53)
[2017-11-29 21:33] LABS: ALB/GLOB RATIO 0.6 (1.0-2.1); ALBUMIN 2.8 g/dL (3.5-5.0); ALT/SGPT 53 U/L (21-72); AST/SGOT 163 U/L (17-59); BLOOD UREA NITROGEN 5 mg/dL (9-20); CALCIUM 6.8 mg/dl (8.6-10.4); GFR AFRICAN-AMERICAN > 60; GFR NON-AFRICAN AMERICAN > 60
[2017-11-29 23:15] VITALS: BP 110/70; PULSE 79; RESP 20; TEMP 98; O2SAT 99
--- NOTE | 2017-12-01 15:16 | CARD ---
APPROVED REPORT EKG Measurement Heart [id number] NM [id number] <Conclusion> Sinus rhythm with premature Prolonged QT Abnormal ECG
== END 2017-11-29 22:50 | disposition left against medical advice (07) ==
LOC: C.ER 14:05
DX: F10.20 Alcohol dependence, uncomplicated (principal); Y90.6 Blood alcohol level of 120-199 mg/100 ml; K70.31 Alcoholic cirrhosis of liver with ascites; K72.90 Hepatic failure, unspecified without coma; E87.6 Hypokalemia
CPT/HCPCS: 71046; 80053; 80320; 80324; 80329; 80345; 80346; 80349; 80353; 80358; 80361; 81001; 83992; 84484; 85025; 96360; 99285; J7040

== ENCOUNTER 2017-11-30 07:44 | Inpatient (IN) | payer MEDICAID, OTHER ==
[2017-11-30 07:50] VITALS: BMI 21.2
[2017-11-30] MEDS ORDERED: Multivitamin (MVI) 10 ML, Thiamine 100 MG, Folic Acid 1 MG in Sodium Chloride 0.9% 1,00... IV STA (08:05)
[2017-11-30 08:41] LABS: BASO # 0.1 K/uL (0.0-0.2); BASO % 0.7 % (0.0-2.0); EOS # 0.1 K/uL (0.0-0.7); EOS % 1.4 % (0.0-4.0); HEMOGLOBIN 14.4 g/dL (12.0-18.0); LYMPH # 0.7 K/uL (1.0-4.3); LYMPH % 9.1 % (20.0-40.0); MEAN CELL VOLUME 97.3 fL (80.0-94.0); MEAN CORPUSCULAR HEMOGLOBIN 34.5 pg (27.0-31.0); MEAN CORPUSCULAR HGB CONC 35.5 g/dL (33.0-37.0); MEAN PLATELET VOLUME 9.1 fL (7.2-11.7); MONO # 0.9 K/uL (0.0-0.8); MONO % 12.7 % (0.0-10.0); NEUT # 5.6 K/uL (1.8-7.0); NEUT % 76.1 % (50.0-75.0); NRBC % 0.1 % (0.0-2.0); PLATELET COUNT 118 K/uL (130-400); RBC 4.18 Mil/uL (4.40-5.90); RED CELL DISTRIBUTION WIDTH 15.5 % (11.5-14.5); WHITE BLOOD COUNT 7.4 K/uL (4.8-10.8)
[2017-11-30 09:00] LABS: PROTHROMBIN TIME 23.8 SECONDS (9.7-12.2)
[2017-11-30 09:12] LABS: ALB/GLOB RATIO 0.6 (1.0-2.1); ALT/SGPT 52 U/L (21-72); AST/SGOT 190 U/L (17-59); BILIRUBIN,DIRECT 13.3 mg/dL (0.0-0.4); BLOOD UREA NITROGEN 6 mg/dL (9-20); GAMMA GLUTAMYL TRANSPEPTIDASE 130 U/L (8-78); GFR AFRICAN-AMERICAN > 60; GFR NON-AFRICAN AMERICAN > 60; LIPASE 505 U/L (23-300)
[2017-11-30] MEDS ORDERED: Magnesium Sulfate 1 gm in D5W 1 GM/100 ML BAG IVPB STA (09:13)
--- NOTE | 2017-11-30 09:38 | C.PDOC ---
Time Seen by Provider: 11/30/17 07:46 Chief Complaint (Nursing): Abdominal Pain History Per: Patient Onset/Duration Of Symptoms: Days, Gradual Current Symptoms Are (Timing): Worse Context: Other (Alcohol abuse) Severity: Moderate Location Of Pain/Discomfort: Diffuse Quality Of Discomfort: Unable To Describe Alleviating Factors: None Additional History Per: Prior Records Past Medical History Reviewed: Historical Data, Nursing Documentation, Vital Signs Vital Signs: Last Vital Signs Temp 98.7 F 11/30/17 07:49 Pulse 117 H 11/30/17 07:49 Resp 20 11/30/17 07:49 BP 99/70 L 11/30/17 07:49 Pulse Ox 99 11/30/17 07:49 - Medical History PMH: Arthritis (hands and feet), COPD, Depression, Graves' Disease, Pancreatitis , Pneumonia, Schizophrenia, Chronic Pain (b/l leg) Other PMH: Alcohol abuse Surgical History: No Surg Hx - [facility] Procedures DETOXIFICATION SERVICES FOR SUBSTANCE ABUSE TREATMENT (07/31/17) GROUP EMULSION OPERATOR FOR SUBSTANCE ABUSE TREATMENT, PSYCHOEDUCATION (07/31/17) GROUP EMULSION OPERATOR FOR SUBSTANCE ABUSE, COGNITIVE BEHAVIORAL (07/31/17) INDIV PSYCHOTHERAPY FOR SUBSTANCE ABUSE TREATMENT, SUPPORT (07/31/17) INDIV PSYCHOTHERAPY FOR SUBSTANCE ABUSE, COGNITIV BEHAVIORAL (07/31/17) INDIV PSYCHOTHERAPY FOR SUBSTANCE ABUSE, PSYCHOEDUCATION (07/31/17) INSERTION OF ENDOTRACHEAL AIRWAY INTO TRACHEA, VIA OPENING (02/21/17) INTRODUCTION OF SERUM/TOX/VACCINE INTO MUSCLE, PERC APPROACH (01/10/17) RESPIRATORY VENTILATION, 24-96 CONSECUTIVE HOURS (02/21/17) Family History: States: Unknown Family Hx - Social History Hx Tobacco Use: Yes Hx Alcohol Use: Yes 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, PCP,) - Immunization History Hx Tetanus Toxoid Vaccination: No Hx Influenza Vaccination: No Hx Pneumococcal Vaccination: No Review Of Systems Constitutional: Negative for: Fever Cardiovascular: Negative for: Chest Pain Respiratory: Negative for: Shortness of Breath Gastrointestinal: Positive for: Abdominal Pain. Negative for: Vomiting Musculoskeletal: Negative for: Neck Pain Skin: Positive for: Jaundice Neurological: Negative for: Weakness, Numbness, Seizures Physical Exam - Physical Exam Appears: No Acute Distress, Chronically Ill Skin: Warm, Dry, Jaundice Head: Atraumatic, Normacephalic Eye(s): bilateral: PERRL, EOMI, Scleral Icterus Neck: Normal ROM, Supple Cardiovascular: Rhythm Regular Respiratory: Normal Breath Sounds, No Accessory Muscle Use Gastrointestinal/Abdominal: Soft, Tenderness (nonspecific), No Distention, No Guarding, No Rebound Back: No CVA Tenderness Extremity: Normal ROM, No Pedal Edema, No Calf Tenderness Neurological/Psych: Oriented x3, Normal Motor, Normal Sensation ED Course And Treatment - Laboratory Results Result Diagrams: 11/30/17 08:32 11/30/17 08:32 Lab Interpretation: Abnormal Interpretation Of Abnormal: Liver failure. Hypokalemia. Hypomagnesemia. ECG: Interpreted By Me, Viewed By Me ECG Rhythm: Sinus Tachycardia, Nonspecific Changes ECG Interpretation: Abnormal Interpretation Of ECG: Prolonged QTc Rate From EC O2 Sat by Pulse Oximetry: 99 Pulse Ox Interpretation: Normal Progress - Interventions Interventions:: Observation, Intravenous fluid - Medications Administered Intravenous: Other (KCl, Mg.) - Data Reviewed Data Reviewed: Lab, EKG, Old records - Patient Status Patient status: Partially improved - Continuity of Care Discussed patient case with:: Patient, ED Nurse, On-call PMD-pt unassigned - Patient Plan Patient Plan: Admission, Telemetry Disposition Discussed With : Harsh Schmidt Comment: He accepted pt on hospitalist service. Doctor Will See Patient In The: Hospital Counseled Patient/Family Regarding: Studies Performed, Diagnosis - Disposition Disposition: HOSPITALIZED Disposition Time: 09:43 Condition: GUARDED - Clinical Impression Clinical Impression: Liver failure, Alcohol abuse, Hypokalemia, Hypomagnesemia
[2017-11-30 09:45] LABS: EOSINOPHIL 1 % (0-4); LYMPHOCYTE 10 % (20-40); TOTAL CELLS COUNTED 100
[2017-11-30 09:46] LABS: MONOCYTE 10 % (0-10); NEUTROPHIL 89 % (50-75); PLATELET ESTIMATE SLIGHTLY DECREASED (NORMAL)
[2017-11-30] MEDS ORDERED: Magnesium Sulfate 1 gm in D5W 1 GM/100 ML BAG IVPB ONE ×2 (09:50→11:25)
--- NOTE | 2017-11-30 10:26 | US ---
HISTORY: Liver failure COMPARISON: None. TECHNIQUE: Sonographic evaluation of the right upper quadrant of the abdomen. FINDINGS: LIVER: Limited evaluation due to poor penetration. Measures 17.1 cm in length. Heterogeneous increased echogenicity of the liver parenchyma. Consistent with fatty infiltration. Rule out hepatic cellular disease. Nodular contour. Possible hepatic cirrhosis. No focal mass. No intrahepatic biliary ductal dilatation. Unable to adequately evaluate portal vein. GALLBLADDER: Nonspecific mural thickening to 6 mm. Dependent sludge possibly with tiny calculi. Negative sonographic Clay's sign. No pericholecystic fluid. Findings equivocal for cholecystitis. COMMON BILE DUCT: Measures 6 mm. No stones. No dilatation. PANCREAS: Unremarkable as visualized. No mass. No ductal dilatation. RIGHT KIDNEY: Measures 11.7 cm in length. Normal cortical thickness and echogenicity. Lower pole nonobstructing calculus, 5 mm. No hydronephrosis. No mass. AORTA: Limited evaluation IVC: Limited evaluation OTHER FINDINGS: Trace ascites IMPRESSION: Limited evaluation. Nodular heterogeneously increased echogenicity of liver suggestive of hepatic cellular disease and/or fatty infiltration. Possible hepatic cirrhosis. Trace ascites. Thickened gallbladder wall, nonspecific. Sludge and tiny calculi within gallbladder. Negative sonographic Clay sign. Equivocal findings.
[2017-11-30 11:44] LABS: SQUAMOUS EPITHIAL < 1 /hpf (0-5); URINE BILIRUBIN 2+ (NEGATIVE); URINE BLOOD NEGATIVE (NEGATIVE); URINE CLARITY Hazy (Clear); URINE COLOR Amber (YELLOW); URINE GLUCOSE (UA) NORMAL (Normal); URINE LEUKOCYTE ESTERASE NEG Leu/uL (Negative); URINE NITRATE NEGATIVE (NEGATIVE); URINE PROTEIN NEGATIVE (NEGATIVE)
[2017-11-30] MEDS: Magnesium Sulfate 1 gm in D5W 1 GM/100 ML BAG IVPB SCH ×2 (12:00→12:01)
[2017-11-30] MEDS: Sodium Chloride 0.9% 1,000 ML IV SCH ×2 (12:03→23:00)
[2017-11-30 12:18] LABS: BARBITURATES, UR NEGATIVE (NEGATIVE); BENZODIAZEPINES, UR NEGATIVE (NEGATIVE); OPIATES, UR NEGATIVE (NEGATIVE); PHENCYCLIDINE, UR NEGATIVE (NEGATIVE)
[2017-11-30] MEDS ORDERED: Multivitamin (MVI) 10 ML, Thiamine 100 MG, Folic Acid 1 MG in Sodium Chloride 0.9% 1,00... IV ONE (12:30)
[2017-11-30 13:37] LABS: HEPATITIS B SURFACE AG Negative (NEGATIVE)
--- NOTE | 2017-11-30 13:40 | PCM.PSYCH ---
Initial Psychiatric Evaluation - Initial Psychiatric Evaluation Type of Admission: Voluntary Legal Status: Capacity Chief Complaint (in patient's own words): "I am in pain" History of Present Illness and Precipitating Events: Patient is a 52 year old homeless single male with 9 children, one of which is a minor. The patient is reporting with abdominal pain beginning 2-3 weeks ago. The patient reports that he has liver issues because he drinks a lot of alcohol. The patient reports drinking 3 pints of vodka a day beginning 20 years ago. The pt reports that there is no particular reason he began drinking, he just started drinking. The patient denies ever having a seizure but reports getting tremors when he stops drinking. The patient reports that he has been to detox once here and has been to rehab ten times in [place], but cannot remember when he went. The patient denies ever going to . The patient denies the use of illegal drugs and reports that he smokes a half pack of cigarettes a day beginning, he started smoking when he was 10 years old. The patient reports that he currently has no plan, stating that I live on day at a time. The patient denies suicidal ideation, homicidal ideation, visual hallucinations, and auditory hallucinations. Psych Hx: denies Medical Hx: denies Family Hx of Substance Abuse: denies Family Psych Hx: denies The patient is drowsy and lying in bed with his eyes barely open. The patient appears yellow in color with yellowing of his sclera. The patient appears very disheveled and falls asleep multiple times during the encounter. He does not make eye contact and responds to questions in a raspy, weak voice. The patients mood appears depressed and his affect is restricted and blunted. The patients attention span is short and his remote memory appears to be slightly impaired Current Medications: Active Medications Generic Name Dose Route Start Last Admin Trade Name Freq PRN Reason Stop Dose Admin Calcium Carbonate 500 mg 11/30/17 11:00 Oscal PO BID KARINE Clonidine HCl 0.1 mg 11/30/17 11:54 Catapres PO Q4H PRN Symptoms of alcohol withdrawl Folic Acid 1 mg 12/01/17 10:00 Folic Acid PO DAILY KARINE Potassium Chloride 20 meq in 100 mls @ 50 mls/hr 11/30/17 13:30 Potassium Chloride 20 Meq/100 Ml IVPB 11/30/17 15:29 ONCE ONE Potassium Chloride 20 meq in 100 mls @ 50 mls/hr 11/30/17 15:30 Potassium Chloride 20 Meq/100 Ml IVPB 11/30/17 17:29 ONCE ONE Sodium Chloride 1,000 mls @ 100 mls/hr 11/30/17 12:30 11/30/17 12:03 Sodium Chloride 0.9% IV 12/01/17 10:00 100 mls/hr .Q10H KARINE Administration Lorazepam 2 mg 11/30/17 14:00 Ativan PO 12/05/17 13:59 TID KARINE Taper Lorazepam 1 mg 11/30/17 11:54 Ativan PO Q4H PRN Symptoms of alcohol withdrawl Lorazepam 2 mg 11/30/17 13:15 Ativan PO 12/05/17 13:14 Q4 KARINE Taper Multivitamins 1 tab 12/01/17 10:00 Hexavitamin PO DAILY KARINE Pantoprazole Sodium 40 mg 11/30/17 11:00 Protonix Ec Tab PO DAILY KARINE Thiamine HCl 100 mg 12/01/17 10:00 Vitamin B1 Tab PO DAILY KARINE Past Psychiatric History - Past Psychiatric History Previous Treatment History: Inpatient Pertinent Medical Hx (Current Medical&Sleep Prob, Allergies): Allergies Allergy/AdvReac Type Severity Reaction Status Date / Time No Known Allergies Allergy Verified 11/30/17 07:49 No Known Home Med 11/29/17 Review of Systems - Constitutional Constitutional: Weakness - Gastrointestinal Gastrointestinal: Abdominal Pain - Neurological Neurological: Weakness - Psychiatric Psychiatric: Depression, Difficulty Concentrating, Irritability. absent: Anxiety, Auditory Hallucinations, Hallucinations, Homicidal Ideation, Suicidal Ideation, Visual Hallucinations Mental Status Examination - Personal Presentation Personal Presentation: Looks older than stated age - Affect Affect: Blunted, Flat - Motor Activity Motor Activity: Calm - Reliability in Providing Information Reliability in Providing Information: Poor, due to altered mood - Speech Speech: Relevant - Mood Mood: Depressed - Formal Thought Process Formal Thought Process: No Impairment - Obsessions/Compulsions Obsessions: None Compulsions: None - Cognitive Functions Orientation: Person, Place Sensorium: Drowsy Attention/Concentration: Easily distracted Estimate of Intelligence: Average Judgement: Imparied, as evidence by: Poor judgement Memory: Recent intact, as evidence by: Ability to recall events of the day, Remote impaired as evidenced by: Inability to recall sig life events - Risk Risk: Seizure, Withdrawal - Limitations Additional comments: unemployed and homeless, no support system DSM 5 DX - DSM 5 DSM 5 Diagnosis: Alcohol Abuse Disorder - Recommended/Plan of Treatment Treatment Recommendations and Plan of Treatment: Alcohol use disorder severe CBT Psychoeducation Supportive therapy, individual therapy Use MT for abstinence Alcohol withdrawal CBT Psychoeducation Supportive therapy, individual therapy Ativan taper Ativan PRN
[2017-11-30 13:48] LABS: HIV 1&2 ANTIBODY NEGATIVE (NEGATIVE)
[2017-11-30 13:54] LABS: HEPATITIS B CORE AB NEGATIVE (NEGATIVE)
[2017-11-30 13:59] LABS: HEPATITIS A IGM NEGATIVE (NEGATIVE)
[2017-11-30] MEDS: Pantoprazole 40 mg EC Tab PO SCH (14:05)
[2017-11-30 15:11] LABS: ALPHA FETO PROTEIN 0.9 ng/mL (0.0-7.5); HEPATITIS C ANTIBODY REACTIVE (NEGATIVE)
--- NOTE | 2017-11-30 18:37 | CP.PCM.HP ---
History of Present Illness - History of Present Illness History of Present Illness: CC: "abdominal pain and my livers shot" HPI: Patient is a 52 year old male presents with complaints of "abdominal pain and my liver is shot". Patient states his abdominal pain is all over and started a couple of weeks ago. When asked to describe, patient described it as "just pain". Patient states he drinks 3 pints of vodka daily for the past 20+ years. Patient came to [facility] ED yesterday with complaints of abdominal pain and left against medical advice. Patient is a poor historian and therefore, review of systems is limited. He currently complains of abdominal pain, diarrhea ("combination of constipation and diarrhea 5-6x per day), tremors , and leg pain. The patient also states he lost approximately 25 lbs in the last two months. Patient denies chest pain, shortness of breath, nausea, vomiting, fevers, headaches. PMD: none PMHx: patient denies SurgHx: patient denies FamHx: Mother- [facility], Brother- cancer (unknown type) SocHx: 3 pints of vodka daily for 20 years; 1/2 ppd for 3 years; denies drug use ; homeless for the last 1.5 years; unemployed Allergies: NKDA Medications: denies Present on Admission - Present on Admission Any Indicators Present on Admission: No Review of Systems - Review of Systems Systems not reviewed;Unavailable: Uncooperative - Constitutional Constitutional: Weight Loss (25lbs in 2 months). absent: Fever, Headache, Weakness - EENT Eyes: absent: Change in Vision Ears: absent: Dizziness - Cardiovascular Cardiovascular: absent: Chest Pain, Dyspnea, Leg Edema, Palpitations - Respiratory Respiratory: absent: Cough, Dyspnea - Gastrointestinal Gastrointestinal: Abdominal Pain, Constipation, Diarrhea. absent: Nausea, Vomiting - Genitourinary Genitourinary: absent: Dysuria, Urinary Frequency - Integumentary Integumentary: absent: Rash - Neurological Neurological: Tremor. absent: Dizziness, Headaches, Weakness Past Patient History - Infectious Disease Hx of Infectious Diseases: None - Past Medical History & Family History Past Medical History?: Yes - Past Social History Smoking Status: Heavy Smoker > 10 Cigarettes Daily - CARDIAC Hx Hypertension: No - PULMONARY Hx Chronic Obstructive Pulmonary Disease (COPD): Yes Hx Pneumonia: Yes - NEUROLOGICAL Hx Seizures: No - HEENT Hx HEENT Problems: No - RENAL Hx Chronic Kidney Disease: No - ENDOCRINE/METABOLIC Hx Endocrine Disorders: No - HEMATOLOGICAL/ONCOLOGICAL Hx Human Immunodeficiency Virus (HIV): No (Negative) - INTEGUMENTARY Hx Dermatological Problems: No - MUSCULOSKELETAL/RHEUMATOLOGICAL Hx Arthritis: Yes (hands and feet) - GASTROINTESTINAL Hx Pancreatitis: Yes - GENITOURINARY/GYNECOLOGICAL Hx Sexually Transmitted Disorders: No - PSYCHIATRIC Hx Depression: Yes Hx Schizophrenia: Yes 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, PCP,) - SURGICAL HISTORY Hx Surgeries: No - ANESTHESIA Hx Anesthesia: No Meds Allergies/Adverse Reactions: Allergies Allergy/AdvReac Type Severity Reaction Status Date / Time No Known Allergies Allergy Verified 11/30/17 07:49 Physical Exam - Constitutional Appears: No Acute Distress - Head Exam Head Exam: ATRAUMATIC, NORMAL INSPECTION - Eye Exam Eye Exam: EOMI, Normal appearance, Scleral icterus - ENT Exam ENT Exam: Mucous Membranes Moist - Respiratory Exam Respiratory Exam: Clear to Auscultation Bilateral, Wheezes (mild), NORMAL BREATHING PATTERN. absent: Rales, Rhonchi, Respiratory Distress - Cardiovascular Exam Cardiovascular Exam: Tachycardia, REGULAR RHYTHM, +S1, +S2 - GI/Abdominal Exam GI & Abdominal Exam: Normal Bowel Sounds, Soft, Tenderness (diffuse). absent: Distended, Firm - Extremities Exam Extremities exam: Positive for: pedal pulses present. Negative for: normal inspection (skin color changes), pedal edema - Neurological Exam Neurological exam: Alert, Oriented x3 - Psychiatric Exam Psychiatric exam: Flat Affect - Skin Skin Exam: Dry, Intact, Warm Additional comments: Spider angiomas on chest; jaundiced Results - Vital Signs Recent Vital Signs: Last Vital Signs Temp 98.5 F 11/30/17 17:55 Pulse 88 11/30/17 17:55 Resp 18 11/30/17 17:55 BP 122/64 11/30/17 17:55 Pulse Ox 98 11/30/17 17:55 - Labs Result Diagrams: 11/30/17 08:32 11/30/17 08:32 Labs: Laboratory Results - last 24 hr 11/30/17 11/30/17 11/30/17 08:32 08:32 08:32 WBC 7.4 RBC 4.18 L Hgb 14.4 Hct 40.7 MCV 97.3 H MCH 34.5 H MCHC 35.5 RDW 15.5 H Plt Count 118 L MPV 9.1 Neut % (Auto) 76.1 H Lymph % (Auto) 9.1 L [place] % (Auto) 12.7 H Eos % (Auto) 1.4 Baso % (Auto) 0.7 Neut # (Auto) 5.6 Lymph # (Auto) 0.7 L [place] # (Auto) 0.9 H Eos # (Auto) 0.1 Baso # (Auto) 0.1 Neutrophils % (Manual) 89 H Lymphocytes % (Manual) 10 L Monocytes % (Manual) 10 Eosinophils % (Manual) 1 Platelet Estimate Slightly decreased L PT 23.8 H INR 2.0 APTT 42 H Sodium 129 L Potassium 2.0 L* Chloride 85 L Carbon Dioxide 34 H Anion Gap 12 BUN 6 L Creatinine 0.7 L Est GFR ( Amer) > 60 Est GFR (Non-Af Amer) > 60 Random Glucose 110 Calcium 7.0 L Magnesium 1.0 L* D Total Bilirubin 16.7 H Direct Bilirubin 13.3 H GGT 130 H AST 190 H ALT 52 Alkaline Phosphatase 177 H D Ammonia Total Protein 8.1 Albumin 3.0 L Globulin 5.2 H Albumin/Globulin Ratio 0.6 L Lipase 505 H Alpha Fetoprotein Free T4 TSH 3rd Generation Urine Color Urine Clarity Urine pH Ur Specific [place] Urine Protein Urine Glucose (UA) Urine Ketones Urine Blood Urine Nitrate Urine Bilirubin Urine Urobilinogen Ur Leukocyte Esterase Urine WBC (Auto) Urine RBC (Auto) Ur Squamous Epith Cells Urine Opiates Screen Urine Methadone Screen Acetaminophen Ur Barbiturates Screen Ur Phencyclidine Scrn Ur Amphetamines Screen U Benzodiazepines Scrn U Oth Cocaine Metabols U Cannabinoids Screen Alcohol, Quantitative < 10 Hepatitis A IgM Ab Hep Bs Antigen Hep B Core IgM Ab Hepatitis C Antibody HIV 1&2 Antibody Screen 11/30/17 11/30/17 11/30/17 08:32 11:30 11:30 WBC RBC Hgb Hct MCV MCH MCHC RDW Plt Count MPV Neut % (Auto) Lymph % (Auto) [place] % (Auto) Eos % (Auto) Baso % (Auto) Neut # (Auto) Lymph # (Auto) [place] # (Auto) Eos # (Auto) Baso # (Auto) Neutrophils % (Manual) Lymphocytes % (Manual) Monocytes % (Manual) Eosinophils % (Manual) Platelet Estimate PT INR APTT Sodium Potassium Chloride Carbon Dioxide Anion Gap BUN Creatinine Est GFR ( Amer) Est GFR (Non-Af Amer) Random Glucose Calcium Magnesium Total Bilirubin Direct Bilirubin GGT AST ALT Alkaline Phosphatase Ammonia Total Protein Albumin Globulin Albumin/Globulin Ratio Lipase Alpha Fetoprotein Free T4 TSH 3rd Generation Urine Color Mary Urine Clarity Hazy Urine pH 7.0 Ur Specific [place] 1.012 Urine Protein Negative Urine Glucose (UA) Normal Urine Ketones Negative Urine Blood Negative Urine Nitrate Negative Urine Bilirubin 2+ H Urine Urobilinogen 4.0 Ur Leukocyte Esterase Neg Urine WBC (Auto) 6 H Urine RBC (Auto) 2 Ur Squamous Epith Cells < 1 Urine Opiates Screen Negative Urine Methadone Screen Negative Acetaminophen < 10.0 L Ur Barbiturates Screen Negative Ur Phencyclidine Scrn Negative Ur Amphetamines Screen Negative U Benzodiazepines Scrn Negative U Oth Cocaine Metabols Negative U Cannabinoids Screen Negative Alcohol, Quantitative Hepatitis A IgM Ab Hep Bs Antigen Hep B Core IgM Ab Hepatitis C Antibody HIV 1&2 Antibody Screen 11/30/17 11/30/17 11/30/17 12:45 12:45 12:45 WBC RBC Hgb Hct MCV MCH MCHC RDW Plt Count MPV Neut % (Auto) Lymph % (Auto) [place] % (Auto) Eos % (Auto) Baso % (Auto) Neut # (Auto) Lymph # (Auto) [place] # (Auto) Eos # (Auto) Baso # (Auto) Neutrophils % (Manual) Lymphocytes % (Manual) Monocytes % (Manual) Eosinophils % (Manual) Platelet Estimate PT INR APTT Sodium Potassium Chloride Carbon Dioxide Anion Gap BUN Creatinine Est GFR ( Amer) Est GFR (Non-Af Amer) Random Glucose Calcium Magnesium Total Bilirubin Direct Bilirubin GGT AST ALT Alkaline Phosphatase Ammonia 57 H Total Protein Albumin Globulin Albumin/Globulin Ratio Lipase Alpha Fetoprotein 0.9 Free T4 TSH 3rd Generation Urine Color Urine Clarity Urine pH Ur Specific [place] Urine Protein Urine Glucose (UA) Urine Ketones Urine Blood Urine Nitrate Urine Bilirubin Urine Urobilinogen Ur Leukocyte Esterase Urine WBC (Auto) Urine RBC (Auto) Ur Squamous Epith Cells Urine Opiates Screen Urine Methadone Screen Acetaminophen Ur Barbiturates Screen Ur Phencyclidine Scrn Ur Amphetamines Screen U Benzodiazepines Scrn U Oth Cocaine Metabols U Cannabinoids Screen Alcohol, Quantitative Hepatitis A IgM Ab Negative Hep Bs Antigen Negative Hep B Core IgM Ab Negative Hepatitis C Antibody Reactive HIV 1&2 Antibody Screen Negative 11/30/17 11/30/17 12:45 12:45 WBC RBC Hgb Hct MCV MCH MCHC RDW Plt Count MPV Neut % (Auto) Lymph % (Auto) [place] % (Auto) Eos % (Auto) Baso % (Auto) Neut # (Auto) Lymph # (Auto) [place] # (Auto) Eos # (Auto) Baso # (Auto) Neutrophils % (Manual) Lymphocytes % (Manual) Monocytes % (Manual) Eosinophils % (Manual) Platelet Estimate PT INR APTT Sodium Potassium Chloride Carbon Dioxide Anion Gap BUN Creatinine Est GFR ( Amer) Est GFR (Non-Af Amer) Random Glucose Calcium Magnesium Total Bilirubin Direct Bilirubin GGT AST ALT Alkaline Phosphatase Ammonia Total Protein Albumin Globulin Albumin/Globulin Ratio Lipase Alpha Fetoprotein Free T4 2.53 H TSH 3rd Generation 0.60 Urine Color Urine Clarity Urine pH Ur Specific [place] Urine Protein Urine Glucose (UA) Urine Ketones Urine Blood Urine Nitrate Urine Bilirubin Urine Urobilinogen Ur Leukocyte Esterase Urine WBC (Auto) Urine RBC (Auto) Ur Squamous Epith Cells Urine Opiates Screen Urine Methadone Screen Acetaminophen Ur Barbiturates Screen Ur Phencyclidine Scrn Ur Amphetamines Screen U Benzodiazepines Scrn U Oth Cocaine Metabols U Cannabinoids Screen Alcohol, Quantitative Hepatitis A IgM Ab Hep Bs Antigen Hep B Core IgM Ab Hepatitis C Antibody HIV 1&2 Antibody Screen Assessment & Plan - Assessment and Plan (Free Text) Plan: 1. Alcoholic Liver failure MELD score 29--> 19.6% estimated 3 month mortality Discriminate function 75.4 Will need to follow up with [facility], * [facility] * [address] [facility] * [place] [address] * [phone] AFP: f/u results UDS: f/u results 2. Alcohol abuse, withdrawal Psychiatry consulted, Dr. Schmidt, help appreciated Banana bag, Folic acid, Multivitamins, Thiamine Ativan 5-day taper Ativan 2mg IV Q2 PRN 3. Hypokalemia Admit to telemetry KCl given, f/u repeat BMP 4.Hypomagnesemia Mg-sulfate 1gm x2, f/u repeat BMP 5. Hypocalcemia Corrected for low albumin, 8.0 Calcium carbonate 500mg PO x2 6. Low albumin Likely secondary to alcohol abuse Ensure Enlive 3x/day 7. Elevated LFT/Lipase/Bilirubin Likely secondary to alcohol abuse Abdominal US: suggesting hepatic cellular disease; possible hepatic cirrhosis; trace ascites; nonspecific thickening of GB wall; no murphys Hepatitis panel: f/u results HIV: f/u results AFP: f/u results Ammonia level: f/u results 8. Thrombocytopenia Likely secondary to alcohol abuse 9. Elevated INR Likely secondary to alcohol abuse 10. Hx schizophrenia F/u psychiatry recommendation 11. History of Graves Disease (Per EMR) TSH: f/u results T4: f/u results 12. Prophylaxis Protonix 40mg PO daily No anticoagulation secondary to increased INR and thrombocytopenia Regular Diet
[2017-12-01] MEDS ORDERED: Multivitamin (MVI) 10 ML, Thiamine 100 MG, Folic Acid 1 MG in Sodium Chloride 0.9% 1,00... IV ONE (00:05)
[2017-12-01 00:35] LABS: BLOOD UREA NITROGEN 4 mg/dL (9-20); CALCIUM 6.6 mg/dl (8.6-10.4); GFR AFRICAN-AMERICAN > 60; GFR NON-AFRICAN AMERICAN > 60; MAGNESIUM 1.4 mg/dL (1.6-2.3)
--- NOTE | 2017-12-01 09:35 | CP.PCM.PN ---
Subjective - Date & Time of Evaluation Date of Evaluation: 12/01/17 Time of Evaluation: 09:15 - Subjective Subjective: Hospitalist Progress Note Patient was seen and examined at 9:15 AM 12/01/17 560 A. 52 year old male (PMHx of Alcohol Abuse with drinking 3 pints of Vodka a day, Alcohol Related Liver Failure, Schizophrenia, Pancreatitis, Grave's Disease, COPD, DVT/PE, Nondisplaced Fracture of Left Ribs ) with multiple Emergency Room visits between [facility] and [facility] was admitted to the Telemetry Unit 11/30/17 for Alcohol Withdrawl and Electrolyte Abnormalities. Please see Assessment and Plan's below for full details. Upon ROS: Patient was asleep but easily arousable. Patient continues to be aggresive and not participating in exam or ROS When assisting him to get sit up in bed, patient was very tremulous and revealed that his last drink was either 11/29/17 or 11/30/17 before he came to the ER. He would not answer ROS questions Exam: Exam: General: Asleep but arousable, Aggresive and not participating in exam or following commands. He has urinated in his sweat pants and refuses to allow the LICENSED MASTER SOCIAL WORKER to help change him HEENT: Pupils are round and reactive to light NO cervical/supraclavicular/ submandibular lymphadenopathy, Nasal Turbinates are nonerythematous/ nonedematous, Cardio: NS1 and NS2, NO M/R/G Resp: CTA B/L, NO R/R/W but limited to lack of deep respirations GI: BSx4, Soft, NT, NO Distention, Liver and Spleen are not enlarged on exam, NO guarding/rebound tenderness, NO uncomfortable signs noted on face with deep palpation Ext: Pulses are strong and equal, Capillary Refill is 2 seconds, NO edema Neuro: could not be performed secondary to lack of patient participation Assessment & Plan - Assessment and Plan (Free Text) Plan: 1. Alcoholic Liver failure MELD score 29--> 19.6% estimated 3 month mortality Discriminate function 75.4 Will need to follow up with [facility], * spiritual care coordinator center * [address] * [place] [address] * [phone] AFP: f/u results UDS: f/u results 2. Alcohol abuse, withdrawal Psychiatry consulted, Dr. Schmidt, help appreciated Banana bag, Folic acid, Multivitamins, Thiamine Ativan 5-day taper started 11/30/17 upon admission Ativan 2mg IV Q2 PRN Seizure/Withdrawl 3. Hypokalemia Admit to telemetry KCl continues to be given IV F/U labs 4.Hypomagnesemia Mg-sulfate 1gm x2 given 5. Hypocalcemia Calcium carbonate 500mg PO x2 6. Low albumin Likely secondary to alcohol abuse Ensure Enlive 3x/day 7. Elevated LFT/Lipase/Bilirubin Likely secondary to alcohol abuse Abdominal US: suggesting hepatic cellular disease; possible hepatic cirrhosis; trace ascites; nonspecific thickening of GB wall; no venegas's sign Hepatitis panel: Hepatitis C Ab is positive HIV: negative AFP: is low Ammonia level: f/u results 8. Thrombocytopenia Likely secondary to alcohol abuse 9. Elevated INR Likely secondary to alcohol abuse 10. Hx schizophrenia F/u psychiatry recommendation 11. History of Graves Disease (Per EMR) TSH: normal T4 is slightly elevated Repeat the blood work in a few days to see if the T4 is still slightly elevated and if so then get Endocrine Dr. Velma Estes on board 12. Prophylaxis Protonix 40mg PO daily No anticoagulation secondary to increased INR and thrombocytopenia Regular Diet Harsh Schmidt D.O Objective - Vital Signs/Intake and Output Vital Signs (last 24 hours): Temp Pulse Resp BP Pulse Ox 98.4 F 115 H 20 107/70 90 L 12/01/17 08:21 12/01/17 08:21 12/01/17 08:21 12/01/17 08:21 12/01/17 08:21 - Medications Medications: Current Medications Calcium Carbonate (Oscal) 500 mg PO BID [facility] Last Admin: 11/30/17 14:05 Dose: 500 mg Clonidine HCl (Catapres) 0.1 mg PO Q4H PRN PRN Reason: Symptoms of alcohol withdrawl Folic Acid (Folic Acid) 1 mg PO DAILY [facility] Sodium Chloride (Sodium Chloride 0.9%) 1,000 mls @ 100 mls/hr IV .Q10H [facility] Stop: 12/01/17 10:00 Last Admin: 11/30/17 23:00 Dose: Not Given Lorazepam (Ativan) 2 mg PO Q4 [facility] PRN Reason: Taper Stop: 12/05/17 13:59 Last Admin: 12/01/17 05:00 Dose: 2 mg Lorazepam (Ativan) 1 mg PO Q4H PRN PRN Reason: Symptoms of alcohol withdrawl Multivitamins (Hexavitamin) 1 tab PO DAILY [facility] Pantoprazole Sodium (Protonix Ec Tab) 40 mg PO DAILY [facility] Last Admin: 11/30/17 14:05 Dose: 40 mg Thiamine HCl (Vitamin B1 Tab) 100 mg PO DAILY [facility] - Labs Labs: 11/30/17 08:32 12/01/17 00:09 PT 23.8 SECONDS (9.7-12.2) H 11/30/17 08:32 INR 2.0 11/30/17 08:32 APTT 42 SECONDS (21-34) H 11/30/17 08:32
[2017-12-01] MEDS: Pantoprazole 40 mg EC Tab PO SCH (10:01)
[2017-12-01] MEDS: Multiple Vitamins Tab PO SCH (10:02)
[2017-12-01] MEDS: Sodium Chloride 0.9% 1,000 ML IV SCH (10:02)
[2017-12-01 11:49] LABS: BASO # 0.1 K/uL (0.0-0.2); BASO % 0.8 % (0.0-2.0); EOS # 0.1 K/uL (0.0-0.7); EOS % 1.2 % (0.0-4.0); HEMOGLOBIN 13.3 g/dL (12.0-18.0); LYMPH # 0.6 K/uL (1.0-4.3); LYMPH % 8.1 % (20.0-40.0); MEAN CELL VOLUME 98.9 fL (80.0-94.0); MEAN CORPUSCULAR HGB CONC 35.4 g/dL (33.0-37.0); MEAN PLATELET VOLUME 8.7 fL (7.2-11.7); MONO # 0.8 K/uL (0.0-0.8); MONO % 9.8 % (0.0-10.0); NEUT # 6.4 K/uL (1.8-7.0); NEUT % 80.1 % (50.0-75.0); NRBC % 0.2 % (0.0-2.0); PLATELET COUNT 99 K/uL (130-400); RBC 3.78 Mil/uL (4.40-5.90); RED CELL DISTRIBUTION WIDTH 15.6 % (11.5-14.5)
[2017-12-01 12:05] LABS: MAGNESIUM 1.3 mg/dL (1.6-2.3)
[2017-12-01 12:13] LABS: ANISOCYTOSIS SLIGHT; EOSINOPHIL 1 % (0-4); LYMPHOCYTE 5 % (20-40); MONOCYTE 7 % (0-10); NEUTROPHIL 87 % (50-75); PLATELET ESTIMATE SLIGHTLY DECREASED (NORMAL); TOTAL CELLS COUNTED 100
[2017-12-01 12:14] LABS: HYPOCHROMIC SLIGHT; POLYCHROMIC SLIGHT; TOXIC GRANULATION PRESENT
[2017-12-01 12:19] LABS: ALB/GLOB RATIO 0.6 (1.0-2.1); ALBUMIN 2.5 g/dL (3.5-5.0); ALT/SGPT 51 U/L (21-72); AST/SGOT 188 U/L (17-59); BLOOD UREA NITROGEN 4 mg/dL (9-20); CALCIUM 6.6 mg/dl (8.6-10.4); GFR AFRICAN-AMERICAN > 60; GFR NON-AFRICAN AMERICAN > 60
[2017-12-01] MEDS ORDERED: Potassium Phosphate 15 MMOLE in Sodium Chloride 0.9% 250 ML IVPB ONE (14:44)
[2017-12-01] MEDS ORDERED: Potassium Chloride 20 mEq ER Tab PO ONE ×2 (14:50→16:00)
[2017-12-01] MEDS ORDERED: Magnesium Sulfate 1 gm/100 mL D5W IVPB ONE (15:00)
[2017-12-01 17:15] LABS: BLOOD UREA NITROGEN 5 mg/dL (9-20); CALCIUM 6.8 mg/dl (8.6-10.4); GFR AFRICAN-AMERICAN > 60; GFR NON-AFRICAN AMERICAN > 60
[2017-12-02 00:54] LABS: BLOOD UREA NITROGEN 5 mg/dL (9-20); CALCIUM 6.6 mg/dl (8.6-10.4); GFR AFRICAN-AMERICAN > 60; GFR NON-AFRICAN AMERICAN > 60; MAGNESIUM 1.3 mg/dL (1.6-2.3)
[2017-12-02] MEDS: Magnesium Sulfate 1 gm in D5W 1 GM/100 ML BAG IVPB SCH ×4 (02:07→18:09)
[2017-12-02] MEDS ORDERED: Sodium Phosphate 15 MMOLE in Sodium Chloride 0.9% 250 ML IVPB ONE (06:30)
[2017-12-02 07:19] LABS: BASO # 0.1 K/uL (0.0-0.2); BASO % 0.8 % (0.0-2.0); EOS # 0.1 K/uL (0.0-0.7); EOS % 0.9 % (0.0-4.0); HEMOGLOBIN 13.5 g/dL (12.0-18.0); LYMPH # 0.6 K/uL (1.0-4.3); LYMPH % 6.9 % (20.0-40.0); MEAN CELL VOLUME 97.4 fL (80.0-94.0); MEAN CORPUSCULAR HEMOGLOBIN 34.6 pg (27.0-31.0); MEAN CORPUSCULAR HGB CONC 35.5 g/dL (33.0-37.0); MEAN PLATELET VOLUME 8.7 fL (7.2-11.7); MONO # 0.9 K/uL (0.0-0.8); MONO % 11.1 % (0.0-10.0); NEUT # 6.8 K/uL (1.8-7.0); NEUT % 80.3 % (50.0-75.0); NRBC % 0.1 % (0.0-2.0); PLATELET COUNT 101 K/uL (130-400); RBC 3.91 Mil/uL (4.40-5.90); RED CELL DISTRIBUTION WIDTH 16.3 % (11.5-14.5); WHITE BLOOD COUNT 8.4 K/uL (4.8-10.8)
[2017-12-02 08:15] LABS: ALB/GLOB RATIO 0.6 (1.0-2.1); ALBUMIN 2.5 g/dL (3.5-5.0); ALT/SGPT 52 U/L (21-72); AST/SGOT 175 U/L (17-59); BLOOD UREA NITROGEN 4 mg/dL (9-20); CALCIUM 6.4 mg/dl (8.6-10.4); GFR AFRICAN-AMERICAN > 60; GFR NON-AFRICAN AMERICAN > 60; MAGNESIUM 1.6 mg/dL (1.6-2.3)
[2017-12-02] MEDS ORDERED: Potassium Chloride 20 mEq ER Tab PO ONE (09:30)
[2017-12-02] MEDS: Multiple Vitamins Tab PO SCH (10:06)
[2017-12-02] MEDS: Pantoprazole 40 mg EC Tab PO SCH (10:07)
--- NOTE | 2017-12-02 10:09 | CP.PCM.PN ---
Subjective - Date & Time of Evaluation Date of Evaluation: 12/02/17 Time of Evaluation: 10:00 - Subjective Subjective: Hospitalist Progress Note Patient was seen and examined at 10:00 AM 12/02/17 560 A. 52 year old male (PMHx of Alcohol Abuse with drinking 3 pints of Vodka a day, Alcohol Related Liver Failure, Schizophrenia, Pancreatitis, Grave's Disease, COPD, DVT/PE, Nondisplaced Fracture of Left Ribs ) with multiple Emergency Room visits between [facility] and [facility] was admitted to the Telemetry Unit 11/30/17 for Alcohol Withdrawl and Electrolyte Abnormalities. Please see Assessment and Plan's below for full details. Upon ROS: Patient was asleep but easily arousable. Patient continues not to participating in exam or ROS however he is less aggressive today Still tremulous He would not answer ROS questions CLINICAL BIOCHEMICAL GENETICIST at bedside stated that patient is getting up multiple times to go to the bathroom and patient stated that he had watery bowel movements Exam: Exam: General: Asleep but arousable, Not participating in exam or following commands. HEENT: Pupils are round and reactive to light NO cervical/supraclavicular/ submandibular lymphadenopathy, Nasal Turbinates are nonerythematous/ nonedematous, Cardio: NS1 and NS2, NO M/R/G Resp: CTA B/L, NO R/R/W but limited to lack of deep respirations GI: BSx4, Soft, NT, NO Distention, Liver and Spleen are not enlarged on exam, NO guarding/rebound tenderness, NO uncomfortable signs noted on face with deep palpation Ext: Pulses are strong and equal, Capillary Refill is 2 seconds, NO edema Neuro: could not be performed secondary to lack of patient participation Assessment & Plan - Assessment and Plan (Free Text) Plan: 1. Alcoholic Liver failure MELD score 29--> 19.6% estimated 3 month mortality Discriminate function 75.4 Will need to follow up with [facility], * inpatient care manager rn center * [id number] * [place] [address] * [phone] AFP: f/u results UDS: f/u results 2. Alcohol abuse, withdrawal Psychiatry consulted, Dr. Schmidt, help appreciated Banana bag, Folic acid, Multivitamins, Thiamine Ativan 5-day taper started 11/30/17 upon admission Ativan 2mg IV Q2 PRN Seizure/Withdrawl 3. Hypokalemia Improved to 2.6 KCl 40 mEQ PO x 1 dose given 9:30 AM KCl 20 mEQ IV x 2 doses finished at 8 AM KCl 60 mEQ in 1 liter of NS @ 150 ml per hour to finish at 1 PM F/U BMP, Mag, Phos at 4 PM today 4.Hypomagnesemia This has normalized 5. Hypocalcemia Calcium carbonate 500mg PO x2 6. Low albumin Likely secondary to alcohol abuse Ensure Enlive 3x/day Alubmin 12.5 gm IV x 1dose ordered 12/02/17 7. Hypophosphotemia NaPhos 15 mmol IV to finish at 11:35 AM F/U BMP, Mag, Phos at 4 PM today 8. Elevated LFT/Lipase/Bilirubin Likely secondary to alcohol abuse Abdominal US: suggesting hepatic cellular disease; possible hepatic cirrhosis; trace ascites; nonspecific thickening of GB wall; no venegas's sign Hepatitis panel: Hepatitis C Ab is positive and patient will have to follow up at the GI Clinic through [facility] HIV: negative AFP: is low Ammonia level elevated at 57 on 12/01/17. Hold off on giving Lactulose secondary to the multiple watery bowel movements (likely secondary to the alcohol withdrawl). F/U repeat Ammonia level at 4 PM today and morning 12/03/17. 9. Thrombocytopenia Likely secondary to alcohol abuse 10. Elevated INR Likely secondary to alcohol abuse 11. Hx schizophrenia F/u psychiatry recommendation 12. Questionable History of Graves Disease (as per prior records) (Per EMR) TSH: normal T4 is slightly elevated Repeat the blood work in a few days to see if the T4 is still slightly elevated and if so then get Endocrine Dr. Velma Estes on board 13. Watery Bowel Movements C. diff toxin is negative Preliminary Stool Culture shows Gram Negative Rods: F/U identification to mars antibiotic 14. Prophylaxis Protonix 40mg PO daily No anticoagulation secondary to increased INR and thrombocytopenia Venous Dopplers of the legs ordered upon admission still not completed. Spoke with Diagrammer Beth to call Vascular so that it can completed today. If negative for DVT then SCDs. (Patient with history of DVTs in the past as per prior records) Regular Diet Harsh Schmidt D.O Objective - Vital Signs/Intake and Output Vital Signs (last 24 hours): Temp Pulse Resp BP Pulse Ox 98.1 F 118 H 20 105/69 89 L 12/02/17 07:05 12/02/17 07:05 12/02/17 07:05 12/02/17 07:05 12/02/17 07:05 - Medications Medications: Current Medications Albumin Human (Albumin Human 25% (12.5 Gm/50 Ml)) 12.5 gm IV ONCE ONE Stop: 12/02/17 11:01 Calcium Carbonate (Oscal) 500 mg PO BID [facility] Last Admin: 12/01/17 17:53 Dose: 500 mg Clonidine HCl (Catapres) 0.1 mg PO Q4H PRN PRN Reason: Symptoms of alcohol withdrawl Folic Acid (Folic Acid) 1 mg PO DAILY [facility] Last Admin: 12/01/17 10:02 Dose: 1 mg Sodium Phosphate 15 mmole/ (Sodium Chloride) 255 mls @ 50 mls/hr IVPB .Q5H6M ONE Stop: 12/02/17 11:35 Potassium Chloride 60 meq/ (Sodium Chloride) 1,030 mls @ 150 mls/hr IV .Q6H52M [facility] Lorazepam (Ativan) 2 mg PO Q4 [facility] PRN Reason: Taper Stop: 12/05/17 13:59 Last Admin: 12/02/17 08:12 Dose: Not Given Lorazepam (Ativan) 1 mg PO Q4H PRN PRN Reason: Symptoms of alcohol withdrawl Last Admin: 12/02/17 05:30 Dose: 1 mg Multivitamins (Hexavitamin) 1 tab PO DAILY [facility] Last Admin: 12/01/17 10:02 Dose: 1 tab Pantoprazole Sodium (Protonix Ec Tab) 40 mg PO DAILY [facility] Last Admin: 12/01/17 10:01 Dose: 40 mg Thiamine HCl (Vitamin B1 Tab) 100 mg PO DAILY [facility] Last Admin: 12/01/17 10:01 Dose: 100 mg - Labs Labs: 12/02/17 07:05 12/02/17 07:05 PT 23.8 SECONDS (9.7-12.2) H 11/30/17 08:32 INR 2.0 11/30/17 08:32 APTT 42 SECONDS (21-34) H 11/30/17 08:32
[2017-12-02 10:29] LABS: LYMPHOCYTE 7 % (20-40); MONOCYTE 9 % (0-10); NEUTROPHIL 84 % (50-75); TOTAL CELLS COUNTED 100
[2017-12-02 10:30] LABS: ANISOCYTOSIS SLIGHT; HYPOCHROMIC SLIGHT; PLATELET ESTIMATE SLIGHTLY DECREASED (NORMAL); POLYCHROMIC SLIGHT
[2017-12-02 10:31] LABS: TOXIC GRANULATION PRESENT
[2017-12-02 10:32] LABS: TARGET CELLS SLIGHT
[2017-12-02] MEDS ORDERED: Albumin Human 25% (12.5 gm/50 ml) IV ONE (11:00)
[2017-12-02 17:46] LABS: BLOOD UREA NITROGEN 5 mg/dL (9-20); CALCIUM 6.5 mg/dl (8.6-10.4); GFR AFRICAN-AMERICAN > 60; GFR NON-AFRICAN AMERICAN > 60; MAGNESIUM 1.5 mg/dL (1.6-2.3)
[2017-12-02] MEDS ORDERED: Potassium Phosphate 15 MMOLE in Sodium Chloride 0.9% 250 ML IVPB ONE (17:52)
[2017-12-03] MEDS: Pantoprazole 40 mg EC Tab PO SCH (09:09)
[2017-12-03] MEDS: Multiple Vitamins Tab PO SCH (09:09)
--- NOTE | 2017-12-03 10:37 | VASCLAB ---
PROCEDURE: Lower Extremity Venous Duplex Exam. HISTORY: Leg swelling PRIORS: None. TECHNIQUE: Bilateral common femoral, femoral, popliteal and posterior tibial, peroneal and great saphenous veins were evaluated. Flow was assessed with color Doppler, compressibility, assessment of phasic flow and augmentation response. Report prepared by Kelvin Mckeon T FINDINGS: RIGHT: 1. Common Femoral Vein: 1.1. Compressibility - Fully compressible: Thrombus - None : Flow - Phasic: Augmentation -Normal. 2. Femoral Vein: 2.1. Compressibility - Fully compressible: Thrombus - None : Flow - Phasic: Augmentation -Normal. 3. Popliteal Vein: 3.1. Compressibility - Fully compressible: Thrombus - None : Flow - Phasic: Augmentation -Normal. 4. Posterior Tibial Vein: 4.1. Compressibility - Fully compressible: Thrombus - None. 5. Peroneal Vein: 5.1. Compressibility - Fully compressible: Thrombus - None. 6. Great Saphenous Vein: 6.1. Compressibility - Fully compressible: Thrombus - None: Flow - Phasic. LEFT: 1. Common Femoral Vein: 1.1. Compressibility - Fully compressible: Thrombus - None: Flow - Phasic: Augmentation -Normal. 2. Femoral Vein: 2.1. Compressibility - Fully compressible: Thrombus - None: Flow - Phasic: Augmentation -Normal. 3. Popliteal Vein: 3.1. Compressibility - Fully compressible: Thrombus - None : Flow - Phasic: Augmentation -Normal. 4. Posterior Tibial Vein: 4.1. Compressibility - Fully compressible: Thrombus - None. 5. Peroneal Vein: 5.1. Compressibility - Fully compressible: Thrombus - None. 6. Great Saphenous Vein: 6.1. Compressibility - Fully compressible: Thrombus - None. OTHER FINDINGS: Right: None significant. Left: None significant. IMPRESSION: Right: No evidence of deep or superficial vein thrombosis of the right lower extremity. Left: No evidence of deep or superficial vein thrombosis of the left lower extremity.
[2017-12-03] MEDS ORDERED: Albuterol-Ipratrop 3 mg / 0.5 (3 ml) UD INH STA (10:41)
[2017-12-03] MEDS ORDERED: Iohexol 240 (50 ml) PO ONE (11:00)
--- NOTE | 2017-12-03 11:10 | CARD ---
APPROVED REPORT EKG Measurement Heart [id number] [place] [id number] [id number] <Conclusion> Sinus tachycardia Nonspecific ST abnormality Prolonged QT Abnormal ECG
[2017-12-03 11:55] LABS: BASO # 0.1 K/uL (0.0-0.2); EOS # 0.1 K/uL (0.0-0.7); EOS % 1.5 % (0.0-4.0); HEMOGLOBIN 13.1 g/dL (12.0-18.0); LYMPH # 0.9 K/uL (1.0-4.3); LYMPH % 9.7 % (20.0-40.0); MEAN CELL VOLUME 98.2 fL (80.0-94.0); MEAN CORPUSCULAR HEMOGLOBIN 34.4 pg (27.0-31.0); MEAN PLATELET VOLUME 8.8 fL (7.2-11.7); MONO % 11.1 % (0.0-10.0); NEUT # 6.7 K/uL (1.8-7.0); NEUT % 76.7 % (50.0-75.0); NRBC % 0.1 % (0.0-2.0); RBC 3.81 Mil/uL (4.40-5.90); RED CELL DISTRIBUTION WIDTH 16.8 % (11.5-14.5); WHITE BLOOD COUNT 8.8 K/uL (4.8-10.8)
[2017-12-03 11:57] LABS: INR 2.2; PROTHROMBIN TIME 26.3 SECONDS (9.7-12.2)
[2017-12-03 11:58] LABS: PLATELET COUNT 121 K/uL (130-400)
--- NOTE | 2017-12-03 12:12 | RAD ---
HISTORY: wheezing COMPARISON: 11/29/2017 FINDINGS: LUNGS: No active pulmonary disease. PLEURA: Small bilateral pleural effusion, new since prior examination. No pneumothorax. CARDIOVASCULAR: Normal. OSSEOUS STRUCTURES: No significant abnormalities. VISUALIZED UPPER ABDOMEN: Normal. OTHER FINDINGS: None. IMPRESSION: New small bilateral pleural effusion.
--- NOTE | 2017-12-03 12:18 | CP.PCM.PN ---
<Millie Marroquina - Last Filed: 12/03/17 14:47> Subjective - Date & Time of Evaluation Date of Evaluation: 12/03/17 Time of Evaluation: 11:00 - Subjective Subjective: Medicine Note for Hospitalist Service- Dr. Leon Patient was seen and examined at bedside. Patient is lethargic and difficulty to arouse after receiving Ativan for alcohol detox. ROS unattainable due to lethargy. Objective - Vital Signs/Intake and Output Vital Signs (last 24 hours): Temp Pulse Resp BP Pulse Ox 97.8 F 115 H 22 118/71 90 L 12/03/17 08:34 12/03/17 08:34 12/03/17 08:34 12/03/17 08:34 12/03/17 08:34 Intake and Output: 12/03/17 12/03/17 06:59 18:59 Intake Total 400 Balance 400 - Medications Medications: Current Medications Calcium Carbonate (Oscal) 500 mg PO BID [facility] Last Admin: 12/03/17 09:09 Dose: 500 mg Clonidine HCl (Catapres) 0.1 mg PO Q8H PRN PRN Reason: Symptoms of alcohol withdrawl Folic Acid (Folic Acid) 1 mg PO DAILY [facility] Last Admin: 12/03/17 09:09 Dose: 1 mg Potassium Chloride 40 meq/ (Sodium Chloride) 1,020 mls @ 100 mls/hr IV .[id number] [facility] Last Admin: 12/03/17 09:09 Dose: 100 mls/hr Lactulose (Enulose) 20 gm PO TID [facility] Last Admin: 12/03/17 11:12 Dose: 20 gm Lorazepam (Ativan) 1 mg PO Q4 [facility] PRN Reason: Taper Stop: 12/05/17 13:59 Last Admin: 12/03/17 11:24 Dose: 1 mg Multivitamins (Hexavitamin) 1 tab PO DAILY [facility] Last Admin: 12/03/17 09:09 Dose: 1 tab Pantoprazole Sodium (Protonix Ec Tab) 40 mg PO DAILY [facility] Last Admin: 12/03/17 09:09 Dose: 40 mg Thiamine HCl (Vitamin B1 Tab) 100 mg PO DAILY [facility] Last Admin: 12/03/17 09:09 Dose: 100 mg - Labs Labs: 12/03/17 11:43 12/02/17 17:23 PT 26.3 SECONDS (9.7-12.2) H 12/03/17 11:43 INR 2.2 12/03/17 11:43 APTT 43 SECONDS (21-34) H 12/03/17 11:43 - Head Exam Head Exam: ATRAUMATIC, NORMAL INSPECTION, NORMOCEPHALIC - Eye Exam Eye Exam: EOMI, Normal appearance, PERRL Pupil Exam: NORMAL ACCOMODATION - ENT Exam ENT Exam: Mucous Membranes Moist, Normal Exam - Respiratory Exam Respiratory Exam: Wheezes - Cardiovascular Exam Cardiovascular Exam: Tachycardia - GI/Abdominal Exam GI & Abdominal Exam: Soft, Normal Bowel Sounds. absent: Distended, Tenderness - Extremities Exam Extremities Exam: Normal Inspection. absent: Pedal Edema, Tenderness - Neurological Exam Neurological Exam: Altered (Arousable, but lethargic ), Awake - Psychiatric Exam Psychiatric exam: Normal Affect, Normal Mood - Skin Skin Exam: Dry, Intact, Normal Color, Warm Assessment and Plan - Assessment and Plan (Free Text) Plan: Alcoholic Liver Failure MELD score 29--> 19.6% estimated 3 month mortality Discriminate function 75.4 Will need to follow up with [facility], * administrator health care facility center * [address] [id number] * [place] [address] * [phone] AFP: low Ammonia level uptrending, started on lactulose PO TID will hold for 3 loose BM Alcohol abuse, withdrawal Psychiatry consulted, Dr. Schmidt, help appreciated Folic acid, Multivitamins, Thiamine Ativan 5-day taper started 11/30/17 upon admission Diarrhea Unlikely infectious Stool studies, c diff negative CT Abdomen and Pelvis with PO contrast ordered Questionable History of Graves Disease (as per prior records) TSH: normal T4 is slightly elevated --> 2.53, 2.64 F/U TSI, TBII Electrolyte Imbalance Monitor K, Mag, Phos, Ca Low albumin Likely secondary to alcohol abuse Ensure Enlive 3x/day Albumin 12.5 gm IV x 1dose ordered 12/02/17 Elevated LFT/Lipase/Bilirubin Likely secondary to alcohol abuse Abdominal US: suggesting hepatic cellular disease; possible hepatic cirrhosis; trace ascites; nonspecific thickening of GB wall; no clay's sign Hepatitis panel: Hepatitis C Ab is positive and patient will have to follow up at the GI Clinic through [facility] HIV: negative AFP: is low Thrombocytopenia Likely secondary to alcohol abuse Elevated INR Likely secondary to alcohol abuse Hx schizophrenia F/u psychiatry recommendation Prophylaxis Protonix 40mg PO daily No anticoagulation secondary to increased INR and thrombocytopenia, SCDs Regular Diet DW Lopez Alcaraz DO, PGY-1 <Nayeli Leon V - Last Filed: 12/03/17 15:59> Objective - Vital Signs/Intake and Output Vital Signs (last 24 hours): Temp Pulse Resp BP Pulse Ox 97.8 F 113 H 22 118/71 90 L 12/03/17 08:34 12/03/17 12:00 12/03/17 08:34 12/03/17 08:34 12/03/17 08:34 Intake and Output: 12/03/17 12/03/17 06:59 18:59 Intake Total 400 Balance 400 - Medications Medications: Current Medications Calcium Carbonate (Oscal) 500 mg PO BID [facility] Last Admin: 12/03/17 09:09 Dose: 500 mg Clonidine HCl (Catapres) 0.1 mg PO Q8H PRN PRN Reason: Symptoms of alcohol withdrawl Folic Acid (Folic Acid) 1 mg PO DAILY [facility] Last Admin: 12/03/17 09:09 Dose: 1 mg Potassium Chloride 40 meq/ (Sodium Chloride) 1,020 mls @ 100 mls/hr IV .[id number] [facility] Last Admin: 12/03/17 09:09 Dose: 100 mls/hr Sodium Phosphate 15 mmole/ (Sodium Chloride) 255 mls @ 50 mls/hr IVPB .Q5H6M ONE Stop: 12/03/17 21:05 Potassium Chloride (Potassium Chloride 20 Meq/100 Ml) 20 meq in 100 mls @ 50 mls/hr IVPB ONCE ONE Stop: 12/03/17 16:59 Lactulose (Enulose) 20 gm PO TID [facility] Last Admin: 12/03/17 14:01 Dose: 20 gm Lorazepam (Ativan) 1 mg PO Q8H [facility] PRN Reason: Taper Stop: 12/05/17 19:59 Multivitamins (Hexavitamin) 1 tab PO DAILY [facility] Last Admin: 12/03/17 09:09 Dose: 1 tab Pantoprazole Sodium (Protonix Ec Tab) 40 mg PO DAILY [facility] Last Admin: 12/03/17 09:09 Dose: 40 mg Thiamine HCl (Vitamin B1 Tab) 100 mg PO DAILY [facility] Last Admin: 12/03/17 09:09 Dose: 100 mg - Labs Labs: 12/03/17 11:43 12/03/17 11:43 PT 26.3 SECONDS (9.7-12.2) H 12/03/17 11:43 INR 2.2 12/03/17 11:43 APTT 43 SECONDS (21-34) H 12/03/17 11:43 Attending/Attestation - Attestation I have personally seen and examined this patient.: Yes I have fully participated in the care of the patient.: Yes I have reviewed all pertinent clinical information, including history, physical exam and plan: Yes Notes (Text): Patient seen, examined and case discussed with day-time resident. Patient seen this morning. Patient is lethargic. patient had received ativan about 2 hours prior our arrival. Patient also has elevated ammonia. Per review of the EMR, patient is frequent flier to the emergency rooms and tend to leave against medical advice when he is admitted. Similar theme is the persistent alcohol use and abuse. Per the EMR, patient had abdominal pain and associated electrolytes abnormalities. There was a delay in blood works this morning. This afternoon, patient has hypokalemia inspite of IV fluid supplement, magnesium remains low, and phosphorous remains low. Last CT Abdomen on record is from 2016, will repeat CT abdomen/pelvis with PO contrast given diarrhea/constipation prior to starting lactulose. Patient is not on Lasix/Aldactone and given hypokalemia will not start. Assessment/Plan 1. Alcoholic Liver Disease Liver Cirrhosis Diarrhea Hepatic Encephalopathy Hepatitis C Ab Reactive * MELD score 29--> 19.6% estimated 3 month mortality * Discriminate function 75.4 * Will need to follow up with [facility], administrator health care facility center, [address] [place] [address] [id number], [place] [address] [phone] * Abdominal US (11/30/17): limited evaluation. Nodular heterogenously increased echogenicity of liver suggestive of hepatic cellular disease and/or fatty infiltration. Possible hepatic cirrhosis. Trace ascites. Thicken gallbladder wall, nonspecific. Sludge and tiny calculi within the gallbladder. Negative sonographic Clay sign * Order for CT abdomen and pelvis PO contrast given diarrhea * C. Dif negative * Hepatitis C Ab Reactive * HIV negative * Elevated Ammonia-->start Lactulose 2. Alcohol abuse, withdrawal * Psychiatry consulted, Dr. Schmidt, help appreciated * Banana bag, Folic acid, Multivitamins, Thiamine * Ativan 5-day taper (Day 4) 3. Hypokalemia * Admit to telemetry * NS with Potassium supplement in the IV fluids * Patient ordered for 3 KCL Riders * Magnesium is also low; replete IV * Will need to repeat values for later this evening 4. Hypomagnesemia * Mg-sulfate 1gm x2, f/u repeat BMP 5. Hypocalcemia * Corrected for low albumin, 8.0 * Calcium carbonate 500mg PO x2 6. Malnutrition, Low albumin * Likely secondary to alcohol abuse * Ensure Enlive 3x/day 7. Elevated LFT/Lipase/Bilirubin * Likely secondary to alcohol abuse * Abdominal US: suggesting hepatic cellular disease; possible hepatic cirrhosis ; trace ascites; nonspecific thickening of GB wall; no murphys * Hepatitis panel: Hepatitis C Ab Reactive * HIV: negative * Ammonia level: elevated * Start Lactulose TID with holding parameter for diarrhea 8. History of Heparin Induced Thrombocytopenia Thrombocytopenia * Likely secondary to alcohol abuse * Contraindication to chemical anticoagulation 9. Coagulopathy * Abdominal US (11/30/17): limited evaluation. Nodular heterogenously increased echogenicity of liver suggestive of hepatic cellular disease and/or fatty infiltration. Possible hepatic cirrhosis. Trace ascites. Thicken gallbladder wall, nonspecific. Sludge and tiny calculi within the gallbladder. Negative sonographic Clay sign * Elevated INR: 2.2-->given Vitamin K 5mg PO X1 10. Hx schizophrenia * F/u psychiatry recommendation 11. History of Graves Disease * TSH: 0.86 * T4: 7.92 * Free: 2.64 * pending TBii, TSI * Unclear if its confirmed 12. Prophylaxis * Protonix 40mg PO daily * No anticoagulation secondary to increased INR and thrombocytopenia * Regular Diet * Aspiration precautions Disposition: continue to monitor on telemetry. Patient is on day 4 of 5 ativan taper. GI consult for further recommendations. Ammonia is high given lethargy to start Lactulose with holding parameters. Given diarrhea, will order CT abdomen/pelvis PO contrast; last CT 2016. Palliative care: goals of care discussion to have family discussion tomorrow
[2017-12-03 12:27] LABS: ALB/GLOB RATIO 0.5 (1.0-2.1); ALBUMIN 2.5 g/dL (3.5-5.0); ALT/SGPT 58 U/L (21-72); AST/SGOT 179 U/L (17-59); BLOOD UREA NITROGEN 5 mg/dL (9-20); CALCIUM 6.5 mg/dl (8.6-10.4); GFR AFRICAN-AMERICAN > 60; GFR NON-AFRICAN AMERICAN > 60; MAGNESIUM 1.4 mg/dL (1.6-2.3)
[2017-12-03 12:32] LABS: LYMPHOCYTE 9 % (20-40); MONOCYTE 10 % (0-10); NEUTROPHIL 81 % (50-75); TOTAL CELLS COUNTED 100
[2017-12-03 12:33] LABS: PLATELET ESTIMATE SLIGHTLY DECREASED (NORMAL)
[2017-12-03 12:39] LABS: T4 7.92 ug/dL (5.5-11.0)
[2017-12-03] MEDS: Magnesium Sulfate 1 gm in D5W 1 GM/100 ML BAG IVPB SCH ×2 (12:41→13:01)
--- NOTE | 2017-12-03 15:15 | CP.PCM.PCO ---
Physician Communication Note - Physician Communication Note Physician Communication Note: Family meeting at 11 am tomorrow
[2017-12-03] MEDS ORDERED: Sodium Phosphate 15 MMOLE in Sodium Chloride 0.9% 250 ML IVPB ONE (16:00)
--- NOTE | 2017-12-03 16:16 | CP.PCM.CON ---
History of Present Illness - History of Present Illness History of Present Illness: GI service consult for cirrhosis Patient is a 52 year old man with a long history of alcohol dependence, multiple detox admissions, admitted to medical service 3 days ago for abdominal pain. Poor historian. Patient is jaundiced and has a distended abdomen. Sonogram shows cirrhotic liver with trace ascites, normal GB and nondilated biliary ducts. patient is now seen in CT scan. Patient gets tremulous wihen not drinking alcohol, and he is currently receiving Ativan. Hypokalemia has been an issue since admission. Hepatitis C antibody is also positive. Past Patient History - Infectious Disease Hx of Infectious Diseases: None - Past Medical History & Family History Past Medical History?: Yes - Past Social History Smoking Status: Heavy Smoker > 10 Cigarettes Daily - CARDIAC Hx Cardiac Disorders: No Hx Hypertension: No - PULMONARY Hx Respiratory Disorders: Yes Hx Chronic Obstructive Pulmonary Disease (COPD): Yes Hx Pneumonia: Yes - NEUROLOGICAL Hx Neurological Disorder: No Hx Seizures: No - HEENT Hx HEENT Problems: No - RENAL Hx Chronic Kidney Disease: No - ENDOCRINE/METABOLIC Hx Endocrine Disorders: No - HEMATOLOGICAL/ONCOLOGICAL Hx Blood Disorders: No Hx Human Immunodeficiency Virus (HIV): No (Negative) - INTEGUMENTARY Hx Dermatological Problems: No - MUSCULOSKELETAL/RHEUMATOLOGICAL Hx Musculoskeletal Disorders: Yes Hx Arthritis: Yes (hands and feet) Hx Falls: Yes - GASTROINTESTINAL Hx Gastrointestinal Disorders: Yes Hx Gastritis: Yes Hx Pancreatitis: Yes - GENITOURINARY/GYNECOLOGICAL Hx Genitourinary Disorders: No Hx Sexually Transmitted Disorders: No - PSYCHIATRIC Hx Psychophysiologic Disorder: Yes Hx Depression: Yes Hx Hallucinations: Yes Hx Schizophrenia: Yes 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, PCP,) - SURGICAL HISTORY Hx Surgeries: No - ANESTHESIA Hx Anesthesia: Yes Hx Anesthesia Reactions: No Has any member of the family had a problem w/ anesthesia?: No Meds Allergies/Adverse Reactions: Allergies Allergy/AdvReac Type Severity Reaction Status Date / Time No Known Allergies Allergy Verified 11/30/17 07:49 - Medications Medications: Current Medications Calcium Carbonate (Oscal) 500 mg PO BID [facility] Last Admin: 12/03/17 09:09 Dose: 500 mg Clonidine HCl (Catapres) 0.1 mg PO Q8H PRN PRN Reason: Symptoms of alcohol withdrawl Folic Acid (Folic Acid) 1 mg PO DAILY [facility] Last Admin: 02/12/18 09:09 Dose: 1 mg Potassium Chloride 40 meq/ (Sodium Chloride) 1,020 mls @ 100 mls/hr IV .[id number] [facility] Last Admin: 12/03/17 09:09 Dose: 100 mls/hr Sodium Phosphate 15 mmole/ (Sodium Chloride) 255 mls @ 50 mls/hr IVPB .[id number] ONE Stop: 12/03/17 21:05 Potassium Chloride (Potassium Chloride 20 Meq/100 Ml) 20 meq in 100 mls @ 50 mls/hr IVPB ONCE ONE Stop: 12/03/17 16:59 Potassium Chloride (Potassium Chloride 20 Meq/100 Ml) 20 meq in 100 mls @ 50 mls/hr IVPB ONCE ONE Stop: 12/03/17 18:59 Lactulose (Enulose) 20 gm PO TID [facility] Last Admin: 12/03/17 14:01 Dose: 20 gm Lorazepam (Ativan) 1 mg PO Q8H [facility] PRN Reason: Taper Stop: 12/05/17 19:59 Multivitamins (Hexavitamin) 1 tab PO DAILY [facility] Last Admin: 12/03/17 09:09 Dose: 1 tab Pantoprazole Sodium (Protonix Ec Tab) 40 mg PO DAILY [facility] Last Admin: 12/03/17 09:09 Dose: 40 mg Phytonadione (Vitamin K Tab) 5 mg PO ONCE ONE Stop: 12/04/17 16:01 Thiamine HCl (Vitamin B1 Tab) 100 mg PO DAILY [facility] Last Admin: 12/03/17 09:09 Dose: 100 mg Physical Exam - Constitutional Appears: Chronically Ill Additional comments: Jaundiced. lethargic , disoriented - Head Exam Head Exam: NORMOCEPHALIC - Eye Exam Eye Exam: Scleral icterus - Respiratory Exam Respiratory Exam: NORMAL BREATHING PATTERN - Cardiovascular Exam Cardiovascular Exam: Tachycardia - GI/Abdominal Exam GI & Abdominal Exam: Distended, Hypoactive Bowel Sounds, Soft. absent: Guarding , Mass, Rebound - Extremities Exam Extremities exam: Negative for: pedal edema, tenderness Results - Vital Signs Recent Vital Signs: Last Vital Signs Temp 97.8 F 12/03/17 08:34 Pulse 113 H 12/03/17 12:00 Resp 22 12/03/17 08:34 BP 118/71 12/03/17 08:34 Pulse Ox 90 L 12/03/17 08:34 - Labs Result Diagrams: 12/03/17 11:43 12/03/17 11:43 Labs: Laboratory Results - last 24 hr 12/02/17 12/02/17 12/03/17 17:23 17:23 11:43 WBC 8.8 RBC 3.81 L Hgb 13.1 Hct 37.4 MCV 98.2 H MCH 34.4 H MCHC 35.0 RDW 16.8 H Plt Count 121 L D MPV 8.8 Neut % (Auto) 76.7 H Lymph % (Auto) 9.7 L [place] % (Auto) 11.1 H Eos % (Auto) 1.5 Baso % (Auto) 1.0 Neut # (Auto) 6.7 Lymph # (Auto) 0.9 L [place] # (Auto) 1.0 H Eos # (Auto) 0.1 Baso # (Auto) 0.1 Neutrophils % (Manual) 81 H Lymphocytes % (Manual) 9 L Monocytes % (Manual) 10 Platelet Estimate Slightly decreased L PT INR APTT Sodium 131 L Potassium 3.0 L Chloride 96 L Carbon Dioxide 26 Anion Gap 12 BUN 5 L Creatinine 0.7 L Est GFR ( Amer) > 60 Est GFR (Non-Af Amer) > 60 Random Glucose 109 Calcium 6.5 L Phosphorus 1.3 L Magnesium 1.5 L Total Bilirubin AST ALT Alkaline Phosphatase Ammonia 74 H D Total Protein Albumin Globulin Albumin/Globulin Ratio Free T4 Thyroxine (T4) TSH 3rd Generation 12/03/17 12/03/17 12/03/17 11:43 11:43 11:43 WBC RBC Hgb Hct MCV MCH MCHC RDW Plt Count MPV Neut % (Auto) Lymph % (Auto) [place] % (Auto) Eos % (Auto) Baso % (Auto) Neut # (Auto) Lymph # (Auto) [place] # (Auto) Eos # (Auto) Baso # (Auto) Neutrophils % (Manual) Lymphocytes % (Manual) Monocytes % (Manual) Platelet Estimate PT 26.3 H INR 2.2 APTT 43 H Sodium 133 Potassium 2.9 L Chloride 97 L Carbon Dioxide 25 Anion Gap 13 BUN 5 L Creatinine 0.7 L Est GFR ( Amer) > 60 Est GFR (Non-Af Amer) > 60 Random Glucose 105 Calcium 6.5 L Phosphorus 1.7 L Magnesium 1.4 L Total Bilirubin 20.2 H AST 179 H ALT 58 Alkaline Phosphatase 140 H Ammonia 81 H Total Protein 7.1 Albumin 2.5 L Globulin 4.6 H Albumin/Globulin Ratio 0.5 L Free T4 Thyroxine (T4) TSH 3rd Generation 12/03/17 12/03/17 11:43 11:43 WBC RBC Hgb Hct MCV MCH MCHC RDW Plt Count MPV Neut % (Auto) Lymph % (Auto) [place] % (Auto) Eos % (Auto) Baso % (Auto) Neut # (Auto) Lymph # (Auto) [place] # (Auto) Eos # (Auto) Baso # (Auto) Neutrophils % (Manual) Lymphocytes % (Manual) Monocytes % (Manual) Platelet Estimate PT INR APTT Sodium Potassium Chloride Carbon Dioxide Anion Gap BUN Creatinine Est GFR ( Amer) Est GFR (Non-Af Amer) Random Glucose Calcium Phosphorus Magnesium Total Bilirubin AST ALT Alkaline Phosphatase Ammonia Total Protein Albumin Globulin Albumin/Globulin Ratio Free T4 2.64 H Thyroxine (T4) 7.92 TSH 3rd Generation 0.86 Assessment & Plan (1) Alcoholic cirrhosis Assessment and Plan: chronic Continues to drink alcohol daily. Not a candidate for transplant Supportive care in progress Status: Acute (2) Alcohol abuse Assessment and Plan: Psych consult involoved Numerous detox attempts Needs social service assistance Status: Acute (3) Abdominal pain Assessment and Plan: R/O SBP. Likely from acute alcoholic hepatitis Check CT scan, and if ascites present will need paracentesis Status: Acute (4) Acute alcoholic hepatitis Assessment and Plan: Supportive care recommended Patient is unlikely to remain on steroids x recommended 28 days for treatment of severe alcoholic hepatitis Status: Acute (5) Hepatitis C antibody test positive Assessment and Plan: Will check genotype and viral load to confirm Unlikely to comply with treatment Status: Acute - Date & Time Date: 12/03/17 Time: 16:24
--- NOTE | 2017-12-03 16:42 | CT ---
PROCEDURE: CT Abdomen and Pelvis without intravenous contrast HISTORY: r/o colitis COMPARISON: 02/26/2017 TECHNIQUE: Without contrast.. Contrast Dose: 0 Radiation dose: Total exam DLP = 569.77 mGy-cm. This CT exam was performed using one or more of the following dose reduction techniques: Automated exposure control, adjustment of the mA and/or kV according to patient size, and/or use of iterative reconstruction technique. FINDINGS: LOWER THORAX: Extensive bilateral lower lobe atelectasis. Small bilateral pleural effusion. LIVER: Nodular contour. Markedly heterogeneous, possibly due to widespread metastatic disease. This heterogeneity represents substantial interval change from prior CT examination. Further evaluation is advised. No evidence of biliary ductal dilatation. Possible hepatic cirrhosis. GALLBLADDER AND BILE DUCTS: Cholelithiasis. Thickened gallbladder wall. This is nonspecific. PANCREAS: Nonspecific peripancreatic fluid in a patient with extensive ascites. Cannot rule out pancreatitis. Please correlate. No pancreatic mass appreciated. SPLEEN: Mild splenomegaly. No focal mass. ADRENALS: Unremarkable. No mass. KIDNEYS AND URETERS: Several small nonobstructing left renal calculi, largest in the lower pole, measuring 5 mm. No hydronephrosis. No renal mass. Punctate nonobstructing right lower pole renal calculus. VASCULATURE: Unremarkable. No aortic aneurysm. BOWEL: Mural thickening of cecum and ascending colon, transverse colon and splenic flexure. Consistent with nonspecific colitis. There is nodular mural thickening of the stomach common nonspecific. Infectious versus neoplastic. Mural thickening of the duodenum is noted. There is mural thickening of proximal jejunum consistent with nonspecific enteritis. There is nodular mucosal thickening of loops of ileum in the right pelvis. There is circumferential thickening of the distal esophagus as well. APPENDIX: Not identified. PERITONEUM: Extensive ascites. LYMPH NODES: No significant retroperitoneal or pelvic lymphadenopathy. BLADDER: Unremarkable. REPRODUCTIVE: Unremarkable prostate BONES: No acute fracture. OTHER FINDINGS: None. IMPRESSION: Findings consistent with nonspecific colitis and enteritis. In addition, there is nodular mucosal thickening of the stomach and circumferential mural thickening of the distal esophagus. Bilateral pleural effusion and lower lobe atelectasis. Markedly heterogeneous liver, possibly due to widespread metastasis. Nodular hepatic contour suggestive of cirrhosis. Extensive ascites. Cholelithiasis with thickened gallbladder wall. Nonobstructing small renal calculi bilaterally. Peripancreatic fluid. Cannot rule out pancreatitis. Please correlate.
[2017-12-03 23:16] LABS: BLOOD UREA NITROGEN 5 mg/dL (9-20); CALCIUM 6.9 mg/dl (8.6-10.4); GFR AFRICAN-AMERICAN > 60; GFR NON-AFRICAN AMERICAN > 60; MAGNESIUM 1.5 mg/dL (1.6-2.3)
[2017-12-04] MEDS: Magnesium Sulfate 1 gm in D5W 1 GM/100 ML BAG IVPB SCH ×3 (01:54→23:14)
[2017-12-04] MEDS ORDERED: Magnesium Sulfate 1 gm in D5W 1 GM/100 ML BAG IVPB SCH (04:00)
[2017-12-04 08:07] LABS: BASO # 0.1 K/uL (0.0-0.2); BASO % 1.2 % (0.0-2.0); EOS # 0.2 K/uL (0.0-0.7); EOS % 2.1 % (0.0-4.0); LYMPH # 0.7 K/uL (1.0-4.3); LYMPH % 8.4 % (20.0-40.0); MEAN CORPUSCULAR HEMOGLOBIN 34.9 pg (27.0-31.0); MEAN CORPUSCULAR HGB CONC 35.7 g/dL (33.0-37.0); MEAN PLATELET VOLUME 8.4 fL (7.2-11.7); MONO % 11.8 % (0.0-10.0); NEUT # 6.4 K/uL (1.8-7.0); NEUT % 76.5 % (50.0-75.0); PLATELET COUNT 125 K/uL (130-400); RBC 3.73 Mil/uL (4.40-5.90); RED CELL DISTRIBUTION WIDTH 16.3 % (11.5-14.5); WHITE BLOOD COUNT 8.4 K/uL (4.8-10.8)
[2017-12-04 08:10] LABS: INR 2.1; PROTHROMBIN TIME 24.4 SECONDS (9.7-12.2)
--- NOTE | 2017-12-04 08:32 | CP.PCM.PN ---
Subjective - Date & Time of Evaluation Date of Evaluation: 12/04/17 Time of Evaluation: 08:29 - Subjective Subjective: follow up cirrhosis Denies CP., SOB, fever, cough, RB, melena, hematuria, hemoptysis Pt saeen with aid present Objective - Vital Signs/Intake and Output Vital Signs (last 24 hours): Temp Pulse Resp BP Pulse Ox 98.2 F 110 H 20 117/77 95 12/04/17 07:24 12/04/17 07:24 12/04/17 07:24 12/04/17 07:24 12/04/17 07:24 Intake and Output: 12/04/17 12/04/17 06:59 18:59 Intake Total 550 Output Total 200 Balance 350 - Medications Medications: Current Medications Albuterol/Ipratropium (Duoneb 3 Mg/0.5 Mg (3 Ml) Ud) 3 ml INH RQ6 PRN PRN Reason: Shortness of Breath Calcium Carbonate (Oscal) 500 mg PO BID REPLACED BY [facility] Last Admin: 12/03/17 18:00 Dose: Not Given Clonidine HCl (Catapres) 0.1 mg PO Q8H PRN PRN Reason: Symptoms of alcohol withdrawl Folic Acid (Folic Acid) 1 mg PO DAILY REPLACED BY [facility] Last Admin: 12/03/17 09:09 Dose: 1 mg Potassium Chloride 40 meq/ (Sodium Chloride) 1,020 mls @ 50 mls/hr IV .[id number] REPLACED BY [facility] Lactulose (Enulose) 20 gm PO TID REPLACED BY [facility] Last Admin: 12/03/17 18:00 Dose: Not Given Lorazepam (Ativan) 1 mg PO Q8H [facility] PRN Reason: Taper Stop: 12/05/17 19:59 Last Admin: 12/04/17 05:00 Dose: Not Given Multivitamins (Hexavitamin) 1 tab PO DAILY REPLACED BY [facility] Last Admin: 12/03/17 09:09 Dose: 1 tab Pantoprazole Sodium (Protonix Ec Tab) 40 mg PO DAILY REPLACED BY [facility] Last Admin: 12/03/17 09:09 Dose: 40 mg Phytonadione (Vitamin K Tab) 5 mg PO ONCE ONE Stop: 12/04/17 16:01 Thiamine HCl (Vitamin B1 Tab) 100 mg PO DAILY REPLACED BY [facility] Last Admin: 12/03/17 09:09 Dose: 100 mg - Labs Labs: 12/04/17 07:51 12/03/17 23:00 PT 24.4 SECONDS (9.7-12.2) H 12/04/17 07:51 INR 2.1 12/04/17 07:51 APTT 43 SECONDS (21-34) H 12/04/17 07:51 - Constitutional Appears: Non-toxic - Respiratory Exam Respiratory Exam: Clear to Ausculation Bilateral - Cardiovascular Exam Cardiovascular Exam: RRR - GI/Abdominal Exam GI & Abdominal Exam: Soft, Normal Bowel Sounds. absent: Tenderness, Mass - Neurological Exam Neurological Exam: Alert, Awake Assessment and Plan (1) Acute alcoholic hepatitis Assessment & Plan: ETOH. Check LFTs Status: Acute (2) Alcohol abuse Status: Acute (3) Alcoholic cirrhosis Status: Acute (4) Hepatitis C antibody test positive Status: Acute (5) Abdominal pain Assessment & Plan: gastritis. Check labs, lipase. CT shows thick stomach and colon. I doubt colitis Status: Acute
[2017-12-04 08:47] LABS: ALB/GLOB RATIO 0.6 (1.0-2.1); ALBUMIN 2.4 g/dL (3.5-5.0); ALT/SGPT 56 U/L (21-72); AST/SGOT 192 U/L (17-59); BLOOD UREA NITROGEN 5 mg/dL (9-20); CALCIUM 7.1 mg/dl (8.6-10.4); GFR AFRICAN-AMERICAN > 60; GFR NON-AFRICAN AMERICAN > 60; MAGNESIUM 1.8 mg/dL (1.6-2.3)
[2017-12-04 09:50] LABS: EOSINOPHIL 3 % (0-4); TOTAL CELLS COUNTED 100
[2017-12-04 09:51] LABS: LYMPHOCYTE 8 % (20-40); MONOCYTE 10 % (0-10); NEUTROPHIL 79 % (50-75); PLATELET ESTIMATE SLIGHTLY DECREASED (NORMAL)
[2017-12-04 09:54] LABS: TOXIC GRANULATION PRESENT
[2017-12-04] MEDS: Multiple Vitamins Tab PO SCH (11:44)
[2017-12-04] MEDS: Potassium & Sodium Phosphate PO SCH ×3 (11:44→18:06)
[2017-12-04] MEDS: Pantoprazole 40 mg EC Tab PO SCH (11:45)
--- NOTE | 2017-12-04 11:52 | CP.PCM.CON ---
History of Present Illness - History of Present Illness History of Present Illness: Palliative consult Patient is a 52 year old male, admitted from home with abdominal pain lasting for about a month. Patient reports the pain gradually got worse and is diffuse. Ultrasound of abdomen was significant for ascites and hepatic cirrhosis. Patient was seen by psychiatrist and was found to be lethargic, which short attention span, weak voice, and remote memory impaired. Patient has known history of alcohol abuse. She reports drinking 3 pints of vodka/ day for 20 years. Patient smokes half pack of cigarettes a day.Alcohol withdrawal protocol in place. Abdominal pain managed with lactulose by mouth.Patient's ammonia level 51, down from 81 on admission. T Fish 20.0, potassium 2.7.Platelets 101, BUN and creatinine 5/0.7, potassium 2.7, patient is getting replacement. Past medical history Alcohol abuse, COPD, depression, graves disease, schizophrenia, chronic low extremities pain, Social history Single, for 9 years, homeless, has no job, children and ex- have no contact with the patient, states that Chang on those migraines the phone number [phone] is the only one wheeze visiting Family history Patient denies significant family history Review of Systems - Constitutional Constitutional: Weakness - EENT Eyes: absent: As Per HPI, Blind Spots, Blurred Vision, Change in Vision, Decreased Night Vision, Diplopia, Discharge, Dry Eye, Exophthalmos, Floaters, Irritation, Itchy Eyes, Loss of Peripheral Vision, Pain, Photophobia, Requires Corrective Lenses, Sees Flashes, Spots in Vision, Tunnel Vision, Other Visual Disturbances, Loss of Vision, Other Ears: absent: As Per HPI, Decreased Hearing, Ear Discharge, Ear Pain, Tinnitus, Abnormal Hearing, Disequilibrium, Dizziness, Other Nose/Mouth/Throat: absent: As Per HPI, Epistaxis, Nasal Congestion, Nasal Discharge, Nasal Obstruction, Nasal Trauma, Nose Pain, Post Nasal Drip, Sinus Pain, Sinus Pressure, Bleeding Gums, Change in Voice, Dental Pain, Dry Mouth, Dysphagia, Halitosis, Hoarsness, Lip Swelling, Mouth Lesions, Mouth Pain, Odynophagia, Sore Throat, Throat Swelling, Tongue Swelling, Facial Pain, Neck Pain, Neck Mass, Other - Cardiovascular Cardiovascular: Leg Edema - Respiratory Respiratory: Dyspnea on Exertion - Gastrointestinal Gastrointestinal: Abdominal Pain, Bloating - Genitourinary Genitourinary: absent: As Per HPI, Change in Urinary Stream, Difficulty Urinating, Dysuria, Flank Pain, Hematuria, Pyuria, Nocturia, Urinary Incontinence, Urinary Frequency, Urinary Hesitance, Urinary Urgency, Voiding Freq/Small Amts, Freq UTI, Hx Renal/Bladder Calculi, Hx /Renal Surgery, Bladder Distension, Other - Reproductive: Male Additional comments: Denies - Musculoskeletal Musculoskeletal: Muscle Weakness - Integumentary Integumentary: absent: As Per HPI, Acne, Alopecia, Bleeding Lesions, Change in Hair, Change in Nails, Change in Pigmentation, Changing Lesions, Dry Skin, Erythema, Furuncle, Hirsutism, Lesions, New Lesions, Non-Healing Lesions, Photosensitivity, Pruritus, Rash, Skin Pain, Skin Ulcer, Sores, Striae, Swelling , Unusual Bruising, Wounds, Jaundice, Other - Neurological Neurological: Weakness - Psychiatric Psychiatric: Hopelessness - Endocrine Endocrine: absent: As Per HPI, Change in Body Appearance, Change in Libido, Cold Intolorance, Deepening of Voice, Excessive Sweating, Fatigue, Flushing, Heat Intolorance, Increase in Ring/Shoe/Hat Size, Palpitations, Polydipsia, Polyphagia, Polyuria, Other - Hematologic/Lymphatic Hematologic: Easy Bleeding Past Patient History - Infectious Disease Hx of Infectious Diseases: None - Past Medical History & Family History Past Medical History?: Yes - Past Social History Smoking Status: Heavy Smoker > 10 Cigarettes Daily - CARDIAC Hx Cardiac Disorders: No Hx Hypertension: No - PULMONARY Hx Respiratory Disorders: Yes Hx Chronic Obstructive Pulmonary Disease (COPD): Yes Hx Pneumonia: Yes - NEUROLOGICAL Hx Neurological Disorder: No Hx Seizures: No - HEENT Hx HEENT Problems: No - RENAL Hx Chronic Kidney Disease: No - ENDOCRINE/METABOLIC Hx Endocrine Disorders: No - HEMATOLOGICAL/ONCOLOGICAL Hx Blood Disorders: No Hx Human Immunodeficiency Virus (HIV): No (Negative) - INTEGUMENTARY Hx Dermatological Problems: No - MUSCULOSKELETAL/RHEUMATOLOGICAL Hx Musculoskeletal Disorders: Yes Hx Arthritis: Yes (hands and feet) Hx Falls: Yes - GASTROINTESTINAL Hx Gastrointestinal Disorders: Yes Hx Gastritis: Yes Hx Pancreatitis: Yes - GENITOURINARY/GYNECOLOGICAL Hx Genitourinary Disorders: No Hx Sexually Transmitted Disorders: No - PSYCHIATRIC Hx Psychophysiologic Disorder: Yes Hx Depression: Yes Hx Hallucinations: Yes Hx Schizophrenia: Yes 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, PCP,) - SURGICAL HISTORY Hx Surgeries: No - ANESTHESIA Hx Anesthesia: Yes Hx Anesthesia Reactions: No Has any member of the family had a problem w/ anesthesia?: No Meds Allergies/Adverse Reactions: Allergies Allergy/AdvReac Type Severity Reaction Status Date / Time No Known Allergies Allergy Verified 11/30/17 07:49 - Medications Medications: Current Medications Albuterol/Ipratropium (Duoneb 3 Mg/0.5 Mg (3 Ml) Ud) 3 ml INH RQ6 PRN PRN Reason: Shortness of Breath Calcium Carbonate (Oscal) 500 mg PO BID [facility] Last Admin: 12/04/17 11:44 Dose: 500 mg Clonidine HCl (Catapres) 0.1 mg PO Q8H PRN PRN Reason: Symptoms of alcohol withdrawl Folic Acid (Folic Acid) 1 mg PO DAILY [facility] Last Admin: 12/04/17 11:45 Dose: 1 mg Potassium Chloride 40 meq/ (Sodium Chloride) 1,020 mls @ 50 mls/hr IV .[id number] [facility] Potassium Chloride (Potassium Chloride 20 Meq/100 Ml) 20 meq in 100 mls @ 50 mls/hr IVPB Q4H [facility] Stop: 12/04/17 19:44 Last Admin: 12/04/17 11:44 Dose: 50 mls/hr Lactulose (Enulose) 20 gm PO TID [facility] Last Admin: 12/04/17 11:45 Dose: 20 gm Lorazepam (Ativan) 1 mg PO Q8H [facility]INE PRN Reason: Taper Stop: 12/05/17 19:59 Last Admin: 12/04/17 05:00 Dose: Not Given Multivitamins (Hexavitamin) 1 tab PO DAILY [facility] Last Admin: 12/04/17 11:44 Dose: 1 tab Pantoprazole Sodium (Protonix Ec Tab) 40 mg PO DAILY [facility] Last Admin: 12/04/17 11:45 Dose: 40 mg Phytonadione (Vitamin K Tab) 5 mg PO ONCE ONE Stop: 12/04/17 16:01 Potassium Phos/Sodium Phos (Neutra-Phos) 1 pkt PO TID [facility] Stop: 12/05/17 10:01 Last Admin: 12/04/17 11:44 Dose: 1 pkt Thiamine HCl (Vitamin B1 Tab) 100 mg PO DAILY [facility] Last Admin: 12/04/17 11:44 Dose: 100 mg Physical Exam - Constitutional Appears: Chronically Ill - Head Exam Head Exam: ATRAUMATIC, NORMAL INSPECTION, NORMOCEPHALIC - Eye Exam Eye Exam: EOMI, Normal appearance, PERRL Pupil Exam: NORMAL ACCOMODATION, PERRL Additional comments: Sclerae icteric - ENT Exam ENT Exam: Mucous Membranes Dry, Normal Exam - Neck Exam Neck exam: Positive for: Full Rom, Normal Inspection - Respiratory Exam Respiratory Exam: Decreased Breath Sounds, Prolonged Expiratory Phase, Wheezes Additional comments: Congestion, shortness of breath on exertion - Cardiovascular Exam Cardiovascular Exam: Tachycardia, REGULAR RHYTHM - GI/Abdominal Exam GI & Abdominal Exam: Distended, Firm, Guarding, Hypoactive Bowel Sounds, Rigid - Rectal Exam Rectal Exam: Deferred - Exam Exam: NORMAL INSPECTION - Extremities Exam Extremities exam: Positive for: normal inspection - Back Exam Back exam: NORMAL INSPECTION - Neurological Exam Neurological exam: Alert, Oriented x3 - Psychiatric Exam Psychiatric exam: Flat Affect - Skin Additional comments: Jaundiced Results - Vital Signs Recent Vital Signs: Last Vital Signs Temp 98.2 F 12/04/17 07:24 Pulse 110 H 12/04/17 07:24 Resp 20 12/04/17 07:24 BP 117/77 12/04/17 07:24 Pulse Ox 95 12/04/17 07:24 - Labs Result Diagrams: 12/04/17 07:51 12/04/17 07:51 Labs: Laboratory Results - last 24 hr 12/03/17 12/03/17 12/03/17 11:43 11:43 11:43 WBC 8.8 RBC 3.81 L Hgb 13.1 Hct 37.4 MCV 98.2 H MCH 34.4 H MCHC 35.0 RDW 16.8 H Plt Count 121 L D MPV 8.8 Neut % (Auto) 76.7 H Lymph % (Auto) 9.7 L Gage % (Auto) 11.1 H Eos % (Auto) 1.5 Baso % (Auto) 1.0 Neut # (Auto) 6.7 Lymph # (Auto) 0.9 L Gage # (Auto) 1.0 H Eos # (Auto) 0.1 Baso # (Auto) 0.1 Neutrophils % (Manual) 81 H Lymphocytes % (Manual) 9 L Monocytes % (Manual) 10 Eosinophils % (Manual) Toxic Granulation Platelet Estimate Slightly decreased L PT 26.3 H INR 2.2 APTT 43 H Sodium 133 Potassium 2.9 L Chloride 97 L Carbon Dioxide 25 Anion Gap 13 BUN 5 L Creatinine 0.7 L Est GFR ( Amer) > 60 Est GFR (Non-Af Amer) > 60 Random Glucose 105 Calcium 6.5 L Phosphorus 1.7 L Magnesium 1.4 L Total Bilirubin 20.2 H AST 179 H ALT 58 Alkaline Phosphatase 140 H Ammonia Total Protein 7.1 Albumin 2.5 L Globulin 4.6 H Albumin/Globulin Ratio 0.5 L Free T4 Thyroxine (T4) TSH 3rd Generation 12/03/17 12/03/17 12/03/17 11:43 11:43 11:43 WBC RBC Hgb Hct MCV MCH MCHC RDW Plt Count MPV Neut % (Auto) Lymph % (Auto) Gage % (Auto) Eos % (Auto) Baso % (Auto) Neut # (Auto) Lymph # (Auto) Gage # (Auto) Eos # (Auto) Baso # (Auto) Neutrophils % (Manual) Lymphocytes % (Manual) Monocytes % (Manual) Eosinophils % (Manual) Toxic Granulation Platelet Estimate PT INR APTT Sodium Potassium Chloride Carbon Dioxide Anion Gap BUN Creatinine Est GFR ( Amer) Est GFR (Non-Af Amer) Random Glucose Calcium Phosphorus Magnesium Total Bilirubin AST ALT Alkaline Phosphatase Ammonia 81 H Total Protein Albumin Globulin Albumin/Globulin Ratio Free T4 2.64 H Thyroxine (T4) 7.92 TSH 3rd Generation 0.86 12/03/17 12/04/17 12/04/17 23:00 07:51 07:51 WBC 8.4 RBC 3.73 L Hgb 13.0 Hct 36.5 MCV 98.0 H MCH 34.9 H MCHC 35.7 RDW 16.3 H Plt Count 125 L MPV 8.4 Neut % (Auto) 76.5 H Lymph % (Auto) 8.4 L Gage % (Auto) 11.8 H Eos % (Auto) 2.1 Baso % (Auto) 1.2 Neut # (Auto) 6.4 Lymph # (Auto) 0.7 L Gage # (Auto) 1.0 H Eos # (Auto) 0.2 Baso # (Auto) 0.1 Neutrophils % (Manual) 79 H Lymphocytes % (Manual) 8 L Monocytes % (Manual) 10 Eosinophils % (Manual) 3 Toxic Granulation Present Platelet Estimate Slightly decreased L PT 24.4 H INR 2.1 APTT 43 H Sodium 134 Potassium 3.1 L Chloride 99 Carbon Dioxide 24 Anion Gap 14 BUN 5 L Creatinine 0.7 L Est GFR ( Amer) > 60 Est GFR (Non-Af Amer) > 60 Random Glucose 106 Calcium 6.9 L Phosphorus 5.3 H Magnesium 1.5 L Total Bilirubin AST ALT Alkaline Phosphatase Ammonia Total Protein Albumin Globulin Albumin/Globulin Ratio Free T4 Thyroxine (T4) TSH 3rd Generation 12/04/17 12/04/17 07:51 07:51 WBC RBC Hgb Hct MCV MCH MCHC RDW Plt Count MPV Neut % (Auto) Lymph % (Auto) Gage % (Auto) Eos % (Auto) Baso % (Auto) Neut # (Auto) Lymph # (Auto) Gage # (Auto) Eos # (Auto) Baso # (Auto) Neutrophils % (Manual) Lymphocytes % (Manual) Monocytes % (Manual) Eosinophils % (Manual) Toxic Granulation Platelet Estimate PT INR APTT Sodium 133 Potassium 2.7 L Chloride 99 Carbon Dioxide 26 Anion Gap 11 BUN 5 L Creatinine 0.8 Est GFR ( Amer) > 60 Est GFR (Non-Af Amer) > 60 Random Glucose 87 Calcium 7.1 L Phosphorus 2.1 L Magnesium 1.8 Total Bilirubin 20.0 H AST 192 H ALT 56 Alkaline Phosphatase 136 H Ammonia 51 H D Total Protein 6.5 Albumin 2.4 L Globulin 4.1 H Albumin/Globulin Ratio 0.6 L Free T4 Thyroxine (T4) TSH 3rd Generation Assessment & Plan - Assessment and Plan (Free Text) Assessment: Palliative consult Called status for called, there is no advanced directive in the chart, BPS 20%'s I reviewed medical records, all the agnostic studies, examined and interviewed the patient in the bed Patient seen and examined in bed this morning. I resisted patient twice yesterday, but each time patient was very lethargic due to the Ativan given. These moaning patient is more alert, able to ambulate to the bathroom with assistance. Patient is alert, oriented., 3. Physical exam reveals conically ill man. Skin and sclera jaundice. Oral mucosa very dry. Shallow breathing sounds, chest is congested, days or wheezing. Breathing gets worse on exertion. HR 1:15, sinus tach. Abdomen is hard to touch, condition guarded. Patient reports diffuse , pressure like pain. Patient is moving bowel sounds. Urine dark.Patient was seen by GI and colitis was suspected. Blood pressure 118/71, pulse ox 90%'s with nasal cannula. MELD score 26. I wasn't able up to 40 discuss goals of care with the patient yesterday due to his lethargy. Family meeting scheduled for today which patient sister Ms. Miles , today at 11 am Sister called she was coming in late. Patient insisted on being discharged home. I reviewed his very complex clinical condition and stephanie my concern about his safety. Impressions * This is very seeing man with advanced levoscoliosis * Patient's addiction to alcohol but then she old deformity recognizing the severity of his condition. Patient is insisting on being released home. * Abdominal pain due to ascites * Shortness of breath and wheezing * Lethargy * Unsteady gait, and risk for injury Suggestions * Continue lactulose * Safety precautions * Continuing oxygen supplements * Paracentesis as indicated * Goals of care" status discussion to be continued once patient's sister arrives * Thank you for consultation palliative care
[2017-12-04] MEDS: Albuterol-Ipratrop 3 mg / 0.5 (3 ml) UD INH PRN (12:06)
--- NOTE | 2017-12-04 18:23 | CP.PCM.PN ---
<Kelsi Marroquin - Last Filed: 12/04/17 18:17> Subjective - Date & Time of Evaluation Date of Evaluation: 12/04/17 Time of Evaluation: 11:00 - Subjective Subjective: Medicine Note for Hospitalist Service- Dr. Leon Patient was seen and examined at bedside. Patient is more alert and oriented. He was seen sitting at bedside enjoying a cup of coffee. Patient reports he had 3 loose BMs over night and one this morning. Tolerated diet well. Patient reports he wants to leave the hospital today. Family meet with arranged today with Palliative Care about end of life goals. Denied any fever, chills, headache , chest pain, n/v/c, or urinary symptoms. Objective - Vital Signs/Intake and Output Vital Signs (last 24 hours): Temp Pulse Resp BP Pulse Ox 97.6 F 124 H 21 117/67 96 12/04/17 15:00 12/04/17 15:00 12/04/17 15:00 12/04/17 15:00 12/04/17 15:00 Intake and Output: 12/04/17 12/04/17 06:59 18:59 Intake Total 550 1330 Output Total 200 200 Balance 350 1130 - Medications Medications: Current Medications Albuterol/Ipratropium (Duoneb 3 Mg/0.5 Mg (3 Ml) Ud) 3 ml INH RQ6 PRN PRN Reason: Shortness of Breath Last Admin: 12/04/17 12:06 Dose: 3 ml Calcium Carbonate (Oscal) 500 mg PO BID [facility] Last Admin: 12/04/17 18:05 Dose: 500 mg Clonidine HCl (Catapres) 0.1 mg PO Q8H PRN PRN Reason: Symptoms of alcohol withdrawl Folic Acid (Folic Acid) 1 mg PO DAILY [facility] Last Admin: 12/04/17 11:45 Dose: 1 mg Potassium Chloride 40 meq/ (Sodium Chloride) 1,020 mls @ 50 mls/hr IV .[id number] [facility] Last Admin: 12/04/17 17:32 Dose: 50 mls/hr Potassium Chloride (Potassium Chloride 20 Meq/100 Ml) 20 meq in 100 mls @ 50 mls/hr IVPB Q4H [facility] Stop: 12/04/17 19:44 Last Admin: 12/04/17 17:26 Dose: 50 mls/hr Lactulose (Enulose) 20 gm PO TID [facility] Last Admin: 12/04/17 18:05 Dose: 20 gm Lorazepam (Ativan) 1 mg PO Q8H [facility] PRN Reason: Taper Stop: 12/05/17 19:59 Last Admin: 12/04/17 13:08 Dose: 1 mg Multivitamins (Hexavitamin) 1 tab PO DAILY [facility] Last Admin: 12/04/17 11:44 Dose: 1 tab Pantoprazole Sodium (Protonix Ec Tab) 40 mg PO DAILY [facility] Last Admin: 12/04/17 11:45 Dose: 40 mg Potassium Phos/Sodium Phos (Neutra-Phos) 1 pkt PO TID [facility] Stop: 12/05/17 10:01 Last Admin: 12/04/17 18:06 Dose: 1 pkt Thiamine HCl (Vitamin B1 Tab) 100 mg PO DAILY [facility] Last Admin: 12/04/17 11:44 Dose: 100 mg - Labs Labs: 12/04/17 07:51 12/04/17 07:51 PT 24.4 SECONDS (9.7-12.2) H 12/04/17 07:51 INR 2.1 12/04/17 07:51 APTT 43 SECONDS (21-34) H 12/04/17 07:51 - Constitutional Appears: No Acute Distress - Head Exam Head Exam: NORMAL INSPECTION, NORMOCEPHALIC - Eye Exam Eye Exam: EOMI, PERRL, Scleral icterus Pupil Exam: NORMAL ACCOMODATION - ENT Exam ENT Exam: Mucous Membranes Dry - Respiratory Exam Respiratory Exam: Wheezes, NORMAL BREATHING PATTERN - Cardiovascular Exam Cardiovascular Exam: REGULAR RHYTHM - GI/Abdominal Exam GI & Abdominal Exam: Distended, Soft, Tenderness, Normal Bowel Sounds - Extremities Exam Extremities Exam: Normal Inspection. absent: Pedal Edema, Tenderness - Neurological Exam Neurological Exam: Alert, Awake, Oriented x3 - Psychiatric Exam Psychiatric exam: Normal Affect, Normal Mood - Skin Skin Exam: Dry, Intact (JAUNDICE), Warm Assessment and Plan - Assessment and Plan (Free Text) Plan: Alcoholic Liver Disease Liver Cirrhosis Hepatic Encephalopathy Hepatitis C Ab Reactive MELD score 29--> 19.6% estimated 3 month mortality Discriminate function 75.4 Will need to follow up with [facility], * [facility] * [address] [facility] [id number] * [place] [address] * [phone] AFP: low Ammonia downtrending Electrolyte Imbalance Monitor K, Mag, Phos, Ca Elevated LFT/Lipase/Bilirubin Likely secondary to alcohol abuse Abdominal US: suggesting hepatic cellular disease; possible hepatic cirrhosis ; trace ascites; nonspecific thickening of GB wall; no murphys Hepatitis panel: Hepatitis C Ab Reactive, F/U viral load HIV: negative, UDS- negative Ammonia level: elevated Started Lactulose Low albumin Likely secondary to alcohol abuse Ensure Enlive 3x/day Albumin 12.5 gm IV x 1dose ordered 12/02/17 History of Heparin Induced Thrombocytopenia Thrombocytopenia Likely secondary to alcohol abuse Contraindication to chemical anticoagulation Coagulopathy Abdominal US (11/30/17): limited evaluation. Nodular heterogenously increased echogenicity of liver suggestive of hepatic cellular disease and/or fatty infiltration. Possible hepatic cirrhosis. Trace ascites. Thicken gallbladder wall, nonspecific. Sludge and tiny calculi within the gallbladder. Negative sonographic Clay sign Monitor INR - vitamin K given x 2 doses Hx Schizophrenia F/u psychiatry recommendation History of Graves Disease TSH: 0.86 T4: 7.92 Free: 2.64 Pending TBii, TSI Unclear if its confirmed Prophylaxis Protonix 40mg PO daily No anticoagulation secondary to increased INR and thrombocytopenia Diet changed to CLD Aspiration precautions CODE STATUS: DNR/ DNI - POLST formed in CHART DW Lopez Alcaraz DO, PGY-1 <Nayeli Leon V - Last Filed: 12/05/17 07:48> Objective - Vital Signs/Intake and Output Vital Signs (last 24 hours): Temp Pulse Resp BP Pulse Ox 98 F 113 H 20 101/65 96 12/04/17 23:33 12/04/17 23:33 12/04/17 23:33 12/04/17 23:33 12/04/17 15:00 Intake and Output: 12/05/17 12/05/17 06:59 18:59 Intake Total 1025 Balance 1025 - Medications Medications: Current Medications Albuterol/Ipratropium (Duoneb 3 Mg/0.5 Mg (3 Ml) Ud) 3 ml INH RQ6 PRN PRN Reason: Shortness of Breath Last Admin: 12/05/17 03:34 Dose: 3 ml Calcium Carbonate (Oscal) 500 mg PO BID [facility] Last Admin: 12/04/17 18:05 Dose: 500 mg Clonidine HCl (Catapres) 0.1 mg PO Q8H PRN PRN Reason: Symptoms of alcohol withdrawl Folic Acid (Folic Acid) 1 mg PO DAILY [facility] Last Admin: 12/04/17 11:45 Dose: 1 mg Potassium Chloride 40 meq/ (Sodium Chloride) 1,020 mls @ 50 mls/hr IV .[id number] [facility] Last Admin: 12/04/17 17:32 Dose: 50 mls/hr Potassium Chloride (Potassium Chloride 20 Meq/100 Ml) 20 meq in 100 mls @ 50 mls/hr IVPB Q4H [facility] Stop: 12/05/17 08:14 Last Admin: 12/05/17 05:15 Dose: 50 mls/hr Lactulose (Enulose) 20 gm PO TID [facility] Last Admin: 12/04/17 18:05 Dose: 20 gm Lorazepam (Ativan) 1 mg PO Q24H [facility] PRN Reason: Taper Stop: 12/05/17 19:59 Last Admin: 12/04/17 20:39 Dose: 1 mg Multivitamins (Hexavitamin) 1 tab PO DAILY [facility] Last Admin: 12/04/17 11:44 Dose: 1 tab Pantoprazole Sodium (Protonix Ec Tab) 40 mg PO DAILY [facility] Last Admin: 12/04/17 11:45 Dose: 40 mg Potassium Chloride (K-Dur 20 Meq Er Tab) 40 meq PO Q4H [facility] Stop: 12/05/17 18:01 Potassium Phos/Sodium Phos (Neutra-Phos) 1 pkt PO TID [facility] Stop: 12/05/17 10:01 Last Admin: 12/04/17 18:06 Dose: 1 pkt Thiamine HCl (Vitamin B1 Tab) 100 mg PO DAILY [facility] Last Admin: 12/04/17 11:44 Dose: 100 mg - Labs Labs: 12/04/17 07:51 12/04/17 20:57 PT 24.4 SECONDS (9.7-12.2) H 12/04/17 07:51 INR 2.1 12/04/17 07:51 APTT 43 SECONDS (21-34) H 12/04/17 07:51 Attending/Attestation - Attestation I have personally seen and examined this patient.: Yes I have fully participated in the care of the patient.: Yes I have reviewed all pertinent clinical information, including history, physical exam and plan: Yes Notes (Text): This is late computer entry for 12/04/17 Patient seen, examined and case discussed with day-time resident. Patient seen this afternoon. Patient is more awake and alert at bedside. Patient reporting abdominal pain. Aid present at bedside. Patient did eat his food at lunch time. Patient's sister at bedside. Discussion in regards to goals of care and end of life goals for the patient discussed with sister. Per discussion with the sister, patient has not sought out help for his alcoholism and essentially does what he wants. Her apartment will not allow him to live with her. She had recent passing of their brother last month secondary to AIDS complications. I have discussed with her if he continues to drink how he is drinking, he is putting himself at further risk to problems with the liver, gastritis, ulcer, etc. Electrolytes repleted and continued to be monitored. Remain on telemetry Diet changed to liquid diet in light of patient's abdominal pain. Ammonia improved with correlates to improvement in patient's mental status. Assessment/Plan 1. Alcoholic Liver Disease Liver Cirrhosis Diarrhea Hepatic Encephalopathy Hepatitis C Ab Reactive * MELD score 29--> 19.6% estimated 3 month mortality * Discriminate function 75.4 * Will need to follow up with [facility], [facility], [address] [place] [address] [facility] [address] * Abdominal US (11/30/17): limited evaluation. Nodular heterogenously increased echogenicity of liver suggestive of hepatic cellular disease and/or fatty infiltration. Possible hepatic cirrhosis. Trace ascites. Thicken gallbladder wall, nonspecific. Sludge and tiny calculi within the gallbladder. Negative sonographic Clay sign * C. Dif negative * Hepatitis C Ab Reactive * HIV negative * Elevated Ammonia-->start Lactulose * Mental status improving with Lactulose * CT Abdomen/Pelvis (PO contrast): nonspecific colitis and enteritis; nodular mucosal thickening of the somtach and circumferential mural thickening of the distal esophagus. Bilateral plerual effusion. Nodular heaptic contour suggestive of cirrhosis. Extensive ascites. Cholelithiais with thickening gallbladder wall. Nonobstructting small renal calculio. Peripancreatic fluid. Cannot rule out pancreatitis. 2. Alcohol abuse, withdrawal * Psychiatry consulted, Dr. Schmidt, help appreciated * Banana bag, Folic acid, Multivitamins, Thiamine * Ativan 5-day taper (Day 5) 3. Hypokalemia * Admit to telemetry * monitor and replete 4. Hypomagnesemia * monitor and replete 5. Hypocalcemia * Corrected for low albumin, 8.0 * Calcium carbonate 500mg PO x2 6. Malnutrition, Low albumin * Likely secondary to alcohol abuse * Ensure Enlive 3x/day 7. Elevated LFT/Lipase/Bilirubin * Likely secondary to alcohol abuse * Abdominal US: suggesting hepatic cellular disease; possible hepatic cirrhosis ; trace ascites; nonspecific thickening of GB wall; no murphys * Hepatitis panel: Hepatitis C Ab Reactive * HIV: negative * Ammonia level: elevated * Start Lactulose TID with holding parameter for diarrhea 8. History of Heparin Induced Thrombocytopenia Thrombocytopenia * Likely secondary to alcohol abuse * Contraindication to chemical anticoagulation 9. Coagulopathy * Abdominal US (11/30/17): limited evaluation. Nodular heterogenously increased echogenicity of liver suggestive of hepatic cellular disease and/or fatty infiltration. Possible hepatic cirrhosis. Trace ascites. Thicken gallbladder wall, nonspecific. Sludge and tiny calculi within the gallbladder. Negative sonographic Clay sign * Elevated INR: 2.2-->given Vitamin K 5mg PO X1 10. Hx schizophrenia * F/u psychiatry recommendation 11. History of Graves Disease * TSH: 0.86 * T4: 7.92 * Free: 2.64 * pending TBii, TSI * Unclear if its confirmed 12. Prophylaxis * Protonix 40mg PO daily * No anticoagulation secondary to increased INR and thrombocytopenia * Change to liquid diet * Aspiration precautions * monitor on telemetry * pallative care on abord Disposition: continue to monitor on telemetry. Patient is on day 5 of 5 ativan taper. Appreciate input from GI. Discussed with palliative care, patient and sister at bedside in regards to patients condition and promotion of alcohol cessation. Electrolytes need repletion and monitoring. There is holding parameters to lactulose.
[2017-12-04 21:21] LABS: BLOOD UREA NITROGEN 6 mg/dL (9-20); CALCIUM 7.8 mg/dl (8.6-10.4); GFR AFRICAN-AMERICAN > 60; GFR NON-AFRICAN AMERICAN > 60; MAGNESIUM 1.3 mg/dL (1.6-2.3)
[2017-12-05] MEDS: Magnesium Sulfate 1 gm in D5W 1 GM/100 ML BAG IVPB SCH ×3 (00:55→11:02)
[2017-12-05] MEDS: Albuterol-Ipratrop 3 mg / 0.5 (3 ml) UD INH PRN (03:34)
[2017-12-05] MEDS: Pantoprazole 40 mg EC Tab PO SCH (09:53)
[2017-12-05] MEDS: Multiple Vitamins Tab PO SCH (09:53)
[2017-12-05] MEDS: Potassium Chloride 20 mEq ER Tab PO SCH ×3 (09:53→17:37)
[2017-12-05] MEDS: Potassium & Sodium Phosphate PO SCH ×3 (09:53→17:37)
--- NOTE | 2017-12-05 10:50 | CP.PCM.PN ---
Subjective - Date & Time of Evaluation Date of Evaluation: 12/05/17 Time of Evaluation: 10:47 - Subjective Subjective: Abdominal pain, poor appetitie, confused Now DNR/DNI, hospice being considered Recommend adding Aldactone. Recommend paracentesis to R/O SBP Refusing labs Examined with RN present Objective - Vital Signs/Intake and Output Vital Signs (last 24 hours): Temp Pulse Resp BP Pulse Ox 98.1 F 118 H 20 151/65 H 96 12/05/17 07:00 12/05/17 08:00 12/05/17 07:00 12/05/17 07:00 12/04/17 15:00 Intake and Output: 12/05/17 12/05/17 06:59 18:59 Intake Total 1025 Balance 1025 - Medications Medications: Current Medications Albuterol/Ipratropium (Duoneb 3 Mg/0.5 Mg (3 Ml) Ud) 3 ml INH RQ6 PRN PRN Reason: Shortness of Breath Last Admin: 12/05/17 03:34 Dose: 3 ml Calcium Carbonate (Oscal) 500 mg PO BID [facility] Last Admin: 12/05/17 09:53 Dose: 500 mg Potassium Chloride 40 meq/ (Sodium Chloride) 1,020 mls @ 50 mls/hr IV .[id number] [facility] Last Admin: 12/04/17 17:32 Dose: 50 mls/hr Ceftriaxone Sodium 1 gm/ (Sodium Chloride) 100 mls @ 100 mls/hr IVPB DAILY [facility] Ceftriaxone Sodium 1 gm/ (Sodium Chloride) 100 mls @ 100 mls/hr IVPB STAT [facility] Stop: 12/05/17 11:29 Folic Acid 1 mg/ Sodium (Chloride) 100.2 mls @ 60 mls/hr IV DAILY [facility] Lorazepam (Ativan) 1 mg PO Q24H [facility] PRN Reason: Taper Stop: 12/05/17 19:59 Last Admin: 12/04/17 20:39 Dose: 1 mg Multivitamins/Vitamin C (Multi-Delyn Liquid) 5 ml PO DAILY [facility] Pantoprazole Sodium (Protonix Inj) 40 mg IVP DAILY [facility] Potassium Chloride (K-Dur 20 Meq Er Tab) 40 meq PO Q4H [facility] Stop: 12/05/17 18:01 Last Admin: 12/05/17 09:53 Dose: 40 meq Potassium Phos/Sodium Phos (Neutra-Phos) 1 pkt PO TID [facility] Stop: 12/06/17 10:01 Last Admin: 12/05/17 09:53 Dose: 1 pkt Thiamine HCl (Vitamin B1 Inj) 100 mg IV DAILY [facility] - Labs Labs: 12/04/17 07:51 12/04/17 20:57 PT 24.4 SECONDS (9.7-12.2) H 12/04/17 07:51 INR 2.1 12/04/17 07:51 APTT 43 SECONDS (21-34) H 12/04/17 07:51 - Constitutional Appears: Chronically Ill, Other (Tachypneic and tachycardic) - Head Exam Head Exam: NORMOCEPHALIC - Eye Exam Eye Exam: Scleral icterus - Respiratory Exam Respiratory Exam: NORMAL BREATHING PATTERN - Cardiovascular Exam Cardiovascular Exam: Tachycardia - GI/Abdominal Exam GI & Abdominal Exam: Distended, Tenderness Assessment and Plan (1) Alcoholic cirrhosis Assessment & Plan: Severe with high MELD. Poor prognosis, especially with continued alcohol abuse. Aldactone to be added. Follow lytes Status: Acute (2) Alcohol abuse Status: Acute (3) Abdominal pain Assessment & Plan: R/O SBP Paracentesis recommended. Check fluid for cell count, Albumin, culture, cytology , total protein Status: Acute (4) Acute alcoholic hepatitis Status: Acute (5) Hepatitis C antibody test positive Status: Acute
[2017-12-05 11:03] LABS: BASO # 0.1 K/uL (0.0-0.2); BASO % 0.8 % (0.0-2.0); EOS # 0.1 K/uL (0.0-0.7); EOS % 1.3 % (0.0-4.0); HEMOGLOBIN 13.6 g/dL (12.0-18.0); LYMPH # 0.8 K/uL (1.0-4.3); LYMPH % 8.3 % (20.0-40.0); MEAN CORPUSCULAR HEMOGLOBIN 34.5 pg (27.0-31.0); MEAN CORPUSCULAR HGB CONC 34.9 g/dL (33.0-37.0); MEAN PLATELET VOLUME 8.6 fL (7.2-11.7); MONO # 1.1 K/uL (0.0-0.8); MONO % 11.5 % (0.0-10.0); NEUT # 7.5 K/uL (1.8-7.0); NEUT % 78.1 % (50.0-75.0); PLATELET COUNT 150 K/uL (130-400); RBC 3.95 Mil/uL (4.40-5.90); RED CELL DISTRIBUTION WIDTH 17.3 % (11.5-14.5); WHITE BLOOD COUNT 9.6 K/uL (4.8-10.8)
[2017-12-05 11:12] LABS: INR 2.1; PROTHROMBIN TIME 23.7 SECONDS (9.7-12.2)
[2017-12-05 11:19] LABS: ALB/GLOB RATIO 0.6 (1.0-2.1); ALBUMIN 2.6 g/dL (3.5-5.0); ALT/SGPT 64 U/L (21-72); AST/SGOT 211 U/L (17-59); BLOOD UREA NITROGEN 7 mg/dL (9-20); CALCIUM 8.2 mg/dl (8.6-10.4); GFR AFRICAN-AMERICAN > 60; GFR NON-AFRICAN AMERICAN > 60; LIPASE 276 U/L (23-300); MAGNESIUM 1.8 mg/dL (1.6-2.3)
--- NOTE | 2017-12-05 11:53 | CP.PCM.PN ---
<Kelsi Marroquin - Last Filed: 12/05/17 11:46> Subjective - Date & Time of Evaluation Date of Evaluation: 12/05/17 Time of Evaluation: 09:00 - Subjective Subjective: Medicine Note for Hospitalist Service- Dr. Leon Patient was seen and examined at bedside. Patient is more alert and oriented. He admits to abdominal pain and not tolerating his diet. He had 3 loose BMs last night and this morning 2 loose BMs. Denied any fever, chills, headache, chest pain, n/v/c, or urinary symptoms. Objective - Vital Signs/Intake and Output Vital Signs (last 24 hours): Temp Pulse Resp BP Pulse Ox 98.1 F 118 H 20 151/65 H 96 12/05/17 07:00 12/05/17 08:00 12/05/17 07:00 12/05/17 07:00 12/04/17 15:00 Intake and Output: 12/05/17 12/05/17 06:59 18:59 Intake Total 1025 Balance 1025 - Medications Medications: Current Medications Albuterol/Ipratropium (Duoneb 3 Mg/0.5 Mg (3 Ml) Ud) 3 ml INH RQ6 PRN PRN Reason: Shortness of Breath Last Admin: 12/05/17 03:34 Dose: 3 ml Calcium Carbonate (Oscal) 500 mg PO BID [facility] Last Admin: 12/05/17 09:53 Dose: 500 mg Potassium Chloride 40 meq/ (Sodium Chloride) 1,020 mls @ 50 mls/hr IV .[id number] [facility] Last Admin: 12/04/17 17:32 Dose: 50 mls/hr Ceftriaxone Sodium 1 gm/ (Sodium Chloride) 100 mls @ 100 mls/hr IVPB DAILY [facility] Folic Acid 1 mg/ Sodium (Chloride) 100.2 mls @ 60 mls/hr IV DAILY [facility] Ceftriaxone Sodium 1 gm/ (Sodium Chloride) 100 mls @ 100 mls/hr IVPB ONCE ONE Stop: 12/05/17 13:59 Lorazepam (Ativan) 1 mg PO Q24H [facility] PRN Reason: Taper Stop: 12/05/17 19:59 Last Admin: 12/04/17 20:39 Dose: 1 mg Multivitamins (Hexavitamin) 5 tab PO DAILY [facility] Pantoprazole Sodium (Protonix Inj) 40 mg IVP DAILY [facility] Potassium Chloride (K-Dur 20 Meq Er Tab) 40 meq PO Q4H [facility] Stop: 12/05/17 18:01 Last Admin: 12/05/17 09:53 Dose: 40 meq Potassium Phos/Sodium Phos (Neutra-Phos) 1 pkt PO TID [facility] Stop: 12/06/17 10:01 Last Admin: 12/05/17 09:53 Dose: 1 pkt Spironolactone (Aldactone) 50 mg PO DAILY [facility] Last Admin: 12/05/17 11:12 Dose: Not Given Thiamine HCl (Vitamin B1 Inj) 100 mg IV DAILY [facility] - Labs Labs: 12/05/17 10:54 12/05/17 10:54 PT 23.7 SECONDS (9.7-12.2) H 12/05/17 10:54 INR 2.1 12/05/17 10:54 APTT 42 SECONDS (21-34) H 12/05/17 10:54 - Additional Findings Additional findings: - Constitutional Appears: No Acute Distress - Head Exam Head Exam: NORMAL INSPECTION, NORMOCEPHALIC - Eye Exam Eye Exam: EOMI, PERRL, Scleral icterus Pupil Exam: NORMAL ACCOMODATION - ENT Exam ENT Exam: Mucous Membranes Dry - Respiratory Exam Respiratory Exam: Wheezes, NORMAL BREATHING PATTERN - Cardiovascular Exam Cardiovascular Exam: REGULAR RHYTHM - GI/Abdominal Exam GI & Abdominal Exam: Distended, Soft, Tenderness, Normal Bowel Sounds - Extremities Exam Extremities Exam: Normal Inspection. absent: Pedal Edema, Tenderness - Neurological Exam Neurological Exam: Alert, Awake, Oriented x3 - Psychiatric Exam Psychiatric exam: Normal Affect, Normal Mood - Skin Skin Exam: Dry, Intact (JAUNDICE), Warm Assessment and Plan - Assessment and Plan (Free Text) Plan: Alcoholic Liver Disease Liver Cirrhosis Hepatic Encephalopathy Hepatitis C Ab Reactive MELD score 29--> 19.6% estimated 3 month mortality Discriminate function 75.4 Will need to follow up with [facility], * palliative care nurse center * [address] [facility] [id number] * [place] [address] * [phone] AFP: low Ammonia downtrending Possible Colitis, Enteritis Questionable Pancreatitis CT Abdomen/Pelvis (PO contrast): nonspecific colitis and enteritis; nodular mucosal thickening of the somtach and circumferential mural thickening of the distal esophagus. Bilateral plerual effusion. Nodular heaptic contour suggestive of cirrhosis. Extensive ascites. Cholelithiais with thickening gallbladder wall. Nonobstructting small renal calculio. Peripancreatic fluid. Cannot rule out pancreatitis. Will be kept NPO, continue IVF, all PO meds changed to IV Rocephin 1 gram IVP daily for SBP Electrolyte Imbalance Monitor K, Mag, Phos, Ca Elevated LFT/Lipase/Bilirubin Likely secondary to alcohol abuse Abdominal US: suggesting hepatic cellular disease; possible hepatic cirrhosis ; trace ascites; nonspecific thickening of GB wall; no murphys Hepatitis panel: Hepatitis C Ab Reactive, F/U viral load HIV: negative, UDS- negative Ammonia level: downtrending Low albumin Likely secondary to alcohol abuse Ensure Enlive 3x/day Albumin 12.5 gm IV x 1dose ordered 12/02/17 History of Heparin Induced Thrombocytopenia Thrombocytopenia Likely secondary to alcohol abuse Contraindication to chemical anticoagulation Coagulopathy Abdominal US (11/30/17): limited evaluation. Nodular heterogenously increased echogenicity of liver suggestive of hepatic cellular disease and/or fatty infiltration. Possible hepatic cirrhosis. Trace ascites. Thicken gallbladder wall, nonspecific. Sludge and tiny calculi within the gallbladder. Negative sonographic Clay sign Monitor INR - vitamin K given x 2 doses Hx Schizophrenia F/u psychiatry recommendation History of Graves Disease TSH: 0.86 T4: 7.92 Free: 2.64 Pending TBii, TSI Unclear if its confirmed Prophylaxis Protonix 40mg IVP daily No anticoagulation secondary to increased INR and thrombocytopenia Diet changed to CLD Aspiration precautions CODE STATUS: DNR/ DNI - POLST formed in CHART DW Lopez Alcaraz DO, PGY-1 <Nayeli Leon V - Last Filed: 12/05/17 21:28> Objective - Vital Signs/Intake and Output Vital Signs (last 24 hours): Temp Pulse Resp BP Pulse Ox 97.9 F 116 H 18 91/57 L 93 L 12/05/17 17:45 12/05/17 20:28 12/05/17 17:45 12/05/17 17:45 12/05/17 17:45 Intake and Output: 12/05/17 12/06/17 18:59 06:59 Intake Total 270 100 Balance 270 100 - Medications Medications: Current Medications Albuterol/Ipratropium (Duoneb 3 Mg/0.5 Mg (3 Ml) Ud) 3 ml INH RQ6 PRN PRN Reason: Shortness of Breath Last Admin: 12/05/17 03:34 Dose: 3 ml Calcium Carbonate (Oscal) 500 mg PO BID [facility] Last Admin: 12/05/17 17:37 Dose: 500 mg Potassium Chloride 40 meq/ (Sodium Chloride) 1,020 mls @ 50 mls/hr IV .[id number] [facility] Last Admin: 12/04/17 17:32 Dose: 50 mls/hr Ceftriaxone Sodium 1 gm/ (Sodium Chloride) 100 mls @ 100 mls/hr IVPB DAILY [facility] Folic Acid 1 mg/ Sodium (Chloride) 100.2 mls @ 60 mls/hr IV DAILY [facility] Multivitamins (Hexavitamin) 5 tab PO DAILY [facility] Pantoprazole Sodium (Protonix Inj) 40 mg IVP DAILY [facility] Potassium Phos/Sodium Phos (Neutra-Phos) 1 pkt PO TID [facility] Stop: 12/06/17 10:01 Last Admin: 12/05/17 17:37 Dose: 1 pkt Spironolactone (Aldactone) 50 mg PO DAILY [facility] Last Admin: 12/05/17 11:12 Dose: Not Given Thiamine HCl (Vitamin B1 Inj) 100 mg IV DAILY [facility] - Labs Labs: 12/05/17 10:54 12/05/17 10:54 PT 23.7 SECONDS (9.7-12.2) H 12/05/17 10:54 INR 2.1 12/05/17 10:54 APTT 42 SECONDS (21-34) H 12/05/17 10:54 Attending/Attestation - Attestation I have personally seen and examined this patient.: Yes I have fully participated in the care of the patient.: Yes I have reviewed all pertinent clinical information, including history, physical exam and plan: Yes Notes (Text): Patient seen, examined and case discussed with day-time resident. Patient seen this morning. Patient is more awake and alert at bedside and asking to leave the hospital. Patient reporting abdominal pain. He tolerated his breakfast this morning. Patient appears distended. I gave him the option to see if he wants to eat liquid or to not, he reports he does not want to eat because of the patient. patient's mental status improved. Will hold lactulose given likely causing diarrhea overnight. Will replete electrolytes and repeat blood work in evening to monitor Patient given dose of Rocephin 1 gram IV daily to cover for SBP until fluid is collected for paracentesis. Patient ordered for Vitamin K 10mg subq X1 for elevated INR. Patient's telemetry renewed given electolytes. Assessment/Plan 1. Alcoholic Liver Disease Liver Cirrhosis Diarrhea Hepatic Encephalopathy Hepatitis C Ab Reactive * MELD score 29--> 19.6% estimated 3 month mortality * Discriminate function 75.4 * Will need to follow up with [facility], [facility], [address] [place] [address] [id number], [place] [address] * Abdominal US (11/30/17): limited evaluation. Nodular heterogenously increased echogenicity of liver suggestive of hepatic cellular disease and/or fatty infiltration. Possible hepatic cirrhosis. Trace ascites. Thicken gallbladder wall, nonspecific. Sludge and tiny calculi within the gallbladder. Negative sonographic Clay sign * C. Dif negative * Hepatitis C Ab Reactive * HIV negative * Elevated Ammonia-->start Lactulose * Mental status improving with Lactulose for past three days; will hold 12/05 given diarrhea likely due to lactulose * CT Abdomen/Pelvis (PO contrast): nonspecific colitis and enteritis; nodular mucosal thickening of the somtach and circumferential mural thickening of the distal esophagus. Bilateral plerual effusion. Nodular heaptic contour suggestive of cirrhosis. Extensive ascites. Cholelithiais with thickening gallbladder wall. Nonobstructting small renal calculio. Peripancreatic fluid. Cannot rule out pancreatitis. * GI recommended for paracentesis; will complete in AM 12/06/17; fluid studies are ordered, and vitamin K given for INR: 2.1. Rocephin 1 gram IV q daily to cover for SBP. 2. Alcohol abuse, withdrawal * Psychiatry consulted, Dr. Schmidt, help appreciated * Banana bag, Folic acid, Multivitamins, Thiamine * Completed Ativan 5-day taper 3. Hypokalemia * Admit to telemetry * monitor and replete 4. Hypomagnesemia * monitor and replete 5. Hypocalcemia * Corrected for low albumin, 8.0 * Calcium carbonate 500mg PO x2 6. Malnutrition, Low albumin * Likely secondary to alcohol abuse * Ensure Enlive 3x/day 7. Elevated LFT/Lipase/Bilirubin * Likely secondary to alcohol abuse * Abdominal US: suggesting hepatic cellular disease; possible hepatic cirrhosis ; trace ascites; nonspecific thickening of GB wall; no murphys * Hepatitis panel: Hepatitis C Ab Reactive * HIV: negative * Ammonia level: elevated * Start Lactulose TID with holding parameter for diarrhea; held on 12/05/17 given having diarrhea likely due to lactulose (more than 3 loose bowel movements ) 8. History of Heparin Induced Thrombocytopenia Thrombocytopenia * Likely secondary to alcohol abuse * Contraindication to chemical anticoagulation 9. Coagulopathy * Abdominal US (11/30/17): limited evaluation. Nodular heterogenously increased echogenicity of liver suggestive of hepatic cellular disease and/or fatty infiltration. Possible hepatic cirrhosis. Trace ascites. Thicken gallbladder wall, nonspecific. Sludge and tiny calculi within the gallbladder. Negative sonographic Clay sign * Elevated INR: 2.2-->given Vitamin K 5mg PO X1 on 12/04/17 * Elevated INR 2.1-->given Vitamin K 10mg subq X1 on 12/05/17 * Monitor INR 10. Hx schizophrenia * F/u psychiatry recommendation 11. History of Graves Disease * TSH: 0.86 * T4: 7.92 * Free: 2.64 * pending TBii, TSI pending 12. Prophylaxis * Protonix 40mg PO daily * No anticoagulation secondary to increased INR and thrombocytopenia * Change to liquid diet * Aspiration precautions * monitor on telemetry * pallative care on abord Disposition: continue to monitor on telemetry. Electrolytes need repletion and monitoring. Changed to NPO given patient's abdominal pain discussed with patient. patient is awaiting paracentesis to completed in 12/06/17. Fluid studies order to rule out SBP.
[2017-12-05 13:20] LABS: EOSINOPHIL 2 % (0-4); LYMPHOCYTE 7 % (20-40); MONOCYTE 11 % (0-10); NEUTROPHIL 80 % (50-75); PLATELET ESTIMATE NORMAL (NORMAL); TOTAL CELLS COUNTED 100
[2017-12-05] MEDS ORDERED: Phytonadione 10 mg/ml Inj (Adult) SC STA (15:33)
[2017-12-05 17:22] LABS: TBII 7.5 % (<=16.0)
[2017-12-05 19:24] LABS: TSI <89 % baseline (<140)
[2017-12-05 22:11] LABS: BLOOD UREA NITROGEN 8 mg/dL (9-20); CALCIUM 7.8 mg/dl (8.6-10.4); GFR AFRICAN-AMERICAN > 60; GFR NON-AFRICAN AMERICAN > 60; MAGNESIUM 1.6 mg/dL (1.6-2.3)
--- NOTE | 2017-12-06 06:27 | CP.PCM.PN ---
<Kelsi Marroquin - Last Filed: 12/06/17 10:51> Subjective - Date & Time of Evaluation Date of Evaluation: 12/06/17 Time of Evaluation: 07:00 - Subjective Subjective: Medicine Note for Hospitalist Service- Dr. Chris Schmidt Patient was seen and examined at bedside. Patient is AAOx3. Reports he is still having loose BMs, less frequent. Admitted to being hungry. Ambulated well to the bathroom, no unsteady gait. Denied any fever, chills, headache, chest pain, abdominal pain, n/v/d/c, or urinary symptoms. Objective - Vital Signs/Intake and Output Vital Signs (last 24 hours): Temp Pulse Resp BP Pulse Ox 98.5 F 114 H 20 93/56 L 95 12/06/17 00:41 12/06/17 04:00 12/06/17 00:41 12/06/17 00:41 12/06/17 00:41 Intake and Output: 12/05/17 12/06/17 18:59 06:59 Intake Total 270 100 Balance 270 100 - Medications Medications: Current Medications Albuterol/Ipratropium (Duoneb 3 Mg/0.5 Mg (3 Ml) Ud) 3 ml INH RQ6 PRN PRN Reason: Shortness of Breath Last Admin: 12/05/17 03:34 Dose: 3 ml Calcium Carbonate (Oscal) 500 mg PO BID [facility] Last Admin: 12/05/17 17:37 Dose: 500 mg Potassium Chloride 40 meq/ (Sodium Chloride) 1,020 mls @ 50 mls/hr IV .[id number] [facility] Last Admin: 12/05/17 22:13 Dose: 50 mls/hr Ceftriaxone Sodium 1 gm/ (Sodium Chloride) 100 mls @ 100 mls/hr IVPB DAILY [facility] Folic Acid 1 mg/ Sodium (Chloride) 100.2 mls @ 60 mls/hr IV DAILY [facility] Multivitamins (Hexavitamin) 5 tab PO DAILY [facility] Pantoprazole Sodium (Protonix Inj) 40 mg IVP DAILY [facility] Potassium Phos/Sodium Phos (Neutra-Phos) 1 pkt PO TID [facility] Stop: 12/06/17 10:01 Last Admin: 12/05/17 17:37 Dose: 1 pkt Spironolactone (Aldactone) 50 mg PO DAILY [facility] Last Admin: 12/05/17 11:12 Dose: Not Given Thiamine HCl (Vitamin B1 Inj) 100 mg IV DAILY [facility] - Labs Labs: 12/05/17 10:54 12/05/17 21:53 PT 23.7 SECONDS (9.7-12.2) H 12/05/17 10:54 INR 2.1 12/05/17 10:54 APTT 42 SECONDS (21-34) H 12/05/17 10:54 - Additional Findings Additional findings: - Constitutional Appears: No Acute Distress - Head Exam Head Exam: NORMAL INSPECTION, NORMOCEPHALIC - Eye Exam Eye Exam: EOMI, PERRL, Scleral icterus Pupil Exam: NORMAL ACCOMODATION - ENT Exam ENT Exam: Mucous Membranes Dry - Respiratory Exam Respiratory Exam: Wheezes, NORMAL BREATHING PATTERN - Cardiovascular Exam Cardiovascular Exam: REGULAR RHYTHM - GI/Abdominal Exam GI & Abdominal Exam: Distended, Soft, Tenderness, Normal Bowel Sounds - Extremities Exam Extremities Exam: Normal Inspection. absent: Pedal Edema, Tenderness - Neurological Exam Neurological Exam: Alert, Awake, Oriented x3 - Psychiatric Exam Psychiatric exam: Normal Affect, Normal Mood - Skin Skin Exam: Dry, Intact , Warm Assessment and Plan - Assessment and Plan (Free Text) Plan: Alcoholic Liver Disease Liver Cirrhosis Hepatic Encephalopathy Hepatitis C Ab Reactive MELD score 29--> 19.6% estimated 3 month mortality Discriminate function 75.4 Will need to follow up with [facility], * healthcare network consultant center * [address] [facility] [id number] * [place] [address] * [phone] AFP: low Ammonia downtrending Lactose DC Aldactone 50mg PO daily added by GI Possible Colitis, Enteritis Questionable Pancreatitis CT Abdomen/Pelvis (PO contrast): nonspecific colitis and enteritis; nodular mucosal thickening of the somtach and circumferential mural thickening of the distal esophagus. Bilateral plerual effusion. Nodular heaptic contour suggestive of cirrhosis. Extensive ascites. Cholelithiais with thickening gallbladder wall. Nonobstructting small renal calculio. Peripancreatic fluid. Cannot rule out pancreatitis. Lipase 260 Will be kept NPO, continue IVF, all PO meds changed to IV - will advance diet as tolerated Rocephin 1 gram IVP daily for SBP Patient is for paracentesis today- 600cc fluid removed- cytology studies sent Electrolyte Imbalance Monitor K, Mag, Phos, Ca Elevated LFT/Lipase/Bilirubin Likely secondary to alcohol abuse Abdominal US: suggesting hepatic cellular disease; possible hepatic cirrhosis ; trace ascites; nonspecific thickening of GB wall; no murphys Hepatitis panel: Hepatitis C Ab Reactive, F/U viral load HIV: negative, UDS- negative Ammonia level: downtrending Low albumin Likely secondary to alcohol abuse Ensure Enlive 3x/day Albumin 12.5 gm IV x 1dose ordered 12/02/17 History of Heparin Induced Thrombocytopenia Thrombocytopenia Likely secondary to alcohol abuse Contraindication to chemical anticoagulation Coagulopathy Abdominal US (11/30/17): limited evaluation. Nodular heterogenously increased echogenicity of liver suggestive of hepatic cellular disease and/or fatty infiltration. Possible hepatic cirrhosis. Trace ascites. Thicken gallbladder wall, nonspecific. Sludge and tiny calculi within the gallbladder. Negative sonographic Clay sign Monitor INR - vitamin K given x 3 doses Hx Schizophrenia F/u psychiatry recommendation Questionable Thyroid Disease As per family hx Grave's Disease TSH: 0.86 T4: 7.92 Free: 2.64 TBii, TSI - NEGATIVE Prophylaxis Protonix 40mg IVP daily No anticoagulation secondary to increased INR and thrombocytopenia Diet changed to CLD Aspiration precautions CODE STATUS: DNR/ DNI - POLST formed in CHART DW Lopez Addison DO, PGY-1 <Harsh Schmidt - Last Filed: 12/06/17 18:17> Objective - Vital Signs/Intake and Output Vital Signs (last 24 hours): Temp Pulse Resp BP Pulse Ox 97.7 F 102 H 20 102/66 93 L 12/06/17 17:47 12/06/17 17:47 12/06/17 17:47 12/06/17 17:47 12/06/17 17:47 Intake and Output: 12/06/17 12/06/17 06:59 18:59 Intake Total 100 Balance 100 - Medications Medications: Current Medications Albuterol/Ipratropium (Duoneb 3 Mg/0.5 Mg (3 Ml) Ud) 3 ml INH RQ6 PRN PRN Reason: Shortness of Breath Last Admin: 12/05/17 03:34 Dose: 3 ml Calcium Carbonate (Oscal) 500 mg PO BID [facility] Last Admin: 12/06/17 17:16 Dose: 500 mg Potassium Chloride 40 meq/ (Sodium Chloride) 1,020 mls @ 50 mls/hr IV .[id number] [facility] Last Admin: 12/06/17 10:00 Dose: Not Given Folic Acid 1 mg/ Sodium (Chloride) 100.2 mls @ 60 mls/hr IV Q24H [facility] Last Admin: 12/06/17 13:36 Dose: 60 mls/hr Ceftriaxone Sodium 1 gm/ (Sodium Chloride) 100 mls @ 100 mls/hr IVPB Q24H [facility] Last Admin: 12/06/17 14:22 Dose: 100 mls/hr Multivitamins (Hexavitamin) 5 tab PO DAILY [facility] Last Admin: 12/06/17 11:00 Dose: 5 tab Pantoprazole Sodium (Protonix Inj) 40 mg IVP DAILY [facility] Last Admin: 12/06/17 11:00 Dose: 40 mg Spironolactone (Aldactone) 50 mg PO DAILY [facility] Last Admin: 12/06/17 11:00 Dose: 50 mg Thiamine HCl (Vitamin B1 Inj) 100 mg IV DAILY [facility] Last Admin: 12/06/17 11:55 Dose: 100 mg - Labs Labs: 12/06/17 07:38 12/06/17 07:38 PT 22.6 SECONDS (9.7-12.2) H 12/06/17 07:38 INR 1.9 12/06/17 07:38 APTT 42 SECONDS (21-34) H 12/05/17 10:54 Attending/Attestation - Attestation I have personally seen and examined this patient.: Yes I have fully participated in the care of the patient.: Yes I have reviewed all pertinent clinical information, including history, physical exam and plan: Yes Notes (Text): 12/06/17 18:14 Patient was seen shortly after resident. Exam, assessment and plan were gone over with the resident. Potassium was replaced with KCl 40 mEQ PO x 1 dose Magnesium was replaced with Mag Sulfate 1 gm IV x 2 doses Medicine Team speak with GI concerning possible Upper EGD for findings on CT Abdomen/Pelvis of nodular mucosal thickening of stomach and circumferential mural thickening of distal esophagus. Is this something GI is considering doing? Possible Pancreatitis as per CT Abdomen/Pelvis: Lipase has normalized. If patient continues to improve with his abdominal pain, then start clear liquids on morning of 12/07/17. Harsh Schmidt D.O.
[2017-12-06 07:56] LABS: BASO # 0.1 K/uL (0.0-0.2); EOS # 0.2 K/uL (0.0-0.7); EOS % 2.1 % (0.0-4.0); HEMOGLOBIN 13.2 g/dL (12.0-18.0); LYMPH # 0.9 K/uL (1.0-4.3); LYMPH % 11.6 % (20.0-40.0); MEAN CORPUSCULAR HEMOGLOBIN 34.9 pg (27.0-31.0); MEAN CORPUSCULAR HGB CONC 35.3 g/dL (33.0-37.0); MEAN PLATELET VOLUME 8.8 fL (7.2-11.7); MONO # 0.9 K/uL (0.0-0.8); MONO % 12.5 % (0.0-10.0); NEUT # 5.4 K/uL (1.8-7.0); NEUT % 72.8 % (50.0-75.0); NRBC % 0.1 % (0.0-2.0); RBC 3.79 Mil/uL (4.40-5.90); RED CELL DISTRIBUTION WIDTH 17.6 % (11.5-14.5); WHITE BLOOD COUNT 7.5 K/uL (4.8-10.8)
[2017-12-06 07:59] LABS: INR 1.9; PROTHROMBIN TIME 22.6 SECONDS (9.7-12.2)
[2017-12-06 08:23] LABS: ALB/GLOB RATIO 0.5 (1.0-2.1); ALBUMIN 2.4 g/dL (3.5-5.0); ALT/SGPT 64 U/L (21-72); AST/SGOT 215 U/L (17-59); BLOOD UREA NITROGEN 9 mg/dL (9-20); CALCIUM 7.4 mg/dl (8.6-10.4); GFR AFRICAN-AMERICAN > 60; GFR NON-AFRICAN AMERICAN > 60; MAGNESIUM 1.4 mg/dL (1.6-2.3)
[2017-12-06] MEDS ORDERED: Thiamine 100 mg/ml Inj IV SCH (10:00)
--- NOTE | 2017-12-06 10:28 | PCM.SURG1 ---
Surgeon's Initial Post Op Note - Surgeon's Notes Surgeon: Madhu Gonzalez MD [employer] Brusher Assembler: NONE Type of Anesthesia: Local Pre-Operative Diagnosis: Ascites Operative Findings: US showed a very small amount of ascites Post-Operative Diagnosis: Ascites Operation Performed: US guided paracentesis. Specimen/Specimens Removed: 600 cc of yellow fluid Estimated Blood Loss: EBL {In ML}: 0 Blood Products Given: N/A Drains Used: No Drains Post-Op Condition: Fair Date of Surgery/Procedure: 12/06/17 Time of Surgery/Procedure: 10:25
[2017-12-06] MEDS: Multiple Vitamins Tab PO SCH (11:00)
[2017-12-06] MEDS: Potassium & Sodium Phosphate PO SCH (11:00)
--- NOTE | 2017-12-06 11:14 | CP.PCM.PN ---
Subjective - Date & Time of Evaluation Date of Evaluation: 12/06/17 Time of Evaluation: 11:11 - Subjective Subjective: F/U liver disease Deneies RB, melena, fever, RB, hematemesis, hematuria, cough, SZ Seen with aid present Objective - Vital Signs/Intake and Output Vital Signs (last 24 hours): Temp Pulse Resp BP Pulse Ox 98.1 F 112 H 20 101/64 93 L 12/06/17 07:00 12/06/17 07:00 12/06/17 07:00 12/06/17 07:00 12/06/17 07:00 Intake and Output: 12/06/17 12/06/17 06:59 18:59 Intake Total 100 Balance 100 - Medications Medications: Current Medications Albuterol/Ipratropium (Duoneb 3 Mg/0.5 Mg (3 Ml) Ud) 3 ml INH RQ6 PRN PRN Reason: Shortness of Breath Last Admin: 12/05/17 03:34 Dose: 3 ml Calcium Carbonate (Oscal) 500 mg PO BID [facility] Last Admin: 12/05/17 17:37 Dose: 500 mg Potassium Chloride 40 meq/ (Sodium Chloride) 1,020 mls @ 50 mls/hr IV .[id number] [facility] Last Admin: 12/05/17 22:13 Dose: 50 mls/hr Ceftriaxone Sodium 1 gm/ (Sodium Chloride) 100 mls @ 100 mls/hr IVPB DAILY [facility] Folic Acid 1 mg/ Sodium (Chloride) 100.2 mls @ 60 mls/hr IV DAILY [facility] Multivitamins (Hexavitamin) 5 tab PO DAILY [facility] Pantoprazole Sodium (Protonix Inj) 40 mg IVP DAILY [facility] Potassium Chloride (K-Dur 20 Meq Er Tab) 40 meq PO ONCE ONE Stop: 12/06/17 12:01 Spironolactone (Aldactone) 50 mg PO DAILY [facility] Last Admin: 12/05/17 11:12 Dose: Not Given Thiamine HCl (Vitamin B1 Inj) 100 mg IV DAILY [facility] - Labs Labs: 12/06/17 07:38 12/06/17 07:38 PT 22.6 SECONDS (9.7-12.2) H 12/06/17 07:38 INR 1.9 12/06/17 07:38 APTT 42 SECONDS (21-34) H 02/14/18 10:54 - Constitutional Appears: Confused - Respiratory Exam Respiratory Exam: Clear to Ausculation Bilateral - Cardiovascular Exam Cardiovascular Exam: RRR - GI/Abdominal Exam GI & Abdominal Exam: Soft, Normal Bowel Sounds. absent: Guarding, Rebound - Neurological Exam Neurological Exam: Alert, Awake. absent: Oriented x3 Assessment and Plan (1) Acute alcoholic hepatitis Status: Acute (2) Alcohol abuse Status: Acute (3) Alcoholic cirrhosis Status: Acute (4) Hepatitis C antibody test positive Assessment & Plan: Low viral load Status: Acute (5) Abdominal pain Status: Acute (6) Ascites Assessment & Plan: sono says trace. Status: Acute
[2017-12-06] MEDS: Magnesium Sulfate 1 gm in D5W 1 GM/100 ML BAG IVPB SCH ×2 (11:36→12:15)
[2017-12-06] MEDS: Thiamine 100 mg/ml Inj IV SCH (11:55)
[2017-12-06 11:58] LABS: BODY FLUID TYPE PERITONEAL/ASCITES
[2017-12-06] MEDS ORDERED: Potassium Chloride 20 mEq ER Tab PO ONE (12:00)
--- NOTE | 2017-12-06 12:37 | US ---
Date of Procedure: 12/06/2017 PROCEDURE: Ultrasound-guided paracentesis, CPT 06891 Medications: 7 cc 1% Lidocaine HISTORY: Ascites TECHNIQUE: Following informed consent , the patient was placed supine on the stretcher and the site was marked. A limited abdominal ultrasound was performed that showed a small amount of intra-abdominal fluid. Procedural time out was called and the Pt's abdomen was marked and prepped and draped in the usual sterile fashion. Ultrasound-guided large volume paracentesis performed. A total of 600 cc of straw colored fluid was removed without complication. IMPRESSION: Ultrasound-guided Paracentesis.
[2017-12-06 12:47] LABS: BF GROSS APPEARANCE SL CLOUDY (CLEAR)
[2017-12-06 12:50] LABS: BODY FLUID MONO/MACROPHAGE 5 % (0-0)
[2017-12-07] MEDS: Thiamine 100 mg/ml Inj IV SCH (10:09)
[2017-12-07] MEDS: Multiple Vitamins Tab PO SCH (10:09)
--- NOTE | 2017-12-07 11:12 | CP.PCM.PN ---
Subjective - Date & Time of Evaluation Date of Evaluation: 12/07/17 Time of Evaluation: 11:00 - Subjective Subjective: Medical Attending Note: Patient's room was changed to the 4 person room. Patient is awake, alert and oriented. Patient on telemetry is low 100s. Patient reports he wants a medication to help him sleep. I have told him I will not give him a sleeping pill since it will adversely effect his liver. Patient reports abdominal pain, but reports he wants to eat. Awaiting blood works from this morning. Objective - Vital Signs/Intake and Output Vital Signs (last 24 hours): Temp Pulse Resp BP Pulse Ox 98.1 F 106 H 20 102/65 92 L 12/07/17 07:00 12/07/17 08:08 12/07/17 07:00 12/07/17 07:00 12/07/17 07:00 - Medications Medications: Current Medications Albuterol/Ipratropium (Duoneb 3 Mg/0.5 Mg (3 Ml) Ud) 3 ml INH RQ6 PRN PRN Reason: Shortness of Breath Last Admin: 12/05/17 03:34 Dose: 3 ml Calcium Carbonate (Oscal) 500 mg PO BID [facility] Last Admin: 12/07/17 10:10 Dose: 500 mg Potassium Chloride 40 meq/ (Sodium Chloride) 1,020 mls @ 50 mls/hr IV .[id number] [facility] Last Admin: 12/07/17 06:32 Dose: Not Given Folic Acid 1 mg/ Sodium (Chloride) 100.2 mls @ 60 mls/hr IV Q24H [facility] Last Admin: 12/06/17 13:36 Dose: 60 mls/hr Ceftriaxone Sodium 1 gm/ (Sodium Chloride) 100 mls @ 100 mls/hr IVPB Q24H [facility] Last Admin: 12/06/17 14:22 Dose: 100 mls/hr Multivitamins (Hexavitamin) 5 tab PO DAILY [facility] Last Admin: 12/07/17 10:09 Dose: 5 tab Pantoprazole Sodium (Protonix Inj) 40 mg IVP DAILY [facility] Last Admin: 12/07/17 10:10 Dose: 40 mg Simethicone (Mylicon Liq) 40 mg PO QID [facility] Spironolactone (Aldactone) 50 mg PO DAILY [facility] Last Admin: 02/16/18 10:10 Dose: 50 mg Thiamine HCl (Vitamin B1 Tab) 100 mg PO DAILY [facility] - Labs Labs: 12/06/17 07:38 12/06/17 07:38 PT 22.6 SECONDS (9.7-12.2) H 12/06/17 07:38 INR 1.9 12/06/17 07:38 APTT 42 SECONDS (21-34) H 12/05/17 10:54 - Constitutional Appears: Non-toxic, Chronically Ill - Head Exam Head Exam: NORMAL INSPECTION Additional comments: jaundiced, multiple tatoos - Eye Exam Eye Exam: EOMI - ENT Exam ENT Exam: Mucous Membranes Moist - Respiratory Exam Respiratory Exam: Decreased Breath Sounds, NORMAL BREATHING PATTERN. absent: Rales, Rhonchi - Cardiovascular Exam Cardiovascular Exam: Tachycardia, +S1, +S2 - GI/Abdominal Exam GI & Abdominal Exam: Distended, Soft, Normal Bowel Sounds. absent: Firm, Guarding, Rigid, Rebound - Extremities Exam Extremities Exam: absent: Pedal Edema, Tenderness - Neurological Exam Neurological Exam: Alert, Awake, Oriented x3 - Psychiatric Exam Psychiatric exam: Normal Affect, Normal Mood - Skin Skin Exam: Dry, Intact, Warm Additional comments: jaundiced Attending/Attestation - Attestation I have personally seen and examined this patient.: Yes I have fully participated in the care of the patient.: Yes I have reviewed all pertinent clinical information, including history, physical exam and plan: Yes Notes (Text): Patient seen, examined and case discussed with day-time resident. Patient seen this morning. Patient is more awake and alert at bedside and asking to leave the hospital. Patient reporting abdominal pain but he wants to eat "real food" Patient completed paracentesis with IR yesterday, 600 cc removed. Patient started on clear liquids. Will need to f/u with GI to see if EGD is awarranted given mural thickening of the distal esophagus? Awaiting blood work to be collected Assessment/Plan 1. Alcoholic Liver Disease Liver Cirrhosis Diarrhea Hepatic Encephalopathy Hepatitis C Ab Reactive * MELD score 29--> 19.6% estimated 3 month mortality * Discriminate function 75.4 * Will need to follow up with [facility], respiratory care faculty center, [address] [place] [address] [facility] [id number] * Abdominal US (11/30/17): limited evaluation. Nodular heterogenously increased echogenicity of liver suggestive of hepatic cellular disease and/or fatty infiltration. Possible hepatic cirrhosis. Trace ascites. Thicken gallbladder wall, nonspecific. Sludge and tiny calculi within the gallbladder. Negative sonographic Clay sign * Aldactone 50mg PO daily * C. Dif negative * Hepatitis C Ab Reactive * HIV negative * Elevated Ammonia-->start Lactulose * Mental status improving with Lactulose for past five days * Has had 2 bowel movements overnight * CT Abdomen/Pelvis (PO contrast): nonspecific colitis and enteritis; nodular mucosal thickening of the somtach and circumferential mural thickening of the distal esophagus. Bilateral plerual effusion. Nodular heaptic contour suggestive of cirrhosis. Extensive ascites. Cholelithiais with thickening gallbladder wall. Nonobstructting small renal calculio. Peripancreatic fluid. Cannot rule out pancreatitis. * Patient has completed paracentesis on 12/06/17 * WBC: 155, RBC: 60, Neutrophils: 71. Lymphocytes: 21, monocytes: Fluid comment : 3% eosinophils, many macrophages and mesothelial changes seen on smear * Peritoneal culture: no growth after 24 hours * Pending anaerobic culture * Pending Fungus culture * Stool: No salmonella, shigella, or campylobacter, no ova and parasite seen 2. Alcohol abuse, withdrawal * Psychiatry consulted, Dr. Schmidt, help appreciated * Banana bag, Folic acid, Multivitamins, Thiamine * Completed Ativan 5-day taper 3. Hypokalemia * awaiting blood work from today 4. Hypomagnesemia * awaiting blood work today 5. Hypocalcemia * Corrected for low albumin, 8.0 * Calcium carbonate 500mg PO x2 6. Malnutrition, Low albumin * Likely secondary to alcohol abuse * Ensure Enlive 3x/day 7. Elevated LFT/Lipase/Bilirubin * Likely secondary to alcohol abuse * Abdominal US: suggesting hepatic cellular disease; possible hepatic cirrhosis ; trace ascites; nonspecific thickening of GB wall; no murphys * Hepatitis panel: Hepatitis C Ab Reactive * HIV: negative * Ammonia level: elevated; mentation was improving 8. History of Heparin Induced Thrombocytopenia Thrombocytopenia * Likely secondary to alcohol abuse * Contraindication to chemical anticoagulation 9. Coagulopathy * Abdominal US (11/30/17): limited evaluation. Nodular heterogenously increased echogenicity of liver suggestive of hepatic cellular disease and/or fatty infiltration. Possible hepatic cirrhosis. Trace ascites. Thicken gallbladder wall, nonspecific. Sludge and tiny calculi within the gallbladder. Negative sonographic Clay sign * Pending INR from today 10. Hx schizophrenia * F/u psychiatry recommendation 11. History of Graves Disease * TSH: 0.86 * T4: 7.92 * Free: 2.64 * pending TBii, TSI pending 12. Prophylaxis * Protonix 40mg PO daily * No anticoagulation secondary to increased INR and thrombocytopenia * Change to liquid diet * Aspiration precautions * monitor on telemetry * pallative care on abord Disposition: continue to monitor on telemetry.Awaiting blood works. Awaiting patient to try liquid diet to see if improving. Patient has completed paracentesis yesterday; fluid studies do not appear to support SBP. Will need to f/u with GI if recommends for upper GI given abnormal esophagus findings from prior CT.
[2017-12-07 11:28] LABS: BASO # 0.1 K/uL (0.0-0.2); BASO % 0.8 % (0.0-2.0); EOS # 0.1 K/uL (0.0-0.7); EOS % 1.9 % (0.0-4.0); HEMOGLOBIN 13.2 g/dL (12.0-18.0); LYMPH # 0.6 K/uL (1.0-4.3); LYMPH % 8.7 % (20.0-40.0); MEAN CELL VOLUME 99.1 fL (80.0-94.0); MEAN CORPUSCULAR HEMOGLOBIN 34.5 pg (27.0-31.0); MEAN CORPUSCULAR HGB CONC 34.8 g/dL (33.0-37.0); MEAN PLATELET VOLUME 8.6 fL (7.2-11.7); MONO % 15.8 % (0.0-10.0); NEUT # 4.6 K/uL (1.8-7.0); NEUT % 72.8 % (50.0-75.0); PLATELET COUNT 145 K/uL (130-400); RBC 3.83 Mil/uL (4.40-5.90); RED CELL DISTRIBUTION WIDTH 17.8 % (11.5-14.5); WHITE BLOOD COUNT 6.3 K/uL (4.8-10.8)
[2017-12-07 11:36] LABS: INR 1.8; PROTHROMBIN TIME 20.4 SECONDS (9.7-12.2)
[2017-12-07 11:51] LABS: ALB/GLOB RATIO 0.6 (1.0-2.1); ALBUMIN 2.4 g/dL (3.5-5.0); ALT/SGPT 74 U/L (21-72); AST/SGOT 227 U/L (17-59); BLOOD UREA NITROGEN 10 mg/dL (9-20); CALCIUM 8.1 mg/dl (8.6-10.4); GFR AFRICAN-AMERICAN > 60; GFR NON-AFRICAN AMERICAN > 60; MAGNESIUM 1.5 mg/dL (1.6-2.3)
[2017-12-07 11:53] LABS: ANISOCYTOSIS SLIGHT; LYMPHOCYTE 5 % (20-40); MONOCYTE 12 % (0-10); NEUTROPHIL 83 % (50-75); PLATELET ESTIMATE NORMAL (NORMAL); TOTAL CELLS COUNTED 100
[2017-12-07] MEDS: Simethicone 80 mg Chewtab PO SCH ×4 (13:27→22:50)
[2017-12-07] MEDS: Magnesium Sulfate 1 gm in D5W 1 GM/100 ML BAG IVPB SCH ×2 (14:48→16:56)
[2017-12-07] MEDS: Potassium Chloride 20 mEq ER Tab PO SCH ×2 (14:48→17:47)
[2017-12-07] MEDS ORDERED: Magnesium Sulfate 1 gm in D5W 1 GM/100 ML BAG IVPB SCH (19:00)
[2017-12-07 20:43] LABS: BLOOD UREA NITROGEN 10 mg/dL (9-20); CALCIUM 8.4 mg/dl (8.6-10.4); GFR AFRICAN-AMERICAN > 60; GFR NON-AFRICAN AMERICAN > 60
--- NOTE | 2017-12-08 00:11 | CP.PCM.PN ---
<Kelsi Marroqiun - Last Filed: 12/08/17 00:10> Subjective - Date & Time of Evaluation Date of Evaluation: 12/08/17 Time of Evaluation: 00:00 - Subjective Subjective: Medicine Note for Hospitalist Service- Dr. Leon Patient was seen and examined at bedside. No acute complaints. Patient is resting in bed comfortably. Denied fever, chills, headache, chest pain, SOB, abdominal pain, n/v/d/c, or urinary symptoms. Objective - Vital Signs/Intake and Output Vital Signs (last 24 hours): Temp Pulse Resp BP Pulse Ox 97.9 F 107 H 20 107/70 94 L 12/07/17 23:42 12/07/17 23:42 12/07/17 23:42 12/07/17 23:42 12/07/17 23:42 - Medications Medications: Current Medications Albuterol/Ipratropium (Duoneb 3 Mg/0.5 Mg (3 Ml) Ud) 3 ml INH RQ6 PRN PRN Reason: Shortness of Breath Last Admin: 12/05/17 03:34 Dose: 3 ml Calcium Carbonate (Oscal) 500 mg PO BID [facility] Last Admin: 12/07/17 17:47 Dose: 500 mg Potassium Chloride 40 meq/ (Sodium Chloride) 1,020 mls @ 50 mls/hr IV .[id number] [facility] Last Admin: 12/07/17 06:32 Dose: Not Given Folic Acid 1 mg/ Sodium (Chloride) 100.2 mls @ 60 mls/hr IV Q24H [facility] Last Admin: 12/07/17 13:26 Dose: 60 mls/hr Ceftriaxone Sodium 1 gm/ (Sodium Chloride) 100 mls @ 100 mls/hr IVPB Q24H [facility] Last Admin: 12/07/17 16:33 Dose: 100 mls/hr Lactulose (Enulose) 20 gm PO BID [facility] Last Admin: 12/07/17 17:47 Dose: 20 gm Multivitamins (Hexavitamin) 5 tab PO DAILY [facility] Last Admin: 12/07/17 10:09 Dose: 5 tab Pantoprazole Sodium (Protonix Inj) 40 mg IVP DAILY [facility] Last Admin: 12/07/17 10:10 Dose: 40 mg Simethicone (Mylicon Chew Tab) 80 mg PO QID [facility] Last Admin: 12/07/17 22:50 Dose: 80 mg Spironolactone (Aldactone) 50 mg PO DAILY [facility] Last Admin: 12/07/17 10:10 Dose: 50 mg Thiamine HCl (Vitamin B1 Tab) 100 mg PO DAILY [facility] - Labs Labs: 12/07/17 11:09 12/07/17 20:19 PT 20.4 SECONDS (9.7-12.2) H 12/07/17 11:09 INR 1.8 12/07/17 11:09 APTT 42 SECONDS (21-34) H 12/05/17 10:54 - Additional Findings Additional findings: - Constitutional Appears: Non-toxic, Chronically Ill - Head Exam Head Exam: NORMAL INSPECTION Additional comments: jaundiced, multiple tatoos - Eye Exam Eye Exam: EOMI - ENT Exam ENT Exam: Mucous Membranes Moist - Respiratory Exam Respiratory Exam: Decreased Breath Sounds, NORMAL BREATHING PATTERN. absent: Rales, Rhonchi - Cardiovascular Exam Cardiovascular Exam: Tachycardia, +S1, +S2 - GI/Abdominal Exam GI & Abdominal Exam: Distended, Soft, Normal Bowel Sounds. absent: Firm, Guarding, Rigid, Rebound - Extremities Exam Extremities Exam: absent: Pedal Edema, Tenderness - Neurological Exam Neurological Exam: Alert, Awake, Oriented x3 - Psychiatric Exam Psychiatric exam: Normal Affect, Normal Mood - Skin Skin Exam: Dry, Intact, Warm Additional comments: jaundiced Assessment and Plan - Assessment and Plan (Free Text) Plan: 1. Alcoholic Liver Disease Liver Cirrhosis Diarrhea Hepatic Encephalopathy Hepatitis C Ab Reactive * MELD score 29--> 19.6% estimated 3 month mortality * Discriminate function 75.4 * Will need to follow up with [facility], client care manager center, [address] [place] [address] [address], [place] [address] [phone] * Abdominal US (11/30/17): limited evaluation. Nodular heterogenously increased echogenicity of liver suggestive of hepatic cellular disease and/or fatty infiltration. Possible hepatic cirrhosis. Trace ascites. Thicken gallbladder wall, nonspecific. Sludge and tiny calculi within the gallbladder. Negative sonographic Clay sign * Aldactone 50mg PO daily * C. Dif negative * Hepatitis C Ab Reactive * HIV negative * Elevated Ammonia-->start Lactulose * Mental status improving with Lactulose for past five days * Has had 2 bowel movements overnight * CT Abdomen/Pelvis (PO contrast): nonspecific colitis and enteritis; nodular mucosal thickening of the somtach and circumferential mural thickening of the distal esophagus. Bilateral plerual effusion. Nodular heaptic contour suggestive of cirrhosis. Extensive ascites. Cholelithiais with thickening gallbladder wall. Nonobstructting small renal calculio. Peripancreatic fluid. Cannot rule out pancreatitis. * Patient has completed paracentesis on 12/06/17 * WBC: 155, RBC: 60, Neutrophils: 71. Lymphocytes: 21, monocytes: Fluid comment : 3% eosinophils, many macrophages and mesothelial changes seen on smear * Peritoneal culture: no growth after 24 hours * Pending anaerobic culture * Pending Fungus culture * Stool: No salmonella, shigella, or campylobacter, no ova and parasite seen 2. Alcohol abuse, withdrawal * Psychiatry consulted, Dr. Schmidt, help appreciated * Banana bag, Folic acid, Multivitamins, Thiamine * Completed Ativan 5-day taper 3. Hypokalemia * awaiting blood work from today 4. Hypomagnesemia * awaiting blood work today 5. Hypocalcemia * Corrected for low albumin, 8.0 * Calcium carbonate 500mg PO x2 6. Malnutrition, Low albumin * Likely secondary to alcohol abuse * Ensure Enlive 3x/day 7. Elevated LFT/Lipase/Bilirubin * Likely secondary to alcohol abuse * Abdominal US: suggesting hepatic cellular disease; possible hepatic cirrhosis ; trace ascites; nonspecific thickening of GB wall; no murphys * Hepatitis panel: Hepatitis C Ab Reactive * HIV: negative * Ammonia level: elevated; mentation was improving 8. History of Heparin Induced Thrombocytopenia Thrombocytopenia * Likely secondary to alcohol abuse * Contraindication to chemical anticoagulation 9. Coagulopathy * Abdominal US (11/30/17): limited evaluation. Nodular heterogenously increased echogenicity of liver suggestive of hepatic cellular disease and/or fatty infiltration. Possible hepatic cirrhosis. Trace ascites. Thicken gallbladder wall, nonspecific. Sludge and tiny calculi within the gallbladder. Negative sonographic Clay sign * Pending INR from today 10. Hx schizophrenia * F/u psychiatry recommendation 11. History of Graves Disease * TSH: 0.86 * T4: 7.92 * Free: 2.64 * pending TBii, TSI pending 12. Prophylaxis * Protonix 40mg PO daily * No anticoagulation secondary to increased INR and thrombocytopenia * Change to liquid diet * Aspiration precautions * monitor on telemetry * pallative care on abord Disposition: continue to monitor on telemetry.Awaiting blood works. Awaiting patient to try liquid diet to see if improving. Patient has completed paracentesis yesterday; fluid studies do not appear to support SBP. Will need to f/u with GI if recommends for upper GI given abnormal esophagus findings from prior CT. DW Dr. Leon, Kelsi Marroquin DO, PGY-1 <Nayeli Leon V - Last Filed: 12/08/17 22:56> Objective - Vital Signs/Intake and Output Vital Signs (last 24 hours): Temp Pulse Resp BP Pulse Ox 97.7 F 106 H 20 105/70 94 L 12/08/17 07:10 12/08/17 08:20 12/08/17 07:10 12/08/17 07:10 12/08/17 07:10 - Medications Medications: Current Medications Albuterol/Ipratropium (Duoneb 3 Mg/0.5 Mg (3 Ml) Ud) 3 ml INH RQ6 PRN PRN Reason: Shortness of Breath Last Admin: 12/05/17 03:34 Dose: 3 ml Calcium Carbonate (Oscal) 500 mg PO BID [facility] Last Admin: 12/08/17 10:01 Dose: 500 mg Potassium Chloride 40 meq/ (Sodium Chloride) 1,020 mls @ 50 mls/hr IV .[id number] [facility] Last Admin: 12/07/17 06:32 Dose: Not Given Folic Acid 1 mg/ Sodium (Chloride) 100.2 mls @ 60 mls/hr IV Q24H [facility] Last Admin: 12/07/17 13:26 Dose: 60 mls/hr Ceftriaxone Sodium 1 gm/ (Sodium Chloride) 100 mls @ 100 mls/hr IVPB Q24H [facility] Last Admin: 12/07/17 16:33 Dose: 100 mls/hr Lactulose (Enulose) 20 gm PO BID [facility] Last Admin: 12/08/17 10:00 Dose: 20 gm Multivitamins (Hexavitamin) 5 tab PO DAILY [facility] Last Admin: 12/08/17 10:00 Dose: 5 tab Pantoprazole Sodium (Protonix Inj) 40 mg IVP DAILY [facility] Last Admin: 12/08/17 10:00 Dose: 40 mg Potassium Chloride (K-Dur 20 Meq Er Tab) 20 meq PO DAILY [facility] Simethicone (Mylicon Chew Tab) 80 mg PO QID [facility] Last Admin: 12/08/17 10:00 Dose: 80 mg Spironolactone (Aldactone) 50 mg PO DAILY [facility] Last Admin: 12/08/17 10:01 Dose: 50 mg Thiamine HCl (Vitamin B1 Tab) 100 mg PO DAILY [facility] Last Admin: 12/08/17 10:01 Dose: 100 mg - Labs Labs: 12/08/17 08:13 12/08/17 08:13 PT 20.9 SECONDS (9.7-12.2) H 12/08/17 08:13 INR 1.8 12/08/17 08:13 APTT 42 SECONDS (21-34) H 12/05/17 10:54 Attending/Attestation - Attestation I have personally seen and examined this patient.: Yes I have fully participated in the care of the patient.: Yes I have reviewed all pertinent clinical information, including history, physical exam and plan: Yes Notes (Text): Patient seen, examined and case discussed with day-time resident. Patient seen this morning. Patient is more awake and alert at bedside and asking to leave the hospital. Patient reporting abdominal pain but he wants to eat "real food." Patient completed paracentesis with IR two days ago. Patient refused to try clear liquids. Patient reports he wants regular food. Electrolytes to be replete. GI to start pentoxylline today Assessment/Plan 1. Alcoholic Liver Disease Liver Cirrhosis Diarrhea Hepatic Encephalopathy Hepatitis C Ab Reactive * MELD score 29--> 19.6% estimated 3 month mortality * Discriminate function 75.4 * Will need to follow up with [facility], client care manager center, [address] [place] [address] [address], [place] [address] [phone] * Abdominal US (11/30/17): limited evaluation. Nodular heterogenously increased echogenicity of liver suggestive of hepatic cellular disease and/or fatty infiltration. Possible hepatic cirrhosis. Trace ascites. Thicken gallbladder wall, nonspecific. Sludge and tiny calculi within the gallbladder. Negative sonographic Clay sign * Aldactone 50mg PO daily * C. Dif negative * Hepatitis C Ab Reactive * HIV negative * Elevated Ammonia-->start Lactulose * Mental status improving with Lactulose for past five days * Has had 2 bowel movements overnight * CT Abdomen/Pelvis (PO contrast): nonspecific colitis and enteritis; nodular mucosal thickening of the somtach and circumferential mural thickening of the distal esophagus. Bilateral plerual effusion. Nodular heaptic contour suggestive of cirrhosis. Extensive ascites. Cholelithiais with thickening gallbladder wall. Nonobstructting small renal calculio. Peripancreatic fluid. Cannot rule out pancreatitis. * Patient has completed paracentesis on 12/06/17 * WBC: 155, RBC: 60, Neutrophils: 71. Lymphocytes: 21, monocytes: Fluid comment : 3% eosinophils, many macrophages and mesothelial changes seen on smear * Peritoneal culture: no growth after 24 hours * Pending anaerobic culture * Pending Fungus culture * Stool: No salmonella, shigella, or campylobacter, no ova and parasite seen 2. Alcohol abuse, withdrawal * Psychiatry consulted, Dr. Schmidt, help appreciated * Banana bag, Folic acid, Multivitamins, Thiamine * Completed Ativan 5-day taper 3. Hypokalemia * awaiting blood work from today 4. Hypomagnesemia * awaiting blood work today 5. Hypocalcemia * Corrected for low albumin, 8.0 * Calcium carbonate 500mg PO x2 6. Malnutrition, Low albumin * Likely secondary to alcohol abuse * Ensure Enlive 3x/day 7. Elevated LFT/Lipase/Bilirubin * Likely secondary to alcohol abuse * Abdominal US: suggesting hepatic cellular disease; possible hepatic cirrhosis ; trace ascites; nonspecific thickening of GB wall; no murphys * Hepatitis panel: Hepatitis C Ab Reactive * HIV: negative * Ammonia level: elevated; mentation was improving 8. History of Heparin Induced Thrombocytopenia Thrombocytopenia * Likely secondary to alcohol abuse * Contraindication to chemical anticoagulation 9. Coagulopathy * Abdominal US (11/30/17): limited evaluation. Nodular heterogenously increased echogenicity of liver suggestive of hepatic cellular disease and/or fatty infiltration. Possible hepatic cirrhosis. Trace ascites. Thicken gallbladder wall, nonspecific. Sludge and tiny calculi within the gallbladder. Negative sonographic Clay sign 10. Hx schizophrenia * F/u psychiatry recommendation 11. History of Graves Disease * TSH: 0.86 * T4: 7.92 * Free: 2.64 * pending TBii, TSI pending 12. Prophylaxis * Protonix 40mg PO daily * No anticoagulation secondary to increased INR and thrombocytopenia * Change to liquid diet * Aspiration precautions * monitor on telemetry * pallative care on abord Disposition: continue to monitor on telemetry. Electrolytes replete Patient has completed paracentesis two days ago. fluid studies do not appear to support SBP.
[2017-12-08] MEDS ORDERED: Morphine 4 MG/ML VIAL IVP STA (00:31)
[2017-12-08 08:27] LABS: INR 1.8; PROTHROMBIN TIME 20.9 SECONDS (9.7-12.2)
[2017-12-08 08:30] LABS: BASO # 0.1 K/uL (0.0-0.2); BASO % 1.3 % (0.0-2.0); EOS # 0.2 K/uL (0.0-0.7); EOS % 2.8 % (0.0-4.0); HEMOGLOBIN 13.6 g/dL (12.0-18.0); LYMPH # 0.7 K/uL (1.0-4.3); LYMPH % 11.8 % (20.0-40.0); MEAN CELL VOLUME 99.9 fL (80.0-94.0); MEAN CORPUSCULAR HEMOGLOBIN 35.2 pg (27.0-31.0); MEAN CORPUSCULAR HGB CONC 35.2 g/dL (33.0-37.0); MEAN PLATELET VOLUME 8.1 fL (7.2-11.7); MONO # 0.9 K/uL (0.0-0.8); MONO % 14.6 % (0.0-10.0); NEUT # 4.2 K/uL (1.8-7.0); NEUT % 69.5 % (50.0-75.0); NRBC % 0.1 % (0.0-2.0); RBC 3.87 Mil/uL (4.40-5.90); WHITE BLOOD COUNT 6.1 K/uL (4.8-10.8)
[2017-12-08 08:43] LABS: ALB/GLOB RATIO 0.6 (1.0-2.1); ALBUMIN 2.4 g/dL (3.5-5.0); ALT/SGPT 79 U/L (21-72); AST/SGOT 222 U/L (17-59); BLOOD UREA NITROGEN 10 mg/dL (9-20); CALCIUM 8.5 mg/dl (8.6-10.4); GFR AFRICAN-AMERICAN > 60; GFR NON-AFRICAN AMERICAN > 60; MAGNESIUM 1.6 mg/dL (1.6-2.3)
[2017-12-08] MEDS: Simethicone 80 mg Chewtab PO SCH ×4 (10:00→23:00)
[2017-12-08] MEDS: Multiple Vitamins Tab PO SCH (10:00)
[2017-12-08] MEDS ORDERED: Potassium Chloride 20 mEq ER Tab PO ONE (10:04)
--- NOTE | 2017-12-08 11:52 | CP.PCM.PN ---
Subjective - Date & Time of Evaluation Date of Evaluation: 12/08/17 Time of Evaluation: 11:50 - Subjective Subjective: Patient is lethargic this morning. Objective - Vital Signs/Intake and Output Vital Signs (last 24 hours): Temp Pulse Resp BP Pulse Ox 97.7 F 106 H 20 105/70 94 L 12/08/17 07:10 12/08/17 08:20 12/08/17 07:10 12/08/17 07:10 12/08/17 07:10 - Medications Medications: Current Medications Albuterol/Ipratropium (Duoneb 3 Mg/0.5 Mg (3 Ml) Ud) 3 ml INH RQ6 PRN PRN Reason: Shortness of Breath Last Admin: 12/05/17 03:34 Dose: 3 ml Calcium Carbonate (Oscal) 500 mg PO BID [facility] Last Admin: 12/08/17 10:01 Dose: 500 mg Potassium Chloride 40 meq/ (Sodium Chloride) 1,020 mls @ 50 mls/hr IV .[id number] [facility] Last Admin: 12/07/17 06:32 Dose: Not Given Folic Acid 1 mg/ Sodium (Chloride) 100.2 mls @ 60 mls/hr IV Q24H [facility] Last Admin: 12/07/17 13:26 Dose: 60 mls/hr Ceftriaxone Sodium 1 gm/ (Sodium Chloride) 100 mls @ 100 mls/hr IVPB Q24H [facility] Last Admin: 12/07/17 16:33 Dose: 100 mls/hr Lactulose (Enulose) 20 gm PO BID [facility] Last Admin: 12/08/17 10:00 Dose: 20 gm Multivitamins (Hexavitamin) 5 tab PO DAILY [facility] Last Admin: 12/08/17 10:00 Dose: 5 tab Pantoprazole Sodium (Protonix Inj) 40 mg IVP DAILY [facility] Last Admin: 12/08/17 10:00 Dose: 40 mg Potassium Chloride (K-Dur 20 Meq Er Tab) 20 meq PO DAILY [facility] Simethicone (Mylicon Chew Tab) 80 mg PO QID [facility] Last Admin: 12/08/17 10:00 Dose: 80 mg Spironolactone (Aldactone) 50 mg PO DAILY [facility] Last Admin: 12/08/17 10:01 Dose: 50 mg Thiamine HCl (Vitamin B1 Tab) 100 mg PO DAILY [facility] Last Admin: 12/08/17 10:01 Dose: 100 mg - Labs Labs: 12/08/17 08:13 12/08/17 08:13 PT 20.9 SECONDS (9.7-12.2) H 12/08/17 08:13 INR 1.8 12/08/17 08:13 APTT 42 SECONDS (21-34) H 12/05/17 10:54 - Head Exam Head Exam: ATRAUMATIC, NORMOCEPHALIC - Neck Exam Neck Exam: absent: Lymphadenopathy, Thyromegaly - Respiratory Exam Respiratory Exam: NORMAL BREATHING PATTERN. absent: Rales, Rhonchi, Wheezes - Cardiovascular Exam Cardiovascular Exam: REGULAR RHYTHM, +S1, +S2. absent: Gallop, Rubs, Murmur - GI/Abdominal Exam GI & Abdominal Exam: Distended, Soft, Tenderness, Normal Bowel Sounds. absent: Organomegaly Additional comments: Mild diffuse tenderness; positive fluid wave - Rectal Exam Rectal Exam: Deferred - Extremities Exam Extremities Exam: absent: Calf Tenderness, Pedal Edema Assessment and Plan (1) Acute alcoholic hepatitis Assessment & Plan: Patient seems lethargic this morning. Last ammonia level was 64 and will be repeated. The ascitic fluid WBC count was 110, which is higher than expected, but below the threshold for diagnosing SBP. Will start pentoxifylline. Status: Acute
[2017-12-08] MEDS: Albuterol-Ipratrop 3 mg / 0.5 (3 ml) UD INH PRN (13:26)
[2017-12-08 15:02] LABS: TOTAL PROTEIN PERITONEAL FLUID <3.0 g/dL
--- NOTE | 2017-12-09 00:32 | CP.PCM.PN ---
<RussellangieKelsi - Last Filed: 12/09/17 00:31> Subjective - Date & Time of Evaluation Date of Evaluation: 12/09/17 Time of Evaluation: 00:31 - Subjective Subjective: Medicine Note for Hospitalist Service- Dr. Leon Patient was seen and examined at bedside. No acute complaints. Patient is resting in bed comfortably. Denied fever, chills, headache, chest pain, SOB, abdominal pain, n/v/d/c, or urinary symptoms. Objective - Vital Signs/Intake and Output Vital Signs (last 24 hours): Temp Pulse Resp BP Pulse Ox 97.8 F 106 H 20 107/71 95 12/08/17 23:31 12/08/17 23:31 12/08/17 23:31 12/08/17 23:31 12/08/17 23:31 Intake and Output: 12/08/17 12/09/17 18:59 06:59 Intake Total 500 Balance 500 - Medications Medications: Current Medications Albuterol/Ipratropium (Duoneb 3 Mg/0.5 Mg (3 Ml) Ud) 3 ml INH RQ6 PRN PRN Reason: Shortness of Breath Last Admin: 12/08/17 13:26 Dose: 3 ml Calcium Carbonate (Oscal) 500 mg PO BID [facility] Last Admin: 12/08/17 18:24 Dose: 500 mg Potassium Chloride 40 meq/ (Sodium Chloride) 1,020 mls @ 50 mls/hr IV .[id number] [facility] Last Admin: 12/07/17 06:32 Dose: Not Given Folic Acid 1 mg/ Sodium (Chloride) 100.2 mls @ 60 mls/hr IV Q24H [facility] Last Admin: 12/08/17 12:35 Dose: 60 mls/hr Ceftriaxone Sodium 1 gm/ (Sodium Chloride) 100 mls @ 100 mls/hr IVPB Q24H [facility] Last Admin: 12/08/17 14:01 Dose: 100 mls/hr Lactulose (Enulose) 20 gm PO BID [facility] Last Admin: 12/08/17 18:24 Dose: 20 gm Multivitamins (Hexavitamin) 5 tab PO DAILY [facility] Last Admin: 12/08/17 10:00 Dose: 5 tab Pantoprazole Sodium (Protonix Inj) 40 mg IVP DAILY [facility] Last Admin: 12/08/17 10:00 Dose: 40 mg Pentoxifylline (Pentoxil) 400 mg PO TID [facility] Last Admin: 12/08/17 18:25 Dose: 400 mg Potassium Chloride (K-Dur 20 Meq Er Tab) 20 meq PO DAILY [facility] Potassium Chloride (K-Dur 20 Meq Er Tab) 20 meq PO ONCE ONE Stop: 12/09/17 22:55 Simethicone (Mylicon Chew Tab) 80 mg PO QID [facility] Last Admin: 12/08/17 23:00 Dose: 80 mg Spironolactone (Aldactone) 50 mg PO DAILY [facility] Last Admin: 12/08/17 10:01 Dose: 50 mg Thiamine HCl (Vitamin B1 Tab) 100 mg PO DAILY [facility] Last Admin: 12/08/17 10:01 Dose: 100 mg - Labs Labs: 12/08/17 08:13 12/08/17 08:13 PT 20.9 SECONDS (9.7-12.2) H 12/08/17 08:13 INR 1.8 12/08/17 08:13 APTT 42 SECONDS (21-34) H 12/05/17 10:54 - Additional Findings Additional findings: - Constitutional Appears: Non-toxic, Chronically Ill - Head Exam Head Exam: NORMAL INSPECTION Additional comments: jaundiced, multiple tatoos - Eye Exam Eye Exam: EOMI - ENT Exam ENT Exam: Mucous Membranes Moist - Respiratory Exam Respiratory Exam: Decreased Breath Sounds, NORMAL BREATHING PATTERN. absent: Rales, Rhonchi - Cardiovascular Exam Cardiovascular Exam: Tachycardia, +S1, +S2 - GI/Abdominal Exam GI & Abdominal Exam: Distended, Soft, Normal Bowel Sounds. absent: Firm, Guarding, Rigid, Rebound - Extremities Exam Extremities Exam: absent: Pedal Edema, Tenderness - Neurological Exam Neurological Exam: Alert, Awake, Oriented x3 - Psychiatric Exam Psychiatric exam: Normal Affect, Normal Mood - Skin Skin Exam: Dry, Intact, Warm Additional comments: jaundiced Assessment and Plan - Assessment and Plan (Free Text) Plan: 1. Alcoholic Liver Disease Liver Cirrhosis Diarrhea Hepatic Encephalopathy Hepatitis C Ab Reactive * MELD score 29--> 19.6% estimated 3 month mortality * Discriminate function 75.4 * Will need to follow up with [facility], animal care attendant center, [address] [place] [address] [facility] [address] * Abdominal US (11/30/17): limited evaluation. Nodular heterogenously increased echogenicity of liver suggestive of hepatic cellular disease and/or fatty infiltration. Possible hepatic cirrhosis. Trace ascites. Thicken gallbladder wall, nonspecific. Sludge and tiny calculi within the gallbladder. Negative sonographic Clay sign * Aldactone 50mg PO daily * C. Dif negative * Hepatitis C Ab Reactive * HIV negative * Elevated Ammonia-->start Lactulose * Mental status improving with Lactulose for past five days * Has had 2 bowel movements overnight * CT Abdomen/Pelvis (PO contrast): nonspecific colitis and enteritis; nodular mucosal thickening of the somtach and circumferential mural thickening of the distal esophagus. Bilateral plerual effusion. Nodular heaptic contour suggestive of cirrhosis. Extensive ascites. Cholelithiais with thickening gallbladder wall. Nonobstructting small renal calculio. Peripancreatic fluid. Cannot rule out pancreatitis. * Patient has completed paracentesis on 12/06/17 * WBC: 155, RBC: 60, Neutrophils: 71. Lymphocytes: 21, monocytes: Fluid comment : 3% eosinophils, many macrophages and mesothelial changes seen on smear * Peritoneal culture: no growth after 24 hours * Pending anaerobic culture * Pending Fungus culture * Stool: No salmonella, shigella, or campylobacter, no ova and parasite seen 2. Alcohol abuse, withdrawal * Psychiatry consulted, Dr. Schmidt, help appreciated * Banana bag, Folic acid, Multivitamins, Thiamine * Completed Ativan 5-day taper 3. Hypokalemia * awaiting blood work from today 4. Hypomagnesemia * awaiting blood work today 5. Hypocalcemia * Corrected for low albumin, 8.0 * Calcium carbonate 500mg PO x2 6. Malnutrition, Low albumin * Likely secondary to alcohol abuse * Ensure Enlive 3x/day 7. Elevated LFT/Lipase/Bilirubin * Likely secondary to alcohol abuse * Abdominal US: suggesting hepatic cellular disease; possible hepatic cirrhosis ; trace ascites; nonspecific thickening of GB wall; no murphys * Hepatitis panel: Hepatitis C Ab Reactive * HIV: negative * Ammonia level: elevated; mentation was improving 8. History of Heparin Induced Thrombocytopenia Thrombocytopenia * Likely secondary to alcohol abuse * Contraindication to chemical anticoagulation 9. Coagulopathy * Abdominal US (11/30/17): limited evaluation. Nodular heterogenously increased echogenicity of liver suggestive of hepatic cellular disease and/or fatty infiltration. Possible hepatic cirrhosis. Trace ascites. Thicken gallbladder wall, nonspecific. Sludge and tiny calculi within the gallbladder. Negative sonographic Clay sign 10. Hx schizophrenia * F/u psychiatry recommendation 11. History of Graves Disease * TSH: 0.86 * T4: 7.92 * Free: 2.64 * pending TBii, TSI pending 12. Prophylaxis * Protonix 40mg PO daily * No anticoagulation secondary to increased INR and thrombocytopenia * Change to liquid diet * Aspiration precautions * monitor on telemetry * pallative care on abord Disposition: continue to monitor on telemetry. Electrolytes replete Patient has completed paracentesis two days ago. fluid studies do not appear to support SBP. DW Dr. Leon, Kelsi Marroquin DO, PGY-1 <Nayeli Leon V - Last Filed: 12/09/17 12:50> Objective - Vital Signs/Intake and Output Vital Signs (last 24 hours): Temp Pulse Resp BP Pulse Ox 97.3 F L 111 H 20 103/63 94 L 12/09/17 08:02 12/09/17 08:02 12/09/17 08:02 12/09/17 08:02 12/09/17 08:02 Intake and Output: 12/09/17 12/09/17 06:59 18:59 Intake Total 500 Balance 500 - Medications Medications: Current Medications Albuterol/Ipratropium (Duoneb 3 Mg/0.5 Mg (3 Ml) Ud) 3 ml INH RQ6 PRN PRN Reason: Shortness of Breath Last Admin: 12/09/17 07:40 Dose: 3 ml Calcium Carbonate (Oscal) 500 mg PO BID [facility] Last Admin: 12/09/17 10:59 Dose: 500 mg Potassium Chloride 40 meq/ (Sodium Chloride) 1,020 mls @ 50 mls/hr IV .[id number] [facility] Last Admin: 12/07/17 06:32 Dose: Not Given Folic Acid 1 mg/ Sodium (Chloride) 100.2 mls @ 60 mls/hr IV Q24H [facility] Last Admin: 12/08/17 12:35 Dose: 60 mls/hr Ceftriaxone Sodium 1 gm/ (Sodium Chloride) 100 mls @ 100 mls/hr IVPB Q24H [facility] Last Admin: 12/08/17 14:01 Dose: 100 mls/hr Lactulose (Enulose) 20 gm PO BID [facility] Last Admin: 12/09/17 10:58 Dose: 20 gm Multivitamins (Hexavitamin) 5 tab PO DAILY [facility] Last Admin: 12/09/17 10:58 Dose: 5 tab Pantoprazole Sodium (Protonix Inj) 40 mg IVP DAILY [facility] Last Admin: 12/09/17 10:58 Dose: 40 mg Pentoxifylline (Pentoxil) 400 mg PO TID [facility] Last Admin: 12/09/17 10:58 Dose: 400 mg Potassium Chloride (K-Dur 20 Meq Er Tab) 20 meq PO DAILY [facility] Last Admin: 12/09/17 10:58 Dose: 20 meq Potassium Chloride (K-Dur 20 Meq Er Tab) 20 meq PO ONCE ONE Stop: 12/09/17 22:55 Simethicone (Mylicon Chew Tab) 80 mg PO QID [facility] Last Admin: 12/09/17 11:08 Dose: 80 mg Spironolactone (Aldactone) 50 mg PO DAILY [facility] Last Admin: 12/09/17 11:08 Dose: 50 mg Thiamine HCl (Vitamin B1 Tab) 100 mg PO DAILY [facility] Last Admin: 12/09/17 11:08 Dose: 100 mg - Labs Labs: 12/09/17 11:28 12/09/17 11:28 PT 20.9 SECONDS (9.7-12.2) H 12/08/17 08:13 INR 1.8 12/08/17 08:13 APTT 42 SECONDS (21-34) H 12/05/17 10:54 Attending/Attestation - Attestation I have personally seen and examined this patient.: Yes I have fully participated in the care of the patient.: Yes I have reviewed all pertinent clinical information, including history, physical exam and plan: Yes Notes (Text): Patient seen, examined, and case discussed with day-time resident. Patient seen this morning. He is awake, alert, he is aware he is at [facility]. Patient is noticeably more distended but denies pain on palpation. Patient is jaundiced. Patient has liquids present at bedside. Electrolytes replete. GI recommends for repeat paracentesis. Assessment/Plan 1. Alcoholic Liver Disease Liver Cirrhosis Diarrhea Hepatic Encephalopathy Hepatitis C Ab Reactive * MELD score 29--> 19.6% estimated 3 month mortality * Discriminate function 75.4 * Will need to follow up with [facility], animal care attendant center, [address] [place] [address] [id number], [place] [address] [phone] * Abdominal US (11/30/17): limited evaluation. Nodular heterogenously increased echogenicity of liver suggestive of hepatic cellular disease and/or fatty infiltration. Possible hepatic cirrhosis. Trace ascites. Thicken gallbladder wall, nonspecific. Sludge and tiny calculi within the gallbladder. Negative sonographic Clay sign * Aldactone 50mg PO daily * C. Dif negative * Hepatitis C Ab Reactive * HIV negative * Elevated Ammonia-->start Lactulose * Mental status improving with Lactulose for past five days * Has had 2 bowel movements overnight * CT Abdomen/Pelvis (PO contrast): nonspecific colitis and enteritis; nodular mucosal thickening of the somtach and circumferential mural thickening of the distal esophagus. Bilateral plerual effusion. Nodular heaptic contour suggestive of cirrhosis. Extensive ascites. Cholelithiais with thickening gallbladder wall. Nonobstructting small renal calculio. Peripancreatic fluid. Cannot rule out pancreatitis. * Patient has completed paracentesis on 12/06/17 * WBC: 155, RBC: 60, Neutrophils: 71. Lymphocytes: 21, monocytes: Fluid comment : 3% eosinophils, many macrophages and mesothelial changes seen on smear * Peritoneal culture: no growth after 24 hours * Pending anaerobic culture * Pending Fungus culture * Stool: No salmonella, shigella, or campylobacter, no ova and parasite seen 2. Alcohol abuse, withdrawal * Psychiatry consulted, Dr. Schmidt, help appreciated * Banana bag, Folic acid, Multivitamins, Thiamine * Completed Ativan 5-day taper 3. Hypokalemia * awaiting blood work from today 4. Hypomagnesemia * awaiting blood work today 5. Hypocalcemia * Corrected for low albumin, 8.0 * Calcium carbonate 500mg PO x2 6. Malnutrition, Low albumin * Likely secondary to alcohol abuse * Ensure Enlive 3x/day 7. Elevated LFT/Lipase/Bilirubin * Likely secondary to alcohol abuse * Abdominal US: suggesting hepatic cellular disease; possible hepatic cirrhosis ; trace ascites; nonspecific thickening of GB wall; no murphys * Hepatitis panel: Hepatitis C Ab Reactive * HIV: negative * Ammonia level: elevated; mentation was improving 8. History of Heparin Induced Thrombocytopenia Thrombocytopenia * Likely secondary to alcohol abuse * Contraindication to chemical anticoagulation 9. Coagulopathy * Abdominal US (11/30/17): limited evaluation. Nodular heterogenously increased echogenicity of liver suggestive of hepatic cellular disease and/or fatty infiltration. Possible hepatic cirrhosis. Trace ascites. Thicken gallbladder wall, nonspecific. Sludge and tiny calculi within the gallbladder. Negative sonographic Clay sign 10. Hx schizophrenia * F/u psychiatry recommendation 11. History of Graves Disease * TSH: 0.86 * T4: 7.92 * Free: 2.64 * pending TBii, TSI pending 12. Prophylaxis * Protonix 40mg PO daily * No anticoagulation secondary to increased INR and thrombocytopenia * Change to liquid diet * Aspiration precautions * monitor on telemetry * pallative care on abord Disposition: continue to monitor on telemetry. Electrolytes replete.
[2017-12-09] MEDS: Albuterol-Ipratrop 3 mg / 0.5 (3 ml) UD INH PRN (07:40)
[2017-12-09] MEDS ORDERED: Potassium Chloride 20 mEq ER Tab PO SCH (10:00)
[2017-12-09] MEDS: Multiple Vitamins Tab PO SCH (10:58)
[2017-12-09] MEDS: Simethicone 80 mg Chewtab PO SCH ×4 (11:08→22:07)
[2017-12-09 11:40] LABS: BASO % 0.6 % (0.0-2.0); EOS # 0.1 K/uL (0.0-0.7); EOS % 1.2 % (0.0-4.0); HEMOGLOBIN 13.9 g/dL (12.0-18.0); LYMPH # 0.6 K/uL (1.0-4.3); LYMPH % 9.9 % (20.0-40.0); MEAN CELL VOLUME 99.3 fL (80.0-94.0); MEAN CORPUSCULAR HEMOGLOBIN 35.4 pg (27.0-31.0); MEAN CORPUSCULAR HGB CONC 35.7 g/dL (33.0-37.0); MEAN PLATELET VOLUME 8.6 fL (7.2-11.7); MONO # 0.8 K/uL (0.0-0.8); MONO % 12.2 % (0.0-10.0); NEUT # 4.8 K/uL (1.8-7.0); NEUT % 76.1 % (50.0-75.0); NRBC % 0.2 % (0.0-2.0); PLATELET COUNT 138 K/uL (130-400); RBC 3.91 Mil/uL (4.40-5.90); RED CELL DISTRIBUTION WIDTH 18.1 % (11.5-14.5); WHITE BLOOD COUNT 6.4 K/uL (4.8-10.8)
--- NOTE | 2017-12-09 11:56 | CP.PCM.PN ---
Subjective - Date & Time of Evaluation Date of Evaluation: 12/09/17 Time of Evaluation: 11:54 - Subjective Subjective: Patient is slightly more alert today. Objective - Vital Signs/Intake and Output Vital Signs (last 24 hours): Temp Pulse Resp BP Pulse Ox 97.3 F L 111 H 20 103/63 94 L 12/09/17 08:02 12/09/17 08:02 12/09/17 08:02 12/09/17 08:02 12/09/17 08:02 Intake and Output: 12/09/17 12/09/17 06:59 18:59 Intake Total 500 Balance 500 - Medications Medications: Current Medications Albuterol/Ipratropium (Duoneb 3 Mg/0.5 Mg (3 Ml) Ud) 3 ml INH RQ6 PRN PRN Reason: Shortness of Breath Last Admin: 12/09/17 07:40 Dose: 3 ml Calcium Carbonate (Oscal) 500 mg PO BID [facility] Last Admin: 12/09/17 10:59 Dose: 500 mg Potassium Chloride 40 meq/ (Sodium Chloride) 1,020 mls @ 50 mls/hr IV .[id number] [facility] Last Admin: 12/07/17 06:32 Dose: Not Given Folic Acid 1 mg/ Sodium (Chloride) 100.2 mls @ 60 mls/hr IV Q24H [facility] Last Admin: 12/08/17 12:35 Dose: 60 mls/hr Ceftriaxone Sodium 1 gm/ (Sodium Chloride) 100 mls @ 100 mls/hr IVPB Q24H [facility] Last Admin: 12/08/17 14:01 Dose: 100 mls/hr Lactulose (Enulose) 20 gm PO BID [facility] Last Admin: 12/09/17 10:58 Dose: 20 gm Multivitamins (Hexavitamin) 5 tab PO DAILY [facility] Last Admin: 12/09/17 10:58 Dose: 5 tab Pantoprazole Sodium (Protonix Inj) 40 mg IVP DAILY [facility] Last Admin: 12/09/17 10:58 Dose: 40 mg Pentoxifylline (Pentoxil) 400 mg PO TID [facility] Last Admin: 12/09/17 10:58 Dose: 400 mg Potassium Chloride (K-Dur 20 Meq Er Tab) 20 meq PO DAILY [facility] Last Admin: 12/09/17 10:58 Dose: 20 meq Potassium Chloride (K-Dur 20 Meq Er Tab) 20 meq PO ONCE ONE Stop: 12/09/17 22:55 Simethicone (Mylicon Chew Tab) 80 mg PO QID [facility] Last Admin: 12/09/17 11:08 Dose: 80 mg Spironolactone (Aldactone) 50 mg PO DAILY [facility] Last Admin: 12/09/17 11:08 Dose: 50 mg Thiamine HCl (Vitamin B1 Tab) 100 mg PO DAILY [facility] Last Admin: 12/09/17 11:08 Dose: 100 mg - Labs Labs: 12/09/17 11:28 12/08/17 08:13 PT 20.9 SECONDS (9.7-12.2) H 12/08/17 08:13 INR 1.8 12/08/17 08:13 APTT 42 SECONDS (21-34) H 12/05/17 10:54 - Constitutional Appears: No Acute Distress - Head Exam Head Exam: ATRAUMATIC, NORMOCEPHALIC - Eye Exam Eye Exam: Scleral icterus - Neck Exam Neck Exam: absent: Lymphadenopathy, Thyromegaly - Respiratory Exam Respiratory Exam: NORMAL BREATHING PATTERN. absent: Rales, Rhonchi, Wheezes - Cardiovascular Exam Cardiovascular Exam: REGULAR RHYTHM, +S1, +S2. absent: Gallop, Rubs, Murmur - GI/Abdominal Exam GI & Abdominal Exam: Distended, Soft, Tenderness, Normal Bowel Sounds. absent: Organomegaly - Rectal Exam Rectal Exam: Deferred - Extremities Exam Extremities Exam: absent: Calf Tenderness, Pedal Edema Assessment and Plan (1) Acute alcoholic hepatitis Assessment & Plan: Liver enzymes are essentially unchanged: AST 222 (227), ALT 79 (74), ALKP 147 ( 172), TBILI 22.3 (21.9). Ammonia level is down to 29. Recommend repeating paracentesis next week to assess change in ascitic fluid PMN count. Status: Acute
[2017-12-09 12:27] LABS: ALB/GLOB RATIO 0.5 (1.0-2.1); ALBUMIN 2.5 g/dL (3.5-5.0); ALT/SGPT 80 U/L (21-72); AST/SGOT 215 U/L (17-59); BLOOD UREA NITROGEN 10 mg/dL (9-20); CALCIUM 8.4 mg/dl (8.6-10.4); GFR AFRICAN-AMERICAN > 60; GFR NON-AFRICAN AMERICAN > 60
[2017-12-09 13:36] LABS: BANDS 2 % (0-2); EOSINOPHIL 2 % (0-4); LYMPHOCYTE 9 % (20-40); MONOCYTE 10 % (0-10); NEUTROPHIL 77 % (50-75); TOTAL CELLS COUNTED 100
[2017-12-09 13:37] LABS: PLATELET ESTIMATE NORMAL (NORMAL)
[2017-12-09 13:38] LABS: ANISOCYTOSIS SLIGHT; BURR CELLS SLIGHT; OVALOCYTES SLIGHT; POIKILOCYTOSIS SLIGHT; TARGET CELLS SLIGHT
[2017-12-09] MEDS: Potassium Chloride 20 mEq ER Tab PO SCH ×2 (17:05→20:38)
[2017-12-09] MEDS ORDERED: Potassium Chloride 20 mEq ER Tab PO ONE (22:54)
[2017-12-10 08:01] LABS: INR 1.8; PROTHROMBIN TIME 21.1 SECONDS (9.7-12.2)
[2017-12-10 08:09] LABS: BASO # 0.1 K/uL (0.0-0.2); BASO % 0.8 % (0.0-2.0); EOS # 0.1 K/uL (0.0-0.7); EOS % 1.1 % (0.0-4.0); HEMOGLOBIN 14.1 g/dL (12.0-18.0); LYMPH # 0.6 K/uL (1.0-4.3); LYMPH % 8.6 % (20.0-40.0); MEAN CELL VOLUME 100.5 fL (80.0-94.0); MEAN CORPUSCULAR HGB CONC 35.8 g/dL (33.0-37.0); MEAN PLATELET VOLUME 8.8 fL (7.2-11.7); MONO # 0.9 K/uL (0.0-0.8); MONO % 11.3 % (0.0-10.0); NEUT # 5.9 K/uL (1.8-7.0); NEUT % 78.2 % (50.0-75.0); NRBC % 0.1 % (0.0-2.0); PLATELET COUNT 130 K/uL (130-400); RBC 3.92 Mil/uL (4.40-5.90); RED CELL DISTRIBUTION WIDTH 18.1 % (11.5-14.5); WHITE BLOOD COUNT 7.5 K/uL (4.8-10.8)
[2017-12-10 08:21] LABS: ALB/GLOB RATIO 0.5 (1.0-2.1); ALBUMIN 2.5 g/dL (3.5-5.0); ALT/SGPT 77 U/L (21-72); AST/SGOT 202 U/L (17-59); BLOOD UREA NITROGEN 11 mg/dL (9-20); CALCIUM 8.4 mg/dl (8.6-10.4); GFR AFRICAN-AMERICAN > 60; GFR NON-AFRICAN AMERICAN 58; MAGNESIUM 1.3 mg/dL (1.6-2.3)
[2017-12-10] MEDS ORDERED: Potassium Chloride 20 mEq ER Tab PO ONE ×2 (09:00→13:00)
[2017-12-10] MEDS: Multiple Vitamins Tab PO SCH (09:52)
[2017-12-10] MEDS: Simethicone 80 mg Chewtab PO SCH ×4 (09:53→21:10)
[2017-12-10] MEDS: Magnesium Sulfate 1 gm in D5W 1 GM/100 ML BAG IVPB SCH ×2 (09:54→10:54)
[2017-12-10 10:38] LABS: ANISOCYTOSIS SLIGHT; EOSINOPHIL 1 % (0-4); LYMPHOCYTE 7 % (20-40); MONOCYTE 8 % (0-10); NEUTROPHIL 84 % (50-75); PLATELET ESTIMATE NORMAL (NORMAL); TOTAL CELLS COUNTED 100
--- NOTE | 2017-12-10 12:57 | CP.PCM.PN ---
<Kelsi Marroquin - Last Filed: 12/10/17 13:22> Subjective - Date & Time of Evaluation Date of Evaluation: 12/10/17 Time of Evaluation: 09:00 - Subjective Subjective: Medicine Note for Hospitalist Service- Dr. Chris Schmidt Patient was seen and examined at bedside. Patient is alert and oriented. His abdomen appears more distended, but denied any abdominal pain on palpation. GI recommends repeat paracentesis. Denied any fever, chills, headache, chest pain, n/v/c, or urinary symptoms. Objective - Vital Signs/Intake and Output Vital Signs (last 24 hours): Temp Pulse Resp BP Pulse Ox 97.6 F 104 H 21 105/74 92 L 12/10/17 08:00 12/10/17 08:00 12/10/17 08:00 12/10/17 08:00 12/10/17 08:00 Intake and Output: 12/10/17 12/10/17 06:59 18:59 Intake Total 900 Output Total 3 Balance 897 - Medications Medications: Current Medications Albuterol/Ipratropium (Duoneb 3 Mg/0.5 Mg (3 Ml) Ud) 3 ml INH RQ6 PRN PRN Reason: Shortness of Breath Last Admin: 12/09/17 07:40 Dose: 3 ml Calcium Carbonate (Oscal) 500 mg PO BID [facility] Last Admin: 12/10/17 09:53 Dose: 500 mg Potassium Chloride 40 meq/ (Sodium Chloride) 1,020 mls @ 50 mls/hr IV .[id number] [facility] Last Admin: 12/07/17 06:32 Dose: Not Given Folic Acid 1 mg/ Sodium (Chloride) 100.2 mls @ 60 mls/hr IV Q24H [facility] Last Admin: 12/09/17 13:40 Dose: 60 mls/hr Lactulose (Enulose) 20 gm PO BID [facility] Last Admin: 12/10/17 09:54 Dose: 20 gm Multivitamins (Hexavitamin) 5 tab PO DAILY [facility] Last Admin: 12/10/17 09:52 Dose: 5 tab Pantoprazole Sodium (Protonix Inj) 40 mg IVP DAILY [facility] Last Admin: 12/10/17 09:54 Dose: 40 mg Pentoxifylline (Pentoxil) 400 mg PO TID [facility] Last Admin: 12/09/17 17:39 Dose: 400 mg Potassium Chloride (K-Dur 20 Meq Er Tab) 20 meq PO ONCE ONE Stop: 12/10/17 13:01 Simethicone (Mylicon Chew Tab) 80 mg PO QID [facility] Last Admin: 12/10/17 09:53 Dose: 80 mg Spironolactone (Aldactone) 50 mg PO DAILY [facility] Last Admin: 12/10/17 09:54 Dose: 50 mg Thiamine HCl (Vitamin B1 Tab) 100 mg PO DAILY [facility] Last Admin: 12/10/17 09:53 Dose: 100 mg - Labs Labs: 12/10/17 07:45 12/10/17 07:45 PT 21.1 SECONDS (9.7-12.2) H 12/10/17 07:45 INR 1.8 12/10/17 07:45 APTT 42 SECONDS (21-34) H 12/05/17 10:54 - Additional Findings Additional findings: - Constitutional Appears: Non-toxic, Chronically Ill - Head Exam Head Exam: NORMAL INSPECTION Additional comments: jaundiced, multiple tatoos - Eye Exam Eye Exam: EOMI - ENT Exam ENT Exam: Mucous Membranes Moist - Respiratory Exam Respiratory Exam: Decreased Breath Sounds, NORMAL BREATHING PATTERN. absent: Rales, Rhonchi - Cardiovascular Exam Cardiovascular Exam: Tachycardia, +S1, +S2 - GI/Abdominal Exam GI & Abdominal Exam: Distended, Soft, Normal Bowel Sounds. absent: Firm, Guarding, Rigid, Rebound - Extremities Exam Extremities Exam: absent: Pedal Edema, Tenderness - Neurological Exam Neurological Exam: Alert, Awake, Oriented x3 - Psychiatric Exam Psychiatric exam: Normal Affect, Normal Mood - Skin Skin Exam: Dry, Intact, Warm Additional comments: jaundiced Assessment and Plan - Assessment and Plan (Free Text) Plan: Alcoholic Liver Disease Liver Cirrhosis Diarrhea Hepatic Encephalopathy Hepatitis C Ab Reactive * MELD score 29--> 19.6% estimated 3 month mortality * Discriminate function 75.4 * Will need to follow up with [facility], care navigator center, [address] [place] [address] [id number], [place] [id number] [phone] * Abdominal US (11/30/17): limited evaluation. Nodular heterogenously increased echogenicity of liver suggestive of hepatic cellular disease and/or fatty infiltration. Possible hepatic cirrhosis. Trace ascites. Thicken gallbladder wall, nonspecific. Sludge and tiny calculi within the gallbladder. Negative sonographic Clay sign * Aldactone 50mg PO daily * C. Dif negative * Hepatitis C Ab Reactive * HIV negative * Elevated Ammonia-->start Lactulose * Mental status improving with Lactulose for past five days * Has had 2 bowel movements overnight * CT Abdomen/Pelvis (PO contrast): nonspecific colitis and enteritis; nodular mucosal thickening of the somtach and circumferential mural thickening of the distal esophagus. Bilateral plerual effusion. Nodular heaptic contour suggestive of cirrhosis. Extensive ascites. Cholelithiais with thickening gallbladder wall. Nonobstructting small renal calculio. Peripancreatic fluid. Cannot rule out pancreatitis. * Patient has completed paracentesis on 12/06/17 * WBC: 155, RBC: 60, Neutrophils: 71. Lymphocytes: 21, monocytes: Fluid comment : 3% eosinophils, many macrophages and mesothelial changes seen on smear * Peritoneal culture: no growth after 24 hours * Pending anaerobic culture * Pending Fungus culture * Stool: No salmonella, shigella, or campylobacter, no ova and parasite seen Alcohol abuse, withdrawal * Psychiatry consulted, Dr. Schmidt, help appreciated * Banana bag, Folic acid, Multivitamins, Thiamine * Completed Ativan 5-day taper Electrolyte Imbalance Malnutrition, Low albumin * Likely secondary to alcohol abuse * Ensure Enlive 3x/day Elevated LFT/Lipase/Bilirubin * Likely secondary to alcohol abuse * Abdominal US: suggesting hepatic cellular disease; possible hepatic cirrhosis ; trace ascites; nonspecific thickening of GB wall; no murphys * Hepatitis panel: Hepatitis C Ab Reactive * HIV: negative * Ammonia level: elevated; mentation was improving History of Heparin Induced Thrombocytopenia Thrombocytopenia * Likely secondary to alcohol abuse * Contraindication to chemical anticoagulation Coagulopathy * Abdominal US (11/30/17): limited evaluation. Nodular heterogenously increased echogenicity of liver suggestive of hepatic cellular disease and/or fatty infiltration. Possible hepatic cirrhosis. Trace ascites. Thicken gallbladder wall, nonspecific. Sludge and tiny calculi within the gallbladder. Negative sonographic Clay sign Hx schizophrenia * F/u psychiatry recommendation History of Graves Disease * TSH: 0.86 * T4: 7.92 * Free: 2.64 * pending TBii, TSI pending Prophylaxis * Protonix 40mg PO daily * No anticoagulation secondary to increased INR and thrombocytopenia * Change to liquid diet * Aspiration precautions * monitor on telemetry * pallative care on aboard - DNR/DNI Disposition: continue to monitor on telemetry. Electrolytes replete. Palliative spoke with sister who is POA and with patient - he is willing to go to hospice. Will speak to case management and social workers. DW Dr. Chris Schmidt, Lopez FERRO, PGY-1 <Harsh Schmidt - Last Filed: 12/10/17 18:44> Objective - Vital Signs/Intake and Output Vital Signs (last 24 hours): Temp Pulse Resp BP Pulse Ox 98.3 F 104 H 20 123/70 96 12/10/17 15:33 12/10/17 16:00 12/10/17 15:33 12/10/17 15:33 12/10/17 15:33 Intake and Output: 12/10/17 12/10/17 06:59 18:59 Intake Total 900 Output Total 3 Balance 897 - Medications Medications: Current Medications Albuterol/Ipratropium (Duoneb 3 Mg/0.5 Mg (3 Ml) Ud) 3 ml INH RQ6 PRN PRN Reason: Shortness of Breath Last Admin: 12/09/17 07:40 Dose: 3 ml Calcium Carbonate (Oscal) 500 mg PO BID [facility] Last Admin: 12/10/17 18:10 Dose: 500 mg Potassium Chloride 40 meq/ (Sodium Chloride) 1,020 mls @ 50 mls/hr IV .[id number] [facility] Last Admin: 12/07/17 06:32 Dose: Not Given Folic Acid 1 mg/ Sodium (Chloride) 100.2 mls @ 60 mls/hr IV Q24H [facility] Last Admin: 12/10/17 13:18 Dose: 60 mls/hr Lactulose (Enulose) 20 gm PO BID [facility] Last Admin: 12/10/17 18:10 Dose: 20 gm Multivitamins (Hexavitamin) 5 tab PO DAILY [facility] Last Admin: 12/10/17 09:52 Dose: 5 tab Pantoprazole Sodium (Protonix Inj) 40 mg IVP DAILY [facility] Last Admin: 12/10/17 09:54 Dose: 40 mg Pentoxifylline (Pentoxil) 400 mg PO TID [facility] Last Admin: 12/10/17 18:10 Dose: 400 mg Simethicone (Mylicon Chew Tab) 80 mg PO QID [facility] Last Admin: 12/10/17 18:10 Dose: 80 mg Spironolactone (Aldactone) 50 mg PO DAILY [facility] Last Admin: 12/10/17 09:54 Dose: 50 mg Thiamine HCl (Vitamin B1 Tab) 100 mg PO DAILY [facility] Last Admin: 12/10/17 09:53 Dose: 100 mg - Labs Labs: 12/10/17 07:45 12/10/17 07:45 PT 21.1 SECONDS (9.7-12.2) H 12/10/17 07:45 INR 1.8 12/10/17 07:45 APTT 42 SECONDS (21-34) H 12/05/17 10:54 Attending/Attestation - Attestation I have personally seen and examined this patient.: Yes I have fully participated in the care of the patient.: Yes I have reviewed all pertinent clinical information, including history, physical exam and plan: Yes Notes (Text): 12/10/17 18:36 Patient was seen and examined at 8:45 AM 12/10/17 Bed 559 A. Exam, assessment and plan were gone over with the resident. Also on ROS: "I am hungry" NO other complaints upon FULL ROS Also on Exam: HEENT: Scleral Incterus GI: Distention, Tender to Palpation RLQ but NO rebound/guarding Skin: Jaundice Assessments: 1). Alcohol Related Liver Failure 2). Hepatitis C + 3). Alcohol Abuse/Withdrawl 4). Hypokalemia 5). Hypomagnesemia 6). Hypocalcemia 7). Low Albumin 8). Elevated LFTs/Lipase/Bilirubin 9). Thrombocytopenia 10). Schizophrenia? Spoke with Psychiatry Dr. Schmidt and he will re-evaluate patient 11). Hx Graves Disease? TSH Binding Inhibiting IG is NORMAL I spoke with Telemarketing Supervisor Agueda who spoke with patient's sister Kayleigh and sister will NOT be taking patient into her home. Spoke with Palliative Care Nurse Eliza and patient has agreed for Hospice. Will speak with Telemarketing Supervisor Agueda and Long Term Care Administrator Sari concerning if it is possible to find Hospice for this patient who is homeless and without any insurance. Patient has agreed for Pleur Ex Catheter for his recurrent Ascites. Will speak with IR to see if this is feasible once (and if) Hospice arrangements can be made. Harsh Schmidt D.O.
[2017-12-10 15:34] VITALS: RESP 20
[2017-12-11 07:21] VITALS: BP 102/63; PULSE 105; TEMP 98; O2SAT 95
--- NOTE | 2017-12-11 09:51 | CP.PCM.PN ---
<Kelsi Marroquin - Last Filed: 12/11/17 12:33> Subjective - Date & Time of Evaluation Date of Evaluation: 12/11/17 Time of Evaluation: 09:00 - Subjective Subjective: Medicine Note for Hospitalist Service- Dr. Chris Schmidt Patient was seen and examined at bedside. Patient is alert and oriented. No acute complaints. Denied any fever, chills, headache, chest pain,abdominal pain , n/v/c/d, or urinary symptoms. Objective - Vital Signs/Intake and Output Vital Signs (last 24 hours): Temp Pulse Resp BP Pulse Ox 98.0 F 105 H 20 102/63 95 12/11/17 07:19 12/11/17 07:19 12/11/17 07:19 12/11/17 07:19 12/11/17 07:19 Intake and Output: 12/11/17 12/11/17 06:59 18:59 Intake Total 250 Balance 250 - Medications Medications: Current Medications Albuterol/Ipratropium (Duoneb 3 Mg/0.5 Mg (3 Ml) Ud) 3 ml INH RQ6 PRN PRN Reason: Shortness of Breath Last Admin: 12/09/17 07:40 Dose: 3 ml Calcium Carbonate (Oscal) 500 mg PO BID [facility] Last Admin: 12/10/17 18:10 Dose: 500 mg Potassium Chloride 40 meq/ (Sodium Chloride) 1,020 mls @ 50 mls/hr IV .[id number] [facility] Last Admin: 12/07/17 06:32 Dose: Not Given Folic Acid 1 mg/ Sodium (Chloride) 100.2 mls @ 60 mls/hr IV Q24H [facility] Last Admin: 12/10/17 13:18 Dose: 60 mls/hr Lactulose (Enulose) 20 gm PO BID [facility] Last Admin: 12/10/17 18:10 Dose: 20 gm Multivitamins (Hexavitamin) 5 tab PO DAILY [facility] Last Admin: 12/10/17 09:52 Dose: 5 tab Pantoprazole Sodium (Protonix Inj) 40 mg IVP DAILY [facility] Last Admin: 12/10/17 09:54 Dose: 40 mg Pentoxifylline (Pentoxil) 400 mg PO TID [facility] Last Admin: 12/10/17 18:10 Dose: 400 mg Simethicone (Mylicon Chew Tab) 80 mg PO QID [facility] Last Admin: 12/10/17 21:10 Dose: Not Given Spironolactone (Aldactone) 50 mg PO DAILY [facility] Last Admin: 12/10/17 09:54 Dose: 50 mg Thiamine HCl (Vitamin B1 Tab) 100 mg PO DAILY [facility] Last Admin: 12/10/17 09:53 Dose: 100 mg - Labs Labs: 12/10/17 07:45 12/10/17 07:45 PT 21.1 SECONDS (9.7-12.2) H 12/10/17 07:45 INR 1.8 12/10/17 07:45 APTT 42 SECONDS (21-34) H 12/05/17 10:54 - Additional Findings Additional findings: - Constitutional Appears: Non-toxic, Chronically Ill - Head Exam Head Exam: NORMAL INSPECTION Additional comments: jaundiced, multiple tatoos - Eye Exam Eye Exam: EOMI - ENT Exam ENT Exam: Mucous Membranes Moist - Respiratory Exam Respiratory Exam: Decreased Breath Sounds, NORMAL BREATHING PATTERN. absent: Rales, Rhonchi - Cardiovascular Exam Cardiovascular Exam: Tachycardia, +S1, +S2 - GI/Abdominal Exam GI & Abdominal Exam: Distended, Soft, Normal Bowel Sounds. absent: Firm, Guarding, Rigid, Rebound - Extremities Exam Extremities Exam: absent: Pedal Edema, Tenderness - Neurological Exam Neurological Exam: Alert, Awake, Oriented x3 - Psychiatric Exam Psychiatric exam: Normal Affect, Normal Mood - Skin Skin Exam: Dry, Intact, Warm Additional comments: jaundiced Assessment and Plan - Assessment and Plan (Free Text) Plan: Alcoholic Liver Disease Liver Cirrhosis Diarrhea Hepatic Encephalopathy Hepatitis C Ab Reactive * MELD score 29--> 19.6% estimated 3 month mortality * Discriminate function 75.4 * Will need to follow up with [facility], career transition specialist center, [address] [place] [address] [id number] [id number] [phone] * Abdominal US (11/30/17): limited evaluation. Nodular heterogenously increased echogenicity of liver suggestive of hepatic cellular disease and/or fatty infiltration. Possible hepatic cirrhosis. Trace ascites. Thicken gallbladder wall, nonspecific. Sludge and tiny calculi within the gallbladder. Negative sonographic Clay sign * Aldactone 50mg PO daily * C. Dif negative * Hepatitis C Ab Reactive * HIV negative * Elevated Ammonia-->start Lactulose * Mental status improving with Lactulose for past five days * Has had 2 bowel movements overnight * CT Abdomen/Pelvis (PO contrast): nonspecific colitis and enteritis; nodular mucosal thickening of the somtach and circumferential mural thickening of the distal esophagus. Bilateral plerual effusion. Nodular heaptic contour suggestive of cirrhosis. Extensive ascites. Cholelithiais with thickening gallbladder wall. Nonobstructting small renal calculio. Peripancreatic fluid. Cannot rule out pancreatitis. * Patient has completed paracentesis on 12/06/17 * WBC: 155, RBC: 60, Neutrophils: 71. Lymphocytes: 21, monocytes: Fluid comment : 3% eosinophils, many macrophages and mesothelial changes seen on smear * Peritoneal culture: no growth after 24 hours * Pending anaerobic culture * Pending Fungus culture * Stool: No salmonella, shigella, or campylobacter, no ova and parasite seen Alcohol abuse, withdrawal * Psychiatry consulted, Dr. Schmidt, help appreciated * Banana bag, Folic acid, Multivitamins, Thiamine * Completed Ativan 5-day taper Electrolyte Imbalance Malnutrition, Low albumin * Likely secondary to alcohol abuse * Ensure Enlive 3x/day Elevated LFT/Lipase/Bilirubin * Likely secondary to alcohol abuse * Abdominal US: suggesting hepatic cellular disease; possible hepatic cirrhosis ; trace ascites; nonspecific thickening of GB wall; no murphys * Hepatitis panel: Hepatitis C Ab Reactive * HIV: negative * Ammonia level: elevated; mentation was improving History of Heparin Induced Thrombocytopenia Thrombocytopenia * Likely secondary to alcohol abuse * Contraindication to chemical anticoagulation Coagulopathy * Abdominal US (11/30/17): limited evaluation. Nodular heterogenously increased echogenicity of liver suggestive of hepatic cellular disease and/or fatty infiltration. Possible hepatic cirrhosis. Trace ascites. Thicken gallbladder wall, nonspecific. Sludge and tiny calculi within the gallbladder. Negative sonographic Clay sign Hx schizophrenia * F/u psychiatry recommendation History of Graves Disease * TSH: 0.86 * T4: 7.92 * Free: 2.64 * pending TBii, TSI pending Prophylaxis * Protonix 40mg PO daily * No anticoagulation secondary to increased INR and thrombocytopenia * Change to liquid diet * Aspiration precautions * monitor on telemetry * pallative care on aboard - DNR/DNI Disposition: Spoke with Palliative Care Nurse Eliza and patient has agreed for Hospice. Will speak with Finishing Lab Technician Agueda and Client Care Consultant Sari concerning if it is possible to find Hospice for this patient who is homeless and without any insurance; inquiring Father Gab. Patient has agreed for Pleur Ex Catheter for his recurrent Ascites. Will speak with IR to see if this is feasible once (and if) Hospice arrangements can be made. Patient refused labs today. Physical therapy will need to work with the patient and document their findings and patient needs. DIAMOND Schmidt, [place] FERRO, PGY-1 <Harsh Schmidt - Last Filed: 12/11/17 18:51> Objective - Vital Signs/Intake and Output Vital Signs (last 24 hours): Temp Pulse Resp BP Pulse Ox 98.0 F 105 H 20 102/63 95 12/11/17 07:19 12/11/17 07:19 12/11/17 07:19 12/11/17 07:19 12/11/17 07:19 Intake and Output: 12/11/17 12/11/17 06:59 18:59 Intake Total 250 Balance 250 - Labs Labs: 12/10/17 07:45 12/11/17 13:50 PT 21.1 SECONDS (9.7-12.2) H 12/10/17 07:45 INR 1.8 12/10/17 07:45 APTT 42 SECONDS (21-34) H 12/05/17 10:54 Attending/Attestation - Attestation I have personally seen and examined this patient.: Yes I have fully participated in the care of the patient.: Yes I have reviewed all pertinent clinical information, including history, physical exam and plan: Yes Notes (Text): 12/11/17 18:48 Patient refused labs this morning. At the time of my exam at 12:30 PM, patient stated that he wanted to leave. I explained the dangers of doing so considering his liver failure and desaturation with walking. This was explained this to him and that it would likely lead to his . I explained to him that Finishing Lab Technician Agueda was trying to find a spot for him for in-patient Hospice. Despite this, and understanding the risks of leaving, patient signed himself AMA. Harsh Schmidt D.O.
[2017-12-11] MEDS: Simethicone 80 mg Chewtab PO SCH ×2 (12:12→13:10)
[2017-12-11] MEDS: Multiple Vitamins Tab PO SCH (12:12)
[2017-12-11 14:13] LABS: ALB/GLOB RATIO 0.5 (1.0-2.1); ALBUMIN 2.5 g/dL (3.5-5.0); ALT/SGPT 74 U/L (21-72); AST/SGOT 172 U/L (17-59); BLOOD UREA NITROGEN 13 mg/dL (9-20); GFR AFRICAN-AMERICAN > 60; GFR NON-AFRICAN AMERICAN 58; MAGNESIUM 1.6 mg/dL (1.6-2.3)
--- NOTE | 2017-12-11 16:27 | CP.PCM.DIS ---
Provider - Provider Date of Admission: 11/30/17 09:44 Attending physician: Harsh Schmidt MD Time Spent in preparation of Discharge (in minutes): 55 Hospital Course - Lab Results Lab Results: Micro Results 12/06/17 10:33 Body Fluid - Peritoneal Gram Stain - Final 12/06/17 10:33 Body Fluid - Peritoneal Body Fluid Culture - Final No growth. 12/06/17 10:33 Peritoneal Fluid Fungal Culture - Preliminary 12/06/17 10:33 Peritoneal Fluid Anaerobic Culture - Final NO ANAEROBES ISOLATED. 11/30/17 14:06 Stool Stool Culture - Final NO SALMONELLA, SHIGELLA OR CAMPYLOBACTER ISOLATED. 11/30/17 14:06 Stool Ova and Parasite Concentrate Exam - Final Most Recent Lab Values WBC 7.5 K/uL (4.8-10.8) 12/10/17 07:45 RBC 3.92 Mil/uL (4.40-5.90) L 12/10/17 07:45 Hgb 14.1 g/dL (12.0-18.0) 12/10/17 07:45 Hct 39.4 % (35.0-51.0) 12/10/17 07:45 MCV 100.5 fL (80.0-94.0) H 12/10/17 07:45 MCH 36.0 pg (27.0-31.0) H 12/10/17 07:45 MCHC 35.8 g/dL (33.0-37.0) 12/10/17 07:45 RDW 18.1 % (11.5-14.5) H 12/10/17 07:45 Plt Count 130 K/uL (130-400) 12/10/17 07:45 MPV 8.8 fL (7.2-11.7) 12/10/17 07:45 Neut % (Auto) 78.2 % (50.0-75.0) H 12/10/17 07:45 Lymph % (Auto) 8.6 % (20.0-40.0) L 12/10/17 07:45 [place] % (Auto) 11.3 % (0.0-10.0) H 12/10/17 07:45 Eos % (Auto) 1.1 % (0.0-4.0) 12/10/17 07:45 Baso % (Auto) 0.8 % (0.0-2.0) 12/10/17 07:45 Neut # (Auto) 5.9 K/uL (1.8-7.0) 12/10/17 07:45 Lymph # (Auto) 0.6 K/uL (1.0-4.3) L 12/10/17 07:45 [place] # (Auto) 0.9 K/uL (0.0-0.8) H 12/10/17 07:45 Eos # (Auto) 0.1 K/uL (0.0-0.7) 12/10/17 07:45 Baso # (Auto) 0.1 K/uL (0.0-0.2) 12/10/17 07:45 Neutrophils % (Manual) 84 % (50-75) H 12/10/17 07:45 Band Neutrophils % 2 % (0-2) 12/09/17 11:28 Lymphocytes % (Manual) 7 % (20-40) L 12/10/17 07:45 Monocytes % (Manual) 8 % (0-10) 12/10/17 07:45 Eosinophils % (Manual) 1 % (0-4) 12/10/17 07:45 Toxic Granulation Present 12/04/17 07:51 Platelet Estimate Normal (NORMAL) 12/10/17 07:45 Polychromasia Slight 12/02/17 07:05 Hypochromasia (manual) Slight 12/02/17 07:05 Poikilocytosis (manual Slight 12/09/17 11:28 Anisocytosis (manual) Slight 12/10/17 07:45 Macrocytosis (manual) Slight 12/10/17 07:45 Target Cells Slight 12/09/17 11:28 Ovalocytes Slight 12/09/17 11:28 [place] Cells Slight 12/09/17 11:28 PT 21.1 SECONDS (9.7-12.2) H 12/10/17 07:45 INR 1.8 12/10/17 07:45 APTT 42 SECONDS (21-34) H 12/05/17 10:54 Sodium 128 mmol/L (132-148) L 12/11/17 13:50 Potassium 3.2 mmol/L (3.6-5.2) L 12/11/17 13:50 Chloride 95 mmol/L (98-107) L 12/11/17 13:50 Carbon Dioxide 23 mmol/L (22-30) 12/11/17 13:50 Anion Gap 13 (10-20) 12/11/17 13:50 BUN 13 mg/dL (9-20) 12/11/17 13:50 Creatinine 1.3 mg/dL (0.8-1.5) 12/11/17 13:50 Est GFR ( Amer) > 60 12/11/17 13:50 Est GFR (Non-Af Amer) 58 12/11/17 13:50 Random Glucose 110 mg/dL (75-110) 12/11/17 13:50 Calcium 8.0 mg/dl (8.6-10.4) L 12/11/17 13:50 Phosphorus 3.1 mg/dL (2.5-4.5) 12/11/17 13:50 Magnesium 1.6 mg/dL (1.6-2.3) 12/11/17 13:50 Total Bilirubin 25.1 mg/dL (0.2-1.3) H 12/11/17 13:50 Direct Bilirubin 13.3 mg/dL (0.0-0.4) H 11/30/17 08:32 GGT 130 U/L (8-78) H 11/30/17 08:32 AST 172 U/L (17-59) H 12/11/17 13:50 ALT 74 U/L (21-72) H 12/11/17 13:50 Alkaline Phosphatase 149 U/L (38-126) H 12/11/17 13:50 Ammonia 29 umol/L (9-33) D 12/08/17 12:17 Total Protein 7.5 g/dL (6.3-8.3) 12/11/17 13:50 Albumin 2.5 g/dL (3.5-5.0) L 12/11/17 13:50 Globulin 4.9 gm/dL (2.2-3.9) H 12/11/17 13:50 Albumin/Globulin Ratio 0.5 (1.0-2.1) L 12/11/17 13:50 Lipase 259 U/L (23-300) 12/05/17 17:26 Alpha Fetoprotein 1.6 ng/mL (0.0-7.5) 12/05/17 10:54 Free T4 2.64 ng/dL (0.78-2.19) H 12/03/17 11:43 Thyroxine (T4) 7.92 ug/dL (5.5-11.0) 12/03/17 11:43 TSH 3rd Generation 0.86 mIU/L (0.46-4.68) 12/03/17 11:43 Thyroid Stim Immunoglob <89 % baseline (<140) 12/03/17 11:43 Urine Color Mary (YELLOW) 11/30/17 11:30 Urine Clarity Hazy (Clear) 11/30/17 11:30 Urine pH 7.0 (5.0-8.0) 11/30/17 11:30 Ur Specific [place] 1.012 (1.003-1.030) 11/30/17 11:30 Urine Protein Negative mg/dL (NEGATIVE) 11/30/17 11:30 Urine Glucose (UA) Normal mg/dL (Normal) 11/30/17 11:30 Urine Ketones Negative mg/dL (NEGATIVE) 11/30/17 11:30 Urine Blood Negative (NEGATIVE) 11/30/17 11:30 Urine Nitrate Negative (NEGATIVE) 11/30/17 11:30 Urine Bilirubin 2+ (NEGATIVE) H 11/30/17 11:30 Urine Urobilinogen 4.0 mg/dL (0.2-1.0) 11/30/17 11:30 Ur Leukocyte Esterase Neg [place]/uL (Negative) 11/30/17 11:30 Urine WBC (Auto) 6 /hpf (0-5) H 11/30/17 11:30 Urine RBC (Auto) 2 /hpf (0-3) 11/30/17 11:30 Ur Squamous Epith Cells < 1 /hpf (0-5) 11/30/17 11:30 Fluid Source Peritoneal/ascites 12/06/17 11:55 Fluid Appearance Sl cloudy (CLEAR) 12/06/17 11:55 Fluid WBC 155.0 /mm3 (0.0-300.0) 12/06/17 11:55 Fluid RBC 60.0 /mm3 (0.0-0.0) H 12/06/17 11:55 Fluid Tot Cell Count TEST NOT PERFORMED 12/06/17 11:55 Fluid Neutrophils 71.0 % (0-0) H 12/06/17 11:55 Fluid Lymphocytes 21.0 % (0-0) H 12/06/17 11:55 Fld Monocyte/Macrophag 5 % (0-0) H 12/06/17 11:55 Fluid Albumin 0.2 g/dL 12/06/17 11:55 Fluid Comment 12/06/17 11:55 Peritoneal Tot Protein <3.0 g/dL 12/06/17 11:55 Stool Leukocytes, Qual Negative (NEGATIVE) 11/30/17 14:06 Urine Opiates Screen Negative (NEGATIVE) 11/30/17 11:30 Urine Methadone Screen Negative (NEGATIVE) 11/30/17 11:30 Acetaminophen < 10.0 ug/mL (10.0-30.0) L 11/30/17 08:32 Ur Barbiturates Screen Negative (NEGATIVE) 11/30/17 11:30 Ur Phencyclidine Scrn Negative (NEGATIVE) 11/30/17 11:30 Ur Amphetamines Screen Negative (NEGATIVE) 11/30/17 11:30 U Benzodiazepines Scrn Negative (NEGATIVE) 11/30/17 11:30 U Oth Cocaine Metabols Negative (NEGATIVE) 11/30/17 11:30 U Cannabinoids Screen Negative (NEGATIVE) 11/30/17 11:30 Alcohol, Quantitative < 10 mg/dl (0-10) 11/30/17 08:32 TSH Bind Inhibitory Ig 7.5 % (<=16.0) 12/03/17 11:43 C. difficile Ag & Toxin Negative (NEGATIVE) 11/30/17 14:06 Hepatitis A IgM Ab Negative (NEGATIVE) 11/30/17 12:45 Hep Bs Antigen Negative (NEGATIVE) 11/30/17 12:45 Hep B Core IgM Ab Negative (NEGATIVE) 11/30/17 12:45 Hepatitis C Antibody Reactive (NEGATIVE) 11/30/17 12:45 Hepatitis C RNA 1895 IU/mL (<15) H 12/04/17 07:51 HCV RNA Quant (PCR) 3.28 Log IU/mL (<1.18) H 12/04/17 07:51 HIV 1&2 Antibody Screen Negative (NEGATIVE) 11/30/17 12:45 - Hospital Course Hospital Course: Upon admission: CC: "abdominal pain and my livers shot" HPI: Patient is a 52 year old male presents with complaints of "abdominal pain and my liver is shot". Patient states his abdominal pain is all over and started a couple of weeks ago. When asked to describe, patient described it as "just pain". Patient states he drinks 3 pints of vodka daily for the past 20+ years. Patient came to [facility] ED yesterday with complaints of abdominal pain and left against medical advice. Patient is a poor historian and therefore, review of systems is limited. He currently complains of abdominal pain, diarrhea ("combination of constipation and diarrhea 5-6x per day), tremors , and leg pain. The patient also states he lost approximately 25 lbs in the last two months. Patient denies chest pain, shortness of breath, nausea, vomiting, fevers, headaches. PMD: none PMHx: patient denies SurgHx: patient denies FamHx: Mother- [place], Brother- cancer (unknown type) SocHx: 3 pints of vodka daily for 20 years; 1/2 ppd for 3 years; denies drug use ; homeless for the last 1.5 years; unemployed Allergies: NKDA Medications: denies Throughout Hospital Course: Alcoholic Liver Disease Liver Cirrhosis Diarrhea Hepatic Encephalopathy Hepatitis C Ab Reactive * MELD score 29--> 19.6% estimated 3 month mortality * Discriminate function 75.4 * Will need to follow up with [facility], rn long term care center, [address] [place] [address] [facility] [address] [phone] * Abdominal US (11/30/17): limited evaluation. Nodular heterogenously increased echogenicity of liver suggestive of hepatic cellular disease and/or fatty infiltration. Possible hepatic cirrhosis. Trace ascites. Thicken gallbladder wall, nonspecific. Sludge and tiny calculi within the gallbladder. Negative sonographic Clay sign * Aldactone 50mg PO daily * C. Dif negative * Hepatitis C Ab Reactive * HIV negative * Elevated Ammonia-->start Lactulose * Mental status improving with Lactulose for past five days * Has had 2 bowel movements overnight * CT Abdomen/Pelvis (PO contrast): nonspecific colitis and enteritis; nodular mucosal thickening of the somtach and circumferential mural thickening of the distal esophagus. Bilateral plerual effusion. Nodular heaptic contour suggestive of cirrhosis. Extensive ascites. Cholelithiais with thickening gallbladder wall. Nonobstructting small renal calculio. Peripancreatic fluid. Cannot rule out pancreatitis. * Patient has completed paracentesis on 12/06/17 * WBC: 155, RBC: 60, Neutrophils: 71. Lymphocytes: 21, monocytes: Fluid comment : 3% eosinophils, many macrophages and mesothelial changes seen on smear * Peritoneal culture: no growth after 24 hours * Pending anaerobic culture * Pending Fungus culture * Stool: No salmonella, shigella, or campylobacter, no ova and parasite seen Alcohol abuse, withdrawal * Psychiatry consulted, Dr. Schmidt, help appreciated * Banana bag, Folic acid, Multivitamins, Thiamine * Completed Ativan 5-day taper Electrolyte Imbalance Malnutrition, Low albumin * Likely secondary to alcohol abuse * Ensure Enlive 3x/day Elevated LFT/Lipase/Bilirubin * Likely secondary to alcohol abuse * Abdominal US: suggesting hepatic cellular disease; possible hepatic cirrhosis ; trace ascites; nonspecific thickening of GB wall; no murphys * Hepatitis panel: Hepatitis C Ab Reactive * HIV: negative * Ammonia level: elevated; mentation was improving History of Heparin Induced Thrombocytopenia Thrombocytopenia * Likely secondary to alcohol abuse * Contraindication to chemical anticoagulation Coagulopathy * Abdominal US (11/30/17): limited evaluation. Nodular heterogenously increased echogenicity of liver suggestive of hepatic cellular disease and/or fatty infiltration. Possible hepatic cirrhosis. Trace ascites. Thicken gallbladder wall, nonspecific. Sludge and tiny calculi within the gallbladder. Negative sonographic Clay sign Hx schizophrenia * F/u psychiatry recommendation History of Graves Disease * TSH: 0.86 * T4: 7.92 * Free: 2.64 * pending TBii, TSI pending Prophylaxis * Protonix 40mg PO daily * No anticoagulation secondary to increased INR and thrombocytopenia * Change to liquid diet * Aspiration precautions * monitor on telemetry * pallative care on aboard - DNR/DNI Disposition: Spoke with Palliative Care Nurse Eliza and patient has agreed for Hospice. Will speak with Stone Polisher Hand Agueda and Head Lineman Sari concerning if it is possible to find Hospice for this patient who is homeless and without any insurance; inquiring Father Gab. Patient has agreed for Pleur Ex Catheter for his recurrent Ascites. Will speak with IR to see if this is feasible once (and if) Hospice arrangements can be made. Please review EMR for full record. Discharge Exam - Additional Findings Additional findings: - Constitutional Appears: Non-toxic, Chronically Ill - Head Exam Head Exam: NORMAL INSPECTION Additional comments: jaundiced, multiple tatoos - Eye Exam Eye Exam: EOMI - ENT Exam ENT Exam: Mucous Membranes Moist - Respiratory Exam Respiratory Exam: Decreased Breath Sounds, NORMAL BREATHING PATTERN. absent: Rales, Rhonchi - Cardiovascular Exam Cardiovascular Exam: Tachycardia, +S1, +S2 - GI/Abdominal Exam GI & Abdominal Exam: Distended, Soft, Normal Bowel Sounds. absent: Firm, Guarding, Rigid, Rebound - Extremities Exam Extremities Exam: absent: Pedal Edema, Tenderness - Neurological Exam Neurological Exam: Alert, Awake, Oriented x3 - Psychiatric Exam Psychiatric exam: Normal Affect, Normal Mood - Skin Skin Exam: Dry, Intact, Warm Additional comments: jaundiced Discharge Plan - Discharge Medications Prescriptions: Calcium Carbonate [Oscal] 500 mg PO BID #60 tab Lactulose [Enulose] 20 gm PO DAILY #30 udc Multivitamins [Hexavitamin] 5 tab PO DAILY #30 tab Pentoxifylline [Pentoxil] 400 mg PO TID #90 ter Spironolactone [Aldactone] 50 mg PO DAILY #30 tab Thiamine [Vitamin B1 Tab] 100 mg PO DAILY #30 tab - Follow Up Plan Condition: GUARDED Disposition: AGAINST MEDICAL ADVICE Additional Instructions: Will need to follow up with [facility], * rn long term care center * [address] [id number] * [place] [address] * [phone] Referrals: [facility] [Outside]
== END 2017-12-11 15:11 | disposition hospice, inpatient (51) | DRG 433 ==
LOC: C.ER 07:44 → C.9E 09:44 → C.5S 17:27
PROVIDERS: ADMIT Family Medicine; ATTEND Family Medicine
PROC: HZ2ZZZZ Detoxification Services for Substance Abuse Treatment (ICD-10-PCS; principal; 2017-11-30)
PROC: HZ52ZZZ Individual Psychotherapy for Substance Abuse Treatment, Cognitive-Behavioral (ICD-10-PCS; 2017-11-30)
PROC: HZ59ZZZ Individual Psychotherapy for Substance Abuse Treatment, Supportive (ICD-10-PCS; 2017-11-30)
PROC: HZ56ZZZ Individual Psychotherapy for Substance Abuse Treatment, Psychoeducation (ICD-10-PCS; 2017-11-30)
PROC: 0W9G3ZZ Drainage of Peritoneal Cavity, Percutaneous Approach (ICD-10-PCS; 2017-12-06)
DX: K70.31 Alcoholic cirrhosis of liver with ascites (principal); F10.230 Alcohol dependence with withdrawal, uncomplicated; K70.11 Alcoholic hepatitis with ascites; D69.59 Other secondary thrombocytopenia; E46 Unspecified protein-calorie malnutrition; E83.42 Hypomagnesemia; F20.9 Schizophrenia, unspecified; E83.51 Hypocalcemia; J44.9 Chronic obstructive pulmonary disease, unspecified; E05.00 Thyrotoxicosis with diffuse goiter without thyrotoxic crisis or storm; Y90.0 Blood alcohol level of less than 20 mg/100 ml; E87.6 Hypokalemia; Z59.0 Homelessness; F17.210 Nicotine dependence, cigarettes, uncomplicated; B19.20 Unspecified viral hepatitis C without hepatic coma; R26.81 Unsteadiness on feet; Z51.5 Encounter for palliative care; K70.40 Alcoholic hepatic failure without coma; Z86.718 Personal history of other venous thrombosis and embolism; Z66 Do not resuscitate

== ENCOUNTER 2018-01-29 12:06 | Emergency (ER) | payer MEDICAID, OTHER ==
[2018-01-29 12:07] VITALS: BMI 23.7
[2018-01-29 14:51] LABS: HEMOGLOBIN 13.2 g/dL (12.0-18.0); LYMPH # 0.9 K/uL (1.0-4.3); MONO # 0.8 K/uL (0.0-0.8)
[2018-01-29 15:02] LABS: BASO % 0.6 % (0.0-2.0); EOS % 0.6 % (0.0-4.0); LYMPH % 13.4 % (20.0-40.0); MEAN CORPUSCULAR HEMOGLOBIN 34.7 pg (27.0-31.0); MEAN CORPUSCULAR HGB CONC 35.3 g/dL (33.0-37.0); MEAN PLATELET VOLUME 7.6 fL (7.2-11.7); MONO % 12.2 % (0.0-10.0); NEUT # 4.7 K/uL (1.8-7.0); NEUT % 73.2 % (50.0-75.0); NRBC % 0.4 % (0.0-2.0); RBC 3.79 Mil/uL (4.40-5.90); RED CELL DISTRIBUTION WIDTH 13.7 % (11.5-14.5); WHITE BLOOD COUNT 6.4 K/uL (4.8-10.8)
[2018-01-29 15:03] LABS: MEAN CELL VOLUME 98.4 fL (80.0-94.0)
[2018-01-29 15:09] LABS: SQUAMOUS EPITHIAL < 1 /hpf (0-5); URINE BACTERIA RARE (<OCC); URINE BILIRUBIN NEGATIVE (NEGATIVE); URINE BLOOD NEGATIVE (NEGATIVE); URINE CLARITY Clear (Clear); URINE COLOR Amber (YELLOW); URINE GLUCOSE (UA) NORMAL (Normal); URINE LEUKOCYTE ESTERASE TRACE Leu/uL (Negative); URINE PROTEIN NEGATIVE (NEGATIVE)
[2018-01-29 15:13] LABS: ALB/GLOB RATIO 0.5 (1.0-2.1); ALBUMIN 2.3 g/dL (3.5-5.0); ALT/SGPT 31 U/L (21-72); AST/SGOT 97 U/L (17-59); BILIRUBIN,DIRECT 4.7 mg/dL (0.0-0.4); BLOOD UREA NITROGEN 6 mg/dL (9-20); CALCIUM 7.7 mg/dl (8.6-10.4); GAMMA GLUTAMYL TRANSPEPTIDASE 64 U/L (8-78); GFR AFRICAN-AMERICAN > 60; GFR NON-AFRICAN AMERICAN > 60; INR 1.5; LIPASE 428 U/L (23-300); PROTHROMBIN TIME 17.6 SECONDS (9.7-12.2)
[2018-01-29 15:23] LABS: BARBITURATES, UR NEGATIVE (NEGATIVE); BENZODIAZEPINES, UR NEGATIVE (NEGATIVE); OPIATES, UR NEGATIVE (NEGATIVE); PHENCYCLIDINE, UR NEGATIVE (NEGATIVE)
[2018-01-29] MEDS ORDERED: Potassium Chloride 20 mEq/15 ml LIQ UD PO STA (15:54)
[2018-01-29] MEDS ORDERED: Magnesium Sulfate 1 gm in D5W 1 GM/100 ML BAG IVPB STA (15:54)
[2018-01-29] MEDS ORDERED: Magnesium Sulfate 1 gm in D5W 1 GM/100 ML BAG IVPB ONE (16:01)
[2018-01-29] MEDS ORDERED: Potassium Chloride 20 mEq/15 ml LIQ UD ONE (16:02)
[2018-01-29] MEDS ORDERED: Potassium Chloride 20 mEq ER Tab PO STA (16:59)
--- NOTE | 2018-01-29 16:59 | C.PDOC ---
Time Seen by Provider: 01/29/18 13:40 Chief Complaint (Nursing): Abdominal Pain History Per: Patient Onset/Duration Of Symptoms: Days, Waxing/Waning Current Symptoms Are (Timing): Still Present Severity: Mild Location Of Pain/Discomfort: Diffuse Quality Of Discomfort: Unable To Describe Additional History Per: Prior Records Past Medical History Reviewed: Historical Data, Nursing Documentation, Vital Signs Vital Signs: Last Vital Signs Temp 97.9 F 01/29/18 15:08 Pulse 94 H 01/29/18 15:08 Resp 16 01/29/18 15:08 BP 87/54 L 01/29/18 15:08 Pulse Ox 95 01/29/18 16:59 - Medical History PMH: Arthritis, COPD, Depression, Gastritis, Graves' Disease, Pancreatitis, Pneumonia, Schizophrenia, Chronic Pain (b/l leg) Surgical History: No Surg Hx - [facility] Procedures DETOXIFICATION SERVICES FOR SUBSTANCE ABUSE TREATMENT (11/30/17) DRAINAGE OF PERITONEAL CAVITY, PERCUTANEOUS APPROACH (11/30/17) GROUP TOBACCO ROLLER FOR SUBSTANCE ABUSE TREATMENT, PSYCHOEDUCATION (07/31/17) GROUP TOBACCO ROLLER FOR SUBSTANCE ABUSE, COGNITIVE BEHAVIORAL (07/31/17) INDIV PSYCHOTHERAPY FOR SUBSTANCE ABUSE TREATMENT, SUPPORT (11/30/17) INDIV PSYCHOTHERAPY FOR SUBSTANCE ABUSE, COGNITIV BEHAVIORAL (11/30/17) INDIV PSYCHOTHERAPY FOR SUBSTANCE ABUSE, PSYCHOEDUCATION (11/30/17) INSERTION OF ENDOTRACHEAL AIRWAY INTO TRACHEA, VIA OPENING (02/21/17) INTRODUCTION OF SERUM/TOX/VACCINE INTO MUSCLE, PERC APPROACH (01/10/17) RESPIRATORY VENTILATION, 24-96 CONSECUTIVE HOURS (02/21/17) Family History: States: Unknown Family Hx - Social History Hx Tobacco Use: Yes Hx Alcohol Use: Yes 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, PCP,) - Immunization History Hx Tetanus Toxoid Vaccination: No Hx Influenza Vaccination: No Hx Pneumococcal Vaccination: No Review Of Systems Constitutional: Negative for: Fever Cardiovascular: Negative for: Chest Pain Respiratory: Negative for: Shortness of Breath Gastrointestinal: Negative for: Hematemesis Genitourinary: Negative for: Dysuria Musculoskeletal: Negative for: Neck Pain Skin: Positive for: Jaundice Neurological: Negative for: Weakness, Numbness, Seizures Physical Exam - Physical Exam Appears: Non-toxic, No Acute Distress, Chronically Ill Skin: Warm, Dry, Jaundice Head: Atraumatic, Normacephalic Eye(s): bilateral: PERRL, EOMI Neck: Normal ROM, Supple Cardiovascular: Rhythm Regular Respiratory: Normal Breath Sounds, No Accessory Muscle Use Gastrointestinal/Abdominal: Soft, No Tenderness, Ascites Extremity: Normal ROM, No Pedal Edema Neurological/Psych: Oriented x3, Normal Speech, Normal Cognition, Normal Motor, Normal Sensation ED Course And Treatment - Laboratory Results Result Diagrams: 01/29/18 14:43 01/29/18 14:43 Interpretation Of Abnormal: Hypokalemia. Hypomagnesemia. O2 Sat by Pulse Oximetry: 95 Pulse Ox Interpretation: Normal Progress Note: Pt refused EKG. He is clinically sober and is capable of making his own medical decisions. He states that he wants to leave right now and is not willing to stay in the hospital any longer. He insists on leaving AMA even after I explained to him that his electrolytes are low and that he can go into a fatal heart rhythm and . Against Medical Advice - AMA Patient Left Against Medical Advice: The patient declines admission to the hospital and wishes to leave the Emergency Department. This action is against my medical advice. This decision was made with informed refusal. The patient was told that admission to the hospital is necessary. Explanation of the reasons why were discussed. The risks of leaving were explained to the patient and include, but are not limited to, worsening of known or currently unknown conditions, permanent disability and from undiagnosed or untreated conditions. The patient has the capacity to make this informed decision and understands my explanation of the current medical problem and risks of leaving. The patient voluntarily accepts these risks and signed an AMA form documenting our conversation. The patient was given the opportunity to ask questions and reconsider. The patient was encouraged to return to the Emergency Department at any time for further care. Disposition Counseled Patient/Family Regarding: Studies Performed, Diagnosis, Need For Followup, Rx Given, Smoking Cessation - Disposition Referrals: [facility] [Outside] [facility] [Outside] Disposition: HOME/ ROUTINE Disposition Time: 17:08 Condition: GUARDED Additional Instructions: Follow up with your doctor or in the clinic as soon as possible. Return to the ER if you change your mind, develop worsening of symptoms or if you have any other concerns. Prescriptions: Potassium Chloride 20 meq PO BID #30 tablet.er Instructions: Low Magnesium Level (DC), Hypokalemia (DC), Leaving Against Medical Advice - Clinical Impression Clinical Impression: Hypokalemia, Hypomagnesemia, Liver cirrhosis, Left against medical advice
[2018-01-29] MEDS ORDERED: Potassium Chloride 20 mEq ER Tab PO ONE (17:10)
[2018-01-29 17:34] VITALS: BP 94/58; PULSE 110; RESP 18; TEMP 97.8; O2SAT 97
== END 2018-01-29 17:39 | disposition left against medical advice (07) ==
LOC: C.ER 12:06
DX: E87.6 Hypokalemia (principal); E83.42 Hypomagnesemia; K74.60 Unspecified cirrhosis of liver
CPT/HCPCS: 80053; 80320; 80324; 80345; 80346; 80349; 80353; 80358; 80361; 81001; 82140; 82248; 82948; 82977; 83690; 83735; 83992; 85025; 85610; 85730; 96365; 96375; 99285; C9113; J3475